=== PATIENT | male | born 1935 | race Caucasian/White ===

== ENCOUNTER 2017-05-31 10:39 | Emergency (ER) | payer MEDICARE, BC ==
--- OUTSIDE RECORDS SUMMARY | 2017-05-31 11:08 | XMS REPORT | Summary of Care ---
:1935 Author Organization [facility] Address [address] [place] [address] [address] [place] [address] Care Team Providers Name Role Phone [place] Primary Care Physician Encounter Date(s): 12/07/16 - 12/07/16 [facility] [address] [place] [address] [address] [place] [address]- Discharge Diagnosis: Upper abdominal pain Discharge Diagnosis: Bloating Discharge Disposition: Discharged to Home or Self Care Attending Physician: Grupo Knott DO Referring Physician: Grupo Knott DO Vital Signs Most recent to oldest [Reference Range]: 1 Peripheral Pulse Rate [60-100 bpm] 82 bpm (12/07/16 4:00 PM) Blood Pressure [90-130/60-90 mmHg] 132/80mmHg *HI* (12/07/16 4:00 PM) Mean Arterial Pressure, Cuff 97 mmHg (12/07/16 4:00 PM) Height/Length Measured 183 cm (12/07/16 4:00 PM) Weight Dosing 159 kg (12/07/16 4:00 PM) Weight Measured 159 kg (12/07/16 4:00 PM) BSA Measured 2.71 m2 (12/07/16 4:00 PM) Body Mass Index Measured 47.48 kg/m2 (12/07/16 4:00 PM) Problem List Condition Effective Dates Status Health Status Informant Altered mental status(Confirmed) 05/01/14 Active Arthritis(Confirmed) Active Atrial fibrillation(Confirmed) Active Balance impairment(Confirmed) Active Benign hypertension(Confirmed) Active BPH(Confirmed) 1993 Active Chronic constipation(Confirmed) Active COPD(Confirmed) Active CVA - Cerebrovascular Active accident(Confirmed) Degenerative arthritis(Confirmed) Active Long-Term Use Meds NEC(Confirmed) Active Edema(Confirmed) Active Gout(Confirmed) Active Hydrocele(Confirmed) Active Hyperlipidemia NEC/NOS(Confirmed) Active Impaired mobility(Confirmed) Active acute infections(Confirmed) Active Mixed hyperlipidemia(Confirmed) Active Diabetic neuropathy(Confirmed) Active Obesity NOS(Confirmed) Active Obstructive sleep apnea(Confirmed) Active pacemaker(Confirmed) Active Diabetes mellitus type II(Confirmed) Active Weakness - general(Confirmed) Active Allergies, Adverse Reactions, Alerts No Known Allergies Medications acetaminophen 500 mg, Oral, q6hr interval, 0 Refill(s) Start Date: 07/03/14 Status: Orderedallopurinol 300 mg oral tablet 1 tab(s), Oral, Daily, 0 Refill(s) Start Date: 07/03/14 Status: OrderedAltace 5 mg oral capsule 1 cap(s), Oral, Daily, 0 Refill(s) Start Date: 04/25/14 Stop Date: 07/03/14 Status: DiscontinuedAmitiza 24 mcg oral capsule 1 cap(s), Oral, HS, # 60 cap(s), 0 Refill(s) Start Date: 07/03/14 Status: Orderedamitriptyline 25 mg, Oral, BID, 0 Refill(s), Start Date: 09/05/14 11:10:00 CDT Start Date: 09/05/14 Status: Orderedamitriptyline 25 mg oral tablet See Instructions, take 1 - 2 Tablet (25MG) by oral route every day, 0 Refill(s) Start Date: 04/25/14 Stop Date: 07/03/14 Status: Discontinuedamitriptyline 50 mg oral tablet 1 tab(s), Oral, HS, # 30 tab(s), 0 Refill(s) Start Date: 07/03/14 Stop Date: 09/05/14 Status: DiscontinuedamLODIPine 5 mg oral tablet 1 tab(s), Oral, Daily, 0 Refill(s) Start Date: 04/25/14 Status: OrderedAugmentin 875 mg-125 mg oral tablet Oral, BID, 0 Refill(s) Start Date: 07/11/14 Stop Date: 07/23/14 Status: DiscontinuedAugmentin 875 mg-125 mg oral tablet 1 tab(s), Oral, q12hr, X 10 days, # 20 tab(s), 0 Refill(s), Start Date: 10:45:00 CDT, Pharmacy: [facility] Start Date: 08/15/14 Stop Date: 09/12/14 Status: CompletedAugmentin 875 mg-125 mg oral tablet 1 tab(s), Oral, q12hr, # 40 tab(s), 1 Refill(s), Start Date: 11/06/14 15:12:37 [employer], Pharmacy: [place] [facility] [id number] Start Date: 11/06/14 Stop Date: 12/18/14 Status: DiscontinuedAugmentin 875 mg-125 mg oral tablet 1 tab(s), Oral, BID, # 20 tab(s), 0 Refill(s), Start Date: 08/29/14 12:01:14 CDT , Pharmacy: [facility] [id number] Start Date: 08/29/14 Stop Date: 09/05/14 Status: CompletedAugmentin 875 mg-125 mg oral tablet 1 tab(s), Oral, q12hr, # 40 tab(s), 1 Refill(s), Start Date: 09/12/14 11:21:10 [employer], Pharmacy: [facility] [id number] Start Date: 09/12/14 Stop Date: 10/24/14 Status: CompletedAugmentin 875 mg-125 mg oral tablet 1 tab(s), Oral, BID, # 20 tab(s), 0 Refill(s), Start Date: 08/01/14 11:00:00 CDT , Pharmacy: [facility] [id number] Start Date: 08/01/14 Stop Date: 08/29/14 Status: CompletedAugmentin 875 mg-125 mg oral tablet 1 tab(s), Oral, q12hr, # 40 tab(s), 1 Refill(s), Start Date: 10/24/14 10:07:35 [employer], Pharmacy: [facility] [id number] Start Date: 10/24/14 Stop Date: 11/06/14 Status: CompletedAugmentin 875 mg-125 mg oral tablet 1 tab(s), Oral, BID, # 20 tab(s), 0 Refill(s), Pharmacy: [facility] Start Date: 07/23/14 Stop Date: 08/01/14 Status: CompletedBactrim 1 tab(s), Oral, BID, 0 Refill(s), Start Date: 04/16/15 7:43:00 CDT Start Date: 04/16/15 Stop Date: 05/27/15 Status: CompletedBactrim DS 800 mg-160 mg oral tablet 1 tab(s), Oral, HS, # 30 tab(s), 0 Refill(s), Start Date: 12/07/16 16:06:00 [employer] Start Date: 12/07/16 Status: OrderedBenefiber Plus Calcium oral powder for reconstitution See Instructions, Benefiber Plus Calcium 3 gram-300 mg/8.8 gram Oral Powder, 0 Refill(s) Start Date: 04/25/14 Status: OrderedBentyl 10 mg oral capsule 1 cap(s), Oral, TID, 30 to 60 minutes before meals, # 90 cap(s), 0 Refill(s), Start Date: 09/13/15 15:47:00 [employer], Pharmacy: [id number] Start Date: 09/13/15 Stop Date: 12/07/16 Status: DiscontinuedBentyl 10 mg oral capsule 1 cap(s), Oral, TID, 30 to 60 minutes before meals, # 90 cap(s), 0 Refill(s), Start Date: 09/13/15 15:41:00 [employer] Start Date: 09/13/15 Stop Date: 12/07/16 Status: DiscontinuedCentrum Silver oral tablet 1 tab(s), Oral, Daily, 0 Refill(s) Start Date: 04/25/14 Status: Orderedciprofloxacin 500 mg oral tablet 1 tab(s), Oral, q12hr, X 14 days, # 28 tab(s), 1 Refill(s), Start Date: 11:58:53 CDT, Pharmacy: [id number] Start Date: 01/14/15 Stop Date: 02/08/15 Status: Completedciprofloxacin 500 mg oral tablet 1 tab(s), Oral, q12hr, X 14 days, # 28 tab(s), 1 Refill(s), Start Date: 11:38:00 [employer], Pharmacy: [id number] Start Date: 12/18/14 Stop Date: 01/14/15 Status: Completedciprofloxacin 500 mg oral tablet 1 tab(s), Oral, q12hr, X 14 days, # 28 tab(s), 1 Refill(s), Start Date: 15:05:18 CDT, Pharmacy: [id number] Start Date: 03/06/15 Stop Date: 04/08/15 Status: Completedciprofloxacin 500 mg oral tablet 1 tab(s), Oral, q12hr, X 14 days, # 28 tab(s), 1 Refill(s), Start Date: 11:22:00 CDT, Pharmacy: [id number] Start Date: 02/08/15 Stop Date: 03/06/15 Status: Completedciprofloxacin 500 mg oral tablet 1 tab(s), Oral, q12hr, # 28 tab(s), 1 Refill(s), Start Date: 04/08/15 14:25:42 CDT, Pharmacy: [id number] Start Date: 04/08/15 Stop Date: 04/15/15 Status: CompletedCortaid See Instructions, 1% topical spray, 0 Refill(s) Start Date: 04/25/14 Status: OrderedDepakene 250 mg oral capsule 1 cap(s), Oral, HS, 0 Refill(s) Start Date: 04/25/14 Stop Date: 07/03/14 Status: DiscontinuedDME - [employer] See Instructions, Diagnosis Code: Length of Need: , # 1 EA, 0 Refill(s), 08/15/14 10:47:00 CDT, other reason (Rx), Supply Start Date: 08/15/14 Status: Ordereddoxazosin 8 mg oral tablet 1 tab(s), Oral, Daily, 0 Refill(s) Start Date: 04/25/14 Status: Ordereddoxycycline hyclate 100 mg oral capsule 1 cap(s), Oral, BID, 0 Refill(s) Start Date: 04/25/14 Stop Date: 07/03/14 Status: DiscontinuedDulcolax Laxative 10 mg rectal suppository 1 supp, [place], Daily, PRN constipation, 0 Refill(s) Start Date: 07/11/14 Stop Date: 09/05/14 Status: DiscontinuedDulcolax Laxative 5 mg oral delayed release tablet 2 tab(s), Oral, Daily, 0 Refill(s) Start Date: 07/11/14 Stop Date: 09/05/14 Status: DiscontinuedEcotrin 325 mg oral delayed release tablet 1 tab(s), Oral, Daily, 0 Refill(s) Start Date: 04/25/14 Status: Orderedergocalciferol 50,000 intl units (1.25 mg) oral capsule Oral, qWeek, 0 Refill(s) Start Date: 07/11/14 Stop Date: 09/05/14 Status: Discontinuedfinasteride 5 mg oral tablet 1 tab(s), Oral, HS, 0 Refill(s) Start Date: 04/25/14 Stop Date: 07/03/14 Status: DiscontinuedFish Oil 1000 mg oral capsule cap(s), 0 Refill(s) Start Date: 04/25/14 Stop Date: 07/03/14 Status: Discontinuedfurosemide 20 mg oral tablet 1 tab(s), Oral, Daily, 0 Refill(s) Start Date: 04/25/14 Stop Date: 07/03/14 Status: Discontinuedfurosemide 40 mg oral tablet 2 tab(s), Oral, Daily, # 30 tab(s), 0 Refill(s) Start Date: 07/03/14 Status: Orderedfurosemide 40 mg oral tablet 1 tab(s), Oral, Daily, 0 Refill(s) Start Date: 04/25/14 Stop Date: 07/03/14 Status: Discontinuedhaloperidol 2 mg oral tablet 1 tab(s), Oral, TID, PRN as needed for agitation, # 30 tab(s), 0 Refill(s), other reason (Rx) Start Date: 07/11/14 Stop Date: 09/05/14 Status: CompletedHumaLOG 100 units/mL subcutaneous solution See Instructions, 20 units in the am, 25 units lunch, 10 units evening, 0 Refill (s) Start Date: 04/25/14 Stop Date: 07/03/14 Status: DiscontinuedHumaLOG 100 units/mL subcutaneous solution See Instructions, inject 30-50 units three times daily with meals, 0 Refill(s) Start Date: 04/25/14 Stop Date: 07/03/14 Status: DiscontinuedHumaLOG Mix 50/50 KwikPen 30 units=, Subcutaneous, TIDAC, Hold for BG<140, 0 Refill(s) Start Date: 07/03/14 Status: Orderedhydrocortisone 0 Refill(s) Start Date: 04/25/14 Stop Date: 07/03/14 Status: DiscontinuedHydrocortisone-Aloe 1% topical cream 1 ad, Topical, q12hr interval, PRN rash, 0 Refill(s) Start Date: 07/03/14 Status: Orderedinsulin syringes (disposable) 1 mL insulin syringes (disposable) 1 mL, 0 Refill(s) Start Date: 04/25/14 Status: OrderedKlor-Con 20 mEq oral powder for reconstitution EA, Oral, Daily, 0 Refill(s) Start Date: 04/25/14 Stop Date: 07/03/14 Status: DiscontinuedLantus 100 units/mL subcutaneous solution See Instructions, inject 30 unit by subcutaneous route 2 x daily, 0 Refill(s) Start Date: 04/25/14 Stop Date: 07/03/14 Status: DiscontinuedLantus 100 units/mL subcutaneous solution 30 units, Subcutaneous, BID, 0 Refill(s) Start Date: 07/03/14 Status: OrderedLantus 100 units/mL subcutaneous solution 25 units, Subcutaneous, BID, # 10 mL, 0 Refill(s) Start Date: 07/03/14 Stop Date: 07/03/14 Status: DiscontinuedLipitor 40 mg oral tablet 1 tab(s), Oral, Daily, 0 Refill(s) Start Date: 04/25/14 Status: Orderedlosartan-hydrochlorothiazide 100 mg-12.5 mg oral tablet 1 tab(s), Oral, Daily, 0 Refill(s) Start Date: 04/25/14 Stop Date: 07/11/14 Status: DiscontinuedMelatonin Oral, HS, 0 Refill(s) Start Date: 07/03/14 Stop Date: 07/03/14 Status: DiscontinuedMelatonin 3 mg oral tablet 1 tab(s), Oral, HS, PRN for insomnia, # 60 tab(s), 0 Refill(s) Start Date: 07/03/14 Stop Date: 09/05/14 Status: DiscontinuedMilk of Magnesia 30 mL, Oral, Daily, PRN constipation, 0 Refill(s) Start Date: 07/11/14 Stop Date: 09/05/14 Status: DiscontinuedMiraLax 17 gm, Oral, Daily, dissolve in water or juice, 0 Refill(s) Start Date: 04/25/14 Status: Orderedmometasone 0.1% topical ointment 1 da, Topical, BID, 0 Refill(s), Start Date: 04/16/15 7:43:00 CDT Start Date: 04/16/15 Status: Orderedmupirocin 2% topical ointment 1 ad, Topical, Daily, 0 Refill(s), Start Date: 04/16/15 7:44:00 CDT Start Date: 04/16/15 Status: OrderedNexIUM 40 mg oral delayed release capsule 1 cap(s), Oral, Daily, # 30 cap(s), 6 Refill(s), Start Date: 09/21/14 13:54:00 [employer], Pharmacy: [facility] Start Date: 09/21/14 Status: OrderedNiferex 150 mg, Oral, BIDMEALS, 0 Refill(s) Start Date: 07/11/14 Stop Date: 09/05/14 Status: Discontinuedomega-3 polyunsaturated fatty acids ethyl esters 1000 mg oral capsule 1 cap(s), Oral, Daily, 0 Refill(s) Start Date: 07/03/14 Status: OrderedOne Touch Ultra Test Strips One Touch Ultra Test Strips, monitor glucose readings 4-5 times daily, 0 Refill( s) Start Date: 04/25/14 Status: OrderedPepcid 20 mg oral tablet 1 tab(s), Oral, Daily, 0 Refill(s) Start Date: 04/25/14 Stop Date: 09/05/14 Status: Discontinuedpotassium chloride 10 mEq oral tablet, extended release 2 tab(s), Oral, Daily, with food, 0 Refill(s) Start Date: 04/25/14 Stop Date: 07/03/14 Status: DiscontinuedSantyl 250 units/g topical ointment See Instructions, clean affected area before application. apply small thin layer to wound every other day starting 08/16/14, # 30 gm, 0 Refill(s), Pharmacy : [id number] Start Date: 08/15/14 Status: OrderedSenna-gen 8.6 mg oral tablet 2 tab(s), Oral, BID, PRN for constipation, 0 Refill(s) Start Date: 04/25/14 Stop Date: 07/03/14 Status: DiscontinuedSenokot S 1 tab(s), Oral, HS, every other night, 0 Refill(s), Start Date: 07/11/14 9:47: 00 CDT Start Date: 07/11/14 Status: OrderedSEROquel 25 mg oral tablet See Instructions, 25mg in the morning and 50mg at bedtime, 0 Refill(s) Start Date: 04/25/14 Stop Date: 07/03/14 Status: DiscontinuedSilvadene 1% topical cream 1 ad, Topical, Daily, # 85 gm, 0 Refill(s), Start Date: 01/14/15 12:00:00 CDT, Pharmacy: [id number] Start Date: 01/14/15 Stop Date: 02/19/15 Status: CompletedSilvadene 1% topical cream 1 ad, Topical, Daily, # 85 gm, 1 Refill(s), Start Date: 02/19/15 11:56:19 CDT, Pharmacy: [id number] Start Date: 02/19/15 Status: OrderedtraZODone 100 mg oral tablet 1 tab(s), Oral, HS, 0 Refill(s) Start Date: 04/25/14 Stop Date: 07/03/14 Status: DiscontinuedTums 500 mg oral tablet, chewable 4 tab(s), Chewed, q4hr, PRN as needed for indigestion, TAKES FOR FEELING BLOATED , 0 Refill(s) Start Date: 07/03/14 Status: OrderedTylenol 325 mg, Oral, take 1 tablet (325MG) by oral route once in am and once in pm, 0 Refill(s) Start Date: 04/25/14 Stop Date: 07/03/14 Status: DiscontinuedTylenol PM 3 tab(s), Oral, HS, 0 Refill(s), Start Date: 09/05/14 11:17:00 CDT Start Date: 09/05/14 Status: OrderedTylenol PM See Instructions, Extra Strength 25 mg-500 mg Tab Take 2 po at hs, 0 Refill(s ) Start Date: 04/25/14 Stop Date: 07/03/14 Status: Discontinuedvalproic acid 250 mg oral capsule 1 cap(s), Oral, HS, 0 Refill(s) Start Date: 04/25/14 Stop Date: 07/03/14 Status: Discontinuedwarfarin 5 mg oral tablet 1 tab(s), Oral, BID, 0 Refill(s) Start Date: 04/25/14 Stop Date: 07/03/14 Status: Discontinued Results No data available for this section Immunizations Given and Recorded Vaccine Date Status Refusal Reason tetanus/diphth/pertuss (Tdap) adult/adol 04/01/10 Recorded influenza virus vaccine, inactivated 08/06/11 Recorded pneumococcal 23-polyvalent vaccine 10/24/03 Recorded Procedures Procedure Date Related Diagnosis Body Site Breath Test Bacteria Lactulose1 09/06/15 Esophagogastroduodenoscopy2 09/10/14 Irrigation And Drainage Ankle3 07/03/14 ORIF Ankle (Right, Ankle R)4 07/03/14 Hallux rigidus, left 03/17/13 Left great toe cheilectomy 2012 Colonoscopy 2010 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
--- OUTSIDE RECORDS SUMMARY | 2017-05-31 11:08 | XMS REPORT | Summary of Care ---
:1935 Author Organization [facility] Address [address] [place] [address] [address] [place] [address] Care Team Providers Name Role Phone Rufus Lake Primary Care Physician Encounter Date(s): 01/08/17 - 01/08/17 [facility] [address] [place] [address] [address] [place] [address]- Discharge Disposition: 01 Discharged to Home or Self Care Attending Physician: Grupo Knott DO Referring Physician: Grupo Knott DO Vital Signs Most recent to oldest [Reference Range]: 1 Weight Dosing 165.7 kg (01/08/17 1:57 PM) Weight Measured 165.7 kg (01/08/17 1:57 PM) Problem List Condition Effective Dates Status [...] by oral route every day, 0 Refill(s) Special Instructions: take 1 - 2 Tablet (25MG) by oral route every day Start Date: 04/25/14 Stop Date: 07/03/14 Status: [...] 0 Refill(s), Start Date: 10:45:00 CDT, Pharmacy: [facility] Start Date: 08/15/14 Stop Date: 09/12/14 Status: CompletedAugmentin 875 mg-125 mg oral tablet 1 tab(s), Oral, q12hr, # 40 tab(s), 1 Refill(s), Start Date: 11/06/14 15:12:37 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, 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: [facility] Start Date: 11/06/14 Stop Date: 12/18/14 Status: DiscontinuedAugmentin 875 mg-125 mg oral tablet 1 tab(s), Oral, BID, # 20 tab(s), 0 Refill(s), Start Date: 08/29/14 12:01:14 CDT , Pharmacy: [facility]97 Start Date: 08/29/14 Stop Date: 09/05/14 Status: CompletedAugmentin 875 mg-125 mg oral tablet 1 tab(s), Oral, q12hr, # 40 tab(s), 1 Refill(s), Start Date: 09/12/14 11:21:10 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, 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: [place] [address] Start Date: 09/12/14 Stop Date: 10/24/14 Status: CompletedAugmentin 875 mg-125 mg oral tablet 1 tab(s), Oral, BID, # 20 tab(s), 0 Refill(s), Start Date: 08/01/14 11:00:00 CDT , Pharmacy: [place] [address] Start Date: 08/01/14 Stop Date: 08/29/14 Status: CompletedAugmentin 875 mg-125 mg oral tablet 1 tab(s), Oral, q12hr, # 40 tab(s), 1 Refill(s), Start Date: 10/24/14 10:07:35 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, 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: [place] [address] Start Date: 10/24/14 Stop Date: 11/06/14 Status: CompletedAugmentin 875 mg-125 mg oral tablet 1 tab(s), Oral, BID, # 20 tab(s), 0 Refill(s), Pharmacy: [facility] Start Date: 07/23/14 Stop Date: 08/01/14 Status: CompletedBactrim 1 tab(s), Oral, BID, 0 Refill(s), Start Date: 04/16/15 7:43:00 CDT Start Date: 04/16/15 Stop Date: 05/27/15 Status: CompletedBactrim DS 800 mg-160 mg oral tablet 1 tab(s), Oral, HS, # 30 tab(s), 0 Refill(s), Start Date: 12/07/16 16:06:00 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 Start Date: 12/07/16 Status: OrderedBenefiber Plus Calcium oral powder for reconstitution See Instructions, Benefiber Plus Calcium 3 gram-300 mg/8.8 gram Oral Powder, 0 Refill(s) Special Instructions: Benefiber Plus Calcium 3 gram-300 mg/8.8 gram Oral Powder Start Date: 04/25/14 Status: OrderedBentyl 10 mg oral capsule 1 cap(s), Oral, TID, 30 to 60 minutes before meals, # 90 cap(s), 0 Refill(s), Start Date: 09/13/15 15:47:00 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, Pharmacy: [place] [address] Special Instructions: 30 to 60 minutes before meals Start Date: 09/13/15 Stop Date: 12/07/16 Status: DiscontinuedBentyl 10 mg oral capsule 1 cap(s), Oral, TID, 30 to 60 minutes before meals, # 90 cap(s), 0 Refill(s), Start Date: 09/13/15 15:41:00 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 Special Instructions: 30 to 60 minutes before meals Start Date: 09/13/15 Stop Date: 12/07/16 Status: DiscontinuedCentrum Silver oral tablet 1 tab(s), Oral, Daily, 0 Refill(s) Start Date: 04/25/14 Status: Orderedciprofloxacin 500 mg oral tablet 1 tab(s), Oral, q12hr, X 14 days, # 28 tab(s), 1 Refill(s), Start Date: 11:58:53 CDT, Pharmacy: [facility] Start Date: 01/14/15 Stop Date: 02/08/15 Status: Completedciprofloxacin 500 mg oral tablet 1 tab(s), Oral, q12hr, X 14 days, # 28 tab(s), 1 Refill(s), Start Date: 11:38:00 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, 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: [facility] Start Date: 12/18/14 Stop Date: 01/14/15 Status: Completedciprofloxacin 500 mg oral tablet 1 tab(s), Oral, q12hr, X 14 days, # 28 tab(s), 1 Refill(s), Start Date: 15:05:18 CDT, Pharmacy: [facility] Start Date: 03/06/15 Stop Date: 04/08/15 Status: Completedciprofloxacin 500 mg oral tablet 1 tab(s), Oral, q12hr, X 14 days, # 28 tab(s), 1 Refill(s), Start Date: 11:22:00 CDT, Pharmacy: [facility] Start Date: 02/08/15 Stop Date: 03/06/15 Status: Completedciprofloxacin 500 mg oral tablet 1 tab(s), Oral, q12hr, # 28 tab(s), 1 Refill(s), Start Date: 04/08/15 14:25:42 CDT, Pharmacy: [facility] Start Date: 04/08/15 Stop Date: 04/15/15 Status: CompletedCortaid See Instructions, 1% topical spray, 0 Refill(s) Special Instructions: 1% topical spray Start Date: 04/25/14 Status: OrderedDepakene 250 mg oral capsule 1 cap(s), Oral, HS, 0 Refill(s) Start Date: 04/25/14 Stop Date: 07/03/14 Status: DiscontinuedDME - [employer] See Instructions, Diagnosis Code: Length of Need: , # 1 EA, 0 Refill(s), 08/15/14 10:47:00 CDT, other reason (Rx), Supply Special Instructions: Diagnosis Code: Length of Need: Start Date: 08/15/14 Status: Ordereddoxazosin 8 mg oral tablet 1 tab(s), Oral, Daily, 0 Refill(s) Start Date: 04/25/14 Status: Ordereddoxycycline hyclate 100 mg oral capsule 1 cap(s), Oral, BID, 0 Refill(s) Start Date: 04/25/14 Stop Date: 07/03/14 Status: DiscontinuedDulcolax Laxative 10 mg rectal suppository 1 supp, DC, Daily, PRN constipation, 0 Refill(s) Start Date: [...] lunch, 10 units evening, 0 Refill (s) Special Instructions: 20 units in the am, 25 units lunch, 10 units evening Start Date: 04/25/14 Stop Date: 07/03/14 Status: DiscontinuedHumaLOG 100 units/mL subcutaneous solution See Instructions, inject 30-50 units three times daily with meals, 0 Refill(s) Special Instructions: inject 30-50 units three times daily with meals Start Date: 04/25/14 Stop Date: 07/03/14 Status: DiscontinuedHumaLOG Mix 50/50 KwikPen 30 units=, Subcutaneous, TIDAC, Hold for BG<140, 0 Refill(s) Special Instructions: Hold for BG<140 Start Date: 07/03/14 Status: Orderedhydrocortisone 0 Refill(s) [...] subcutaneous route 2 x daily, 0 Refill(s) Special Instructions: inject 30 unit by subcutaneous route 2 x daily Start Date: 04/25/14 Stop Date: 07/03/14 Status: [...] dissolve in water or juice, 0 Refill(s) Special Instructions: dissolve in water or juice Start Date: 04/25/14 Status: Orderedmometasone 0.1% topical ointment 1 ad, Topical, BID, 0 Refill(s), Start Date: 04/16/15 7:43:00 CDT Start Date: 04/16/15 Status: Orderedmupirocin 2% topical ointment 1 ad, Topical, Daily, 0 Refill(s), Start Date: 04/16/15 7:44:00 CDT Start Date: 04/16/15 Status: OrderedNexIUM 40 mg oral delayed release capsule 1 cap(s), Oral, Daily, # 30 cap(s), 6 Refill(s), Start Date: 09/21/14 13:54:00 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, Pharmacy: [facility] Start Date: 09/21/14 Status: OrderedNiferex 150 mg, Oral, BIDMEALS, 0 Refill(s) Start Date: 07/11/14 Stop Date: 09/05/14 Status: Discontinuedomega-3 polyunsaturated fatty acids ethyl esters 1000 mg oral capsule 1 cap(s), Oral, Daily, 0 Refill(s) Start Date: 07/03/14 Status: OrderedOne Touch Ultra Test Strips One Touch Ultra Test Strips, monitor glucose readings 4-5 times daily, 0 Refill( s) Special Instructions: monitor glucose readings 4-5 times daily Start Date: 04/25/14 Status: OrderedPepcid 20 mg oral tablet 1 tab(s), Oral, Daily, 0 Refill(s) Start Date: 04/25/14 Stop Date: 09/05/14 Status: Discontinuedpotassium chloride 10 mEq oral tablet, extended release 2 tab(s), Oral, Daily, with food, 0 Refill(s) Special Instructions: with food Start Date: 04/25/14 Stop Date: 07/03/14 Status: DiscontinuedSantyl 250 units/g topical ointment See Instructions, clean affected area before application. apply small thin layer to wound every other day starting 08/16/14, # 30 gm, 0 Refill(s), Pharmacy : [facility] Special Instructions: clean affected area before application. apply small thin layer to wound every other day starting 08/16/14 Start Date: 08/15/14 Status: OrderedSenna-gen 8.6 mg oral tablet 2 tab(s), Oral, BID, PRN for constipation, 0 Refill(s) Start Date: 04/25/14 Stop Date: 07/03/14 Status: DiscontinuedSenokot S 1 tab(s), Oral, HS, every other night, 0 Refill(s), Start Date: 07/11/14 9:47: 00 CDT Special Instructions: every other night Start Date: 07/11/14 Status: OrderedSEROquel 25 mg oral tablet See Instructions, 25mg in the morning and 50mg at bedtime, 0 Refill(s) Special Instructions: 25mg in the morning and 50mg at bedtime Start Date: 04/25/14 Stop Date: 07/03/14 Status: DiscontinuedSilvadene 1% topical cream 1 ad, Topical, Daily, # 85 gm, 0 Refill(s), Start Date: 01/14/15 12:00:00 CDT, Pharmacy: [facility] Start Date: 01/14/15 Stop Date: 02/19/15 Status: CompletedSilvadene 1% topical cream 1 ad, Topical, Daily, # 85 gm, 1 Refill(s), Start Date: 02/19/15 11:56:19 CDT, Pharmacy: [facility] Start Date: 02/19/15 Status: OrderedtraZODone 100 mg oral tablet 1 tab(s), Oral, HS, 0 Refill(s) Start Date: 04/25/14 Stop Date: 07/03/14 Status: DiscontinuedTums 500 mg oral tablet, chewable 4 tab(s), Chewed, q4hr, PRN as needed for indigestion, TAKES FOR FEELING BLOATED , 0 Refill(s) Special Instructions: TAKES FOR FEELING BLOATED Start Date: 07/03/14 Status: OrderedTylenol 325 mg, Oral, take 1 tablet (325MG) by oral route once in am and once in pm, 0 Refill(s) Special Instructions: take 1 tablet (325MG) by oral route once in am and once in pm Start Date: 04/25/14 Stop Date: 07/03/14 Status: DiscontinuedTylenol PM 3 tab(s), Oral, HS, 0 Refill(s), Start Date: 09/05/14 11:17:00 CDT Start Date: 09/05/14 Status: OrderedTylenol PM See Instructions, Extra Strength 25 mg-500 mg Tab Take 2 po at hs, 0 Refill(s ) Special Instructions: Extra Strength 25 mg-500 mg Tab Take 2 po at hs Start Date: 04/25/14 Stop Date: 07/03/14 Status: Discontinuedvalproic acid 250 mg oral capsule 1 cap(s), Oral, HS, 0 Refill(s) Start Date: 04/25/14 Stop Date: 07/03/14 Status: Discontinuedwarfarin 5 mg oral tablet 1 tab(s), Oral, BID, 0 Refill(s) Start Date: 04/25/14 Stop Date: 07/03/14 Status: Discontinued Results No data available for this section Immunizations Vaccine Date Refusal Reason tetanus/diphth/pertuss (Tdap) adult/adol 04/01/10 influenza virus vaccine, inactivated 08/06/11 pneumococcal 23-polyvalent vaccine 10/24/03 Procedures Procedure Date Related Diagnosis Body Site Breath Test Bacteria Lactulose1 09/06/15 Esophagogastroduodenoscopy2 09/10/14 Irrigation And Drainage Ankle3 07/03/14 ORIF Ankle (Right, Ankle R)4 07/03/14 Hallux rigidus, left 03/17/13 Left great toe cheilectomy 2012 Colonoscopy 2011 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
--- OUTSIDE RECORDS SUMMARY | 2017-05-31 11:09 | XMS REPORT | Summary of Care ---
:1935 Author Organization [facility] Address [address] [place] [id number]- Care Team Providers Name Role Phone Rufus Lake Primary Care Physician Encounter Date(s): 12/11/16 - 12/11/[address] [address]- [facility] Discharge Disposition: 01 Discharged to Home or Self Care Attending Physician: Grupo Knott DO Admitting Physician: Grupo Knott DO Vital Signs No data available for this section Problem List Condition Effective Dates Status Health [...] 0 Refill(s), Start Date: 10:45:00 CDT, Pharmacy: [facility] Start Date: 08/15/14 Stop Date: 09/12/14 Status: CompletedAugmentin 875 mg-125 mg oral tablet 1 tab(s), Oral, q12hr, # 40 tab(s), 1 Refill(s), Start Date: 11/06/14 15:12:37 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, Pharmacy: [facility] Start Date: 11/06/14 Stop Date: 12/18/14 Status: DiscontinuedAugmentin 875 mg-125 mg oral tablet 1 tab(s), Oral, BID, # 20 tab(s), 0 Refill(s), Start Date: 08/29/14 12:01:14 CDT , Pharmacy: [facility] Start Date: 08/29/14 Stop Date: 09/05/14 Status: CompletedAugmentin 875 mg-125 mg oral tablet 1 tab(s), Oral, q12hr, # 40 tab(s), 1 Refill(s), Start Date: 09/12/14 11:21:10 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, Pharmacy: [place] [address] Start Date: 09/12/14 Stop Date: 10/24/14 Status: CompletedAugmentin 875 mg-125 mg oral tablet 1 tab(s), Oral, BID, # 20 tab(s), 0 Refill(s), Start Date: 08/01/14 11:00:00 CDT , Pharmacy: [place] [id number] Start Date: 08/01/14 Stop Date: 08/29/14 Status: CompletedAugmentin 875 mg-125 mg oral tablet 1 tab(s), Oral, q12hr, # 40 tab(s), 1 Refill(s), Start Date: 10/24/14 10:07:35 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, Pharmacy: [place] [id number] Start Date: 10/24/14 Stop Date: 11/06/14 Status: CompletedAugmentin 875 mg-125 mg oral tablet 1 tab(s), Oral, BID, # 20 tab(s), 0 Refill(s), Pharmacy: [facility] Start Date: 07/23/14 Stop Date: 08/01/14 Status: CompletedBactrim 1 tab(s), Oral, BID, 0 Refill(s), Start Date: 04/16/15 7:43:00 CDT Start Date: 04/16/15 Stop Date: 05/27/15 Status: CompletedBactrim DS 800 mg-160 mg oral tablet 1 tab(s), Oral, HS, # 30 tab(s), 0 Refill(s), Start Date: 12/07/16 16:06:00 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 Start Date: 12/07/16 Status: OrderedBenefiber Plus Calcium oral powder for reconstitution See Instructions, Benefiber Plus Calcium 3 gram-300 mg/8.8 gram Oral Powder, 0 Refill(s) Special Instructions: Benefiber Plus Calcium 3 gram-300 mg/8.8 gram Oral Powder Start Date: 04/25/14 Status: OrderedBentyl 10 mg oral capsule 1 cap(s), Oral, TID, 30 to 60 minutes before meals, # 90 cap(s), 0 Refill(s), Start Date: 09/13/15 15:47:00 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, Pharmacy: [facility] Special Instructions: 30 to 60 minutes before meals Start Date: 09/13/15 Stop Date: 12/07/16 Status: DiscontinuedBentyl 10 mg oral capsule 1 cap(s), Oral, TID, 30 to 60 minutes before meals, # 90 cap(s), 0 Refill(s), Start Date: 09/13/15 15:41:00 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 Special Instructions: 30 to 60 minutes before meals Start Date: 09/13/15 Stop Date: 12/07/16 Status: DiscontinuedCentrum Silver oral tablet 1 tab(s), Oral, Daily, 0 Refill(s) Start Date: 04/25/14 Status: Orderedciprofloxacin 500 mg oral tablet 1 tab(s), Oral, q12hr, X 14 days, # 28 tab(s), 1 Refill(s), Start Date: 11:58:53 CDT, Pharmacy: [facility] Start Date: 01/14/15 Stop Date: 02/08/15 Status: Completedciprofloxacin 500 mg oral tablet 1 tab(s), Oral, q12hr, X 14 days, # 28 tab(s), 1 Refill(s), Start Date: 11:38:00 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, Pharmacy: [facility] Start Date: 12/18/14 Stop Date: 01/14/15 Status: Completedciprofloxacin 500 mg oral tablet 1 tab(s), Oral, q12hr, X 14 days, # 28 tab(s), 1 Refill(s), Start Date: 15:05:18 CDT, Pharmacy: [facility] Start Date: 03/06/15 Stop Date: 04/08/15 Status: Completedciprofloxacin 500 mg oral tablet 1 tab(s), Oral, q12hr, X 14 days, # 28 tab(s), 1 Refill(s), Start Date: 11:22:00 CDT, Pharmacy: [facility] Start Date: 02/08/15 Stop Date: 03/06/15 Status: Completedciprofloxacin 500 mg oral tablet 1 tab(s), Oral, q12hr, # 28 tab(s), 1 Refill(s), Start Date: 04/08/15 14:25:42 CDT, Pharmacy: [facility] Start Date: 04/08/15 Stop Date: [...] Laxative 10 mg rectal suppository 1 supp, MS, Daily, PRN constipation, 0 Refill(s) Start Date: [...] cap(s), 6 Refill(s), Start Date: 09/21/14 13:54:00 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, Pharmacy: [facility] Start Date: 09/21/14 Status: OrderedNiferex 150 mg, [...] # 30 gm, 0 Refill(s), Pharmacy : [facility] Special Instructions: clean affected area [...] Refill(s), Start Date: 01/14/15 12:00:00 CDT, Pharmacy: [facility] Start Date: 01/14/15 Stop Date: 02/19/15 Status: CompletedSilvadene 1% topical cream 1 ad, Topical, Daily, # 85 gm, 1 Refill(s), Start Date: 02/19/15 11:56:19 CDT, Pharmacy: [facility] Start Date: 02/19/15 Status: OrderedtraZODone [...] 2012 Colonoscopy 2011 Accidental amputation of 3 fingers-marlyn 195 (right)5 Appendectomy Cardiac pacemaker implant Cataract extraction6 Removal of testicle 1auto-populated from documented surgical [id number] from documented surgical [id number] from documented surgical [id number] from documented surgical case53 fingers left [id number] Social History No data available for this section Assessment and Plan No data available for this section
--- OUTSIDE RECORDS SUMMARY | 2017-05-31 11:09 | XMS REPORT | Summary of Care ---
:1935 Author Organization [facility] Address [address] [place] [address] [address] [place] [address] Care Team Providers Name Role Phone Rufus Lake Primary Care Physician Encounter Date(s): 02/02/17 - 02/02/17 [facility] [address] [place] [address] [address] [place] [address]- Discharge Diagnosis: Bloating Discharge Disposition: Discharged to Home or Self Care Attending Physician: Grupo Knott DO Referring Physician: Grupo Knott DO Vital Signs Most recent to oldest [Reference Range]: 1 Peripheral Pulse Rate [60-100 bpm] 86 bpm (02/02/17 2:18 PM) Blood Pressure [90-130/60-90 mmHg] 116/64mmHg (02/02/17 2:18 PM) Mean Arterial Pressure, Cuff 81 mmHg (02/02/17 2:18 PM) Most recent to oldest [Reference Range]: 1 Height/Length Measured 183 cm (02/02/17 2:18 PM) Height/Length Estimated 183 cm (02/02/17 2:18 PM) Weight Estimated 175.0 kg (02/02/17 2:18 PM) Weight Dosing 175.0 kg (02/02/17 2:18 PM) Weight Measured 175.0 kg (02/02/17 2:18 PM) BSA Measured 2.82 m2 (02/02/17 2:18 PM) BSA Estimated 2.98 m2 (02/02/17 2:18 PM) Body Mass Index Measured 52.26 kg/m2 (02/02/17 2:18 PM) Body Mass Index Estimated 52.26 kg/m2 (02/02/17 2:18 PM) Problem List Condition Effective Dates Status [...] q6hr interval, 0 Refill(s) Start Date: 07/03/14 Stop Date: 02/02/17 Status: Completedallopurinol 300 mg oral tablet 1 tab(s), Oral, [...] Date: 09/05/14 11:10:00 CDT Start Date: 09/05/14 Stop Date: 02/02/17 Status: Completedamitriptyline 25 mg oral tablet 1 tab(s), Oral, TID, # 90 tab(s), 0 Refill(s), Start Date: 02/02/17 14:24:00 CDT Start Date: 02/02/17 Status: Orderedamitriptyline 25 mg oral tablet See [...] 0 Refill(s), Start Date: 10:45:00 CDT, Pharmacy: [facility] [id number] Start Date: 08/15/14 Stop Date: 09/12/14 Status: CompletedAugmentin 875 mg-125 mg oral tablet 1 tab(s), Oral, q12hr, # 40 tab(s), 1 Refill(s), Start Date: 11/06/14 15:12:37 MEDIA SERVICES DIRECTOR, Pharmacy: [facility] [id number] Start Date: 11/06/14 Stop Date: 12/18/14 Status: DiscontinuedAugmentin 875 mg-125 mg oral tablet 1 tab(s), Oral, BID, # 20 tab(s), 0 Refill(s), Start Date: 08/29/14 12:01:14 CDT , Pharmacy: [facility] Start Date: 08/29/14 Stop Date: 09/05/14 Status: CompletedAugmentin 875 mg-125 mg oral tablet 1 tab(s), Oral, q12hr, # 40 tab(s), 1 Refill(s), Start Date: 09/12/14 11:21:10 MEDIA SERVICES DIRECTOR, Pharmacy: [facility] Start Date: 09/12/14 Stop Date: 10/24/14 Status: CompletedAugmentin 875 mg-125 mg oral tablet 1 tab(s), Oral, BID, # 20 tab(s), 0 Refill(s), Start Date: 08/01/14 11:00:00 CDT , Pharmacy: [facility] Start Date: 08/01/14 Stop Date: 08/29/14 Status: CompletedAugmentin 875 mg-125 mg oral tablet 1 tab(s), Oral, q12hr, # 40 tab(s), 1 Refill(s), Start Date: 10/24/14 10:07:35 MEDIA SERVICES DIRECTOR, Pharmacy: [facility] 797 Start Date: 10/24/14 Stop Date: 11/06/14 Status: CompletedAugmentin 875 mg-125 mg oral tablet 1 tab(s), Oral, BID, # 20 tab(s), 0 Refill(s), Pharmacy: [facility] Start Date: 07/23/14 Stop Date: 08/01/14 Status: CompletedBactrim 1 tab(s), Oral, BID, 0 Refill(s), Start Date: 04/16/15 7:43:00 CDT Start Date: 04/16/15 Stop Date: 05/27/15 Status: CompletedBactrim DS 800 mg-160 mg oral tablet 1 tab(s), Oral, HS, # 30 tab(s), 0 Refill(s), Start Date: 12/07/16 16:06:00 MEDIA SERVICES DIRECTOR Start Date: 12/07/16 Status: OrderedBenefiber Plus Calcium oral powder for reconstitution See Instructions, Benefiber Plus Calcium 3 gram-300 mg/8.8 gram Oral Powder, 0 Refill(s) Special Instructions: Benefiber Plus Calcium 3 gram-300 mg/8.8 gram Oral Powder Start Date: 04/25/14 Status: OrderedBentyl 10 mg oral capsule 1 cap(s), Oral, TID, 30 to 60 minutes before meals, # 90 cap(s), 0 Refill(s), Start Date: 09/13/15 15:47:00 MEDIA SERVICES DIRECTOR, Pharmacy: [facility] Special Instructions: 30 to 60 minutes before meals Start Date: 09/13/15 Stop Date: 12/07/16 Status: DiscontinuedBentyl 10 mg oral capsule 1 cap(s), Oral, TID, 30 to 60 minutes before meals, # 90 cap(s), 0 Refill(s), Start Date: 09/13/15 15:41:00 MEDIA SERVICES DIRECTOR Special Instructions: 30 to 60 minutes before meals Start Date: 09/13/15 Stop Date: 12/07/16 Status: DiscontinuedCentrum Silver oral tablet 1 tab(s), Oral, Daily, 0 Refill(s) Start Date: 04/25/14 Status: Orderedciprofloxacin 500 mg oral tablet 1 tab(s), Oral, q12hr, X 14 days, # 28 tab(s), 1 Refill(s), Start Date: 11:58:53 CDT, Pharmacy: [facility] [id number] Start Date: 01/14/15 Stop Date: 02/08/15 Status: Completedciprofloxacin 500 mg oral tablet 1 tab(s), Oral, q12hr, X 14 days, # 28 tab(s), 1 Refill(s), Start Date: 11:38:00 MEDIA SERVICES DIRECTOR, Pharmacy: [facility] [id number] Start Date: 12/18/14 Stop Date: 01/14/15 Status: Completedciprofloxacin 500 mg oral tablet 1 tab(s), Oral, q12hr, X 14 days, # 28 tab(s), 1 Refill(s), Start Date: 15:05:18 CDT, Pharmacy: [facility] [id number] Start Date: 03/06/15 Stop Date: 04/08/15 Status: Completedciprofloxacin 500 mg oral tablet 1 tab(s), Oral, q12hr, X 14 days, # 28 tab(s), 1 Refill(s), Start Date: 11:22:00 CDT, Pharmacy: [facility] Start Date: 02/08/15 Stop Date: 03/06/15 Status: Completedciprofloxacin 500 mg oral tablet 1 tab(s), Oral, q12hr, # 28 tab(s), 1 Refill(s), Start Date: 04/08/15 14:25:42 CDT, Pharmacy: [facility] [id number] Start Date: 04/08/15 Stop Date: 04/15/15 Status: [...] Laxative 10 mg rectal suppository 1 supp, [place], Daily, PRN constipation, 0 Refill(s) Start Date: [...] cap(s), 6 Refill(s), Start Date: 09/21/14 13:54:00 [facility], Pharmacy: [facility] Start Date: 09/21/14 Status: OrderedNiferex [...] # 30 gm, 0 Refill(s), Pharmacy : [facility] Special Instructions: clean affected area [...] Refill(s), Start Date: 01/14/15 12:00:00 CDT, Pharmacy: [facility] Start Date: 01/14/15 Stop Date: 02/19/15 Status: CompletedSilvadene 1% topical cream 1 ad, Topical, Daily, # 85 gm, 1 Refill(s), Start Date: 02/19/15 11:56:19 CDT, Pharmacy: [facility] Start Date: 02/19/15 Status: OrderedtraZODone 100 mg oral tablet 1 tab(s), Oral, HS, 0 Refill(s) Start Date: 04/25/14 Stop Date: 07/03/14 Status: DiscontinuedTums 500 mg oral tablet, chewable 4 tab(s), Chewed, q4hr, PRN as needed for indigestion, TAKES FOR FEELING BLOATED , 0 Refill(s) Special Instructions: TAKES FOR FEELING BLOATED Start Date: 07/03/14 Status: OrderedTylenol 2 tab(s), Oral, q6hr interval, 600 mg, 0 Refill(s), Start Date: 02/02/17 14:22: 00 CDT Special Instructions: 600 mg Start Date: 02/02/17 Stop Date: 03/04/17 Status: OrderedTylenol 325 mg, Oral, take 1 [...] Colonoscopy 2010 Accidental amputation of 3 fingers-marlyn 195 (right)5 Appendectomy Cardiac pacemaker implant Cataract extraction6 Removal of testicle 1auto-populated from documented surgical [id number] from documented surgical [id number] from documented surgical [id number] from documented surgical case53 fingers left [id number] Social History No data available for this section Assessment and Plan No data available for this section
--- OUTSIDE RECORDS SUMMARY | 2017-05-31 11:09 | XMS REPORT | Summary of Care ---
:1935 Author Organization [facility] Address [address] [place] [address] [address] [place] [address] Care Team Providers Name Role Phone Rufus Lake Primary Care Physician Encounter Date(s): 12/18/16 - 12/18/16 [facility] [address] [place] [address] [address] [place] [address]- Discharge Disposition: 01 Discharged to Home or Self Care Attending Physician: PAULINA Augustine Referring Physician: Grupo Knott DO Vital Signs Most recent to oldest [Reference Range]: 1 Peripheral Pulse Rate [60-100 bpm] 91 bpm (12/18/16 11:10 AM) Blood Pressure [90-130/60-90 mmHg] 112/65mmHg (12/18/16 11:10 AM) Mean Arterial Pressure, Cuff 81 mmHg (12/18/16 11:10 AM) Most recent to oldest [Reference Range]: 1 Height/Length Measured 183 cm (12/18/16 11:10 AM) Height/Length Estimated 183 cm (12/18/16 11:10 AM) Weight Estimated 165.7 kg (12/18/16 11:10 AM) Weight Dosing 165.7 kg (12/18/16 11:10 AM) Weight Measured 165.7 kg (12/18/16 11:10 AM) BSA Measured 2.75 m2 (12/18/16 11:10 AM) BSA Estimated 2.9 m2 (12/18/16 11:10 AM) Body Mass Index Measured 49.48 kg/m2 (12/18/16 11:10 AM) Body Mass Index Estimated 49.48 kg/m2 (12/18/16 11:10 AM) Problem List Condition Effective Dates Status Health Status Informant Altered mental status(Confirmed) 05/01/14 Active Arthritis(Confirmed) Active Atrial fibrillation(Confirmed) Active Balance impairment(Confirmed) Active Benign hypertension(Confirmed) Active BPH(Confirmed) 1994 Active Chronic constipation(Confirmed) Active COPD(Confirmed) Active CVA [...] 0 Refill(s), Start Date: 10:45:00 CDT, Pharmacy: [facility] [id number] Start Date: 08/15/14 Stop Date: 09/12/14 Status: CompletedAugmentin 875 mg-125 mg oral tablet 1 tab(s), Oral, q12hr, # 40 tab(s), 1 Refill(s), Start Date: 11/06/14 15:12:37 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, Pharmacy: [facility] [id number] Start Date: 11/06/14 Stop Date: 12/18/14 Status: DiscontinuedAugmentin 875 mg-125 mg oral tablet 1 tab(s), Oral, BID, # 20 tab(s), 0 Refill(s), Start Date: 08/29/14 12:01:14 CDT , Pharmacy: [facility] [id number] Start Date: 08/29/14 Stop Date: 09/05/14 Status: CompletedAugmentin 875 mg-125 mg oral tablet 1 tab(s), Oral, q12hr, # 40 tab(s), 1 Refill(s), Start Date: 09/12/14 11:21:10 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, Pharmacy: [facility] [id number] Start Date: 09/12/14 Stop Date: 10/24/14 Status: CompletedAugmentin 875 mg-125 mg oral tablet 1 tab(s), Oral, BID, # 20 tab(s), 0 Refill(s), Start Date: 08/01/14 11:00:00 CDT , Pharmacy: [facility] [id number] Start Date: 08/01/14 Stop Date: 08/29/14 Status: CompletedAugmentin 875 mg-125 mg oral tablet 1 tab(s), Oral, q12hr, # 40 tab(s), 1 Refill(s), Start Date: 10/24/14 10:07:35 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, Pharmacy: [facility] Start Date: 10/24/14 Stop Date: 11/06/14 Status: CompletedAugmentin 875 mg-125 mg oral tablet 1 tab(s), Oral, BID, # 20 tab(s), 0 Refill(s), Pharmacy: [facility] Start Date: 07/23/14 Stop Date: 08/01/14 Status: CompletedBactrim 1 tab(s), Oral, BID, 0 Refill(s), Start Date: 04/16/15 7:43:00 CDT Start Date: 04/16/15 Stop Date: 05/27/15 Status: CompletedBactrim DS 800 mg-160 mg oral tablet 1 tab(s), Oral, HS, # 30 tab(s), 0 Refill(s), Start Date: 12/07/16 16:06:00 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 Start Date: 12/07/16 Status: OrderedBenefiber Plus Calcium oral powder for reconstitution See Instructions, Benefiber Plus Calcium 3 gram-300 mg/8.8 gram Oral Powder, 0 Refill(s) Special Instructions: Benefiber Plus Calcium 3 gram-300 mg/8.8 gram Oral Powder Start Date: 04/25/14 Status: OrderedBentyl 10 mg oral capsule 1 cap(s), Oral, TID, 30 to 60 minutes before meals, # 90 cap(s), 0 Refill(s), Start Date: 09/13/15 15:47:00 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, Pharmacy: [facility] Special Instructions: 30 to 60 minutes before meals Start Date: 09/13/15 Stop Date: 12/07/16 Status: DiscontinuedBentyl 10 mg oral capsule 1 cap(s), Oral, TID, 30 to 60 minutes before meals, # 90 cap(s), 0 Refill(s), Start Date: 09/13/15 15:41:00 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 Special Instructions: 30 to 60 minutes before meals Start Date: 09/13/15 Stop Date: 12/07/16 Status: DiscontinuedCentrum Silver oral tablet 1 tab(s), Oral, Daily, 0 Refill(s) Start Date: 04/25/14 Status: Orderedciprofloxacin 500 mg oral tablet 1 tab(s), Oral, q12hr, X 14 days, # 28 tab(s), 1 Refill(s), Start Date: 11:58:53 CDT, Pharmacy: [facility] [id number] Start Date: 01/14/15 Stop Date: 02/08/15 Status: Completedciprofloxacin 500 mg oral tablet 1 tab(s), Oral, q12hr, X 14 days, # 28 tab(s), 1 Refill(s), Start Date: 11:38:00 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, Pharmacy: [facility] [id number] Start Date: 12/18/14 Stop Date: 01/14/15 Status: Completedciprofloxacin 500 mg oral tablet 1 tab(s), Oral, q12hr, X 14 days, # 28 tab(s), 1 Refill(s), Start Date: 15:05:18 CDT, Pharmacy: [facility] [id number] Start Date: 03/06/15 Stop Date: 04/08/15 Status: Completedciprofloxacin 500 mg oral tablet 1 tab(s), Oral, q12hr, X 14 days, # 28 tab(s), 1 Refill(s), Start Date: 11:22:00 CDT, Pharmacy: [facility] [id number] Start Date: 02/08/15 Stop Date: 03/06/15 Status: Completedciprofloxacin 500 mg oral tablet 1 tab(s), Oral, q12hr, # 28 tab(s), 1 Refill(s), Start Date: 04/08/15 14:25:42 CDT, Pharmacy: [facility] [id number] Start Date: 04/08/15 Stop Date: 04/15/15 Status: [...] Laxative 10 mg rectal suppository 1 supp, [place], Daily, PRN constipation, 0 Refill(s) Start Date: [...] cap(s), 6 Refill(s), Start Date: 09/21/14 13:54:00 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, Pharmacy: [facility] Start Date: 09/21/14 Status: OrderedNiferex [...] # 30 gm, 0 Refill(s), Pharmacy : [facility] Special Instructions: clean affected area [...] Refill(s), Start Date: 01/14/15 12:00:00 CDT, Pharmacy: [facility] Start Date: 01/14/15 Stop Date: 02/19/15 Status: CompletedSilvadene 1% topical cream 1 ad, Topical, Daily, # 85 gm, 1 Refill(s), Start Date: 02/19/15 11:56:19 CDT, Pharmacy: [facility] Start Date: 02/19/15 Status: OrderedtraZODone [...] Colonoscopy 2010 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
--- OUTSIDE RECORDS SUMMARY | 2017-05-31 11:09 | XMS REPORT | Summary of Care ---
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, Pharmacy: [facility] Start Date: 11/06/14 Stop Date: 12/18/14 Status: DiscontinuedAugmentin 875 mg-125 mg oral tablet 1 tab(s), Oral, BID, # 20 tab(s), 0 Refill(s), Start Date: 08/29/14 12:01:14 CDT , Pharmacy: [facility] 79 Start Date: 08/29/14 Stop Date: 09/05/14 Status: CompletedAugmentin 875 mg-125 mg oral tablet 1 tab(s), Oral, q12hr, # 40 tab(s), 1 Refill(s), Start Date: 09/12/14 11:21:10 MARKETING WRITER, Pharmacy: [facility] [place] [id number] Start Date: 09/12/14 Stop Date: 10/24/14 Status: CompletedAugmentin 875 mg-125 mg oral tablet 1 tab(s), Oral, BID, # 20 tab(s), 0 Refill(s), Start Date: 08/01/14 11:00:00 CDT , Pharmacy: [facility] [place] [id number] Start Date: 08/01/14 Stop Date: 08/29/14 Status: CompletedAugmentin 875 mg-125 mg oral tablet 1 tab(s), Oral, q12hr, # 40 tab(s), 1 Refill(s), Start Date: 10/24/14 10:07:35 MARKETING WRITER, Pharmacy: [facility] [place] [id number] Start Date: 10/24/14 Stop Date: 11/06/14 Status: CompletedAugmentin 875 mg-125 mg oral tablet 1 tab(s), Oral, BID, # 20 tab(s), 0 Refill(s), Pharmacy: [facility] 1431 Start Date: 07/23/14 Stop Date: 08/01/14 Status: CompletedBactrim 1 tab(s), Oral, BID, 0 Refill(s), Start Date: 04/16/15 7:43:00 CDT Start Date: 04/16/15 Stop Date: 05/27/15 Status: CompletedBactrim DS 800 mg-160 mg oral tablet 1 tab(s), Oral, HS, # 30 tab(s), 0 Refill(s), Start Date: 12/07/16 16:06:00 MARKETING WRITER Start Date: 12/07/16 Status: OrderedBenefiber Plus Calcium oral powder for reconstitution See Instructions, Benefiber Plus Calcium 3 gram-300 mg/8.8 gram Oral Powder, 0 Refill(s) Special Instructions: Benefiber Plus Calcium 3 gram-300 mg/8.8 gram Oral Powder Start Date: 04/25/14 Status: OrderedBentyl 10 mg oral capsule 1 cap(s), Oral, TID, 30 to 60 minutes before meals, # 90 cap(s), 0 Refill(s), Start Date: 09/13/15 15:47:00 MARKETING WRITER, Pharmacy: [facility] [place] [address] Special Instructions: 30 to 60 minutes before meals Start Date: 09/13/15 Stop Date: 12/07/16 Status: DiscontinuedBentyl 10 mg oral capsule 1 cap(s), Oral, TID, 30 to 60 minutes before meals, # 90 cap(s), 0 Refill(s), Start Date: 09/13/15 15:41:00 MARKETING WRITER Special Instructions: 30 to 60 minutes before meals Start Date: 09/13/15 Stop Date: 12/07/16 Status: DiscontinuedCentrum Silver oral tablet 1 tab(s), Oral, Daily, 0 Refill(s) Start Date: 04/25/14 Status: Orderedciprofloxacin 500 mg oral tablet 1 tab(s), Oral, q12hr, X 14 days, # 28 tab(s), 1 Refill(s), Start Date: 11:58:53 CDT, Pharmacy: [facility] Start Date: 01/14/15 Stop Date: 02/08/15 Status: Completedciprofloxacin 500 mg oral tablet 1 tab(s), Oral, q12hr, X 14 days, # 28 tab(s), 1 Refill(s), Start Date: 11:38:00 MARKETING WRITER, Pharmacy: [facility] Start Date: 12/18/14 Stop Date: 01/14/15 Status: Completedciprofloxacin 500 mg oral tablet 1 tab(s), Oral, q12hr, X 14 days, # 28 tab(s), 1 Refill(s), Start Date: 15:05:18 CDT, Pharmacy: [facility] Start Date: 03/06/15 Stop Date: 04/08/15 Status: Completedciprofloxacin 500 mg oral tablet 1 tab(s), Oral, q12hr, X 14 days, # 28 tab(s), 1 Refill(s), Start Date: 11:22:00 CDT, Pharmacy: [facility] Start Date: 02/08/15 Stop Date: 03/06/15 Status: Completedciprofloxacin 500 mg oral tablet 1 tab(s), Oral, q12hr, # 28 tab(s), 1 Refill(s), Start Date: 04/08/15 14:25:42 CDT, Pharmacy: [facility] Start Date: 04/08/15 [...] Laxative 10 mg rectal suppository 1 supp, [place], Daily, PRN constipation, 0 Refill(s) Start Date: [...] cap(s), 6 Refill(s), Start Date: 09/21/14 13:54:00 MARKETING WRITER, Pharmacy: [facility] Start Date: 09/21/14 Status: OrderedNiferex [...] # 30 gm, 0 Refill(s), Pharmacy : [facility] Special Instructions: clean affected area [...] Refill(s), Start Date: 01/14/15 12:00:00 CDT, Pharmacy: [facility] Start Date: 01/14/15 Stop Date: 02/19/15 Status: CompletedSilvadene 1% topical cream 1 ad, Topical, Daily, # 85 gm, 1 Refill(s), Start Date: 02/19/15 11:56:19 CDT, Pharmacy: [facility] Start Date: 02/19/15 Status: [...] rigidus, left 03/17/13 Left great toe cheilectomy 2013 Colonoscopy 2011 Accidental amputation of 3 fingers-cornpicker 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
--- OUTSIDE RECORDS SUMMARY | 2017-05-31 11:09 | XMS REPORT | Summary of Care ---
:1935 Author Organization [facility] Care Team Providers Name Role Phone [place]us [place] Primary Care Physician Encounter Date(s): 02/16/17 - 02/16/17 [place] 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, Pharmacy: [facility] Start Date: 11/06/14 Stop Date: 12/18/14 Status: DiscontinuedAugmentin 875 mg-125 mg oral tablet 1 tab(s), Oral, BID, # 20 tab(s), 0 Refill(s), Start Date: 08/29/14 12:01:14 CDT , Pharmacy: [facility] 797 Start Date: 08/29/14 Stop Date: 09/05/14 Status: CompletedAugmentin 875 mg-125 mg oral tablet 1 tab(s), Oral, q12hr, # 40 tab(s), 1 Refill(s), Start Date: 09/12/14 11:21:10 GAME DEVELOPER, Pharmacy: [place] [id number] Start Date: 09/12/14 Stop Date: 10/24/14 Status: CompletedAugmentin 875 mg-125 mg oral tablet 1 tab(s), Oral, BID, # 20 tab(s), 0 Refill(s), Start Date: 08/01/14 11:00:00 CDT , Pharmacy: [place] [id number] Start Date: 08/01/14 Stop Date: 08/29/14 Status: CompletedAugmentin 875 mg-125 mg oral tablet 1 tab(s), Oral, q12hr, # 40 tab(s), 1 Refill(s), Start Date: 10/24/14 10:07:35 GAME DEVELOPER, Pharmacy: [place] [id number] Start Date: 10/24/14 Stop Date: 11/06/14 Status: CompletedAugmentin 875 mg-125 mg oral tablet 1 tab(s), Oral, BID, # 20 tab(s), 0 Refill(s), Pharmacy: [facility] 143 Start Date: 07/23/14 Stop Date: 08/01/14 Status: CompletedBactrim 1 tab(s), Oral, BID, 0 Refill(s), Start Date: 04/16/15 7:43:00 CDT Start Date: 04/16/15 Stop Date: 05/27/15 Status: CompletedBactrim DS 800 mg-160 mg oral tablet 1 tab(s), Oral, HS, # 30 tab(s), 0 Refill(s), Start Date: 12/07/16 16:06:00 GAME DEVELOPER Start Date: 12/07/16 Status: OrderedBenefiber Plus Calcium oral powder for reconstitution See Instructions, Benefiber Plus Calcium 3 gram-300 mg/8.8 gram Oral Powder, 0 Refill(s) Special Instructions: Benefiber Plus Calcium 3 gram-300 mg/8.8 gram Oral Powder Start Date: 04/25/14 Status: OrderedBentyl 10 mg oral capsule 1 cap(s), Oral, TID, 30 to 60 minutes before meals, # 90 cap(s), 0 Refill(s), Start Date: 09/13/15 15:47:00 GAME DEVELOPER, Pharmacy: [place] [id number] Special Instructions: 30 to 60 minutes before meals Start Date: 09/13/15 Stop Date: 12/07/16 Status: DiscontinuedBentyl 10 mg oral capsule 1 cap(s), Oral, TID, 30 to 60 minutes before meals, # 90 cap(s), 0 Refill(s), Start Date: 09/13/15 15:41:00 GAME DEVELOPER Special Instructions: 30 to 60 minutes before meals Start Date: 09/13/15 Stop Date: 12/07/16 Status: DiscontinuedCentrum Silver oral tablet 1 tab(s), Oral, Daily, 0 Refill(s) Start Date: 04/25/14 Status: Orderedciprofloxacin 500 mg oral tablet 1 tab(s), Oral, q12hr, X 14 days, # 28 tab(s), 1 Refill(s), Start Date: 11:58:53 CDT, Pharmacy: [facility] Start Date: 01/14/15 Stop Date: 02/08/15 Status: Completedciprofloxacin 500 mg oral tablet 1 tab(s), Oral, q12hr, X 14 days, # 28 tab(s), 1 Refill(s), Start Date: 11:38:00 GAME DEVELOPER, Pharmacy: [facility] Start Date: 12/18/14 Stop Date: 01/14/15 Status: Completedciprofloxacin 500 mg oral tablet 1 tab(s), Oral, q12hr, X 14 days, # 28 tab(s), 1 Refill(s), Start Date: 15:05:18 CDT, Pharmacy: [facility] Start Date: 03/06/15 Stop Date: 04/08/15 Status: Completedciprofloxacin 500 mg oral tablet 1 tab(s), Oral, q12hr, X 14 days, # 28 tab(s), 1 Refill(s), Start Date: 11:22:00 CDT, Pharmacy: [facility] Start Date: 02/08/15 Stop Date: 03/06/15 Status: Completedciprofloxacin 500 mg oral tablet 1 tab(s), Oral, q12hr, # 28 tab(s), 1 Refill(s), Start Date: 04/08/15 14:25:42 CDT, Pharmacy: [facility] Start Date: 04/08/15 [...] Laxative 10 mg rectal suppository 1 supp, PA, Daily, PRN constipation, 0 Refill(s) Start Date: [...] cap(s), 6 Refill(s), Start Date: 09/21/14 13:54:00 GAME DEVELOPER, Pharmacy: [email or web address] Start Date: 09/21/14 Status: OrderedNiferex [...] # 30 gm, 0 Refill(s), Pharmacy : [facility] Special Instructions: clean affected [...] Refill(s), Start Date: 01/14/15 12:00:00 CDT, Pharmacy: [facility] Start Date: 01/14/15 Stop Date: 02/19/15 Status: CompletedSilvadene 1% topical cream 1 ad, Topical, Daily, # 85 gm, 1 Refill(s), Start Date: 02/19/15 11:56:19 CDT, Pharmacy: [facility] Start Date: 02/19/15 [...] 2013 Colonoscopy 2011 Accidental amputation of 3 fingers-guanakitopicker 1959 (right)5 Appendectomy Cardiac pacemaker implant Cataract extraction6 Removal of testicle 1auto-populated from documented surgical [id number] from documented surgical [id number] from documented surgical [id number] from documented surgical case53 fingers left [id number] Social History No data available for this section Assessment and Plan No data available for this section
--- OUTSIDE RECORDS SUMMARY | 2017-05-31 11:10 | XMS REPORT | CCD ---
:1935 Author Name SUJATHA DANIEL Address [address] [facility] [place] [address] Care Team Providers Name Role Phone JIM OGDEN Attending Physician Unavailable Allergies Allergy Code Allergy Type Reaction Status No Known Allergies 0 Drug allergy Active Active Medications Medication Code Dose Units Frequency Route Modification Start Date/Time Ecotrin 325MG 031318 325 MILLIGRAMS EVERY MORNING ORAL 11/25/2013 Oral Tablet, 16:04 Enteric Coated Prescription Detail TAKE 325 MILLIGRAMS ORAL EVERY MORNING MiraLAX 17GM/Dose Oral Powder for 757206 1 EACH EVERY MORNING ORAL 16:04 Solution Prescription Detail TAKE 1 EACH ORAL EVERY MORNING Multi Vitamins Oral Tablet 351824 1 EACH EVERY MORNING ORAL 11/25/2013 16:04 Prescription Detail TAKE 1 EACH ORAL EVERY MORNING NEXIUM 0 EVERY MORNING 11/25/2013 16:04 Prescription Detail EVERY MORNING Problems Problem Code Start Date Resolved Date Status Other fluid overload 91752781 11/25/2013 Active Urinary tract infection, site not specified 77906532 11/25/2013 Active Diabetes mellitus without mention of 980638231 Active complication, type II or unspecified type, not stated as uncontrolled Procedures Unknown or Not Available. Results RENAL FUNCTION PANEL - Collect Date/Time: 05/20/2017 09:49 Test Name Code Test Result Test Units Test Ref Range GLUCOSE 37716-5 71 mg/dL L=74 H=106 SODIUM 52607-6 140 mmol/L L=136 H=145 POTASSIUM 07244-0 4.5 mmol/L L=3.5 H=5.1 CHLORIDE 04869-4 100 mmol/L L=98 H=107 CO2 44796-4 39 mmol/L L=21 H=32 BUN 78470-2 21.0 mg/dL L=7.0 H=18.0 CREATININE 67953-5 1.7 mg/dL L=0.8 H=1.3 BUN/CREAT 77858-4 12.4 L=7.6 H=21.2 CALCIUM 73457-4 9.0 mg/dL L=8.6 H=10.1 PHOSPHORUS 21046-3 4.0 mg/dL L=2.5 H=4.9 ALBUMIN 23244-6 3.5 g/dL L=3.4 H=5.0 ANION GAP 63050-0 5.2 mmol/L L=7.0 H=16.0 AGE [birth year] 82 YEARS GFR 70903-1 41.32 ml/min MICROALBUMIN RANDOM - Collect Date/Time: 05/20/2017 09:49 Test Name Code Test Result Test Units Test Ref Range UR CREATININE 47019-5 7.0 mg/dL MICROALBUMIN RANDOM 51090-9 0.4 mg/dL L=0.0 H=2.3 MALB CREAT RATIO 72435-9 57.1 mg/g L=0.0 H=29.0 pro-BRAIN NATRIURETIC PEPTIDE - Collect Date/Time: 05/20/2017 09:49 Test Name Code Test Result Test Units Test Ref Range BNP 217.0 pg/ml L=0.0 H=450 Encounters Encounter Diagnosis Diagnosis Code Start Date Other forms of dyspnea R0609 05/20/2017 Function Status Unknown or Not Available. History of Immunizations Immunization Code Date Novel [id number] 127 11/18/2009 no vaccine administered 998 1935 Plan of Treatment Unknown or Not Available. Social History Smoking Status Code Start Date End Date Never smoker [id number] Vital Signs Unknown or Not Available. Function Status Unknown or Not Available. Goals Unknown or Not Available. ASSESSMENTS Unknown or Not Available. Health Concerns Section Unknown or Not Available.
--- OUTSIDE RECORDS SUMMARY | 2017-05-31 11:10 | XMS REPORT | CCD ---
:1935 Author Name SUJATHA DANIEL Address [address] [facility] Unavailable [place], [place] [id number] Care Team Providers Name Role Phone REY CAGLE Attending Physician Unavailable Vital Signs Unknown or Not Available. Allergies Allergy Code Allergy Type Reaction Status No Known Allergies 0 No known allergies Active Procedures Procedure Code Procedure Type Date GLYCOSYLATED HGB 413526561 SNOMED CT 03/24/2016 History of Immunizations Immunization Code Date Novel [id number] 127 11/18/2009 no vaccine administered 998 1935 Problems Problem Code Start Date Resolved Date Status Other fluid overload 59368600 11/25/2013 Active Urinary tract infection, site not specified 06279449 11/25/2013 Active Diabetes mellitus without mention of 589926852 Active complication, type II or unspecified type, not stated as uncontrolled Results GLYCOSYLATED HGB - Collect Date/Time: 03/24/2016 11:39 Test Name Code Test Result Test Units Test Ref Range HA1c% 4548-4 7.0 % eAG 154 mg/dL RENAL FUNCTION PANEL - Collect Date/Time: 03/24/2016 11:39 Test Name Code Test Result Test Units Test Ref Range GLUCOSE 92 mg/dL L=74 H=106 SODIUM 143 mmol/L L=136 H=145 POTASSIUM 4.5 mmol/L L=3.5 H=5.1 CHLORIDE 103 mmol/L L=98 H=107 CO2 31 mmol/L L=21 H=32 BUN 29.0 mg/dL L=7.0 H=18.0 CREATININE 1.6 mg/dL L=0.8 H=1.3 BUN/CREAT 18.1 L=7.6 H=21.2 CALCIUM 8.7 mg/dL L=8.6 H=10.1 PHOSPHORUS 3.5 mg/dL L=2.5 H=4.9 ALBUMIN 3.7 g/dL L=3.4 H=5.0 ANION GAP 13.3 mmol/L L=7.0 H=16.0 AGE 81 YEARS GFR 44.43 ml/min Active Medications Medication Code Dose Units Frequency Route Modification Start Date/Time Ecotrin 325MG [id number] 325 MILLIGRAMS EVERY ORAL 11/25/2013 Oral Tablet, MORNING 16:04 Enteric Coated Prescription Detail TAKE 325 MILLIGRAMS ORAL EVERY MORNING MiraLAX 17GM/Dose Oral Powder for 742238 1 EACH EVERY MORNING ORAL 16:04 Solution Prescription Detail TAKE 1 EACH ORAL EVERY MORNING Multi Vitamins Oral Tablet 581143 1 EACH EVERY MORNING ORAL 11/25/2013 16:04 Prescription Detail TAKE 1 EACH ORAL EVERY MORNING NEXIUM 0 EVERY MORNING 11/25/2013 16:04 Prescription Detail EVERY MORNING Medications Administered During Visit Unknown or Not Available. Encounters Encounter Diagnosis Diagnosis Code Start Date Diabetes mellitus type 1 62316514 03/24/2016 Social History Smoking Status Code Start Date End Date Never smoker 075913570 Patient Decision Aids Unknown or Not Available. Discharge Instructions You were admitted to [facility] on 03/24/2016 11:24 with a principal diagnosis of Type 1 diabetes mellitus with hyperglycemia You had the following tests done:GLYCOSYLATED HGBRENAL FUNCTION PANEL You were discharged from [facility] on 03/24/2016 11:24 Should you have any questions prior to discharge, please contact a member of your healthcare team. If you have left the hospital and have any questions, please contact your primary care physician. Chief Complaint and Reason For Visit Unknown or Not Available. Function Status Unknown or Not Available. Plan of Care Unknown or Not Available. Referral/Transition of Care Unknown or Not Available.
--- OUTSIDE RECORDS SUMMARY | 2017-05-31 11:10 | XMS REPORT | CCD ---
:1935 Author Name SUJATHA DANIEL Address [address] [facility] Unavailable [place], [place] [phone] Care Team Providers Name Role Phone REY CAGLE Attending Physician Unavailable Vital Signs Unknown or Not Available. Allergies Allergy Code Allergy Type Reaction Status No Known Allergies 0 No known allergies Active Procedures Procedure Code Procedure Type Date LIPID PANEL 35115979 SNOMED CT 09/25/[address] 09/25/2016 GLYCOSYLATED HGB 241451606 SNOMED CT 09/25/2016 History of Immunizations Immunization Code Date Novel [id number] 127 11/18/2009 no vaccine administered 998 1935 Problems Problem Code Start Date Resolved Date Status Other fluid overload 92170308 11/25/2013 Active Urinary tract infection, site not specified 26304449 11/25/2013 Active Diabetes mellitus without mention of 105426009 Active complication, type II or unspecified type, not stated as uncontrolled Results COMPREHENSIVE METABOLIC PANEL - Collect Date/Time: 09/25/2016 12:20 Test Name Code Test Result Test Units Test Ref Range GLUCOSE 46 mg/dL L=74 H=106 SODIUM 142 mmol/L L=136 H=145 POTASSIUM 3.6 mmol/L L=3.5 H=5.1 CHLORIDE 102 mmol/L L=98 H=107 CO2 33 mmol/L L=21 H=32 BUN 31.0 mg/dL L=7.0 H=18.0 CREATININE 1.6 mg/dL L=0.8 H=1.3 BUN/CREAT 19.4 L=7.6 H=21.2 CALCIUM 9.0 mg/dL L=8.6 H=10.1 TOTAL BILI 0.5 mg/dL L=0.2 H=1.0 TOTAL PROTEIN 7.4 g/dL L=6.4 H=8.2 ALBUMIN 3.7 g/dL L=3.4 H=5.0 A/G RATIO 1.0 ALKALINE PHOS 118 IU/L L=50 H=136 AST/SGOT 25 IU/L L=15 H=37 ALT/SGPT 23 IU/L L=12 H=78 ANION GAP 10.9 mmol/L L=7.0 H=16.0 AGE 81 YEARS GFR 44.43 ml/min GLYCOSYLATED HGB - Collect Date/Time: 09/25/2016 12:20 Test Name Code Test Result Test Units Test Ref Range HA1c% 4548-4 7.1 % eAG 157 mg/dL LIPID PANEL - Collect Date/Time: 09/25/2016 12:20 Test Name Code Test Result Test Units Test Ref Range CHOLESTEROL 2093-3 161 mg/dL L=0 H=200 TRIGLYCERIDES 2571-8 180 mg/dL L=0 H=200 HDL 2085-9 38 mg/dL L=40 H=60 LDL 2089-1 87 mg/dL L=0 H=160 CHOL/HDL 9830-1 4.2 L=0.0 H=6.7 TSH - Collect Date/Time: 09/25/2016 12:20 Test Name Code Test Result Test Units Test Ref Range TSH 3016-3 2.285 uIU/ml L=0.360 H=3.740 CBC W/DIFF - Collect Date/Time: 09/25/2016 12:20 Test Name Code Test Result Test Units Test Ref Range WBC 6690-2 11.6 K/uL L=3.2 H=10.0 RBC 789-8 5.18 M/uL L=4.30 H=5.70 HEMOGLOBIN 718-7 15.0 g/dL L=13.6 H=17.1 HEMATOCRIT 45.9 % L=40.0 H=52.0 MCV 88.6 fL L=81.0 H=101 MCH 29.0 PG L=26.0 H=38.0 MCHC 32.7 G/DL L=31.0 H=37.0 RDW-SD 48.7 FL L=37.0 H=54.0 RDW-CV 15.1 % L=11.0 H=16.0 PLATELETS 777-3 192 K/UL L=140 H=380 MPV 11.0 FL L=9.0 H=13.0 %GRAN 58.4 % L=0.0 H=75.0 %LYMPH 30.1 % L=0.0 H=50.0 %MONO 7.1 % L=0.0 H=14.0 %EOS 3.4 % L=0.0 H=6.0 %BASO 0.7 % L=0.0 H=1.0 #GRAN 6.81 K/UL L=1.80 H=7.80 #LYMPH 3.50 K/UL L=0.30 H=4.00 #MONO 0.82 K/UL L=0.00 H=0.70 #EOS 0.39 K/UL L=0.00 H=0.40 #BASO 0.08 K/UL L=0.00 H=0.10 SLIDE REVIEWED? NOT INDICATED N/A MANUAL DIFF NOT INDICATED N/A Active Medications Medication Code Dose Units Frequency Route Modification Start Date/Time Ecotrin 325MG [id number] 325 MILLIGRAMS EVERY ORAL 11/25/2013 Oral Tablet, MORNING 16:04 Enteric Coated Prescription Detail TAKE 325 MILLIGRAMS ORAL EVERY MORNING MiraLAX 17GM/Dose Oral Powder for 813178 1 EACH EVERY MORNING ORAL 16:04 Solution Prescription Detail TAKE 1 EACH ORAL EVERY MORNING Multi Vitamins Oral Tablet 712856 1 EACH EVERY MORNING ORAL 11/25/2013 16:04 Prescription Detail TAKE 1 EACH ORAL EVERY MORNING NEXIUM 0 EVERY MORNING 11/25/2013 16:04 Prescription Detail EVERY MORNING Medications Administered During Visit Unknown or Not Available. Encounters Encounter Diagnosis Diagnosis Code Start Date Hypothyroidism 45461296 09/25/2016 Social History Smoking Status Code Start Date End Date Never smoker 266176038 Patient Decision Aids Unknown or Not Available. Discharge Instructions You were admitted to [facility] on 09/25/2016 11:55 with a principal diagnosis of Hypothyroidism, unspecified You had the following tests done:CBC W/DIFFCOMPREHENSIVE METABOLIC PANELGLYCOSYLATED HGBLIPID PANELTSH You were discharged from [facility] on 09/25/2016 11:55 Should you have any questions prior to [...]
--- OUTSIDE RECORDS SUMMARY | 2017-05-31 11:10 | XMS REPORT | CCD ---
:1935 Author Name SUJATHA DANIEL Address [address] [facility] Unavailable [place], [place] [id number] Care Team Providers Name Role Phone REY CAGLE Attending Physician Unavailable Vital Signs Unknown or Not Available. Allergies Allergy Code Allergy Type Reaction Status No Known Allergies 0 No known allergies Active Procedures Procedure Code Procedure Type Date TSH PLUS 49899157 SNOMED CT 11/27/2015 History of Immunizations Immunization Code Date Novel [id number] 127 11/18/2009 no vaccine administered 998 1935 Problems Problem Code Start Date Resolved Date Status Other fluid overload 26101387 11/25/2013 Active Urinary tract infection, site not specified 72681701 11/25/2013 Active Diabetes mellitus without mention of 808951982 Active complication, type II or unspecified type, not stated as uncontrolled Results TSH PLUS - Collect Date/Time: 11/27/2015 12:04 Test Name Code Test Result Test Units Test Ref Range TSH 3016-3 3.012 uIU/ml L=0.360 H=3.740 Active Medications Medication Code Dose Units Frequency Route Modification Start Date/Time Ecotrin 325MG 61041565006 325 MILLIGRAMS EVERY ORAL 11/25/2013 Oral Tablet, MORNING 16:04 Enteric Coated Prescription Detail TAKE 325 MILLIGRAMS ORAL EVERY MORNING MiraLAX 17GM/Dose Oral Powder for 836849 1 EACH EVERY MORNING ORAL 16:04 Solution Prescription Detail TAKE 1 EACH ORAL EVERY MORNING Multi Vitamins Oral Tablet 534972 1 EACH EVERY MORNING ORAL 11/25/2013 16:04 Prescription Detail TAKE 1 EACH ORAL EVERY MORNING NEXIUM 0 EVERY MORNING 11/25/2013 16:04 Prescription Detail EVERY MORNING Medications Administered During Visit Unknown or Not Available. Encounters Encounter Diagnosis Diagnosis Code Start Date Hypothyroidism 01353961 11/27/2015 Social History Smoking Status Code Start Date End Date Never smoker 603025301 Patient Decision Aids Unknown or Not Available. Discharge Instructions You were admitted to [facility] on 11/27/2015 with a principal diagnosis of Hypothyroidism . You were discharged from [facility] on 11/27/2015. Should you have any questions prior to [...]
--- OUTSIDE RECORDS SUMMARY | 2017-05-31 11:10 | XMS REPORT | CCD ---
:1935 Author Name SUJATHA DANIEL Address [address] [facility] Unavailable [place], [place] [phone] Care Team Providers Name Role Phone REY CAGLE Attending Physician Unavailable Vital Signs Unknown or Not Available. Allergies Allergy Code Allergy Type Reaction Status No Known Allergies 0 No known allergies Active Procedures Procedure Code Procedure Type Date GLYCOSYLATED HGB 535271588 SNOMED CT 03/29/2015 History of Immunizations Immunization Code Date Novel [id number] 127 11/18/2009 no vaccine administered 998 1936 Problems Problem Code Start Date Resolved Date Status Other fluid overload 04457752 11/25/2013 Active Urinary tract infection, site not specified 65061497 11/25/2013 Active Diabetes mellitus without mention of 588909804 Active complication, type II or unspecified type, not stated as uncontrolled Results GLYCOSYLATED HGB - Collect Date/Time: 03/29/2015 12:13 Test Name Code Test Result Test Units Test Ref Range HA1c% 4548-4 7.1 % eAG 157 mg/dL RENAL FUNCTION PANEL - Collect Date/Time: 03/29/2015 12:13 Test Name Code Test Result Test Units Test Ref Range GLUCOSE 89 mg/dL L=74 H=106 SODIUM 141 mmol/L L=136 H=145 POTASSIUM 4.0 mmol/L L=3.5 H=5.1 CHLORIDE 101 mmol/L L=98 H=107 CO2 35 mmol/L L=21 H=32 BUN 27.0 mg/dL L=7.0 H=18.0 CREATININE 1.4 mg/dL L=0.8 H=1.3 BUN/CREAT 19.3 L=7.6 H=21.2 CALCIUM 8.5 mg/dL L=8.6 H=10.1 PHOSPHORUS 4.0 mg/dL L=2.5 H=4.9 ALBUMIN 3.3 g/dL L=3.4 H=5.0 ANION GAP 8.8 mmol/L L=7.0 H=16.0 AGE 80 YEARS GFR 51.96 ml/min HEMOGRAM - Collect Date/Time: 03/29/2015 12:13 Test Name Code Test Result Test Units Test Ref Range WBC 6690-2 11.2 K/uL L=3.2 H=10.0 RBC 789-8 5.04 M/uL L=4.30 H=5.70 HEMOGLOBIN 718-7 13.3 g/dL L=13.6 H=17.1 HEMATOCRIT 41.5 % L=40.0 H=52.0 MCV 82.3 fL L=81.0 H=101 MCH 26.4 PG L=26.0 H=38.0 MCHC 32.0 G/DL L=31.0 H=37.0 PLATELETS 223 K/UL L=140 H=380 RDW-SD 52.3 FL L=37.0 H=54.0 RDW-CV 17.9 % L=11.0 H=16.0 MPV 10.5 FL L=9.0 H=13.0 SLIDE REVIEWED? NOT INDICATED N/A Active Medications Medication Code Dose Units Frequency Route Modification Start Date/Time Ecotrin 325MG 73334366031 325 MILLIGRAMS EVERY ORAL 11/25/2013 Oral Tablet, MORNING 16:04 Enteric Coated MiraLAX 966927 1 EACH EVERY ORAL 11/25/2013 17GM/Dose Oral MORNING 16:04 Powder for Solution Multi Vitamins 466104 1 EACH EVERY ORAL 11/25/2013 Oral Tablet MORNING 16:04 NEXIUM 0 EVERY 11/25/2013 MORNING 16:04 Medications Administered During Visit Unknown or Not Available. 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 Discharge Instructions You were admitted to [facility] on 03/29/2015 with a principal diagnosis of LEG VARICOSITY W INFLAM. You were discharged from [facility] on 03/29/2015. Should you have any questions prior to [...]
--- OUTSIDE RECORDS SUMMARY | 2017-05-31 11:10 | XMS REPORT | Summary of Care ---
:1935 Author Organization [facility] Address [address] [place] [address] Care Team Providers Name Role Phone Rufus Lake Primary Care Physician Encounter Date(s): 03/11/17 - 03/11/17 [facility], [address] [place], [place] [address] Discharge Diagnosis: Abdominal pain Discharge Disposition: Discharged to Home or Self Care Attending Physician: Issac Harrington MD Referring Physician: Grupo Knott DO Vital Signs Most recent to oldest [Reference Range]: 1 Temperature Temporal Artery [36.0-38.0 DegC] 36.5 DegC (03/11/17 3:23 PM) Peripheral Pulse Rate [60-100 bpm] 84 bpm (03/11/17 3:23 PM) Respiratory Rate [12-20 br/min] 20 br/min (03/11/17 3:23 PM) SpO2 [90-100 %] 93 % (03/11/17 3:23 PM) Blood Pressure [90-130/60-90 mmHg] 118/70mmHg (03/11/17 3:23 PM) Mean Arterial Pressure, Cuff 86 mmHg (03/11/17 3:23 PM) Most recent to oldest [Reference Range]: 1 Height/Length Measured 183 cm (03/11/17 3:23 PM) Weight Dosing 175.20 kg1 (03/11/17 3:27 PM) Weight Measured 175.2 kg (03/11/17 3:23 PM) BSA Measured 2.82 m2 (03/11/17 3:23 PM) Body Mass Index Measured 52.32 kg/m2 (03/11/17 3:23 PM) 1Result Comment: This result was because the dosing weight was either not entered or it is>30 days old. This result is based off: Weight Measured March 11, 2017 15:23:00 CDT by Jennifer Momin RN Problem List Condition Effective Dates Status Health [...] 0 Refill(s), Start Date: 10:45:00 CDT, Pharmacy: [place] [facility] [id number] Start Date: 08/15/14 Stop Date: 09/12/14 Status: CompletedAugmentin 875 mg-125 mg oral tablet 1 tab(s), Oral, q12hr, # 40 tab(s), 1 Refill(s), Start Date: 11/06/14 15:12:37 CHARTER REPRESENTATIVE, Pharmacy: [place] [facility] [id number] Start Date: 11/06/14 Stop Date: 12/18/14 Status: DiscontinuedAugmentin 875 mg-125 mg oral tablet 1 tab(s), Oral, BID, # 20 tab(s), 0 Refill(s), Start Date: 08/29/14 12:01:14 CDT , Pharmacy: [facility] Start Date: 08/29/14 Stop Date: 09/05/14 Status: CompletedAugmentin 875 mg-125 mg oral tablet 1 tab(s), Oral, q12hr, # 40 tab(s), 1 Refill(s), Start Date: 09/12/14 11:21:10 CHARTER REPRESENTATIVE, Pharmacy: [facility] Start Date: 09/12/14 Stop Date: 10/24/14 Status: CompletedAugmentin 875 mg-125 mg oral tablet 1 tab(s), Oral, BID, # 20 tab(s), 0 Refill(s), Start Date: 08/01/14 11:00:00 CDT , Pharmacy: [id number] Start Date: 08/01/14 Stop Date: 08/29/14 Status: CompletedAugmentin 875 mg-125 mg oral tablet 1 tab(s), Oral, q12hr, # 40 tab(s), 1 Refill(s), Start Date: 10/24/14 10:07:35 CHARTER REPRESENTATIVE, Pharmacy: [facility] Start Date: 10/24/14 Stop Date: 11/06/14 Status: CompletedAugmentin 875 mg-125 mg oral tablet 1 tab(s), Oral, BID, # 20 tab(s), 0 Refill(s), Pharmacy: [id number] Start Date: 07/23/14 Stop Date: 08/01/14 Status: CompletedBactrim 1 tab(s), Oral, BID, 0 Refill(s), Start Date: 04/16/15 7:43:00 CDT Start Date: 04/16/15 Stop Date: 05/27/15 Status: CompletedBactrim DS 800 mg-160 mg oral tablet 1 tab(s), Oral, HS, # 30 tab(s), 0 Refill(s), Start Date: 12/07/16 16:06:00 CHARTER REPRESENTATIVE Start Date: 12/07/16 Status: OrderedBenefiber Plus Calcium oral powder for reconstitution See Instructions, Benefiber Plus Calcium 3 gram-300 mg/8.8 gram Oral Powder, 0 Refill(s) Special Instructions: Benefiber Plus Calcium 3 gram-300 mg/8.8 gram Oral Powder Start Date: 04/25/14 Status: OrderedBentyl 10 mg oral capsule 1 cap(s), Oral, TID, 30 to 60 minutes before meals, # 90 cap(s), 0 Refill(s), Start Date: 09/13/15 15:47:00 CHARTER REPRESENTATIVE, Pharmacy: [facility] Special Instructions: 30 to 60 minutes before meals Start Date: 09/13/15 Stop Date: 12/07/16 Status: DiscontinuedBentyl 10 mg oral capsule 1 cap(s), Oral, TID, 30 to 60 minutes before meals, # 90 cap(s), 0 Refill(s), Start Date: 09/13/15 15:41:00 CHARTER REPRESENTATIVE Special Instructions: 30 to 60 minutes before meals Start Date: 09/13/15 Stop Date: 12/07/16 Status: DiscontinuedCentrum Silver oral tablet 1 tab(s), Oral, Daily, 0 Refill(s) Start Date: 04/25/14 Status: Orderedciprofloxacin 500 mg oral tablet 1 tab(s), Oral, q12hr, X 14 days, # 28 tab(s), 1 Refill(s), Start Date: 11:58:53 CDT, Pharmacy: [place] [facility] [id number] Start Date: 01/14/15 Stop Date: 02/08/15 Status: Completedciprofloxacin 500 mg oral tablet 1 tab(s), Oral, q12hr, X 14 days, # 28 tab(s), 1 Refill(s), Start Date: 11:38:00 CHARTER REPRESENTATIVE, Pharmacy: [facility] [id number] Start Date: 12/18/14 Stop Date: 01/14/15 Status: Completedciprofloxacin 500 mg oral tablet 1 tab(s), Oral, q12hr, X 14 days, # 28 tab(s), 1 Refill(s), Start Date: 15:05:18 CDT, Pharmacy: [facility] Start Date: 03/06/15 Stop Date: 04/08/15 Status: Completedciprofloxacin 500 mg oral tablet 1 tab(s), Oral, q12hr, X 14 days, # 28 tab(s), 1 Refill(s), Start Date: 11:22:00 CDT, Pharmacy: [facility] Start Date: 02/08/15 Stop Date: 03/06/15 Status: Completedciprofloxacin 500 mg oral tablet 1 tab(s), Oral, q12hr, # 28 tab(s), 1 Refill(s), Start Date: 04/08/15 14:25:42 CDT, Pharmacy: [facility] Start Date: 04/08/15 Stop Date: 04/15/15 Status: [...] Laxative 10 mg rectal suppository 1 supp, CT, Daily, PRN constipation, 0 Refill(s) Start Date: [...] Start Date: 04/16/15 7:44:00 CDT Start Date: 6/9/15 Status: OrderedNexIUM 40 mg oral delayed release capsule 1 cap(s), Oral, Daily, # 30 cap(s), 6 Refill(s), Start Date: 09/21/14 13:54:00 CHARTER REPRESENTATIVE, Pharmacy: [facility] Start Date: 09/21/14 Status: OrderedNiferex [...] # 30 gm, 0 Refill(s), Pharmacy : [facility] Special Instructions: clean affected area before application. 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
--- OUTSIDE RECORDS SUMMARY | 2017-05-31 11:10 | XMS REPORT | Summary of Care ---
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, Pharmacy: [facility] Start Date: 11/06/14 Stop Date: 12/18/14 Status: DiscontinuedAugmentin 875 mg-125 mg oral tablet 1 tab(s), Oral, BID, # 20 tab(s), 0 Refill(s), Start Date: 08/29/14 12:01:14 CDT , Pharmacy: [facility] Start Date: 08/29/14 Stop Date: 09/05/14 Status: CompletedAugmentin 875 mg-125 mg oral tablet 1 tab(s), Oral, q12hr, # 40 tab(s), 1 Refill(s), Start Date: 09/12/14 11:21:10 COMPUTER GRAPHICS ILLUSTRATOR, Pharmacy: [place] [id number] Start Date: 09/12/14 Stop Date: 10/24/14 Status: CompletedAugmentin 875 mg-125 mg oral tablet 1 tab(s), Oral, BID, # 20 tab(s), 0 Refill(s), Start Date: 08/01/14 11:00:00 CDT , Pharmacy: [place] [id number] Start Date: 08/01/14 Stop Date: 08/29/14 Status: CompletedAugmentin 875 mg-125 mg oral tablet 1 tab(s), Oral, q12hr, # 40 tab(s), 1 Refill(s), Start Date: 10/24/14 10:07:35 COMPUTER GRAPHICS ILLUSTRATOR, Pharmacy: [place] [id number] Start Date: 10/24/14 Stop Date: 11/06/14 Status: CompletedAugmentin 875 mg-125 mg oral tablet 1 tab(s), Oral, BID, # 20 tab(s), 0 Refill(s), Pharmacy: [facility]31 Start Date: 07/23/14 Stop Date: 08/01/14 Status: CompletedBactrim 1 tab(s), Oral, BID, 0 Refill(s), Start Date: 04/16/15 7:43:00 CDT Start Date: 04/16/15 Stop Date: 05/27/15 Status: CompletedBactrim DS 800 mg-160 mg oral tablet 1 tab(s), Oral, HS, # 30 tab(s), 0 Refill(s), Start Date: 12/07/16 16:06:00 COMPUTER GRAPHICS ILLUSTRATOR Start Date: 12/07/16 Status: OrderedBenefiber Plus Calcium oral powder for reconstitution See Instructions, Benefiber Plus Calcium 3 gram-300 mg/8.8 gram Oral Powder, 0 Refill(s) Special Instructions: Benefiber Plus Calcium 3 gram-300 mg/8.8 gram Oral Powder Start Date: 04/25/14 Status: OrderedBentyl 10 mg oral capsule 1 cap(s), Oral, TID, 30 to 60 minutes before meals, # 90 cap(s), 0 Refill(s), Start Date: 09/13/15 15:47:00 COMPUTER GRAPHICS ILLUSTRATOR, Pharmacy: [place] [id number] Special Instructions: 30 to 60 minutes before meals Start Date: 09/13/15 Stop Date: 12/07/16 Status: DiscontinuedBentyl 10 mg oral capsule 1 cap(s), Oral, TID, 30 to 60 minutes before meals, # 90 cap(s), 0 Refill(s), Start Date: 09/13/15 15:41:00 COMPUTER GRAPHICS ILLUSTRATOR Special Instructions: 30 to 60 minutes before meals Start Date: 09/13/15 Stop Date: 12/07/16 Status: DiscontinuedCentrum Silver oral tablet 1 tab(s), Oral, Daily, 0 Refill(s) Start Date: 04/25/14 Status: Orderedciprofloxacin 500 mg oral tablet 1 tab(s), Oral, q12hr, X 14 days, # 28 tab(s), 1 Refill(s), Start Date: 11:58:53 CDT, Pharmacy: [facility] Start Date: 01/14/15 Stop Date: 02/08/15 Status: Completedciprofloxacin 500 mg oral tablet 1 tab(s), Oral, q12hr, X 14 days, # 28 tab(s), 1 Refill(s), Start Date: 11:38:00 COMPUTER GRAPHICS ILLUSTRATOR, Pharmacy: [facility] Start Date: 12/18/14 Stop Date: 01/14/15 Status: Completedciprofloxacin 500 mg oral tablet 1 tab(s), Oral, q12hr, X 14 days, # 28 tab(s), 1 Refill(s), Start Date: 15:05:18 CDT, Pharmacy: [facility] Start Date: 03/06/15 Stop Date: 04/08/15 Status: Completedciprofloxacin 500 mg oral tablet 1 tab(s), Oral, q12hr, X 14 days, # 28 tab(s), 1 Refill(s), Start Date: 11:22:00 CDT, Pharmacy: [facility] Start Date: 02/08/15 Stop Date: 03/06/15 Status: Completedciprofloxacin 500 mg oral tablet 1 tab(s), Oral, q12hr, # 28 tab(s), 1 Refill(s), Start Date: 04/08/15 14:25:42 CDT, Pharmacy: [facility] Start Date: 04/08/15 Stop Date: [...] Laxative 10 mg rectal suppository 1 supp, AK, Daily, PRN constipation, 0 Refill(s) Start Date: [...] cap(s), 6 Refill(s), Start Date: 09/21/14 13:54:00 COMPUTER GRAPHICS ILLUSTRATOR, Pharmacy: [facility] Start Date: 09/21/14 Status: OrderedNiferex [...] # 30 gm, 0 Refill(s), Pharmacy : [facility] Special Instructions: clean affected area [...] Refill(s), Start Date: 01/14/15 12:00:00 CDT, Pharmacy: [facility] Start Date: 01/14/15 Stop Date: 02/19/15 Status: CompletedSilvadene 1% topical cream 1 ad, Topical, Daily, # 85 gm, 1 Refill(s), Start Date: 02/19/15 11:56:19 CDT, Pharmacy: [facility] Start Date: 02/19/15 Status: OrderedtraZODone [...] Removal of testicle 1auto-populated from documented surgical [id number] from documented surgical [id number] from documented surgical [id number] from documented surgical case53 fingers left [id number] Social History No data available for this section Assessment and Plan No data available for this section
--- NOTE | 2017-05-31 11:11 | ERNOTE ---
Abdominal HPI - Narrative Date of Service: 05/31/17 - General Chief Complaint: Constipation Time Seen by Provider: 05/31/17 10:58 Source: patient, RN notes reviewed Exam Limitations: no limitations - Immun/Allergies/Home Medications Immunizatons: IMMUNIZATION HX Immunizations Up to Date Yes History of Influenza Vaccine Yes Hx Pneumococcal Vaccination Yes Allergies/Adverse Reactions: Allergies No Known Allergies Allergy (Unverified 07/03/14 11:36) Home Medications: HOME MEDICATIONS Acetaminophen [Tylenol] 500 mg PO Q6H PRN 07/03/14 [Last Taken Unknown] Allopurinol [Zyloprim] 300 mg PO DAILY 07/03/14 [Last Taken Unknown] Amitriptyline HCl [Elavil] 25 mg PO HS 07/03/14 [Last Taken Unknown] Aspirin 325 mg PO DAILY 07/03/14 [Last Taken Unknown] Atorvastatin Calcium [Lipitor] 40 mg PO HS 07/03/14 [Last Taken Unknown] Doxazosin Mesylate [Cardura] 8 mg PO DAILY 07/03/14 [Last Taken Unknown] Esomeprazole Magnesium [Nexium 24Hr] 20 mg PO DAILY 07/03/14 [Last Taken Unknown ] Furosemide [Lasix] 40 mg PO DAILY 07/03/14 [Last Taken Unknown] Insulin Glargine,Hum.rec.anlog [Lantus] 25 unit SQ BID 07/03/14 [Last Taken Unknown] Insulin Lispro [Humalog] 20 unit SQ 07/03/14 [Last Taken Unknown] Losartan/Hydrochlorothiazide [Hyzaar 100-12.5 Tablet] 1 each PO DAILY 07/03/14 [ Last Taken Unknown] Lubiprostone [Amitiza] 24 mcg PO HS 07/03/14 [Last Taken Unknown] Melatonin/Pyridoxine HCl (B6) [Melatonin 1 mg Tablet] 1 each PO HS 07/03/14 [ Last Taken Unknown] Methylcellulose (with Sugar) [Fiber Therapy Powder] 454 gm PO 07/03/14 [Last Taken Unknown] Multivit-Min/FA/Lycopene/Lut [Centrum Silver Tablet] 1 each PO DAILY 07/03/14 [ Last Taken Unknown] [place]-3/Dha/Epa/Fish Oil [Fish Oil] 500 mg PO DAILY 07/03/14 [Last Taken Unknown ] Polyethylene Glycol 3350 [Miralax] 17 gm PO DAILY 07/03/14 [Last Taken Unknown] amLODIPine BESYLATE [Norvasc] 5 mg PO DAILY 07/03/14 [Last Taken Unknown] traMADol HCL 50 mg PO PRN 05/31/17 [Last Taken Unknown] - History of Present Illness Narrative: Javid is an 82-year-old male who presents to the emergency Department from home by private vehicle for constipation for approximately 5 days. He reports that he normally has a bowel movement every day, but has not had one for several days. His states that he had a suppository yesterday. The patient reports that when he tries to go, he only passes small flakes. He reports some occasional abdominal cramping, but denies any nausea or vomiting. He reports that he is also eating normally. Prior Abdominal Problems: Present: similar symptoms Prior Treatment: Absent: recently seen Review of Systems - Review of Systems Constitutional: Absent: recent illness, fever, chills EYE: Present: no symptoms reported ENT: Present: no symptoms reported Respiratory: Present: cough. Absent: shortness of breath Cardiology: Present: edema. Absent: chest pain, syncope Gastrointestinal/Abdominal: Present: constipation. Absent: nausea, vomiting, diarrhea, eating less, drinking less Genitourinary: Present: no symptoms reported Musculoskeletal: Present: no symptoms reported Neurological: Absent: headache, dizziness/light-headedness Endocrine: Present: no symptoms reported Hematologic/Lymphatic: Present: no symptoms reported Psych: Present: no symptoms reported - Patient's Past Medical History Patient History - Medical: Diabetes Type 2 Insulin Dependent, GERD, Obesity Patient History - Cardiac/Respiratory: CHF, Hypertension, Hyperlipidemia Patient History - Cancer: No Hx of Cancer Patient History - Surgical Procedures: Amputation, Appendectomy, Pacemaker Patient History - Other: None - Social History Living Situations: home Abuse History: No History of abuse Psych History: No pertinent hx Smoking Status: Never smoker Have you smoked in the past 12 months: No Do you dip or chew tobacco: No Alcohol Use: none Drug Use: none - Immunizations Immunizations Up to Date: Yes Hx Pneumococcal Vaccination: Yes History of Influenza Vaccine: Yes Physical Exam - Physical Exam General Appearance: Present: wd/wn, alert, no apparent distress, obese - Extreme , morbid Respiratory: Present: no respiratory distress, no accessory muscle use, lungs clear, decreased breath sounds - d/t large body habitus Cardiovascular/Chest: Present: regular rate, rhythm, no murmur Gastrointestinal/Abdominal: Present: normal bowel sounds, nontender, soft, distended - extremely obese. Absent: guarding, rebound, mass Extremity Exam: Present: pedal edema, extremity edema - severe in lower extremities bilaterally Neurological Exam: Present: alert, oriented, normal mood/affect, no motor/ sensory deficits Skin Exam: Present: normal color, warm/dry ED Progress - Vital Signs Patient's Vital Signs:: I have reviewed the patient's vital signs. Vital Signs: Vital Signs 05/31/17 05/31/17 10:43 11:00 Temperature 36.8 C Pulse Rate 79 84 Respiratory 22 H 14 Rate Blood Pressure 140/68 142/66 O2 Sat by Pulse 88 L 92 Oximetry - X-Ray X-Ray #1 X-Ray: abdomen Interpretation: Reviewed by me X-ray Comments: Technique: Supine and left lateral decubitus views of the abdomen obtained. A total of 8 images utilized. Comparison: None. Findings: Mild stool is within the realm of normal variability. There is no bowel obstruction or free air. There are mild degenerative changes in lumbar spine. There are vascular calcifications. IMPRESSION: NO ACUTE ABDOMINAL PATHOLOGY IDENTIFIED. NO SIGNIFICANT RETAINED STOOL. Electronically signed by Moe Chan M.D.. - Progress/Reassessment Chief Complaint: Constipation Progress:: Unchanged Plan - Plan Plan: Xray shows only mild stool retention without obstruction, discussed with patient and that this can be treated at home and does not require enemas or manual disimpaction in the ED. D/C'd home with mag citrate. Departure - Departure Clinical Impression: Constipation, acute Disposition: Home Follow Up Needed Condition: Stable Instructions: Constipation, Adult, [id number] Additional Instructions: Drink entire bottle of magnesium citrate follow by a large glass of water when you get home You can try a Fleets enema also if this does not produce good results Continue your current medications Return to ER or follow up with your doctor if symptoms continue
[2017-05-31] MEDS ORDERED: MAGNESIUM CITRATE 300 ML BTL PO ONE (12:29)
[2017-05-31] MEDS ORDERED: MAGNESIUM CITRATE 300 ML BTL ONE (12:37)
[2017-05-31 12:45] VITALS: BP 135/76
== END 2017-05-31 12:45 | disposition home or self-care (01) ==
LOC: ER 10:39
DX: K59.00 Constipation, unspecified (principal)

== ENCOUNTER 2017-07-16 23:20 | Inpatient (IN) | payer MEDICARE, BC ==
--- NOTE | 2017-07-16 23:28 | ERNOTE ---
Dyspnea - General Presenting Symptoms: shortness of breath, difficulty of breathing Time Seen by Provider: 07/16/17 23:25 Source: patient - Immun/Allergies/Home Medications Immunizations: IMMUNIZATION HX Immunizations Up to Date Yes History of Influenza Vaccine Yes Hx Pneumococcal Vaccination Yes Allergies/Adverse Reactions: Allergies No Known Allergies Allergy (Unverified 07/03/14 11:36) Home Medications: HOME MEDICATIONS Acetaminophen [Tylenol] 500 mg PO Q6H PRN 07/03/14 [Last Taken Unknown] Allopurinol [Zyloprim] 300 mg PO DAILY 07/03/14 [Last Taken Unknown] Amitriptyline HCl [Elavil] 25 mg PO HS 07/03/14 [Last Taken Unknown] Aspirin 325 mg PO DAILY 07/03/14 [Last Taken Unknown] Atorvastatin Calcium [Lipitor] 40 mg PO HS 07/03/14 [Last Taken Unknown] Doxazosin Mesylate [Cardura] 8 mg PO DAILY 07/03/14 [Last Taken Unknown] Esomeprazole Magnesium [Nexium 24Hr] 20 mg PO DAILY 07/03/14 [Last Taken Unknown ] Furosemide [Lasix] 40 mg PO DAILY 07/03/14 [Last Taken Unknown] Insulin Glargine,Hum.rec.anlog [Lantus] 25 unit SQ BID 07/03/14 [Last Taken Unknown] Insulin Lispro [Humalog] 20 unit SQ 07/03/14 [Last Taken Unknown] Losartan/Hydrochlorothiazide [Hyzaar 100-12.5 Tablet] 1 each PO DAILY 07/03/14 [ Last Taken Unknown] Lubiprostone [Amitiza] 24 mcg PO HS 07/03/14 [Last Taken Unknown] Melatonin/Pyridoxine HCl (B6) [Melatonin 1 mg Tablet] 1 each PO HS 07/03/14 [ Last Taken Unknown] Methylcellulose (with Sugar) [Fiber Therapy Powder] 454 gm PO 07/03/14 [Last Taken Unknown] Multivit-Min/FA/Lycopene/Lut [Centrum Silver Tablet] 1 each PO DAILY 07/03/14 [ Last Taken Unknown] [place]-3/Dha/Epa/Fish Oil [Fish Oil] 500 mg PO DAILY 07/03/14 [Last Taken Unknown ] Polyethylene Glycol 3350 [Miralax] 17 gm PO DAILY 07/03/14 [Last Taken Unknown] amLODIPine BESYLATE [Norvasc] 5 mg PO DAILY 07/03/14 [Last Taken Unknown] traMADol HCL 50 mg PO PRN 05/31/17 [Last Taken Unknown] Levofloxacin [Levaquin] 500 mg PO DAILY #7 tablet 07/17/17 [Last Taken Unknown] - History of Present Illness Narrative: This is an 82-year-old gentleman who comes to the emergency department via EMS. Apparently the patient has been having a fever and having shortness of breath along with generalized weakness for the last couple of days. He says he is not coughing anymore than usual. He denies having any chest pain. The patient has had a bit of diarrhea recently. He admits the last 24 hours his intake has not been good. The patient incidentally had a fall earlier this evening, but did not injure anything when he fell. He did not hit his head and did not lose consciousness. He has no pain in his extremities or anywhere else from that. The patient says that he feels like he could drink a whole bunch, that his mouth is quite dry. He denies chest pain he denies vomiting he denies nausea he denies constipation some loose stool recently no blood in his stool has been urinating but admits it is decreased. Again no coughing or pleuritic component to the chest discomfort Review of Systems - Review of Systems Constitutional: Present: weakness, fatigue, malaise EYE: Present: no symptoms reported ENT: Present: no symptoms reported Respiratory: Present: shortness of breath Cardiology: Present: no symptoms reported Gastrointestinal/Abdominal: Present: diarrhea, abdominal pain Genitourinary: Present: no symptoms reported Musculoskeletal: Present: no symptoms reported Skin: Present: no symptoms reported Neurological: Present: no symptoms reported Endocrine: Present: no symptoms reported Hematologic/Lymphatic: Present: no symptoms reported Psych: Present: no symptoms reported All Other Systems: All systems neg except as marked - Patient's Past Medical History Patient History - Medical: Diabetes Type 2 Insulin Dependent, GERD, Obesity Patient History - Cardiac/Respiratory: CHF, Hypertension, Hyperlipidemia Patient History - Cancer: No Hx of Cancer Patient History - Surgical Procedures: Amputation, Appendectomy, Pacemaker Patient History - Other: None - Social History Living Situations: home Abuse History: No History of abuse Psych History: No pertinent hx Alcohol Use: none Drug Use: none - Immunizations Immunizations Up to Date: Yes Hx Pneumococcal Vaccination: Yes History of Influenza Vaccine: Yes Physical Exam - Physical Exam General Appearance: Present: wd/wn, alert, no apparent distress, other - morbidly obese weak-appearing male with dry mucous membranes laying in bed Head Exam: Present: normal inspection, no evidence of injury Eye Exam: Normal inspection: bilateral, PERRL: bilateral, EOMI: bilateral Ears, Nose, Throat: Present: other - patient has dry mucous membranes. Tongue and lips are very dry Neck: Present: normal inspection, nontender Respiratory: Present: no respiratory distress, normal breath sounds, no accessory muscle use, chest nontender, lungs clear Cardiovascular/Chest: Present: regular rate, rhythm, no murmur, normal peripheral pulses Gastrointestinal/Abdominal: Present: normal bowel sounds, nondistended, soft, no organomegaly, other - patient complains of discomfort in both lower quadrants. No rebound no guarding no Santos's sign Back Exam: Present: normal inspection, normal range of motion, no CVA tenderness , no vertebral tenderness Extremity Exam: Present: normal inspection, non-tender, normal range of motion, other - patient with 1+ edema bilateral lower extremities. Neurological Exam: Present: alert, oriented, normal mood/affect, no motor/ sensory deficits Skin Exam: Present: normal color, warm/dry Lymphatic Exam: Present: no adenopathy ED Progress - Results and Orders Patient's Lab Results:: I have reviewed the patient's lab results. - Vital Signs Patient's Vital Signs:: I have reviewed the patient's vital signs. - EKG EKG read: Interp. 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 by me X-ray Comments: Mild vascular congestion consistent with mild CHF Plan - Plan Plan: The patient's urine shows a urinary tract infection. This is likely the cause of the patient's weakness and lack of stability. He does have some very mild congestive changes on the x-ray. I have given him Lasix to help mobilize some of this fluid. I've given him a gram of Rocephin here in the emergency department. I will send him home on a quinolone. We will use Levaquin 500 mg once a day for 7 days. The patient is instructed to follow-up with his family doctor He should return to the ER for any new concerning symptoms. Departure Clinical Impression: Urinary tract infection - Departure Disposition: Home self-care Condition: Stable Instructions: Urinary Tract Infection, Adult, [id number] Additional Instructions: As we discussed, your labs and studies done here today demonstrate that you have a bladder infection. Certainly in people who are older such as herself, even a mild bladder infection can cause significant problems. The most common symptoms or lack of appetite, decreased energy and strength, slight confusion, and instability. I've given U dose of antibiotics here in the ER which should help you get better very quickly. Nevertheless I want you to take the prescribed Levaquin. He should take this once a day for the next 7 days. He can use Tylenol or ibuprofen help with the fever. massotherapist your family doctor and set up a follow-up appointment You do have some very mild congestive heart failure. I want him to be careful with how much fluid or drinking. Return for any new or worrisome symptoms. Prescriptions: Levofloxacin [Levaquin] 500 mg PO DAILY #7 tablet
[2017-07-16] MEDS ORDERED: NORMAL SALINE 1,000 ML IV ONE (23:31)
[2017-07-16 23:56] LABS: Hematocrit 46.3 % (42.0-52.0); Hemoglobin 14.9 gm/dL (13.5-18.0); Mean Cell Volume 93.5 fl (78-100); Mean Corpuscular Hemoglobin 30.1 pg (27-31); Mean Corpuscular Hgb Conc 32.2 g/dl (32-36); Mean Platelet Volume 10.2 fl (6.0-9.5); Neutrophil # 13.1 K/mm3 (1.3-6.0); Neutrophil % 86.4 % (42-75.0); Platelet Count 150 K/mm3 (150-450); Red Blood Count 4.95 M/mm3 (4.7-6.0); Red Cell Distribution Width 15.2 % (11.5-14.0); White Blood Count 15.2 K/mm3 (4.0-10.5)
[2017-07-17 00:19] LABS: ALT 23 U/L (19-67); AST 23 U/L (0-48); Albumin * 3.3 gm/dl (3.4-5.0); Alkaline Phosphatase * 104 U/L (50-170); Anion Gap 13.6 mmol/L (6.8-13.8); BNP * 1142 pg/mL (5-650); BUN/Creatinine Ratio 11.6 (9.0-21.6); Bilirubin, Total 0.8 mg/dL (0.0-1.1); Blood Urea Nitrogen 24 mg/dL (6-23); Ca. Corrected For Albumin 9.1 mg/dL (8.4-10.2); Calcium * 8.9 mg/dL (7.9-10.9); Chloride 96 mmol/L (97-106); Glucose * 244 mg/dL (70-110); Lipase 69 U/L (73-393); Potassium 4.6 mmol/L (3.4-4.6); Sodium 135 mmol/L (132-142); Total Protein 7.3 gm/dL (6.2-8.2)
[2017-07-17 00:20] LABS: Troponin I Less than 0.017 ng/ml (0.00-0.10)
[2017-07-17] MEDS ORDERED: FUROSEMIDE 10 MG/ML VIAL ONE ×2 (00:54→04:42)
[2017-07-17] MEDS ORDERED: FUROSEMIDE 10 MG/ML VIAL IV ONE (00:55)
[2017-07-17 01:31] LABS: Urine Bilirubin Negative (NEGATIVE); Urine Blood 250 /ul (NEGATIVE); Urine Ketone Negative (NEGATIVE); Urine Protein 30 mg/dL (NEGATIVE); Urine Specific Gravity 1.015 SP.GR. (1.005-1.030); Urine Urobilinogen Normal (NORMAL)
[2017-07-17 01:58] LABS: Urine Appearance Slightly Cloudy; Urine Color Brown; Urine Nitrite Positive (NEGATIVE)
[2017-07-17 01:59] LABS: Urine Amorphous Sediment Few - 1+ (NONE-FEW); Urine Bacteria 3+; Urine WBC 25-50 /hpf (0-5)
[2017-07-17] MEDS ORDERED: POTASSIUM CHLORIDE 20 MEQ TABLET.SA PO SCH (03:45)
[2017-07-17] MEDS ORDERED: METOLAZONE 5 MG TABLET PO ONE (03:45)
[2017-07-17] MEDS ORDERED: FUROSEMIDE 10 MG/ML VIAL IV SCH (03:45)
--- NOTE | 2017-07-17 03:49 | HP ---
Chief Complaint - Chief Complaint Date of Service: 07/17/17 Time of Service: 03:31 Chief Complaint: "Weakness, unable to urinate". Source of HPI- Pt; reliable, ERP report and notes. History of Present Illness: Mr. Joiner is a 82-yr-old WM pt of Dr. Rufus Lake, a family practice physician in [place]. His PMH is significant for: Anemia, Arthritis, Chronic back pain, BPH, CVA,COPD, CAD, DM II, GERD, Gout, HTN, HLD, MECHE & Psoriasis. History was mostly provided by pt's spouse Yuliana. She states that for many yrs, pt has been Wheel chair bound but is usually able to pivot around and uses a power chair to move around. However, tonight for the first time, he was unable to stand up on his own after using the toilet. She managed to assist him , but then when he went to the living room, he could not pivot himself to the recliner. He fell and landed on his knee while trying to make attempts. Spouse then called the EMS and he was brought to the [facility] ER. reports that he has had alot of difficulty urinating lately. He will spend a long time in the toilet trying to void. She stated that even though Mr. Joiner has hx of BPH, he had not encountered urinating problems for a while until just recently. She says Lasix used to make him urinate a lot but not anymore in spite of him continuing to take the medication. She states that he can no longer tolerate lying on a flat and mostly sleeps in a propped up position. At the ED, he was found to be febrile with a temp of 38.3. He had an elevated WBC of 15,200 with a left shift, Cr of 2.02 and the UA showed UTI presence. The CXR had findings concerning for CHF and was noted to have an elevated BNP of 1142. He will require to be admitted inpatient for a minimum of 2 midnight stay due to significant fluid overload signs which was probably worsened by inability to excrete urine, poor kidney function and will require IV diuretics over several days to improve the breathlessness, congestion and the generalized edema. - Patient's Past Medical History Patient History - Medical: Diabetes Type 2 Insulin Dependent, GERD, Obesity Patient History - Cardiac/Respiratory: CHF, Hypertension, Hyperlipidemia Patient History - Cancer: No Hx of Cancer Patient History - Surgical Procedures: Amputation, Appendectomy, Pacemaker Patient History - Other: None - Social History Living Situations: home Abuse History: No History of abuse Psych History: No pertinent hx Alcohol Use: none Drug Use: none - Immunizations Immunizations Up to Date: Yes Hx Pneumococcal Vaccination: Yes History of Influenza Vaccine: Yes Review Of Systems (GEN) - Review of Systems Generalized/Overall Review: Present: Weakness, Chills, Fever, Malaise, Fatigue EENTM: Absent: Eye Pain, Blurred Vision, Double Vision, Nose Congestion Respiratory: Present: Cough, Shortness of Breath. Absent: Wheezing Cardiac: Present: Edema. Absent: Chest Pain, Palpitations, Syncope Abdominal: Present: Constipation. Absent: Nausea, Vomiting, Hematemesis, Abdominal Pain, Melena Genitourinary: Present: Urgency, Retention Musculoskeletal: Absent: Joint Pain, Back Pain, Joint Swelling Neurological: Present: Weakness. Absent: Headache, Anxiety, Depressed Skin: Present: Dryness, Bruising Endocrine: Absent: Increased Hunger, Flushing, Increased Thirst Misc: All systems neg except as marked Allergies/Adverse Reactions: Allergies Allergy/AdvReac Type Severity Reaction Status Date / Time No Known Allergies Allergy Unverified 07/03/14 11:36 Home Medications: HOME MEDICATIONS Acetaminophen [Tylenol] 500 mg PO Q6H PRN 07/03/14 [Last Taken Unknown] Allopurinol [Zyloprim] 300 mg PO DAILY 07/03/14 [Last Taken Unknown] Amitriptyline HCl [Elavil] 25 mg PO HS 07/03/14 [Last Taken Unknown] Aspirin 325 mg PO DAILY 07/03/14 [Last Taken Unknown] Atorvastatin Calcium [Lipitor] 40 mg PO HS 07/03/14 [Last Taken Unknown] Doxazosin Mesylate [Cardura] 8 mg PO DAILY 07/03/14 [Last Taken Unknown] Esomeprazole Magnesium [Nexium 24Hr] 20 mg PO DAILY 07/03/14 [Last Taken Unknown ] Furosemide [Lasix] 40 mg PO DAILY 07/03/14 [Last Taken Unknown] Insulin Glargine,Hum.rec.anlog [Lantus] 25 unit SQ BID 07/03/14 [Last Taken Unknown] Insulin Lispro [Humalog] 20 unit SQ 07/03/14 [Last Taken Unknown] Losartan/Hydrochlorothiazide [Hyzaar 100-12.5 Tablet] 1 each PO DAILY 07/03/14 [ Last Taken Unknown] Lubiprostone [Amitiza] 24 mcg PO HS 07/03/14 [Last Taken Unknown] Melatonin/Pyridoxine HCl (B6) [Melatonin 1 mg Tablet] 1 each PO HS 07/03/14 [ Last Taken Unknown] Methylcellulose (with Sugar) [Fiber Therapy Powder] 454 gm PO 07/03/14 [Last Taken Unknown] Multivit-Min/FA/Lycopene/Lut [Centrum Silver Tablet] 1 each PO DAILY 07/03/14 [ Last Taken Unknown] [place]-3/Dha/Epa/Fish Oil [Fish Oil] 500 mg PO DAILY 07/03/14 [Last Taken Unknown ] Polyethylene Glycol 3350 [Miralax] 17 gm PO DAILY 07/03/14 [Last Taken Unknown] amLODIPine BESYLATE [Norvasc] 5 mg PO DAILY 07/03/14 [Last Taken Unknown] traMADol HCL 50 mg PO PRN 05/31/17 [Last Taken Unknown] Levofloxacin [Levaquin] 500 mg PO DAILY #7 tablet 07/17/17 [Last Taken Unknown] Exam - Exam Vital Signs: Vital Signs - Last Taken Temp 38.3 C H 07/17/17 01:39 Pulse 87 07/17/17 03:05 Resp 17 07/17/17 03:05 BP 125/58 07/17/17 03:05 Pulse Ox 97 07/17/17 03:05 Constitutional: Present: Alert, Oriented x3, Mild distress, Elderly, Morbidly obese ENT Exam: Present: normal ENT inspection, hearing grossly normal Eye Exam: bilateral eye: normal inspection, PERRL Neck: Present: non-tender, full range of motion, supple Back Exam: Present: normal inspection Breasts: Present: Exam deferred Respiratory: Present: decreased breath sounds, accessory muscle use, No wheezing Cardiovascular/Chest: Present: regular rate, rhythm, no chest tenderness, systolic murmur Abdomen: Present: Normal bowel sounds, nontender, obese, distended /Rectal: Present: Exam deferred Extremity: Present: lower extremity edema - +2 BLE Pitting Edema, other - Anasarca Skin Exam: Present: warm/dry, no cyanosis, other - skin tags Lymphatic: Present: no adenopathy Neurologic: Present: alert, abnormal gait, depressed affect. Absent: dizzy/ light-headedness Appearance: Present: appropriate insight Eye contact: Present: cooperative, good eye contact Thoughts: Present: normal thought pattern, no apparent hallucination Diagnostic Studies: Abnormal Lab Results 07/17/17 Range/Units 02:34 Lactic Acid, Venous 2.3 H* (0.4-1.9) mmol/L Laboratory Results WBC 15.2 K/mm3 (4.0-10.5) H 07/16/17 23:54 RBC 4.95 M/mm3 (4.7-6.0) 07/16/17 23:54 Hgb 14.9 gm/dL (13.5-18.0) 07/16/17 23:54 Hct 46.3 % (42.0-52.0) 07/16/17 23:54 MCV 93.5 fl (78-100) 07/16/17 23:54 MCH 30.1 pg (27-31) 07/16/17 23:54 MCHC 32.2 g/dl (32-36) 07/16/17 23:54 RDW 15.2 % (11.5-14.0) H 07/16/17 23:54 Plt Count 150 K/mm3 (150-450) 07/16/17 23:54 MPV 10.2 fl (6.0-9.5) H 07/16/17 23:54 Immature Gran % (Auto) 0.50 % (0.001-0.429) H 07/16/17 23:54 Immature Gran # (Auto) 0.08 K/mm3 (0.000-0.0310) H 07/16/17 23:54 Neutrophils % 86.4 % (42-75.0) H 07/16/17 23:54 Lymphocytes % 8.0 % (20-51) L 07/16/17 23:54 Monocytes % 4.4 % (0.0-9) 07/16/17 23:54 Eosinophils % 0.2 % (0.0-3.0) 07/16/17 23:54 Basophils % 0.5 % (0.0-1.0) 07/16/17 23:54 Nucleated RBC % 0.0 k/mm3 (0-1) 07/16/17 23:54 Neutrophils # 13.1 K/mm3 (1.3-6.0) H 07/16/17 23:54 Lymphocytes # 1.2 k/mm3 (1.5-3.5) L 07/16/17 23:54 Monocytes # 0.7 k/mm3 (0.0-1.0) 07/16/17 23:54 Eosinophils # 0.0 k/mm3 (0.0-0.7) 07/16/17 23:54 Absolute Basophils 0.1 k/mm3 (0.0-0.1) 07/16/17 23:54 Sodium 135 mmol/L (132-142) 07/16/17 23:54 Plasma Sodium 137 mmol/L (130-142) 07/16/17 23:54 Potassium 4.6 mmol/L (3.4-4.6) 07/16/17 23:54 Chloride 96 mmol/L (97-106) L 07/16/17 23:54 Carbon Dioxide 30.0 mmol/L (24-32.6) 07/16/17 23:54 Anion Gap 13.6 mmol/L (6.8-13.8) 07/16/17 23:54 BUN 24 mg/dL (6-23) H 07/16/17 23:54 Creatinine 2.07 mg/dL (0.4-1.4) H 07/16/17 23:54 Est GFR (Non-Af Amer) 33 mL/min (60-130) L D 07/16/17 23:54 BUN/Creatinine Ratio 11.6 (9.0-21.6) 07/16/17 23:54 Random Glucose 244 mg/dL (70-110) H 07/16/17 23:54 Lactic Acid, Venous 2.3 mmol/L (0.4-1.9) H* 07/17/17 02:34 Calcium 8.9 mg/dL (7.9-10.9) 07/16/17 23:54 Calcium Adj for Albumin 9.1 mg/dL (8.4-10.2) 07/16/17 23:54 Total Bilirubin 0.8 mg/dL (0.0-1.1) 07/16/17 23:54 AST 23 U/L (0-48) 07/16/17 23:54 ALT 23 U/L (19-67) 07/16/17 23:54 Alkaline Phosphatase 104 U/L (50-170) 07/16/17 23:54 Troponin I Less than 0.017 ng/ml (0.00-0.10) 07/16/17 23:54 B-Natriuretic Peptide 1142 pg/mL (5-650) H 07/16/17 23:54 Total Protein 7.3 gm/dL (6.2-8.2) 07/16/17 23:54 Albumin 3.3 gm/dl (3.4-5.0) L 07/16/17 23:54 Lipase 69 U/L (73-393) L 07/16/17 23:54 Urine Color Brown 07/17/17 01:24 Urine Appearance Slightly cloudy 07/17/17 01:24 Urine pH 6.0 pH (5.0-7.0) 07/17/17 01:24 Ur Specific [place] 1.015 SP.GR. (1.005-1.030) 07/17/17 01:24 Urine Protein 30 mg/dL (NEGATIVE) H 07/17/17 01:24 Urine Glucose (UA) Negative mg/dL (NEGATIVE) 07/17/17 01:24 Urine Ketones Negative mg/dL (NEGATIVE) 07/17/17 01:24 Urine Blood 250 /ul (NEGATIVE) H 07/17/17 01:24 Urine Nitrate Positive (NEGATIVE) H 07/17/17 01:24 Urine Bilirubin Negative mg/dl (NEGATIVE) 07/17/17 01:24 Prot Sulfosalicylic Acd 1+ mg/dL (0) 07/17/17 01:24 Urine Urobilinogen Normal EU/dl (NORMAL) 07/17/17 01:24 Ur Leukocyte Esterase 75 /ul (NEGATIVE) H 07/17/17 01:24 Urine RBC 5-10 /hpf (0-5) H 07/17/17 01:24 Urine WBC 25-50 /hpf (0-5) H 07/17/17 01:24 Ur Epithelial Cells 0-5 /hpf (0-5) 07/17/17 01:24 Amorphous Sediment Few - 1+ (NONE-FEW) 07/17/17 01:24 Urine Bacteria 3+ (NONE) H 07/17/17 01:24 Urine Culture Comments Culture to follow 07/17/17 01:24 Assessment/Plan - Assessment/Plan (1) Sepsis Assessment: Noted to have fever of 38.3, WBC of 15,200, lactic acid of 2.3 + Suspected source of infection being UTI. Will cover with Rocephin. Received bolus at the ED, but will hold off any additional IVF due to CHF and to avoid inflicting respiratory distress. Problem: Acute (2) UTI (urinary tract infection) Assessment: UA showed presence of UTI. Spouse reported increasing difficulty with urination. He had to be straight cath in the ER for 300ml of urine. UTI was likely brought forth by retention problems from BPH. Will place a Cormier catheter and live in in place and consult Urology. Will be covered with Rocephin for know until urine culture results. CBC in am. Problem: Acute (3) CHF (congestive heart failure) Assessment: The CXR had findings concerning for CHF, BNP was elevated at 1142 and he is noted to have significant fluid overload signs: Anasarca, SOB, and Orthopnea. Was given 40 of IV lasix at the ED. Will give additional 120mg & metolazone. Monitor fluid intake and output, Wt, serum electrolytes & BUN/CR daily. . Problem: Acute (4) BPH (benign prostatic hyperplasia) Assessment: Consider starting him on Proscar & Flomax and consulting Urology. Problem: Chronic (5) Diabetes Assessment: Stable- ACHS accucheck and carb consistent diet, He is on Lantus 40 daily, will add low dose SSI. Problem: Chronic (6) Discharge planning issues Assessment: Depending on how much mobility he regains back following this hospitalization, he will likely need placed. He is already wheelchair bound and functional ability/mobility will likely worsen with hospitalization. I spoke with pt about the need for skilled placement at discharge and he was quite defiant. is agreeable that he ultimately needs placement, especially if he cannot stand and pivot on his own. Will have case mgt assist. Problem: Acute (7) HTN (hypertension) Assessment: await home medication list from pt's pharmacy. Problem: Chronic (8) Poor kidney function Assessment: BUN/CR 01/01.02. No recent baseline labs to see if this is CKI or BRIGID. Monitor BMP. Problem: Acute
[2017-07-17] MEDS: INSULIN LISPRO 100 UNITS/ML VIAL SC SCH ×2 (04:34→07:45)
[2017-07-17 05:28] LABS: Hemoglobin 13.6 gm/dL (13.5-18.0); Mean Corpuscular Hemoglobin 30.4 pg (27-31); Mean Corpuscular Hgb Conc 32.4 g/dl (32-36); Mean Platelet Volume 10.6 fl (6.0-9.5); Platelet Count 140 K/mm3 (150-450); Red Blood Count 4.47 M/mm3 (4.7-6.0); Red Cell Distribution Width 15.3 % (11.5-14.0); White Blood Count 18.2 K/mm3 (4.0-10.5)
[2017-07-17 05:37] LABS: Total Cells Counted 100
[2017-07-17 05:51] LABS: Albumin * 2.9 gm/dl (3.4-5.0); Anion Gap 13.5 mmol/L (6.8-13.8); BUN/Creatinine Ratio 13.1 (9.0-21.6); Bilirubin, Total 0.5 mg/dL (0.0-1.1); Calcium * 8.4 mg/dL (7.9-10.9); Carbon Dioxide 26.8 mmol/L (24-32.6); Potassium 4.3 mmol/L (3.4-4.6); Total Protein 6.4 gm/dL (6.2-8.2)
[2017-07-17 06:11] LABS: Band 7 % (0-2.0); Dohle Bodies 1+; Lymphocyte 10 % (20-51); Monocyte 8 % (0-9); Neutrophil 75 % (42-75); Neutrophil # 13.7 K/mm3 (1.3-6.0); Platelet Estimate Decreased (NORMAL); Toxic Granulation 2+
[2017-07-17] MEDS: INSULIN GLARGINE,HUM.REC.ANLOG 100 UNITS/ML VIAL SC SCH ×2 (07:45→08:54)
[2017-07-17] MEDS: NYSTATIN 15 APPL TUBE TP SCH ×4 (08:54→20:34)
[2017-07-17] MEDS: FUROSEMIDE 80 MG TABLET PO SCH (11:26)
[2017-07-17] MEDS: INSULIN ASPART PROT/INSULN ASP 100 UNITS/ML VIAL SC SCH ×2 (11:45→17:02)
[2017-07-17] MEDS ORDERED: ACETAMINOPHEN 325 MG TABLET PO SCH (15:55)
[2017-07-17] MEDS: GABAPENTIN 300 MG CAPSULE PO SCH (20:32)
[2017-07-17] MEDS: SIMVASTATIN 20 MG TABLET PO SCH (20:32)
[2017-07-17] MEDS: LORATADINE 10 MG TABLET PO SCH (20:32)
[2017-07-17] MEDS: ACETAMINOPHEN 325 MG TABLET PO SCH (20:33)
[2017-07-17] MEDS ORDERED: NON-FORMULARY 1 DOSE DOSE (Acetaminophen 650 MG) PO SCH (21:00)
--- NOTE | 2017-07-18 06:30 | PN ---
Subjective - Date and Time Seen Date: 07/18/17 Time: 06:24 Subjective Narrative: Mr. Joiner seen this am. Has no complaints. Nursing reports desaturations to 86% ra during sleep. Pt says he has MECHE and has a CPAP machine but he rarely uses it because it bothers him. No other acute events overnight. Objective - Vitals Vitals: Last Vital Signs Temp 36.6 C 07/18/17 03:20 Pulse 70 07/18/17 03:20 Resp 18 07/18/17 03:20 BP 126/64 07/18/17 03:20 Pulse Ox 93 07/18/17 03:20 - Exam Constitutional: Present: Alert, Oriented x3, Cooperative, No distress, Elderly, Morbidly obese ENT Exam: Present: normal ENT inspection, hearing grossly normal, muffled/ hoarse voice. Absent: nasal congestion, nasal drainage Neck: Present: non-tender, full range of motion, supple Breasts: Present: Exam deferred Respiratory: Present: decreased breath sounds, No wheezing Cardiovascular/Chest: Present: regular rate, rhythm, no chest tenderness, no murmur Abdomen: Present: Normal bowel sounds, soft, nontender, obese /Rectal: Present: Other - Cormier Catheter Extremity: Present: lower extremity edema - + 2 tibial/pedal edema Skin Exam: Present: warm/dry, no cyanosis Lymphatic: Present: no adenopathy Neurologic: Present: no motor/sensory deficits, alert, oriented x 3, abnormal gait Appearance: Present: appropriate insight Eye contact: Present: cooperative, good eye contact Thoughts: Present: no apparent hallucination Cauti Physician Documentation - Urinary Catheter Management Urethral (Cormier) Date of Insertion: 07/17/17 Time of Insertion: 03:15 Assessment/Plan - Problems/Diagnosis (1) Sepsis Problem: Acute Narrative: Noted to have fever of 38.3, WBC of 15,200, lactic acid of 2.3 + Suspected source of infection being UTI. Will cover with Rocephin. Received bolus at the ED, but will hold off any additional IVF due to CHF and to avoid inflicting respiratory distress. (2) UTI (urinary tract infection) Problem: Acute Narrative: UA showed presence of UTI. Spouse reported increasing difficulty with urination. He had to be straight cath in the ER for 300ml of urine. UTI was likely brought forth by retention problems from BPH. Will place a Cormier catheter and live in in place and consult Urology. Will be covered with Rocephin for know until urine culture results. CBC in am. (3) CHF (congestive heart failure) Problem: Acute Narrative: The CXR had findings concerning for CHF, BNP was elevated at 1142 and he is noted to have significant fluid overload signs: Anasarca, SOB, and Orthopnea. Was given 40 of IV lasix at the ED. Will give additional 120mg & metolazone. Monitor fluid intake and output, Wt, serum electrolytes & BUN/CR daily. 07/18- Inconsistency in daily wts, however, he is responding to diuretics well. 1300ml in the night. Continue Lasix 160mg IV Daily. Will add k replacement. (4) BPH (benign prostatic hyperplasia) Problem: Chronic Narrative: Consider starting him on Proscar & Flomax and consulting Urology. (5) Diabetes Problem: Chronic Narrative: Stable- ACHS accucheck and carb consistent diet, He is on Lantus 40 daily, will add low dose SSI. (6) Discharge planning issues Problem: Acute Narrative: Depending on how much mobility he regains back following this hospitalization, he will likely need placed. He is already wheelchair bound and functional ability/mobility will likely worsen with hospitalization. I spoke with pt about the need for skilled placement at discharge and he was quite defiant. is agreeable that he ultimately needs placement, especially if he cannot stand and pivot on his own. Will have case mgt assist. 07/18- Fell at home, Has had 2 assisted fall since being admitted. Inability to ambulate will be a barrier to being discharged home, hence placement is necessary. (7) HTN (hypertension) Problem: Chronic Qualifiers: Hypertension type: essential hypertension Qualified Code(s): I10 - Essential (primary) hypertension Narrative: Stable- On Losartan and Cardura (8) Poor kidney function Problem: Acute Narrative: 07/17- BUN/CR 24/2.02. No recent baseline labs to see if this is CKI or BRIGID. Monitor BMP. Laboratory Tests 07/16/17 07/17/17 23:54 05:15 BUN 24 H 25 H Creatinine 2.07 H 1.91 H (9) MECHE (obstructive sleep apnea) Problem: Chronic Narrative: Will start him on CPAP at night
[2017-07-18] MEDS: LEVOTHYROXINE SODIUM 50 MCG TABLET PO SCH (07:15)
[2017-07-18 07:16] LABS: Hematocrit 43.4 % (42.0-52.0); Hemoglobin 14.1 gm/dL (13.5-18.0); Mean Cell Volume 93.5 fl (78-100); Mean Corpuscular Hemoglobin 30.4 pg (27-31); Mean Corpuscular Hgb Conc 32.5 g/dl (32-36); Mean Platelet Volume 10.6 fl (6.0-9.5); Neutrophil # 9.9 K/mm3 (1.3-6.0); Neutrophil % 71.3 % (42-75.0); Platelet Count 146 K/mm3 (150-450); Red Blood Count 4.64 M/mm3 (4.7-6.0); Red Cell Distribution Width 15.3 % (11.5-14.0); White Blood Count 13.9 K/mm3 (4.0-10.5)
[2017-07-18] MEDS: INSULIN ASPART PROT/INSULN ASP 100 UNITS/ML VIAL SC SCH ×3 (07:17→17:06)
[2017-07-18 07:34] LABS: BUN/Creatinine Ratio 16.8 (9.0-21.6); Calcium * 8.2 mg/dL (7.9-10.9); Estimated Creat Clear 34.6; Potassium 3.6 mmol/L (3.4-4.6)
[2017-07-18 07:45] LABS: Anion Gap 11.6 mmol/L (6.8-13.8)
[2017-07-18] MEDS ORDERED: HYDROCHLOROTHIAZIDE PO SCH (09:00)
[2017-07-18] MEDS ORDERED: LOSARTAN PO SCH (09:00)
[2017-07-18] MEDS ORDERED: [UNRECOGNIZED DRUG - OTHER] PO SCH (09:00)
[2017-07-18] MEDS ORDERED: INSULIN GLARGINE,HUM.REC.ANLOG 100 UNITS/ML VIAL SC SCH (09:00)
[2017-07-18] MEDS: FUROSEMIDE 80 MG TABLET PO SCH (09:04)
[2017-07-18] MEDS: LOSARTAN POTASSIUM 50 MG TABLET PO SCH (09:04)
[2017-07-18] MEDS: ASPIRIN 81 MG TABLET.DR PO SCH (09:04)
[2017-07-18] MEDS: ALLOPURINOL 300 MG TABLET PO SCH (09:04)
[2017-07-18] MEDS: HYDROCHLOROTHIAZIDE 12.5 MG CAPSULE PO SCH (09:04)
[2017-07-18] MEDS: GABAPENTIN 300 MG CAPSULE PO SCH ×2 (09:05→20:46)
[2017-07-18] MEDS: DOXAZOSIN MESYLATE 2 MG TABLET PO SCH (09:05)
[2017-07-18] MEDS: NYSTATIN 15 APPL TUBE TP SCH ×4 (09:05→20:47)
[2017-07-18] MEDS: ACETAMINOPHEN 325 MG TABLET PO SCH ×2 (09:05→20:46)
[2017-07-18] MEDS: POLYETHYLENE GLYCOL 3350 119 GM BTL PO SCH (09:06)
[2017-07-18] MEDS: INSULIN GLARGINE,HUM.REC.ANLOG 100 UNITS/ML VIAL SC SCH (09:08)
[2017-07-18] MEDS: ENOXAPARIN SODIUM 40 MG/0.4 ML SYRG SC SCH (11:45)
[2017-07-18] MEDS: LORATADINE 10 MG TABLET PO SCH (20:45)
[2017-07-18] MEDS: SIMVASTATIN 20 MG TABLET PO SCH (20:46)
[2017-07-19 05:16] LABS: Hematocrit 42.4 % (42.0-52.0); Mean Corpuscular Hemoglobin 30.7 pg (27-31); Mean Platelet Volume 10.6 fl (6.0-9.5); Neutrophil # 5.9 K/mm3 (1.3-6.0); Neutrophil % 62.9 % (42-75.0); Platelet Count 165 K/mm3 (150-450); Red Blood Count 4.56 M/mm3 (4.7-6.0); White Blood Count 9.3 K/mm3 (4.0-10.5)
[2017-07-19 05:26] LABS: Anion Gap 9.9 mmol/L (6.8-13.8); BUN/Creatinine Ratio 21.4 (9.0-21.6); Calcium * 8.3 mg/dL (7.9-10.9); Carbon Dioxide 31.2 mmol/L (24-32.6); Estimated Creat Clear 36.8; Potassium 3.1 mmol/L (3.4-4.6)
[2017-07-19] MEDS ORDERED: POTASSIUM CHLORIDE 20 MEQ TABLET.SA PO ONE ×2 (07:00→12:00)
[2017-07-19] MEDS: LEVOTHYROXINE SODIUM 50 MCG TABLET PO SCH (07:19)
[2017-07-19] MEDS: INSULIN ASPART PROT/INSULN ASP 100 UNITS/ML VIAL SC SCH ×2 (07:54→12:03)
--- NOTE | 2017-07-19 08:20 | DS ---
(1) CHF (congestive heart failure) Problem: Acute (2) Discharge planning issues Problem: Acute (3) Poor kidney function Problem: Acute (4) Sepsis Problem: Acute (5) UTI (urinary tract infection) Problem: Acute (6) BPH (benign prostatic hyperplasia) Problem: Chronic (7) Diabetes Problem: Chronic (8) HTN (hypertension) Problem: Chronic Qualifiers: Hypertension type: essential hypertension Qualified Code(s): I10 - Essential (primary) hypertension (9) MECHE (obstructive sleep apnea) Problem: Chronic Description of Stay: Javid is an 82 year old male admitted with weakness, UTI, CHF and sepsis. Infection source was the UTI. Organ dysfuction was documented by elevated creatinine on admission of 2.07 and decreased platelets of 140, meeting criteria for sepsis. Patient was started on IV rocephin and received a saline bolus in the ER. patient was not a candidate for aggressive IVF hydration due to CHF exacerbation. Patient was diuresed with IV lasix and zaroxyln. He continued to diurese over the course of his admission. His mentation improved and he regained his strength. WBC normalized prior to discharge. urine culture grew kleb pneumoniae sensitive to rocephin, thus patient was sent home with a script for cefdinir. Since patient's mobility was back to baseline, he was discharged in stable condition. Procedures Performed: none Discharge Disposition: Home self care Disposition: Home self-care Condition: Undetermined Discharge Activity: Activity as tolerated Discharge Diet: Consistent carbs Problem Oriented Discharge Instructions to Patient/Family: Urinary Tract Infection, Adult, [id number], Urine Culture and Sensitivity Testing Additional Patient Instructions (free text): Follow up with your Dr. Lake 08/03 at 10:40 in [facility] Watch weight closely. Call primary doctor if weight increases by 5 lbs in 1 week. Avoid foods high in salt. New Medications: 1. Nystatin Powder: apply to folds of skin that are reddened 4 times a day until healed. 2. Cefdinir 300 mg capsules, 1 cap by mouth 2 times a day for 5 days. Your blood pressure has been a little low in the afternoon. Therefore, take your Cardura (doxazosin) at bedtime. Follow up with your pcp in 3 weeks. Please make patient TCM at discharge. Call Chrissie at [phone]. Thank you. Prescriptions (Any new or edited meds): Cefdinir 300 mg PO BID #10 capsule Nystatin [Mycostatin Powder] 1 appl TP QID #1 btl Complete Home Medications List: Complete Home Medication List: Acetaminophen [Tylenol] 650 mg PO DAILY 07/03/14 Allopurinol [Zyloprim] 300 mg PO DAILY 07/03/14 Aspirin 81 mg PO DAILY 07/03/14 Atorvastatin Calcium [Lipitor] 40 mg PO HS 07/03/14 Doxazosin Mesylate [Cardura] 8 mg PO DAILY 07/03/14 Furosemide [Lasix] 160 mg PO DAILY 07/03/14 Losartan/Hydrochlorothiazide [Hyzaar 100-12.5 Tablet] 100 mg PO DAILY 07/03/14 Melatonin/Pyridoxine HCl (B6) [Melatonin 1 mg Tablet] 10 mg PO HS 07/03/14 Multivit-Min/FA/Lycopene/Lut [Centrum Silver Tablet] 1 each PO DAILY 07/03/14 [place]-3/Dha/Epa/Fish Oil [Fish Oil Dr 500 mg Softgel] 1,000 mg PO DAILY Polyethylene Glycol 3350 [Miralax] 17 gm PO DAILY 07/03/14 Fexofenadine HCl [Linda Allergy] 180 mg PO HS 07/17/17 Gabapentin 300 mg PO HS 07/17/17 Gabapentin [Neurontin] 300 mg PO DAILY 07/17/17 Insulin Aspart Prot/Insuln Asp [Novolog Mix 70/30] 25 units SC TID 07/17/17 Levothyroxine Sodium [Synthroid] 50 mcg PO DAILY 07/17/17 Cefdinir 300 mg PO BID #10 capsule 07/19/17 Insulin Glargine,Hum.rec.anlog [Lantus] 40 units SC DAILY vial 07/19/17 Nystatin [Mycostatin Powder] 1 appl TP QID #1 btl 07/19/17 Potassium Chloride [K-Dur] 40 meq PO DAILY tablet.sa 07/19/17
[2017-07-19] MEDS: ALLOPURINOL 300 MG TABLET PO SCH (08:43)
[2017-07-19] MEDS: FUROSEMIDE 80 MG TABLET PO SCH (08:43)
[2017-07-19] MEDS: POLYETHYLENE GLYCOL 3350 119 GM BTL PO SCH (08:44)
[2017-07-19] MEDS: LOSARTAN POTASSIUM 50 MG TABLET PO SCH (08:44)
[2017-07-19] MEDS: GABAPENTIN 300 MG CAPSULE PO SCH (08:44)
[2017-07-19] MEDS: ACETAMINOPHEN 325 MG TABLET PO SCH (08:44)
[2017-07-19] MEDS: HYDROCHLOROTHIAZIDE 12.5 MG CAPSULE PO SCH (08:44)
[2017-07-19] MEDS: ASPIRIN 81 MG TABLET.DR PO SCH (08:44)
[2017-07-19] MEDS: DOXAZOSIN MESYLATE 2 MG TABLET PO SCH (08:44)
[2017-07-19] MEDS: INSULIN GLARGINE,HUM.REC.ANLOG 100 UNITS/ML VIAL SC SCH (08:45)
[2017-07-19] MEDS ORDERED: NYSTATIN 15 APPL BTL TP SCH (09:00)
[2017-07-19 10:40] VITALS: BP 144/84
[2017-07-19] MEDS: ENOXAPARIN SODIUM 40 MG/0.4 ML SYRG SC SCH (12:04)
[2017-07-20] MEDS ORDERED: POTASSIUM CHLORIDE 20 MEQ TABLET.SA PO SCH (07:00)
== END 2017-07-19 12:30 | disposition home or self-care (01) | DRG 871 ==
LOC: ER 23:20 → MS 07-17 02:23 → OBSVTOIN 07-17 11:07
PROVIDERS: ADMIT Nurse Practitioner; ATTEND Family Medicine
PROC: 0T9B70Z Drainage of Bladder with Drainage Device, Via Natural or Artificial Opening (ICD-10-PCS; principal; 2017-07-16)
DX: A41.9 Sepsis, unspecified organism (principal); I50.33 Acute on chronic diastolic (congestive) heart failure; N39.0 Urinary tract infection, site not specified; Z68.43 Body mass index [BMI] 50.0-59.9, adult; B96.1 Klebsiella pneumoniae [K. pneumoniae] as the cause of diseases classified elsewhere; E11.9 Type 2 diabetes mellitus without complications; I10 Essential (primary) hypertension; Z71.3 Dietary counseling and surveillance; E66.01 Morbid (severe) obesity due to excess calories; E78.5 Hyperlipidemia, unspecified; R35.1 Nocturia; G47.34 Idiopathic sleep related nonobstructive alveolar hypoventilation; Z95.0 Presence of cardiac pacemaker; Z79.4 Long term (current) use of insulin

== ENCOUNTER 2017-08-14 08:11 | Emergency (ER) | payer MEDICARE, BC ==
[2017-08-14 08:50] LABS: Hematocrit 47.2 % (42.0-52.0); Hemoglobin 15.1 gm/dL (13.5-18.0); Mean Cell Volume 94.6 fl (78-100); Mean Corpuscular Hemoglobin 30.3 pg (27-31); Mean Platelet Volume 10.3 fl (6.0-9.5); Neutrophil # 4.5 K/mm3 (1.3-6.0); Platelet Count 159 K/mm3 (150-450); Red Blood Count 4.99 M/mm3 (4.7-6.0); Red Cell Distribution Width 14.6 % (11.5-14.0); White Blood Count 8.3 K/mm3 (4.0-10.5)
[2017-08-14 08:57] LABS: Prothrombin Time (Patient) 10.9 Seconds (9.4-11.4)
--- NOTE | 2017-08-14 08:57 | ERNOTE ---
Upper Extremity HPI - Narrative Date of Service: 08/14/17 - General Extremities Pain Location: shoulder: left Time Seen by Provider: 08/14/17 08:43 Source: patient Exam Limitations: other - not a very detailed or exact historian - Immun/Allergies/Home Medications Immunizations: IMMUNIZATION HX Immunizations Up to Date Yes History of Influenza Vaccine Yes Hx Pneumococcal Vaccination Yes Allergies/Adverse Reactions: Allergies Allergy/AdvReac Type Severity Reaction Status Date / Time No Known Allergies Allergy Verified 08/14/17 08:22 Home Medications: HOME MEDICATIONS Acetaminophen [Tylenol] 650 mg PO DAILY 07/03/14 [Last Taken Unknown] Allopurinol [Zyloprim] 300 mg PO DAILY 07/03/14 [Last Taken Unknown] Aspirin 81 mg PO DAILY 07/03/14 [Last Taken Unknown] Atorvastatin Calcium [Lipitor] 40 mg PO HS 07/03/14 [Last Taken Unknown] Doxazosin Mesylate [Cardura] 8 mg PO DAILY 07/03/14 [Last Taken Unknown] Furosemide [Lasix] 160 mg PO DAILY 07/03/14 [Last Taken Unknown] Losartan/Hydrochlorothiazide [Hyzaar 100-12.5 Tablet] 100 mg PO DAILY 07/03/14 [ Last Taken Unknown] Melatonin/Pyridoxine HCl (B6) [Melatonin 1 mg Tablet] 10 mg PO HS 07/03/14 [ Last Taken Unknown] Multivit-Min/FA/Lycopene/Lut [Centrum Silver Tablet] 1 each PO DAILY 07/03/14 [ Last Taken Unknown] [place]-3/Dha/Epa/Fish Oil [Fish Oil Dr 500 mg Softgel] 1,000 mg PO DAILY [Last Taken Unknown] Polyethylene Glycol 3350 [Miralax] 17 gm PO DAILY 07/03/14 [Last Taken Unknown] Fexofenadine HCl [Linda Allergy] 180 mg PO HS 07/17/17 [Last Taken Unknown] Gabapentin 300 mg PO HS 07/17/17 [Last Taken Unknown] Gabapentin [Neurontin] 300 mg PO DAILY 07/17/17 [Last Taken Unknown] Insulin Aspart Prot/Insuln Asp [Novolog Mix 70/30] 25 units SC TID 07/17/17 [ Last Taken Unknown] Levothyroxine Sodium [Synthroid] 50 mcg PO DAILY 07/17/17 [Last Taken Unknown] Cefdinir 300 mg PO BID #10 capsule 07/19/17 [Last Taken Unknown] Insulin Glargine,Hum.rec.anlog [Lantus] 40 units SC DAILY vial 07/19/17 [Last Taken Unknown] Nystatin [Mycostatin Powder] 1 appl TP QID #1 btl 07/19/17 [Last Taken Unknown] Potassium Chloride [K-Dur] 40 meq PO DAILY tablet.sa 07/19/17 [Last Taken Unknown] Nitrofurantoin/Nitrofuran Mac [Macrobid] 100 mg PO Q12H #20 cap 08/14/17 [Last Taken Unknown] - History of Present Illness Narrative: 82 yo WM with long history who states he had several days of left shoulder pain but awoke this AM with marked increased intensity. Says it extends down his arm but not consistently. Increased pain with movement and cannot abduct. Denies any trauma or injury. Occurred: this morning Review of Systems - Review of Systems Constitutional: Present: no symptoms reported ENT: Present: no symptoms reported Respiratory: Present: other - orthopnea Cardiology: Present: no symptoms reported Gastrointestinal/Abdominal: Present: constipation Musculoskeletal: Present: other - fx left leg with swelling. New increased swelling of right leg for past month Neurological: Present: no symptoms reported - Patient's Past Medical History Patient History - Medical: Diabetes Type 2 Insulin Dependent, GERD, Obesity Patient History - Cardiac/Respiratory: CHF, Hypertension, Hyperlipidemia Patient History - Cancer: No Hx of Cancer Patient History - Surgical Procedures: Amputation, Appendectomy, Pacemaker Patient History - Other: None - Family History Mother Family History - Cardiac/Respiratory: Coronary Heart Disease Father Family History - Cardiac/Respiratory: Coronary Heart Disease - Social History Living Situations: home Abuse History: No History of abuse Psych History: No pertinent hx Smoking Status: Never smoker - Immunizations Immunizations Up to Date: Yes Hx Pneumococcal Vaccination: Yes History of Influenza Vaccine: Yes Physical Exam - Physical Exam General Appearance: Present: wd/wn, alert Head Exam: Present: normal inspection Eye Exam: PERRL: bilateral, EOMI: bilateral Ears, Nose, Throat: Present: normal ENT inspection Neck: Present: normal inspection Respiratory: Present: no respiratory distress, normal breath sounds Cardiovascular/Chest: Present: regular rate, rhythm Peripheral Pulses: N=norm/S=strong/W=weak/B=bound/A=absent: Radial (R): Normal, Radial (L): Normal Gastrointestinal/Abdominal: Present: abnormal bowel sounds - decreased diffusely , distended, other - obese Extremity Exam: Present: decreased range of motion, joint swelling - left shoulder with minimal deformity. Tender anterior capsule. Cannot abduct Skin Exam: Present: normal color, warm/dry ED Progress - Results and Orders Patient's Lab Results:: I have reviewed the patient's lab results. - Vital Signs Patient's Vital Signs:: I have reviewed the patient's vital signs. Vital Signs: Vital Signs 08/14/17 08:18 Temperature 36.4 C L Pulse Rate 84 Respiratory 16 Rate Blood Pressure 170/89 O2 Sat by Pulse 92 Oximetry - X-Ray X-Ray #1 X-Ray: chest Interpretation: Reviewed by me X-Ray #2 X-Ray: shoulder - left Interpretation: Reviewed by me - Progress/Reassessment Chief Complaint: Upper Extremity Injury/Problem Plan - Plan Plan: sling, tylenol, follow up with ortho Macrobid 100 mg bid x 10 days Follow up with PCP Departure Clinical Impression: Acute arthritis, UTI (urinary tract infection) - Departure Disposition: Home self-care Condition: Fair Instructions: Joint Pain, [id number]-Lobd, Urinary Tract Infection, Adult, Easy-to -Read Additional Instructions: Wear arm sling except when in bed Use tylenol 975 mg every 6 hours Take macrobid as directed Follow up with PCP Prescriptions: Nitrofurantoin/Nitrofuran Mac [Macrobid] 100 mg PO Q12H #20 cap
[2017-08-14 08:58] LABS: INR 1.05 INR (0.90-1.10); Partial Thrombolplastin Time 28.3 Seconds (24-32)
[2017-08-14 09:10] LABS: ALT 21 U/L (19-67); AST 21 U/L (0-48); Albumin * 3.5 gm/dl (3.4-5.0); Alkaline Phosphatase * 101 U/L (50-170); Anion Gap 9.6 mmol/L (6.8-13.8); BUN/Creatinine Ratio 14.1 (9.0-21.6); Bilirubin, Total 0.5 mg/dL (0.0-1.1); Blood Urea Nitrogen 20 mg/dL (6-23); Ca. Corrected For Albumin 9.8 mg/dL (8.4-10.2); Calcium * 9.7 mg/dL (7.9-10.9); Carbon Dioxide 35.6 mmol/L (24-32.6); Chloride 100 mmol/L (97-106); Glucose * 105 mg/dL (70-110); Potassium 4.2 mmol/L (3.4-4.6); Sodium 141 mmol/L (132-142); Total Protein 7.7 gm/dL (6.2-8.2)
[2017-08-14 09:25] LABS: Urine Bilirubin Negative (NEGATIVE); Urine Blood 50 /ul (NEGATIVE); Urine Ketone Negative (NEGATIVE); Urine Protein 15 mg/dL (NEGATIVE); Urine Urobilinogen Normal (NORMAL); Urine pH 7.5 pH (5.0-7.0)
[2017-08-14 09:26] LABS: Urine Appearance Cloudy; Urine Bacteria 3+; Urine Color Yellow; Urine Nitrite Positive (NEGATIVE); Urine RBC >50 /hpf (0-5); Urine WBC >50 /hpf (0-5)
[2017-08-14 09:29] LABS: Troponin I Less than 0.017 ng/ml (0.00-0.10)
[2017-08-14 10:55] VITALS: BP 141/89
== END 2017-08-14 11:13 | disposition home or self-care (01) ==
LOC: ER 08:11
DX: M19.90 Unspecified osteoarthritis, unspecified site (principal); N39.0 Urinary tract infection, site not specified

== ENCOUNTER 2018-05-18 07:06 | Observation (INO) | payer BC, MEDICARE ==
--- NOTE | 2018-05-18 07:21 | ERNOTE ---
<Lonny Tijerina - Last Filed: 05/18/18 08:01> Medical Problem HPI - General Time Seen by Provider: 05/18/18 07:10 Source: patient, EMS Exam Limitations: no limitations - Immun/Allergies/Home Medications Immunizations: IMMUNIZATION HX Immunizations Up to Date Yes History of Influenza Vaccine Yes Hx Pneumococcal Vaccination Yes Allergies/Adverse Reactions: Allergies No Known Allergies Allergy (Verified 05/18/18 07:23) Home Medications: HOME MEDICATIONS Allopurinol [Zyloprim] 300 mg PO DAILY 07/03/14 [Last Taken Unknown] Aspirin 81 mg PO DAILY 07/03/14 [Last Taken Unknown] Atorvastatin Calcium [Lipitor] 40 mg PO HS 07/03/14 [Last Taken Unknown] Doxazosin Mesylate [Cardura] 8 mg PO DAILY 07/03/14 [Last Taken Unknown] Furosemide [Lasix] 160 mg PO DAILY 07/03/14 [Last Taken Unknown] Losartan/Hydrochlorothiazide [Hyzaar 100-12.5 Tablet] 100 mg PO DAILY 07/03/14 [ Last Taken Unknown] Polyethylene Glycol 3350 [Miralax] 17 gm PO BID 07/03/14 [Last Taken Unknown] Gabapentin 600 mg PO HS 07/17/17 [Last Taken Unknown] Gabapentin [Neurontin] 300 mg PO DAILY 07/17/17 [Last Taken Unknown] Levothyroxine Sodium [Synthroid] 50 mcg PO DAILY 07/17/17 [Last Taken Unknown] Insulin Aspart [Novolog] 30 units SC TID 03/18/18 [Last Taken Unknown] Insulin Detemir [Levemir] 50 unit SQ DAILY 03/18/18 [Last Taken Unknown] Multivit-Min/FA/Lycopen/Lutein [Centrum Silver Men Tablet] 1 tab PO DAILY [Last Taken Unknown] [place] Oil/[place]-3 Fatty Acids [Fish Oil] 1,200 mg PO DAILY 03/18/18 [Last Taken Unknown] Sennosides/Docusate Sodium [Senna-S Tablet] 2 tab PO BID 03/18/18 [Last Taken Unknown] Sertraline HCl [Zoloft] 50 mg PO DAILY 03/18/18 [Last Taken Unknown] Wheat Dextrin/L.acid/Aspartame [Fiber with Probiotic Powder] 360 gm PO DAILY 09/25 [Last Taken Unknown] traMADol HCL [Ultram] 50 mg PO Q4H PRN 03/18/18 [Last Taken Unknown] Naproxen Sodium [Aleve] 220 mg PO QID 05/18/18 [Last Taken Unknown] - History of Present History Narrative: Pt brought by EMS with c/o generalized weakness. states his left arm is having some tremor which is new. Pt alert and oriented upon arrival. EMS report no localizing signs. Timing: constant Severity: mild Review of Systems - Review of Systems Constitutional: Absent: recent illness, fever Respiratory: Present: shortness of breath - no different than usual. Absent: wheezing Cardiology: Present: edema - "no more than usual". Absent: chest pain Gastrointestinal/Abdominal: Absent: nausea, vomiting Genitourinary: Present: frequency Skin: Present: rash Endocrine: Present: intolerance to heat Medical History (Last Updated 05/18/18 @ 07:23 by Gricelda Knott) BPH (benign prostatic hyperplasia) CHF (congestive heart failure) Diabetic acidosis, type II Hand amputation status History of appendectomy Stroke Surgical History: Surgical History (Last Updated 05/18/18 @ 07:23 by Gricelda Knott) H/O removal of testicle Social History: Preferred Language Romanian Abuse History No History of abuse Psych History No pertinent hx Physical Exam - Physical Exam General Appearance: Present: wd/wn, alert, no apparent distress Head Exam: Present: normal inspection, no evidence of injury Eye Exam: Normal inspection: bilateral, PERRL: bilateral, EOMI: bilateral Ears, Nose, Throat: Present: normal except - - patchy erythema around mouth and chin Neck: Present: normal inspection, nontender Respiratory: Present: no respiratory distress, no accessory muscle use, decreased breath sounds Cardiovascular/Chest: Present: regular rate, rhythm, no murmur Gastrointestinal/Abdominal: Present: normal bowel sounds, nontender, other - morbidly obese. Scar to the right of the umbilicus from prev. surgery Extremity Exam: Present: decreased range of motion - left shoulder/ elbow due to chronic arthrosis. , extremity edema - 3+ bilateral LE. , other - 2nd,3rd and 5th fingers amputated left hand. Neurological Exam: Present: alert, oriented, normal mood/affect, no motor/ sensory deficits - Stroke scale 0, fitness center attendant II-XII nml as tested, normal cerebellar test Skin Exam: Present: other - toes have small abrasions/ pressure wounds nearly every dorsal DIP joint. Toenails thickened and discolored. skin of b/l legs taught and hairless with mild darkening of diabetic dermatitis. ED Progress - EKG EKG: RBBB, no ST T wave changes, other - left ant facicular block, SR with 1st deg block. EKG read: Interp. by me - Transfer of Care Physician Sign Out: Lonny Tijerina Receiving Physician: Moe Appiah Pending Results: Labs, X-ray results Expected Disposition: Admit Departure Clinical Impression: CHF (congestive heart failure), Generalized weakness, Elevated troponin - Departure Disposition: Still a patient Condition: Fair Referrals: Joceline Tolbert DO [Primary Care Provider] - <Moe Appiah - Last Filed: 05/18/18 09:12> Medical Problem HPI - Immun/Allergies/Home Medications Immunizations: IMMUNIZATION HX Immunizations Up to Date Yes History of Influenza Vaccine Yes Hx Pneumococcal Vaccination Yes Medical History (Last Updated 05/18/18 @ 07:23 by Gricelda Knott) BPH (benign prostatic hyperplasia) CHF (congestive heart failure) Diabetic acidosis, type II Hand amputation status History of appendectomy Stroke Surgical History: Surgical History (Last Updated 05/18/18 @ 07:23 by Gricelda Knott) H/O removal of testicle Social History: Preferred Language Romanian Abuse History No History of abuse Psych History No pertinent hx Alcohol Use none Drug Use none ED Progress - Results and Orders Patient's Lab Results:: I have reviewed the patient's lab results. - Vital Signs Patient's Vital Signs:: I have reviewed the patient's vital signs. Vital Signs: Vital Signs 05/18/18 07:11 05/18/18 07:18 05/18/18 07:28 Temperature 36.9 C Pulse Rate 79 76 79 Respiratory Rate 14 14 14 Blood Pressure 140/62 157/52 H O2 Sat by Pulse Oximetry 90 L 94 94 05/18/18 07:55 05/18/18 08:18 05/18/18 08:45 Temperature Pulse Rate 78 77 76 Respiratory Rate 12 13 14 Blood Pressure 96/44 94/46 99/46 O2 Sat by Pulse Oximetry 95 96 95 05/18/18 09:03 Temperature Pulse Rate 76 Respiratory Rate 13 Blood Pressure 98/53 O2 Sat by Pulse Oximetry 94 - X-Ray X-Ray #1 X-Ray: chest Interpretation: Interp. by me X-ray Comments: I reviewed official radiology report - Progress/Reassessment Progress Note-Subjective: 05/18/18 09:08 Patient checked out ot me by Dr Tijerina at shift change pending work up. Labs reviewed, CXR report reviewed. EKG had been done and I also reviwed this, no clear STEMI. Patient resting, arouses, denies any CP or SOB. Complait was more of a generalized weakness and some mildly increased SOB. Patient Sx free at this time. I discussed the case with Dr Tolbert, patient will be admitted here for now pending second troponin. patient and family agreeable. Please see Dr Tijerina's note for full H&P.
[2018-05-18 07:59] LABS: Hematocrit 38.7 % (42.0-52.0); Hemoglobin 12.6 gm/dL (13.5-18.0); Mean Cell Volume 94.2 fl (78-100); Mean Corpuscular Hemoglobin 30.7 pg (27-31); Mean Corpuscular Hgb Conc 32.6 g/dl (32-36); Mean Platelet Volume 10.9 fl (8-11.3); Neutrophil # 16.6 K/mm3 (1.3-6.0); Neutrophil % 88.5 % (42-75.0); Platelet Count 169 K/mm3 (150-450); Red Blood Count 4.11 M/mm3 (4.7-6.0); White Blood Count 18.8 K/mm3 (4.0-10.5)
[2018-05-18 08:18] LABS: Troponin I 0.121 ng/ml (0.00-0.10)
[2018-05-18 08:22] LABS: Albumin * 3.2 gm/dl (3.4-5.0); Anion Gap 9.6 mmol/L (6.8-13.8); BUN/Creatinine Ratio 14.9 (9.0-21.6); Bilirubin, Total 0.7 mg/dL (0.0-1.1); Calcium * 8.7 mg/dL (7.9-10.9); Potassium 3.6 mmol/L (3.4-4.6); Total Protein 6.8 gm/dL (6.2-8.2)
[2018-05-18] MEDS ORDERED: ASPIRIN 81 MG TAB.CHEW PO ONE (08:56)
[2018-05-18] MEDS ORDERED: ASPIRIN 81 MG TAB.CHEW ONE (09:00)
[2018-05-18] MEDS ORDERED: FUROSEMIDE 10 MG/ML VIAL IV ONE (09:11)
[2018-05-18] MEDS ORDERED: FUROSEMIDE 10 MG/ML VIAL ONE (09:39)
[2018-05-18 10:43] LABS: Urine Bilirubin Negative (NEGATIVE); Urine Ketone Negative (NEGATIVE); Urine Nitrite Negative (NEGATIVE); Urine Protein Negative (NEGATIVE); Urine Specific Gravity 1.015 SP.GR. (1.005-1.030); Urine Urobilinogen Normal (NORMAL)
[2018-05-18 10:51] LABS: Urine Appearance Clear (CLEAR); Urine Bacteria None Seen; Urine Blood 5 /ul (NEGATIVE); Urine Color Yellow; Urine RBC 0-5 /hpf (0-5); Urine WBC None Seen /hpf (0-5)
[2018-05-18] MEDS ORDERED: traMADol HCL 50 MG TABLET PO PRN (12:10)
[2018-05-18] MEDS: BUMETANIDE 1 MG TABLET PO SCH ×2 (14:18→22:01)
[2018-05-18] MEDS: INSULIN LISPRO 100 UNITS/ML VIAL SC SCH (17:31)
[2018-05-18] MEDS: POLYETHYLENE GLYCOL 3350 119 GM BTL PO SCH (22:00)
[2018-05-18] MEDS: NYSTATIN 15 APPL BTL TP SCH (22:03)
[2018-05-18] MEDS: ROSUVASTATIN CALCIUM 20 MG TABLET PO SCH (22:03)
[2018-05-18] MEDS: GABAPENTIN 600 MG TABLET PO SCH (22:04)
[2018-05-18] MEDS: SENNOSIDES/DOCUSATE SODIUM 1 TAB TABLET PO SCH (22:05)
[2018-05-18] MEDS: FAMOTIDINE 20 MG TABLET PO SCH (22:05)
[2018-05-19] MEDS: LEVOTHYROXINE SODIUM 50 MCG TABLET PO SCH (07:42)
[2018-05-19] MEDS: INSULIN LISPRO 100 UNITS/ML VIAL SC SCH ×3 (07:43→17:32)
[2018-05-19 08:59] LABS: Hematocrit 37.9 % (42.0-52.0); Hemoglobin 12.2 gm/dL (13.5-18.0); Mean Cell Volume 93.8 fl (78-100); Mean Corpuscular Hemoglobin 30.2 pg (27-31); Mean Corpuscular Hgb Conc 32.2 g/dl (32-36); Mean Platelet Volume 10.8 fl (8-11.3); Neutrophil # 10.5 K/mm3 (1.3-6.0); Neutrophil % 81.1 % (42-75.0); Platelet Count 153 K/mm3 (150-450); Red Blood Count 4.04 M/mm3 (4.7-6.0); Red Cell Distribution Width 15.3 % (11.5-14.0); White Blood Count 12.9 K/mm3 (4.0-10.5)
[2018-05-19] MEDS ORDERED: FUROSEMIDE 80 MG TABLET PO SCH (09:00)
[2018-05-19 09:13] LABS: Anion Gap 5.5 mmol/L (6.8-13.8); BUN/Creatinine Ratio 15.4 (9.0-21.6); Calcium * 8.4 mg/dL (7.9-10.9); Estimated Creat Clear 30.1; Potassium 3.5 mmol/L (3.4-4.6)
[2018-05-19] MEDS: LOSARTAN POTASSIUM 50 MG TABLET PO SCH (09:14)
[2018-05-19] MEDS: BUMETANIDE 1 MG TABLET PO SCH ×2 (09:15→21:58)
[2018-05-19] MEDS: POLYETHYLENE GLYCOL 3350 119 GM BTL PO SCH ×2 (09:15→21:59)
[2018-05-19] MEDS: FAMOTIDINE 20 MG TABLET PO SCH ×2 (09:16→22:00)
[2018-05-19] MEDS: NYSTATIN 15 APPL BTL TP SCH ×2 (09:16→22:00)
[2018-05-19] MEDS: GABAPENTIN 300 MG CAPSULE PO SCH (09:16)
[2018-05-19] MEDS: DOXAZOSIN MESYLATE 2 MG TABLET PO SCH (09:16)
[2018-05-19] MEDS: HYDROCHLOROTHIAZIDE 12.5 MG CAPSULE PO SCH (09:17)
[2018-05-19] MEDS: OMEGA-3 FATTY ACIDS 1 CAP CAPSULE PO SCH (09:17)
[2018-05-19] MEDS: ALLOPURINOL 300 MG TABLET PO SCH (09:17)
[2018-05-19] MEDS: ASPIRIN 81 MG TABLET.DR PO SCH (09:17)
[2018-05-19] MEDS: SERTRALINE HCL 50 MG TABLET PO SCH (09:17)
[2018-05-19] MEDS: MULTIVIT-MIN/FA/LYCOPEN/LUTEIN 1 TAB TABLET PO SCH (09:17)
[2018-05-19] MEDS: PSYLLIUM SEED 1 PACKET PACKET PO SCH (09:18)
[2018-05-19] MEDS: INSULIN DETEMIR 100 UNITS/ML VIAL SC SCH (09:29)
[2018-05-19] MEDS: SENNOSIDES/DOCUSATE SODIUM 1 TAB TABLET PO SCH ×2 (09:33→22:00)
--- NOTE | 2018-05-19 14:10 | HP ---
Chief Complaint - Chief Complaint Date of Service: 05/18/18 Time of Service: 11:30 History of Present Illness: The patient presented to the emergency department with complaints of generalized weakness. The patient is very sedentary at baseline and uses a power wheel chair and only stands to pivot and transfer. However, the patient was unable to pivot and transfer on his own anymore starting yesterday and was still unable to this AM so he was brought to the ED. The patient has also noticed a significant increase in the swelling in his lower extremities. He now has blisters forming with weeping wounds. The patient has chronic SOB, especially with minimal activity, but he feels that he may be a bit more SOB that his baseline. The patient also states he has been having lots of chills with shaking over the past day or so. Medical History (Last Updated 05/18/18 @ 10:36 by Thea Harding RN) BPH (benign prostatic hyperplasia) CHF (congestive heart failure) Cataract Cataract, bilateral Diabetic acidosis, type II Hand amputation status History of appendectomy Stroke Surgical History: Surgical History (Last Reviewed 05/18/18 @ 10:36 by Thea Harding RN) H/O removal of testicle Family History: Family History (Last Updated 05/18/18 @ 10:37 by Thea Harding RN) Father Diabetes Mother Diabetes Heart disease Social History: Patient Lives/Resources With Spouse Utilized Occupation [employer] Preferred Language Macedonian Do you have any taoist or Yes: Amish cultural preference? Smoking Status Never smoker Have you smoked in the past 12 No months Abuse History No History of abuse Psych History No pertinent hx Alcohol Use none Drug Use none Review Of Systems (GEN) - Review of Systems Generalized/Overall Review: Present: Weakness, Chills, Fatigue Respiratory: Present: Shortness of Breath, Orthopnea Cardiac: Present: Edema. Absent: Chest Pain Musculoskeletal: Present: Joint Pain, Back Pain Neurological: Present: Numbness, Tingling Skin: Present: Other Misc: All systems neg except as marked Immunizations: IMMUNIZATION HX Immunizations Up to Date Yes History of Influenza Vaccine Yes Hx Pneumococcal Vaccination Yes Allergies/Adverse Reactions: Allergies Allergy/AdvReac Type Severity Reaction Status Date / Time No Known Allergies Allergy Verified 05/18/18 10:36 Home Medications: HOME MEDICATIONS Allopurinol [Zyloprim] 300 mg PO DAILY 07/03/14 [Last Taken Unknown] Aspirin 81 mg PO DAILY 07/03/14 [Last Taken Unknown] Atorvastatin Calcium [Lipitor] 40 mg PO HS 07/03/14 [Last Taken Unknown] Doxazosin Mesylate [Cardura] 8 mg PO DAILY 07/03/14 [Last Taken Unknown] Furosemide [Lasix] 160 mg PO DAILY 07/03/14 [Last Taken Unknown] Losartan/Hydrochlorothiazide [Hyzaar 100-12.5 Tablet] 100 mg PO DAILY 07/03/14 [ Last Taken Unknown] Polyethylene Glycol 3350 [Miralax] 17 gm PO BID 07/03/14 [Last Taken Unknown] Gabapentin 600 mg PO HS 07/17/17 [Last Taken Unknown] Gabapentin [Neurontin] 300 mg PO DAILY 07/17/17 [Last Taken Unknown] Levothyroxine Sodium [Synthroid] 50 mcg PO DAILY 07/17/17 [Last Taken Unknown] Insulin Aspart [Novolog] 30 units SC TID 03/18/18 [Last Taken Unknown] Insulin Detemir [Levemir] 50 unit SQ DAILY 03/18/18 [Last Taken Unknown] Multivit-Min/FA/Lycopen/Lutein [Centrum Silver Men Tablet] 1 tab PO DAILY [Last Taken Unknown] [place] Oil/[place]-3 Fatty Acids [Fish Oil] 1,200 mg PO DAILY 03/18/18 [Last Taken Unknown] Sennosides/Docusate Sodium [Senna-S Tablet] 2 tab PO BID 03/18/18 [Last Taken Unknown] Sertraline HCl [Zoloft] 50 mg PO DAILY 03/18/18 [Last Taken 05/17/18 20:00] Wheat Dextrin/L.acid/Aspartame [Fiber with Probiotic Powder] 360 gm PO DAILY 09/25 [Last Taken Unknown] traMADol HCL [Ultram] 50 mg PO Q4H PRN 03/18/18 [Last Taken Unknown] Naproxen Sodium [Aleve] 220 mg PO QID 05/18/18 [Last Taken Unknown] Ranitidine HCl [Zantac] 150 mg PO BID 05/18/18 [Last Taken Unknown] Exam - Exam Vital Signs: Vital Signs - Last Taken Temp 36.9 C 05/19/18 12:50 Pulse 73 05/19/18 12:50 Resp 16 05/19/18 12:50 BP 138/57 05/19/18 12:50 Pulse Ox 92 L 05/19/18 12:50 Constitutional: Present: Alert, Oriented x3, Cooperative, No distress, Elderly, Morbidly obese ENT Exam: Present: moist mucous membranes Back Exam: Present: no CVA tenderness Respiratory: Present: no respiratory distress, no accessory muscle use, decreased breath sounds Cardiovascular/Chest: Present: other - Diminished heart sounds secondary to body habitus so difficult to thoroughly assess; however, RRR and no murmurs noted, edema - Marked bilateral lower extremity edema 3-4+ pitting Abdomen: Present: soft, obese, hypoactive Extremity: Present: lower extremity edema - Marked pitting edema in bilateral lower extremities Skin Exam: Present: other - Marked pitting edema in bilateral lower extremities with multiple weeping areas as well as vesicles present, skin is quite tight, mild erythema Neurologic: Present: alert, oriented x 3, other - Generalized weakness, patient uses a power wheelchair for ambulation and only stands for transfers Eye contact: Present: cooperative Thoughts: Present: normal thought pattern, no apparent hallucination Diagnostic Studies: Abnormal Lab Results 05/19/18 05/19/18 Range/Units 08:50 08:50 WBC 12.9 H D (4.0-10.5) K/mm3 RBC 4.04 L (4.7-6.0) M/mm3 Hgb 12.2 L (13.5-18.0) gm/dL Hct 37.9 L (42.0-52.0) % RDW 15.3 H (11.5-14.0) % Immature Gran % (Auto) 0.60 H (0.001-0.429) % Immature Gran # (Auto) 0.08 H (0.000-0.0310) K/mm3 Neutrophils % 81.1 H (42-75.0) % Lymphocytes % 10.2 L (20-51) % Neutrophils # 10.5 H (1.3-6.0) K/mm3 Lymphocytes # 1.32 L (1.5-3.5) k/mm3 Chloride 96 L (97-106) mmol/L Carbon Dioxide 37.0 H (24-32.6) mmol/L Anion Gap 5.5 L (6.8-13.8) mmol/L BUN 32 H (6-23) mg/dL Creatinine 2.08 H (0.4-1.4) mg/dL Est GFR (Non-Af Amer) 33 L (60-130) mL/min Random Glucose 271 H D (70-110) mg/dL B-Natriuretic Peptide 3781 H (5-650) pg/mL Microbiology 05/18/18 Unknown - Final Nares MRSA Positive Laboratory Results WBC 12.9 K/mm3 (4.0-10.5) H D 05/19/18 08:50 RBC 4.04 M/mm3 (4.7-6.0) L 05/19/18 08:50 Hgb 12.2 gm/dL (13.5-18.0) L 05/19/18 08:50 Hct 37.9 % (42.0-52.0) L 05/19/18 08:50 MCV 93.8 fl (78-100) 05/19/18 08:50 MCH 30.2 pg (27-31) 05/19/18 08:50 MCHC 32.2 g/dl (32-36) 05/19/18 08:50 RDW 15.3 % (11.5-14.0) H 05/19/18 08:50 Plt Count 153 K/mm3 (150-450) 05/19/18 08:50 MPV 10.8 fl (8-11.3) 05/19/18 08:50 Immature Gran % (Auto) 0.60 % (0.001-0.429) H 05/19/18 08:50 Immature Gran # (Auto) 0.08 K/mm3 (0.000-0.0310) H 05/19/18 08:50 Neutrophils % 81.1 % (42-75.0) H 05/19/18 08:50 Lymphocytes % 10.2 % (20-51) L 05/19/18 08:50 Monocytes % 7.2 % (0.0-9) 05/19/18 08:50 Eosinophils % 0.3 % (0.0-3.0) 05/19/18 08:50 Basophils % 0.6 % (0.0-1.0) 05/19/18 08:50 Nucleated RBC % 0.0 k/mm3 (0-1) 05/19/18 08:50 Neutrophils # 10.5 K/mm3 (1.3-6.0) H 05/19/18 08:50 Lymphocytes # 1.32 k/mm3 (1.5-3.5) L 05/19/18 08:50 Monocytes # 0.9 k/mm3 (0.0-1.0) 05/19/18 08:50 Eosinophils # 0.0 k/mm3 (0.0-0.7) 05/19/18 08:50 Absolute Basophils 0.1 k/mm3 (0.0-0.1) 05/19/18 08:50 pCO2 48.7 mmHg (35.0-48.0) H 05/18/18 07:27 pO2 70.9 mmHg (83.0-108.0) L 05/18/18 07:27 HCO3 31.0 mmol/L (21.0-28.0) H 05/18/18 07:27 Total CO2 32.4 mmol/L (19.0-24.0) H 05/18/18 07:27 Base Excess 5.5 mmol/L (-2.0-3.0) H 05/18/18 07:27 ABG pH 7.42 (7.35-7.45) 05/18/18 07:27 ABG O2 Sat (Measured) 94.4 % (94.0-98.0) 05/18/18 07:27 Sodium 135 mmol/L (132-142) 05/19/18 08:50 Plasma Sodium 138 mmol/L (130-142) 05/19/18 08:50 Potassium 3.5 mmol/L (3.4-4.6) 05/19/18 08:50 Chloride 96 mmol/L (97-106) L 05/19/18 08:50 Carbon Dioxide 37.0 mmol/L (24-32.6) H 05/19/18 08:50 Anion Gap 5.5 mmol/L (6.8-13.8) L 05/19/18 08:50 BUN 32 mg/dL (6-23) H 05/19/18 08:50 Creatinine 2.08 mg/dL (0.4-1.4) H 05/19/18 08:50 Est GFR (Non-Af Amer) 33 mL/min (60-130) L 05/19/18 08:50 BUN/Creatinine Ratio 15.4 (9.0-21.6) 05/19/18 08:50 Random Glucose 271 mg/dL (70-110) H D 05/19/18 08:50 Calcium 8.4 mg/dL (7.9-10.9) 05/19/18 08:50 Calcium Adj for Albumin 9.0 mg/dL (8.4-10.2) 05/18/18 07:53 Total Bilirubin 0.7 mg/dL (0.0-1.1) 05/18/18 07:53 AST 36 U/L (0-48) 05/18/18 07:53 ALT 19 U/L (19-67) 05/18/18 07:53 Alkaline Phosphatase 112 U/L (50-170) 05/18/18 07:53 Troponin I 0.100 ng/ml (0.00-0.10) 05/18/18 12:20 B-Natriuretic Peptide 3781 pg/mL (5-650) H 05/19/18 08:50 Total Protein 6.8 gm/dL (6.2-8.2) 05/18/18 07:53 Albumin 3.2 gm/dl (3.4-5.0) L 05/18/18 07:53 Procalcitonin 0.15 ng/mL (0.05-0.50) 05/19/18 08:50 Urine Color Yellow 05/18/18 10:23 Urine Appearance Clear (CLEAR) 05/18/18 10:23 Urine pH 6.0 pH (5.0-7.0) 05/18/18 10:23 Ur Specific [place] 1.015 SP.GR. (1.005-1.030) 05/18/18 10:23 Urine Protein Negative mg/dL (NEGATIVE) 05/18/18 10:23 Urine Glucose (UA) 500 mg/dL (NEGATIVE) H 05/18/18 10:23 Urine Ketones Negative mg/dL (NEGATIVE) 05/18/18 10:23 Urine Blood 5 /ul (NEGATIVE) H 05/18/18 10:23 Urine Nitrate Negative (NEGATIVE) 05/18/18 10:23 Urine Bilirubin Negative mg/dl (NEGATIVE) 05/18/18 10:23 Urine Urobilinogen Normal EU/dl (NORMAL) 05/18/18 10:23 Ur Leukocyte Esterase Negative /ul (NEGATIVE) 05/18/18 10:23 Urine RBC 0-5 /hpf (0-5) 05/18/18 10:23 Urine WBC None seen /hpf (0-5) 05/18/18 10:23 Ur Epithelial Cells 0-5 /hpf (0-5) 05/18/18 10:23 Urine Bacteria None seen (NONE) 05/18/18 10:23 Urine Culture Comments No culture indicated 05/18/18 10:23 Assessment/Plan - Narrative Narrative: Patient admitted under observation status. Patient appears quite volume overloading on exam and despite having an already elevated creatinine, I suspect the patient's creatinine level will improve with diuresis. Patient is already on 160mg per day of lasix at home with minimal response and ongoing, worsening LE edema. Discontinue lasix. Start Bumex 2mg PO BID (at 0700 and 1400) . Check daily weights. Troponin minimally elevated on admission and likely impacted by the patient's diminished kidney function. Repeat troponin 4 hours after first troponin was drawn. Unclear etiology of the patient's elevated WBC on admission. Possible reactive as patient has been afebrile without definite source of infection. Wound care consult for evaluation and treatment of the patient's lower extremity wounds. PT evaluation ordered. - Assessment/Plan (1) Acute on chronic diastolic CHF (congestive heart failure) Problem: Acute (2) Leukocytosis Problem: Acute (3) Generalized weakness Assessment: Acute worsening of Chronic Generalized Weakness Problem: Acute (4) Bilateral lower extremity edema Assessment: Acute worsening of Chronic Bilateral Lower Extremity Edema Problem: Acute (5) Elevated troponin Problem: Acute (6) Open wound of toe(s), without mention of complication Assessment: Acute on Chronic with multiple wounds in differing stages of healing Problem: Acute Qualifiers: Encounter type: initial encounter Qualified Code(s): S91.109A - Unspecified open wound of unspecified toe(s) without damage to nail, initial encounter (7) CKD (chronic kidney disease) stage 3, GFR 30-59 ml/min Problem: Chronic
[2018-05-19] MEDS: ROSUVASTATIN CALCIUM 20 MG TABLET PO SCH (21:59)
[2018-05-19] MEDS: GABAPENTIN 600 MG TABLET PO SCH (22:00)
[2018-05-20] MEDS: LEVOTHYROXINE SODIUM 50 MCG TABLET PO SCH (07:14)
[2018-05-20] MEDS: INSULIN LISPRO 100 UNITS/ML VIAL SC SCH ×2 (07:14→11:49)
[2018-05-20] MEDS: MULTIVIT-MIN/FA/LYCOPEN/LUTEIN 1 TAB TABLET PO SCH (08:59)
[2018-05-20] MEDS: HYDROCHLOROTHIAZIDE 12.5 MG CAPSULE PO SCH (08:59)
[2018-05-20] MEDS: OMEGA-3 FATTY ACIDS 1 CAP CAPSULE PO SCH (08:59)
[2018-05-20] MEDS: SENNOSIDES/DOCUSATE SODIUM 1 TAB TABLET PO SCH (08:59)
[2018-05-20] MEDS: INSULIN DETEMIR 100 UNITS/ML VIAL SC SCH (08:59)
[2018-05-20] MEDS: BUMETANIDE 1 MG TABLET PO SCH (08:59)
[2018-05-20] MEDS: DOXAZOSIN MESYLATE 2 MG TABLET PO SCH (08:59)
[2018-05-20] MEDS: SERTRALINE HCL 50 MG TABLET PO SCH (09:00)
[2018-05-20] MEDS: GABAPENTIN 300 MG CAPSULE PO SCH (09:00)
[2018-05-20] MEDS: ALLOPURINOL 300 MG TABLET PO SCH (09:00)
[2018-05-20] MEDS: FAMOTIDINE 20 MG TABLET PO SCH (09:00)
[2018-05-20] MEDS: LOSARTAN POTASSIUM 50 MG TABLET PO SCH (09:00)
[2018-05-20] MEDS: ASPIRIN 81 MG TABLET.DR PO SCH (09:00)
[2018-05-20] MEDS: NYSTATIN 15 APPL BTL TP SCH (09:01)
[2018-05-20] MEDS: PSYLLIUM SEED 1 PACKET PACKET PO SCH (09:01)
[2018-05-20] MEDS: POLYETHYLENE GLYCOL 3350 119 GM BTL PO SCH (09:01)
[2018-05-20 09:49] LABS: Hematocrit 37.6 % (42.0-52.0); Hemoglobin 12.2 gm/dL (13.5-18.0); Mean Cell Volume 93.5 fl (78-100); Mean Corpuscular Hemoglobin 30.3 pg (27-31); Mean Corpuscular Hgb Conc 32.4 g/dl (32-36); Mean Platelet Volume 10.8 fl (8-11.3); Neutrophil # 7.1 K/mm3 (1.3-6.0); Platelet Count 172 K/mm3 (150-450); Red Blood Count 4.02 M/mm3 (4.7-6.0); Red Cell Distribution Width 15.1 % (11.5-14.0); White Blood Count 10.3 K/mm3 (4.0-10.5)
[2018-05-20 09:56] LABS: Anion Gap 8.3 mmol/L (6.8-13.8); BUN/Creatinine Ratio 17.8 (9.0-21.6); Calcium * 8.5 mg/dL (7.9-10.9); Carbon Dioxide 35.9 mmol/L (24-32.6); Estimated Creat Clear 35.9; Potassium 3.2 mmol/L (3.4-4.6)
[2018-05-20 12:55] VITALS: BP 118/76
--- NOTE | 2018-05-20 13:44 | DS ---
Description of Stay: Mr. Joiner is an 83 yr old morbidly obese white male who presents with generalized weakness. He presented to the emergency room and during his evaluation was found to have an elevated troponin that was just barely elevated. He also has a leukocytosis, bilateral lower edema, and open toe wounds with redness of the right foot, and chronic kidney disease stage III. He has had serial troponins and EKGs which have all normalized and there is no evidence of myocardial injury. He was up this morning and transferred to the chair using a walker. He states he feels quite a bit stronger than he did yesterday and thinks that he can manage at home now. He was diuresed with loop diuretics. The recorded weights show a 7 kg drop in weight but that is almost certainly not correct. At any rate, acute myocardial injury has been ruled out. He is feeling stronger and would like to go home and therefore will be discharged back to home. Procedures Performed: none Results and Findings: Lab Pending Results 05/18/18 05/18/18 05/18/18 07:27 07:53 07:53 WBC 18.8 H RBC 4.11 L Hgb 12.6 L Hct 38.7 L MCV 94.2 MCH 30.7 MCHC 32.6 RDW 15.0 H Plt Count 169 MPV 10.9 Immature Gran % (Auto) 0.90 H Immature Gran # (Auto) 0.17 H Neutrophils % 88.5 H Lymphocytes % 4.2 L Monocytes % 5.8 Eosinophils % 0.1 Basophils % 0.5 Nucleated RBC % 0.0 Neutrophils # 16.6 H Lymphocytes # 0.79 L Monocytes # 1.1 H Eosinophils # 0.0 Absolute Basophils 0.1 pCO2 48.7 H pO2 70.9 L HCO3 31.0 H Total CO2 32.4 H Base Excess 5.5 H ABG pH 7.42 ABG O2 Sat (Measured) 94.4 Sodium 138 Plasma Sodium 140 Potassium 3.6 Chloride 98 Carbon Dioxide 34.0 H Anion Gap 9.6 BUN 36 H Creatinine 2.41 H D Est GFR (Non-Af Amer) 28 L BUN/Creatinine Ratio 14.9 Random Glucose 201 H Calcium 8.7 Calcium Adj for Albumin 9.0 Magnesium Total Bilirubin 0.7 AST 36 ALT 19 Alkaline Phosphatase 112 Troponin I 0.121 H* B-Natriuretic Peptide 2251 H Total Protein 6.8 Albumin 3.2 L Procalcitonin Urine Color Urine Appearance Urine pH Ur Specific [place] Urine Protein Urine Glucose (UA) Urine Ketones Urine Blood Urine Nitrate Urine Bilirubin Urine Urobilinogen Ur Leukocyte Esterase Urine RBC Urine WBC Ur Epithelial Cells Urine Bacteria Urine Culture Comments 05/18/18 05/18/18 05/19/18 10:23 12:20 08:50 WBC 12.9 H D RBC 4.04 L Hgb 12.2 L Hct 37.9 L MCV 93.8 MCH 30.2 MCHC 32.2 RDW 15.3 H Plt Count 153 MPV 10.8 Immature Gran % (Auto) 0.60 H Immature Gran # (Auto) 0.08 H Neutrophils % 81.1 H Lymphocytes % 10.2 L Monocytes % 7.2 Eosinophils % 0.3 Basophils % 0.6 Nucleated RBC % 0.0 Neutrophils # 10.5 H Lymphocytes # 1.32 L Monocytes # 0.9 Eosinophils # 0.0 Absolute Basophils 0.1 pCO2 pO2 HCO3 Total CO2 Base Excess ABG pH ABG O2 Sat (Measured) Sodium Plasma Sodium Potassium Chloride Carbon Dioxide Anion Gap BUN Creatinine Est GFR (Non-Af Amer) BUN/Creatinine Ratio Random Glucose Calcium Calcium Adj for Albumin Magnesium Total Bilirubin AST ALT Alkaline Phosphatase Troponin I 0.100 B-Natriuretic Peptide Total Protein Albumin Procalcitonin Urine Color Yellow Urine Appearance Clear Urine pH 6.0 Ur Specific [place] 1.015 Urine Protein Negative Urine Glucose (UA) 500 H Urine Ketones Negative Urine Blood 5 H Urine Nitrate Negative Urine Bilirubin Negative Urine Urobilinogen Normal Ur Leukocyte Esterase Negative Urine RBC 0-5 Urine WBC None seen Ur Epithelial Cells 0-5 Urine Bacteria None seen Urine Culture Comments No culture indicated 05/19/18 05/19/18 05/20/18 08:50 08:50 09:41 WBC 10.3 D RBC 4.02 L Hgb 12.2 L Hct 37.6 L MCV 93.5 MCH 30.3 MCHC 32.4 RDW 15.1 H Plt Count 172 MPV 10.8 Immature Gran % (Auto) 0.30 Immature Gran # (Auto) 0.03 Neutrophils % 69.0 Lymphocytes % 17.1 L Monocytes % 9.8 H Eosinophils % 3.4 H Basophils % 0.4 Nucleated RBC % 0.0 Neutrophils # 7.1 H Lymphocytes # 1.75 Monocytes # 1.0 Eosinophils # 0.4 Absolute Basophils 0.0 pCO2 pO2 HCO3 Total CO2 Base Excess ABG pH ABG O2 Sat (Measured) Sodium 135 Plasma Sodium 138 Potassium 3.5 Chloride 96 L Carbon Dioxide 37.0 H Anion Gap 5.5 L BUN 32 H Creatinine 2.08 H Est GFR (Non-Af Amer) 33 L BUN/Creatinine Ratio 15.4 Random Glucose 271 H D Calcium 8.4 Calcium Adj for Albumin Magnesium Total Bilirubin AST ALT Alkaline Phosphatase Troponin I B-Natriuretic Peptide 3781 H Total Protein Albumin Procalcitonin 0.15 Urine Color Urine Appearance Urine pH Ur Specific [place] Urine Protein Urine Glucose (UA) Urine Ketones Urine Blood Urine Nitrate Urine Bilirubin Urine Urobilinogen Ur Leukocyte Esterase Urine RBC Urine WBC Ur Epithelial Cells Urine Bacteria Urine Culture Comments 05/20/18 09:41 WBC RBC Hgb Hct MCV MCH MCHC RDW Plt Count MPV Immature Gran % (Auto) Immature Gran # (Auto) Neutrophils % Lymphocytes % Monocytes % Eosinophils % Basophils % Nucleated RBC % Neutrophils # Lymphocytes # Monocytes # Eosinophils # Absolute Basophils pCO2 pO2 HCO3 Total CO2 Base Excess ABG pH ABG O2 Sat (Measured) Sodium 137 Plasma Sodium 139 Potassium 3.2 L Chloride 96 L Carbon Dioxide 35.9 H Anion Gap 8.3 BUN 31 H Creatinine 1.74 H Est GFR (Non-Af Amer) 40 L D BUN/Creatinine Ratio 17.8 Random Glucose 236 H Calcium 8.5 Calcium Adj for Albumin Magnesium 2.0 Total Bilirubin AST ALT Alkaline Phosphatase Troponin I B-Natriuretic Peptide Total Protein Albumin Procalcitonin Urine Color Urine Appearance Urine pH Ur Specific [place] Urine Protein Urine Glucose (UA) Urine Ketones Urine Blood Urine Nitrate Urine Bilirubin Urine Urobilinogen Ur Leukocyte Esterase Urine RBC Urine WBC Ur Epithelial Cells Urine Bacteria Urine Culture Comments Discharge Location: Home Disposition: [facility] Health Condition: Fair Face to Face Encounter completed per CMS Guidelines: Yes Discharge Activity: Activity as tolerated Discharge Diet: Consistent carbs Problem Oriented Discharge Instructions to Patient/Family: Heart Failure, Easy- to-Read, Weakness Additional Patient Instructions (free text): Follow up appointment with Dr. Tolbert on 05/23/18 at 1:30pm [facility]. PLEASE CALL REPORT AND FAX ORDERS UPON DISCHARGE. NURSING AND PT. Complete Home Medications List: Complete Home Medication List: Aspirin 81 mg PO DAILY 07/03/14 Atorvastatin Calcium [Lipitor] 40 mg PO HS 07/03/14 Doxazosin Mesylate [Cardura] 8 mg PO DAILY 07/03/14 Furosemide [Lasix] 160 mg PO DAILY 07/03/14 Losartan/Hydrochlorothiazide [Hyzaar 100-12.5 Tablet] 100 mg PO DAILY 07/03/14 Polyethylene Glycol 3350 [Miralax] 17 gm PO BID 07/03/14 Gabapentin 600 mg PO HS 07/17/17 Gabapentin [Neurontin] 300 mg PO DAILY 07/17/17 Levothyroxine Sodium [Synthroid] 50 mcg PO DAILY 07/17/17 Insulin Aspart [Novolog] 30 units SC TID 03/18/18 Insulin Detemir [Levemir] 50 unit SQ DAILY 03/18/18 Multivit-Min/FA/Lycopen/Lutein [Centrum Silver Men Tablet] 1 tab PO DAILY [place] Oil/[place]-3 Fatty Acids [Fish Oil] 1,200 mg PO DAILY 03/18/18 Sennosides/Docusate Sodium [Senna-S Tablet] 2 tab PO BID 03/18/18 Sertraline HCl [Zoloft] 50 mg PO DAILY 03/18/18 Wheat Dextrin/L.acid/Aspartame [Fiber with Probiotic Powder] 360 gm PO DAILY 09/25 traMADol HCL [Ultram] 50 mg PO Q4H PRN 03/18/18 Naproxen Sodium [Aleve] 220 mg PO QID 05/18/18 Ranitidine HCl [Zantac] 150 mg PO BID 05/18/18 Allopurinol [Zyloprim] 100 mg PO DAILY #30 tab 05/20/18 Insulin Detemir [Levemir] 50 units SC DAILY vial 05/20/18 Insulin Lispro [Humalog] 0 units SC ACINS vial 05/20/18 Nystatin [Mycostatin Powder] 1 appl TP BID 14 Days #1 btl 05/20/18
--- NOTE | 2018-05-24 12:08 | PN ---
Subjective - Date and Time Seen Date: 05/19/18 Time: 09:50 Subjective Narrative: Patient seen and examined at bedside. No acute issues overnight. Patient states his lower extremity edema has improved since yesterday however he still has significant edema. Objective - Review of Systems Generalized/Overall Review: Reports: Weakness, Fatigue Respiratory: Reports: Shortness of Breath Cardiac: Reports: Edema Skin: Reports: Other Misc: All systems neg except as marked - Vitals Vitals: Last Vital Signs Temp 36.7 C 05/20/18 13:25 Pulse 84 05/20/18 13:25 Resp 20 05/20/18 13:25 BP 118/76 05/20/18 13:25 Pulse Ox 96 05/20/18 13:25 - Exam Constitutional: Present: Alert, Oriented x3, Cooperative, No distress, Elderly, Morbidly obese ENT Exam: Present: moist mucous membranes Respiratory: Present: lungs clear, no respiratory distress, no accessory muscle use, decreased breath sounds Cardiovascular/Chest: Present: other, edema Abdomen: Present: soft, nontender, obese, hypoactive Extremity: Present: lower extremity edema Skin Exam: Present: other Neurologic: Present: other Eye contact: Present: cooperative Thoughts: Present: normal thought pattern, no apparent hallucination Assessment/Plan Plan Narrative: Patient diuresing well with Bumex. Continue Bumex with plans to discharge home tomorrow on Bumex. Monitor volume status closely. Continue PT evaluation and treatment. Patient will benefit from [facility] services at discharge. - Problems/Diagnosis (1) Acute on chronic diastolic CHF (congestive heart failure) Problem: Acute (2) Leukocytosis Problem: Acute (3) Generalized weakness Problem: Acute (4) Bilateral lower extremity edema Problem: Acute (5) Elevated troponin Problem: Acute (6) Open wound of toe(s), without mention of complication Problem: Acute Qualifiers: Encounter type: initial encounter Qualified Code(s): S91.109A - Unspecified open wound of unspecified toe(s) without damage to nail, initial encounter (7) CKD (chronic kidney disease) stage 3, GFR 30-59 ml/min Problem: Chronic
== END 2018-05-20 14:00 | disposition home health service (06) ==
LOC: ER 07:06 → MS 07:06
PROVIDERS: ADMIT Internal Medicine; ATTEND Internal Medicine
DX: D72.829 Elevated white blood cell count, unspecified
CPT/HCPCS: 36415; 36600; 71010; 71045; 80048; 80053; 81001; 82803; 83519; 83735; 83880; 84145; 84484; 85025; 87081; 93005; 94760; 96372; 96374; 97110; 97161; 97530; 99283; G0378; G8978; G8979; G8980

== ENCOUNTER 2018-05-30 10:04 | Inpatient (IN) | payer BC, MEDICARE ==
[2018-05-30] MEDS ORDERED: NORMAL SALINE 500 ML IV ONE (10:16)
[2018-05-30 10:42] LABS: Hematocrit 31.2 % (42.0-52.0); Mean Cell Volume 93.1 fl (78-100); Mean Corpuscular Hemoglobin 29.9 pg (27-31); Mean Corpuscular Hgb Conc 32.1 g/dl (32-36); Mean Platelet Volume 10.1 fl (8-11.3); Neutrophil # 18.9 K/mm3 (1.3-6.0); Neutrophil % 79.1 % (42-75.0); Platelet Count 245 K/mm3 (150-450); Red Blood Count 3.35 M/mm3 (4.7-6.0); Red Cell Distribution Width 15.4 % (11.5-14.0); White Blood Count 23.9 K/mm3 (4.0-10.5)
[2018-05-30 10:45] LABS: Total Cells Counted 100
[2018-05-30 10:53] LABS: ALT 47 U/L (19-67); AST 44 U/L (0-48); Albumin * 2.2 gm/dl (3.4-5.0); Alkaline Phosphatase * 165 U/L (50-170); Anion Gap 8.9 mmol/L (6.8-13.8); BNP * 3026 pg/mL (5-650); BUN/Creatinine Ratio 15.2 (9.0-21.6); Bilirubin, Total 0.7 mg/dL (0.0-1.1); Blood Urea Nitrogen 40 mg/dL (6-23); Ca. Corrected For Albumin 9.7 mg/dL (8.4-10.2); Calcium * 8.6 mg/dL (7.9-10.9); Carbon Dioxide 33.9 mmol/L (24-32.6); Chloride 94 mmol/L (97-106); Glucose * 163 mg/dL (70-110); Magnesium 2.2 mg/dL (1.2-2.8); Potassium 3.8 mmol/L (3.4-4.6); Sodium 133 mmol/L (132-142); Total Protein 6.6 gm/dL (6.2-8.2)
[2018-05-30 10:54] LABS: Troponin I Less than 0.017 ng/ml (0.00-0.10)
[2018-05-30 11:09] LABS: Band 7 % (0-2.0); Lymphocyte 1 % (20-51); Monocyte 3 % (0-9); Neutrophil 89 % (42-75); Neutrophil # 21.3 K/mm3 (1.3-6.0)
[2018-05-30 11:11] LABS: Hypochromia 1+; Platelet Estimate Normal (NORMAL)
[2018-05-30] MEDS ORDERED: NORMAL SALINE 1,000 ML IV ONE (11:12)
[2018-05-30] MEDS ORDERED: SODIUM CHLORIDE IV ONE (11:15)
--- NOTE | 2018-05-30 11:23 | ERNOTE ---
Back Pain ER HPI Presenting Symptoms: injury/pain to back Time Seen by Provider: 05/30/18 10:07 Exam Limitations: no limitations Immunizations: IMMUNIZATION HX Immunizations Up to Date Yes History of Influenza Vaccine Yes Hx Pneumococcal Vaccination Yes Allergies/Adverse Reactions: Allergies No Known Allergies Allergy (Verified 05/30/18 10:22) Home Medications: HOME MEDICATIONS Atorvastatin Calcium [Lipitor] 40 mg PO HS 07/03/14 [Last Taken Unknown] Doxazosin Mesylate [Cardura] 8 mg PO DAILY 07/03/14 [Last Taken Unknown] Furosemide [Lasix] 160 mg PO DAILY 07/03/14 [Last Taken Unknown] Losartan/Hydrochlorothiazide [Hyzaar 100-12.5 Tablet] 100 mg PO DAILY 07/03/14 [ Last Taken Unknown] Gabapentin 600 mg PO HS 07/17/17 [Last Taken Unknown] Gabapentin [Neurontin] 300 mg PO DAILY 07/17/17 [Last Taken Unknown] Levothyroxine Sodium [Synthroid] 50 mcg PO DAILY 07/17/17 [Last Taken Unknown] Insulin Aspart [Novolog] 30 units SC TID 03/18/18 [Last Taken Unknown] Insulin Detemir [Levemir] 50 unit SQ DAILY 03/18/18 [Last Taken Unknown] Multivit-Min/FA/Lycopen/Lutein [Centrum Silver Men Tablet] 1 tab PO DAILY [Last Taken Unknown] [place] Oil/[place]-3 Fatty Acids [Fish Oil] 1,200 mg PO DAILY 03/18/18 [Last Taken Unknown] Sennosides/Docusate Sodium [Senna-S Tablet] 2 tab PO BID 03/18/18 [Last Taken Unknown] Sertraline HCl [Zoloft] 50 mg PO DAILY 03/18/18 [Last Taken 05/17/18 20:00] Wheat Dextrin/L.acid/Aspartame [Fiber with Probiotic Powder] 360 gm PO DAILY 09/25 [Last Taken Unknown] Naproxen Sodium [Aleve] 220 mg PO QID 05/18/18 [Last Taken Unknown] Ranitidine HCl [Zantac] 150 mg PO BID 05/18/18 [Last Taken Unknown] Allopurinol [Zyloprim] 100 mg PO DAILY #30 tab 05/20/18 [Last Taken Unknown] Nystatin [Mycostatin Powder] 1 appl TP BID 14 Days #1 btl 05/20/18 [Last Taken Unknown] aspirin 81 mg tablet,delayed release 81 mg PO DAILY 05/21/18 [Last Taken Unknown ] polyethylene glycol 3350 17 gram/dose oral powder 17 g PO BID g 05/21/18 [Last Taken Unknown] HYDROcodone/ACETAMINOPHEN [[place] 5-325] 1 tab PO Q6H PRN #16 tab 05/28/18 [Last Taken Unknown] Narrative: Patient is here for progressive weakness and frequent falls. He was in the hospital several weeks ago and stated that he was still pretty weak when they discharged him and he is continued to become progressively weaker. Patient complains of low back pain from his recent fall, which happened this morning, and he landed on his buttocks and now is pain in the low back and pelvis. Timing: Reports: constant Quality/Severity: Reports: moderate Location of pain: Reports: lower back Activities at Onset: Reports: other - patient was transferring from his cart to his chair at home and was too weak to make the transfer Recent Injury?: Reports: yes, possibly Possible Precipitating Factor: Reports: none - advancing weakness Modifying Factors - (Improves): Reports: nothing Modifying Factors - (Worsens): Reports: other - any form of physical activity Associated Symptoms: Reports: difficulty walking Prior Treament: Reports: recently seen, treated by physician, recently hospitalized, similar symptoms before Review of Systems - Review of Systems Constitutional: Present: See HPI EYE: Present: no symptoms reported ENT: Present: no symptoms reported Respiratory: Present: no symptoms reported Cardiology: Present: edema - chronic Gastrointestinal/Abdominal: Present: no symptoms reported Genitourinary: Present: no symptoms reported Musculoskeletal: Present: no symptoms reported Skin: Present: no symptoms reported Neurological: Present: no symptoms reported Endocrine: Present: no symptoms reported Hematologic/Lymphatic: Present: no symptoms reported Psych: Present: no symptoms reported Medical History (Last Reviewed 05/30/18 @ 10:22 by Jennifer Perez RN) Recurrent UTI (Chronic) Onset Date: 2017 Urinary retention (Chronic) Onset Date: Unknown Psoriasis (Chronic) Onset Date: Unknown Peripheral neuropathy (Chronic) Onset Date: 2016 MECHE treated with BiPAP (Chronic) Onset Date: Unknown MRSA (methicillin resistant Staphylococcus aureus) (Chronic) Onset Date: Unknown Morbid obesity (Chronic) Onset Date: Unknown Hypothyroidism (Chronic) Onset Date: 2017 Hyperlipidemia (Chronic) Onset Date: 2017 Gout (Chronic) Onset Date: 2017 GERD (gastroesophageal reflux disease) (Chronic) Onset Date: 2017 Essential hypertension (Chronic) Onset Date: 2017 Enchondroma (Chronic) Onset Date: Unknown diabetes mellitus kenney 2 (Chronic) Onset Date: Unknown COPD (chronic obstructive pulmonary disease) (Chronic) Onset Date: 2017 Chronic kidney disease (Chronic) Onset Date: 2017 Chronic back pain (Chronic) Onset Date: 2017 CAD (coronary artery disease) (Chronic) Onset Date: 2017 Arthritis (Chronic) Onset Date: Unknown Anemia (Chronic) Onset Date: Unknown Cataract (Acute) Onset Date: Unknown Hand amputation status (Acute) Onset Date: Unknown Stroke (Resolved) Onset Date: Unknown BPH (benign prostatic hyperplasia) (Chronic) Onset Date: Unknown CHF (congestive heart failure) (Chronic) Onset Date: Unknown Diabetic acidosis, type II (Acute) Onset Date: Unknown Surgical History: Surgical History (Last Reviewed 05/30/18 @ 10:22 by Jennifer Perez RN) Cataract, bilateral Onset Date: Unknown H/O cystoscopy Onset Date: 2016 H/O removal of testicle Onset Date: Unknown History of appendectomy Onset Date: Unknown History of appendectomy Onset Date: Unknown Pacemaker Onset Date: 05/2014 Status post ORIF of fracture of ankle Onset Date: 2013 finger surgery Onset Date: Unknown Family History: Family History (Last Reviewed 05/30/18 @ 10:22 by Jennifer Perez RN) Father Diabetes Hypertension Mother Diabetes Hypertension Social History: Preferred Language Pakistani Do you have any jain or No cultural preference? Smoking Status Never smoker Have you smoked in the past 12 No months Do you dip or chew tobacco No Abuse History No History of abuse Psych History No pertinent hx Alcohol Use none Drug Use none Physical Exam - Physical Exam General Appearance: Present: wd/wn, alert, moderate distress Head Exam: Present: normal inspection, no evidence of injury Eye Exam: Normal inspection: bilateral, PERRL: bilateral Ears, Nose, Throat: Present: normal ENT inspection, H, normal pharynx Neck: Present: normal inspection, nontender Respiratory: Present: no respiratory distress, normal breath sounds, no accessory muscle use, chest nontender, lungs clear Cardiovascular/Chest: Present: regular rate, rhythm, no murmur, normal peripheral pulses Gastrointestinal/Abdominal: Present: normal bowel sounds, nontender, nondistended, soft, no organomegaly, other - morbid obesity Rectal Exam: Present: deferred Male Genitals Exam: Present: deferred Back Exam: Present: normal inspection, normal range of motion Extremity Exam: Present: non-tender, normal range of motion, pedal edema, other - patient has profound chronic bilateral lower extremity edema that extends up into the thighs, with open sores on both feet that appear to be in a diminished healing capacity Neurological Exam: Present: alert, oriented, normal mood/affect Skin Exam: Present: normal color, warm/dry Lymphatic Exam: Present: no adenopathy ED Progress - Results and Orders Patient's Lab Results:: I have reviewed the patient's lab results. - Vital Signs Patient's Vital Signs:: I have reviewed the patient's vital signs. Vital Signs: Vital Signs 05/30/18 10:14 05/30/18 10:19 05/30/18 10:49 Temperature 36.7 C Pulse Rate 76 76 78 Respiratory Rate 12 12 20 Blood Pressure 83/41 L 86/47 L 97/48 O2 Sat by Pulse Oximetry 94 94 94 - EKG EKG: RBBB, other - first degree AV block - X-Ray X-Ray #1 X-Ray: chest Interpretation: Reviewed by me X-Ray #2 X-Ray: hip Interpretation: Reviewed by me X-Ray #3 X-Ray: lumbosacral Interpretation: Reviewed by me X-Ray #4 X-Ray: forearm Interpretation: Reviewed by me - Progress/Reassessment Chief Complaint: Back Pain Plan - Plan Plan: Patient be admitted to monitored bed, patient has left lower lobe pneumonia, sepsis and near-syncope. Given his underlying low albumin we are giving his fluid bolus over 12-24 hours. 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 Departure Clinical Impression: Near syncope Sepsis Qualifiers: Sepsis type: methicillin resistant Staphylococcus aureus Qualified Code(s): A41.02 - Sepsis due to Methicillin resistant Staphylococcus aureus Pneumonia Qualifiers: Pneumonia type: due to unspecified organism Laterality: left Lung location: lower lobe of lung Qualified Code(s): J18.1 - Lobar pneumonia, unspecified organism - Departure Disposition: Still a patient Condition: Fair Referrals: Joceline Tolbert DO [Primary Care Provider] - Critical Care Note - Critical Care Note Total Time (mins): 45 Comments: Patient required IV fluids to normalize his blood pressure and IV antibiotics to help with both a pneumonia, cellulitis and possible evolving UTI.
[2018-05-30 11:41] LABS: Urine Bilirubin Negative (NEGATIVE); Urine Blood Negative /ul (NEGATIVE); Urine Ketone Negative (NEGATIVE); Urine Nitrite Negative (NEGATIVE); Urine Protein Negative (NEGATIVE); Urine Specific Gravity 1.025 SP.GR. (1.005-1.030); Urine Urobilinogen Normal (NORMAL); Urine pH 5.5 pH (5.0-7.0)
[2018-05-30 11:49] LABS: Urine Appearance Clear (CLEAR); Urine Color Yellow
[2018-05-30 11:51] LABS: Urine Amorphous Sediment TRACE (NONE-FEW); Urine Bacteria 2+; Urine RBC None Seen /hpf (0-5); Urine WBC 0-5 /hpf (0-5)
[2018-05-30] MEDS ORDERED: CLINDAMYCIN PHOSPHATE 600 MG in DEXTROSE 5 % IN WATER 100 ML IV ONE ×2 (12:34)
[2018-05-30] MEDS ORDERED: HYDROcodone/ACETAMINOPHEN 1 EACH TABLET PO PRN (13:51)
[2018-05-30] MEDS ORDERED: ACETAMINOPHEN 325 MG TABLET PO PRN (14:12)
[2018-05-30] MEDS ORDERED: BISACODYL 10 MG SUPP.RECT RC PRN (14:12)
--- NOTE | 2018-05-30 14:12 | HP ---
Chief Complaint - Chief Complaint Date of Service: 05/30/18 Time of Service: 11:30 Chief Complaint: Weakness, falls, generalized feeling of being unwell History of Present Illness: The patient presents to the ED after having multiple falls at home over the weekend. He states that he feels terrible but is unable to give me specifics other than feeling weak, tired and having multiple falls. He states he has been a bit more short of breath than usual as well and he continues to have significant lower extremity edema. Medical History (Last Reviewed 05/30/18 @ 10:22 by Jennifer Perez RN) Recurrent UTI (Chronic) Onset Date: 2017 Urinary retention (Chronic) Onset Date: Unknown Psoriasis (Chronic) Onset Date: Unknown Peripheral neuropathy (Chronic) Onset Date: 2017 MECHE treated with BiPAP (Chronic) Onset Date: Unknown MRSA (methicillin resistant Staphylococcus aureus) (Chronic) Onset Date: Unknown Morbid obesity (Chronic) Onset Date: Unknown Hypothyroidism (Chronic) Onset Date: 2017 Hyperlipidemia (Chronic) Onset Date: 2017 Gout (Chronic) Onset Date: 2017 GERD (gastroesophageal reflux disease) (Chronic) Onset Date: 2017 Essential hypertension (Chronic) Onset Date: 2017 Enchondroma (Chronic) Onset Date: Unknown diabetes mellitus kenney 2 (Chronic) Onset Date: Unknown COPD (chronic obstructive pulmonary disease) (Chronic) Onset Date: 2017 Chronic kidney disease (Chronic) Onset Date: 2017 Chronic back pain (Chronic) Onset Date: 2017 CAD (coronary artery disease) (Chronic) Onset Date: 2017 Arthritis (Chronic) Onset Date: Unknown Anemia (Chronic) Onset Date: Unknown Cataract (Acute) Onset Date: Unknown Hand amputation status (Acute) Onset Date: Unknown Stroke (Resolved) Onset Date: Unknown BPH (benign prostatic hyperplasia) (Chronic) Onset Date: Unknown CHF (congestive heart failure) (Chronic) Onset Date: Unknown Diabetic acidosis, type II (Acute) Onset Date: Unknown Surgical History: Surgical History (Last Reviewed 05/30/18 @ 10:22 by Jennifer Perez RN) Cataract, bilateral Onset Date: Unknown H/O cystoscopy Onset Date: 2016 H/O removal of testicle Onset Date: Unknown History of appendectomy Onset Date: Unknown History of appendectomy Onset Date: Unknown Pacemaker Onset Date: 05/2014 Status post ORIF of fracture of ankle Onset Date: 2013 finger surgery Onset Date: Unknown Family History: Family History (Last Reviewed 05/30/18 @ 10:22 by Jennifer Perez RN) Father Diabetes Hypertension Mother Diabetes Hypertension Social History: Preferred Language Occitan Do you have any judaism or No cultural preference? Smoking Status Never smoker Have you smoked in the past 12 No months Do you dip or chew tobacco No Abuse History No History of abuse Psych History No pertinent hx Alcohol Use none Drug Use none Review Of Systems (GEN) - Review of Systems Generalized/Overall Review: Present: Weakness, Chills, Fatigue EENTM: Present: No Symptoms Reported, Other Respiratory: Present: Shortness of Breath Cardiac: Present: Edema Abdominal: Present: Constipation Genitourinary: Present: Other - Decreased urination Musculoskeletal: Present: Joint Pain, Back Pain, Muscle Pain Skin: Present: Change in Color, Other - wounds to lower extremities Misc: All systems neg except as marked Immunizations: IMMUNIZATION HX Immunizations Up to Date Yes History of Influenza Vaccine Yes Hx Pneumococcal Vaccination Yes Allergies/Adverse Reactions: Allergies Allergy/AdvReac Type Severity Reaction Status Date / Time No Known Allergies Allergy Verified 05/30/18 10:22 Home Medications: HOME MEDICATIONS Atorvastatin Calcium [Lipitor] 40 mg PO HS 07/03/14 [Last Taken Unknown] Doxazosin Mesylate [Cardura] 8 mg PO DAILY 07/03/14 [Last Taken Unknown] Furosemide [Lasix] 160 mg PO DAILY 07/03/14 [Last Taken Unknown] Losartan/Hydrochlorothiazide [Hyzaar 100-12.5 Tablet] 100 mg PO DAILY 07/03/14 [ Last Taken Unknown] Gabapentin 600 mg PO HS 07/17/17 [Last Taken Unknown] Gabapentin [Neurontin] 300 mg PO DAILY 07/17/17 [Last Taken Unknown] Levothyroxine Sodium [Synthroid] 50 mcg PO DAILY 07/17/17 [Last Taken Unknown] Insulin Aspart [Novolog] 30 units SC TID 03/18/18 [Last Taken Unknown] Insulin Detemir [Levemir] 50 unit SQ DAILY 03/18/18 [Last Taken Unknown] Multivit-Min/FA/Lycopen/Lutein [Centrum Silver Men Tablet] 1 tab PO DAILY [Last Taken Unknown] [place] Oil/[place]-3 Fatty Acids [Fish Oil] 1,200 mg PO DAILY 03/18/18 [Last Taken Unknown] Sennosides/Docusate Sodium [Senna-S Tablet] 2 tab PO BID 03/18/18 [Last Taken Unknown] Sertraline HCl [Zoloft] 50 mg PO DAILY 03/18/18 [Last Taken 05/17/18 20:00] Wheat Dextrin/L.acid/Aspartame [Fiber with Probiotic Powder] 360 gm PO DAILY 09/25 [Last Taken Unknown] Naproxen Sodium [Aleve] 220 mg PO QID 05/18/18 [Last Taken Unknown] Ranitidine HCl [Zantac] 150 mg PO BID 05/18/18 [Last Taken Unknown] Allopurinol [Zyloprim] 100 mg PO DAILY #30 tab 05/20/18 [Last Taken Unknown] Nystatin [Mycostatin Powder] 1 appl TP BID 14 Days #1 btl 05/20/18 [Last Taken Unknown] aspirin 81 mg tablet,delayed release 81 mg PO DAILY 05/21/18 [Last Taken Unknown ] polyethylene glycol 3350 17 gram/dose oral powder 17 g PO BID g 05/21/18 [Last Taken Unknown] HYDROcodone/ACETAMINOPHEN [[place] 5-325] 1 tab PO Q6H PRN #16 tab 05/28/18 [Last Taken Unknown] Exam - Exam Vital Signs: Vital Signs - Last Taken Temp 36.7 C 05/30/18 10:14 Pulse 77 05/30/18 13:40 Resp 14 05/30/18 13:40 BP 113/55 05/30/18 13:40 Pulse Ox 94 05/30/18 13:40 Constitutional: Present: Alert, Oriented x3, Elderly, Morbidly obese ENT Exam: Present: hard of hearing, dry mucous membranes Back Exam: Present: no CVA tenderness Respiratory: Present: no respiratory distress, no accessory muscle use, other - Difficult to thoroughly assess secondary to body habitus but no crackles, rhonchi or wheezes appreciated Cardiovascular/Chest: Present: other - Diminished heart sounds secondary to body habitus so difficult to thoroughly assess; however, RRR and no murmurs noted, edema - Marked 3+ edema in bilateral LEs Abdomen: Present: soft, nontender, obese. Absent: guarding, rigidity, rebound tenderness Extremity: Present: lower extremity edema Skin Exam: Present: other - Multiple open wounds and abrasions to LEs, especially toes/feet. Blisters and weeping to lower extremities secondary to marked edema Neurologic: Present: alert, normal mood/affect Eye contact: Present: cooperative Thoughts: Present: normal thought pattern, no apparent hallucination Diagnostic Studies: Abnormal Lab Results 05/30/18 05/30/18 05/30/18 Range/Units 10:25 10:25 10:25 WBC 23.9 H (4.0-10.5) K/mm3 RBC 3.35 L (4.7-6.0) M/mm3 Hgb 10.0 L (13.5-18.0) gm/dL Hct 31.2 L (42.0-52.0) % RDW 15.4 H (11.5-14.0) % Immature Gran % (Auto) 7.80 H (0.001-0.429) % Immature Gran # (Auto) 1.87 H (0.000-0.0310) K/mm3 Neutrophils % 79.1 H (42-75.0) % Neutrophils % (Manual) 89 H (42-75) % Band Neuts % (Manual) 7 H (0-2.0) % Lymphocytes % 4.5 L (20-51) % Lymphocytes % (Manual) 1 L (20-51) % Neutrophils # 18.9 H (1.3-6.0) K/mm3 Neutrophils # (Manual) 21.3 H (1.3-6.0) K/mm3 Lymphocytes # 1.07 L (1.5-3.5) k/mm3 Lymphocytes # (Manual) 0.2 L (1.5-3.5) k/mm3 Monocytes # 1.8 H (0.0-1.0) k/mm3 Chloride 94 L (97-106) mmol/L Carbon Dioxide 33.9 H (24-32.6) mmol/L BUN 40 H (6-23) mg/dL Creatinine 2.64 H D (0.4-1.4) mg/dL Est GFR (Non-Af Amer) 25 L D (60-130) mL/min Random Glucose 163 H (70-110) mg/dL Lactic Acid, Venous 2.1 H (0.4-2.0) mmol/L B-Natriuretic Peptide 3026 H (5-650) pg/mL Albumin 2.2 L (3.4-5.0) gm/dl Urine Bacteria (NONE) 05/30/18 Range/Units 11:11 WBC (4.0-10.5) K/mm3 RBC (4.7-6.0) M/mm3 Hgb (13.5-18.0) gm/dL Hct (42.0-52.0) % RDW (11.5-14.0) % Immature Gran % (Auto) (0.001-0.429) % Immature Gran # (Auto) (0.000-0.0310) K/mm3 Neutrophils % (42-75.0) % Neutrophils % (Manual) (42-75) % Band Neuts % (Manual) (0-2.0) % Lymphocytes % (20-51) % Lymphocytes % (Manual) (20-51) % Neutrophils # (1.3-6.0) K/mm3 Neutrophils # (Manual) (1.3-6.0) K/mm3 Lymphocytes # (1.5-3.5) k/mm3 Lymphocytes # (Manual) (1.5-3.5) k/mm3 Monocytes # (0.0-1.0) k/mm3 Chloride (97-106) mmol/L Carbon Dioxide (24-32.6) mmol/L BUN (6-23) mg/dL Creatinine (0.4-1.4) mg/dL Est GFR (Non-Af Amer) (60-130) mL/min Random Glucose (70-110) mg/dL Lactic Acid, Venous (0.4-2.0) mmol/L B-Natriuretic Peptide (5-650) pg/mL Albumin (3.4-5.0) gm/dl Urine Bacteria 2+ H (NONE) Laboratory Results WBC 23.9 K/mm3 (4.0-10.5) H 05/30/18 10:25 RBC 3.35 M/mm3 (4.7-6.0) L 05/30/18 10:25 Hgb 10.0 gm/dL (13.5-18.0) L 05/30/18 10:25 Hct 31.2 % (42.0-52.0) L 05/30/18 10:25 MCV 93.1 fl (78-100) 05/30/18 10:25 MCH 29.9 pg (27-31) 05/30/18 10:25 MCHC 32.1 g/dl (32-36) 05/30/18 10:25 RDW 15.4 % (11.5-14.0) H 05/30/18 10:25 Plt Count 245 K/mm3 (150-450) 05/30/18 10:25 MPV 10.1 fl (8-11.3) 05/30/18 10:25 Immature Gran % (Auto) 7.80 % (0.001-0.429) H 05/30/18 10:25 Immature Gran # (Auto) 1.87 K/mm3 (0.000-0.0310) H 05/30/18 10:25 Neutrophils % 79.1 % (42-75.0) H 05/30/18 10:25 Neutrophils % (Manual) 89 % (42-75) H 05/30/18 10:25 Band Neuts % (Manual) 7 % (0-2.0) H 05/30/18 10:25 Lymphocytes % 4.5 % (20-51) L 05/30/18 10:25 Lymphocytes % (Manual) 1 % (20-51) L 05/30/18 10:25 Monocytes % 7.7 % (0.0-9) 05/30/18 10:25 Monocytes % (Manual) 3 % (0-9) 05/30/18 10:25 Eosinophils % 0.6 % (0.0-3.0) 05/30/18 10:25 Basophils % 0.3 % (0.0-1.0) 05/30/18 10:25 Nucleated RBC % 0.0 k/mm3 (0-1) 05/30/18 10:25 Neutrophils # 18.9 K/mm3 (1.3-6.0) H 05/30/18 10:25 Neutrophils # (Manual) 21.3 K/mm3 (1.3-6.0) H 05/30/18 10:25 Lymphocytes # 1.07 k/mm3 (1.5-3.5) L 05/30/18 10:25 Lymphocytes # (Manual) 0.2 k/mm3 (1.5-3.5) L 05/30/18 10:25 Monocytes # 1.8 k/mm3 (0.0-1.0) H 05/30/18 10:25 Monocytes # (Manual) 0.7 k/mm3 (0.0-1.0) 05/30/18 10:25 Eosinophils # 0.2 k/mm3 (0.0-0.7) 05/30/18 10:25 Absolute Basophils 0.1 k/mm3 (0.0-0.1) 05/30/18 10:25 Platelet Estimate Normal (NORMAL) 05/30/18 10:25 Hypochromasia 1+ 05/30/18 10:25 Sodium 133 mmol/L (132-142) 05/30/18 10:25 Plasma Sodium 134 mmol/L (130-142) 05/30/18 10:25 Potassium 3.8 mmol/L (3.4-4.6) 05/30/18 10:25 Chloride 94 mmol/L (97-106) L 05/30/18 10:25 Carbon Dioxide 33.9 mmol/L (24-32.6) H 05/30/18 10:25 Anion Gap 8.9 mmol/L (6.8-13.8) 05/30/18 10:25 BUN 40 mg/dL (6-23) H 05/30/18 10:25 Creatinine 2.64 mg/dL (0.4-1.4) H D 05/30/18 10:25 Est GFR (Non-Af Amer) 25 mL/min (60-130) L D 05/30/18 10:25 BUN/Creatinine Ratio 15.2 (9.0-21.6) 05/30/18 10:25 Random Glucose 163 mg/dL (70-110) H 05/30/18 10:25 Lactic Acid, Venous 2.1 mmol/L (0.4-2.0) H 05/30/18 10:25 Calcium 8.6 mg/dL (7.9-10.9) 05/30/18 10:25 Calcium Adj for Albumin 9.7 mg/dL (8.4-10.2) 05/30/18 10:25 Magnesium 2.2 mg/dL (1.2-2.8) 05/30/18 10:25 Total Bilirubin 0.7 mg/dL (0.0-1.1) 05/30/18 10:25 AST 44 U/L (0-48) 05/30/18 10:25 ALT 47 U/L (19-67) 05/30/18 10:25 Alkaline Phosphatase 165 U/L (50-170) 05/30/18 10:25 Troponin I Less than 0.017 ng/ml (0.00-0.10) 05/30/18 10:25 B-Natriuretic Peptide 3026 pg/mL (5-650) H 05/30/18 10:25 Total Protein 6.6 gm/dL (6.2-8.2) 05/30/18 10:25 Albumin 2.2 gm/dl (3.4-5.0) L 05/30/18 10:25 Urine Color Yellow 05/30/18 11:11 Urine Appearance Clear (CLEAR) 05/30/18 11:11 Urine pH 5.5 pH (5.0-7.0) 05/30/18 11:11 Ur Specific [place] 1.025 SP.GR. (1.005-1.030) 05/30/18 11:11 Urine Protein Negative mg/dL (NEGATIVE) 05/30/18 11:11 Urine Glucose (UA) Negative mg/dL (NEGATIVE) 05/30/18 11:11 Urine Ketones Negative mg/dL (NEGATIVE) 05/30/18 11:11 Urine Blood Negative /ul (NEGATIVE) 05/30/18 11:11 Urine Nitrate Negative (NEGATIVE) 05/30/18 11:11 Urine Bilirubin Negative mg/dl (NEGATIVE) 05/30/18 11:11 Urine Urobilinogen Normal EU/dl (NORMAL) 05/30/18 11:11 Ur Leukocyte Esterase Negative /ul (NEGATIVE) 05/30/18 11:11 Urine RBC None seen /hpf (0-5) 05/30/18 11:11 Urine WBC 0-5 /hpf (0-5) 05/30/18 11:11 Ur Epithelial Cells 0-5 /hpf (0-5) 05/30/18 11:11 Amorphous Sediment Trace (NONE-FEW) 05/30/18 11:11 Urine Bacteria 2+ (NONE) H 05/30/18 11:11 Urine Culture Comments Culture to follow 05/30/18 11:11 Assessment/Plan - Narrative Narrative: -Patient admitted for sepsis secondary to pneumonia. Complete sepsis bolus as ordered. Monitor fluid status closely. Daily weight. Strict I&Os. Antibiotic treatment with Ceftriaxone and azithromycin. Sputum culture and blood cultures X 2 pending. Await C&S results and adjust antibiotics as necessary. -Wound care consulted for evaluation and treatment of lower extremity wounds and skin fold breakdown -PT, OT evaluation and treatment -Patient will need to remain in the hospital for at least 3 days and once he is clinically stable for discharge, he will need to go to a SNF for ongoing medical care and therapies prior to returning home. Upon returning home, the patient will benefit from [facility]. 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
[2018-05-30] MEDS ORDERED: AZITHROMYCIN 500 MG in DEXTROSE 5 % IN WATER 250 ML IV SCH ×2 (14:15)
--- NOTE | 2018-05-30 16:23 | CONS ---
[facility] - General Date of Service: 05/30/18 Source: patient, family Exam Limitations: no limitations - History of Present Illness Initial Comments: Patient is an 83 year old male, recently admitted to the hospital regarding multiple falls at home. The [facility] was consulted for evaluation of wounds. He presented to the Emergency Department, and was diagnosed with pneumonia. The patient was admitted for care of pneumonia, sepsis, morbid obesity, weakness, edema, chronic kidney disease stage III and leukocytosis. He has been a patient in the Wound Center in the past, regarding non-healing ulcers and edema to the lower extremities. He has been advised to wear compression stockings, and his states that he does wear them occasionally. The patient admits to generalized pain, not specific to the wounds. Current treatment is unclear. Timing/Duration: getting worse Allergies/Adverse Reactions: Allergies No Known Allergies Allergy (Verified 05/30/18 10:22) Home Medications: Home Medications Medication Instructions Recorded Last Taken Atorvastatin Calcium [Lipitor] 40 mg PO HS 07/03/14 Unknown Doxazosin Mesylate [Cardura] 8 mg PO DAILY 07/03/14 Unknown Furosemide [Lasix] 160 mg PO DAILY 07/03/14 Unknown Losartan/Hydrochlorothiazide 100 mg PO DAILY 07/03/14 Unknown [Hyzaar 100-12.5 Tablet] Gabapentin [Neurontin] 300 mg PO QAM 07/17/17 Unknown Levothyroxine Sodium [Synthroid] 50 mcg PO DAILY 07/17/17 Unknown Insulin Aspart [Novolog] 30 units SC TID 03/18/18 Unknown Insulin Detemir [Levemir] 50 unit SQ DAILY 03/18/18 Unknown Multivit-Min/FA/Lycopen/Lutein 1 tab PO DAILY 03/18/18 Unknown [Centrum Silver Men Tablet] Sennosides/Docusate Sodium 2 tab PO BID 03/18/18 Unknown [Senna-S Tablet] Sertraline HCl [Zoloft] 50 mg PO DAILY 03/18/18 05/17/18 20:00 Wheat Dextrin/L.acid/Aspartame 360 gm PO DAILY 03/18/18 Unknown [Fiber with Probiotic Powder] Naproxen Sodium [Aleve] 220 mg PO QID PRN 05/18/18 Unknown Ranitidine HCl [Zantac] 150 mg PO BID 05/18/18 Unknown Allopurinol [Zyloprim] 100 mg PO DAILY #30 tab 05/20/18 Unknown Nystatin [Mycostatin Powder] 1 appl TP BID 14 Days #1 btl 05/20/18 Unknown aspirin 81 mg tablet,delayed 81 mg PO DAILY 05/21/18 Unknown release polyethylene glycol 3350 17 17 g PO BID g 05/21/18 Unknown gram/dose oral powder HYDROcodone/ACETAMINOPHEN [[place] 1 tab PO Q6H PRN #16 tab 05/28/18 Unknown 5-325] Gabapentin [Neurontin] 600 mg PO HS 05/30/18 Unknown Melatonin 5 mg PO HS 05/30/18 Unknown [place]-3 Fatty Acids/Fish Oil [Fish 1 each PO DAILY 05/30/18 Unknown Oil 1,000 mg Capsule] Procedures Application of splint (07/03/14) Drainage of Bladder with Drainage Device, Via Natural or Artificial Opening (07/25) Introduction of Anesthetic Agent into Joints, Percutaneous Approach (08/30/17) Introduction of Anti-inflammatory into Joints, Percutaneous Approach (08/30/17) Medications - Medications Current Medications: Current Medications Sodium Chloride (Sodium Chloride 0.9%) 1,792 mls @ 150 mls/hr IV .[id number] ONE Stop: 05/30/18 23:08 Last Admin: 05/30/18 15:59 Dose: 150 mls/hr Azithromycin 500 mg/ Dextrose/ (Water) 250 mls @ 250 mls/hr IV Q24H LUMA; Protocol Stop: 06/29/18 14:16 Last Admin: 05/30/18 15:59 Dose: 250 mls/hr Review of Systems - Review of Systems Generalized/Overall Review: Present: Weakness EENTM: Absent: Nose Congestion Respiratory: Present: Shortness of Breath Cardiac: Present: Edema. Absent: Chest Pain Abdominal: Absent: Nausea, Vomiting Musculoskeletal: Present: Joint Pain Skin: Present: Lesions Physical Examination - Exam Vital Signs: Vital Signs - Last Taken Temp 36.2 C 05/30/18 14:54 Pulse 74 05/30/18 15:13 Resp 18 05/30/18 14:54 BP 98/53 05/30/18 14:54 Pulse Ox 95 05/30/18 14:54 O2 Oxygen Delivery Method Nasal Cannula Constitutional: Present: Cooperative, Morbidly obese ENT Exam: Present: hearing grossly normal Abdomen: Present: tender Skin Exam: Present: warm/dry, other - the skin in the lower abdomen/groin folds on the left is reddened, with an odor. there is a small superficial ulcer ~1 x 1.5cm with minimal drainage present. there are multiple healing ulcers on the feet. the right first toe has a blood blister at the distal end measuring 0.5cm in circumference. there is 2+ edema in bilateral lower legs. the left lower leg is red and warm to touch. no drainage. there are abrasions present to bilateral knees. no erythema or drainage associated with these. Eye contact: Present: cooperative - Results and Findings: Narrative: Use nystatin powder to the abdominal/groin skin folds. This can be applied 2-3 times daily and as needed. Use interdry to protect the skin folds. Wash the area with soap and water daily. The lower extremities would benefit from compression. Recommend starting with two layers of tubigrip. The patient may require Coban II wrap for better control of edema. There are no open or draining areas on the lower extremity at this time. Will continue to monitor the scabbed areas. Lab/Microbiology results last 24 hrs: Abnormal/Pending Laboratory Last 24 HRS 05/30/18 05/30/18 05/30/18 11:11 10:25 10:25 WBC RBC Hgb Hct RDW Immature Gran % (Auto) Immature Gran # (Auto) Neutrophils % Neutrophils % (Manual) Band Neuts % (Manual) Lymphocytes % Lymphocytes % (Manual) Neutrophils # Neutrophils # (Manual) Lymphocytes # Lymphocytes # (Manual) Monocytes # Chloride 94 L Carbon Dioxide 33.9 H BUN 40 H Creatinine 2.64 H D Est GFR (Non-Af Amer) 25 L D Random Glucose 163 H Lactic Acid, Venous 2.1 H B-Natriuretic Peptide 3026 H Albumin 2.2 L Urine Bacteria 2+ H 05/30/18 10:25 WBC 23.9 H RBC 3.35 L Hgb 10.0 L Hct 31.2 L RDW 15.4 H Immature Gran % (Auto) 7.80 H Immature Gran # (Auto) 1.87 H Neutrophils % 79.1 H Neutrophils % (Manual) 89 H Band Neuts % (Manual) 7 H Lymphocytes % 4.5 L Lymphocytes % (Manual) 1 L Neutrophils # 18.9 H Neutrophils # (Manual) 21.3 H Lymphocytes # 1.07 L Lymphocytes # (Manual) 0.2 L Monocytes # 1.8 H Chloride Carbon Dioxide BUN Creatinine Est GFR (Non-Af Amer) Random Glucose Lactic Acid, Venous B-Natriuretic Peptide Albumin Urine Bacteria - Assessments/Findings (1) Intertriginous skin ulcer, 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
[2018-05-30] MEDS: INSULIN ASPART 100 UNITS/ML VIAL SC SCH (17:55)
[2018-05-30] MEDS: SENNOSIDES/DOCUSATE SODIUM 1 TAB TABLET PO SCH ×2 (17:55→21:56)
[2018-05-30] MEDS: INSULIN LISPRO 100 UNITS/ML VIAL SC SCH (18:00)
[2018-05-30] MEDS: GABAPENTIN 300 MG CAPSULE PO SCH (21:55)
[2018-05-30] MEDS: ROSUVASTATIN CALCIUM 20 MG TABLET PO SCH (21:55)
[2018-05-30] MEDS: FAMOTIDINE 20 MG TABLET PO SCH (21:56)
[2018-05-30] MEDS: POLYETHYLENE GLYCOL 3350 119 GM BTL PO SCH (21:56)
[2018-05-30] MEDS: NYSTATIN 15 APPL BTL TP SCH (21:56)
[2018-05-30] MEDS: NORMAL SALINE 1,000 ML IV PRN (23:37)
[2018-05-31] MEDS: NORMAL SALINE 1,000 ML IV PRN ×2 (05:17→21:25)
[2018-05-31 05:55] LABS: Hematocrit 30.3 % (42.0-52.0); Hemoglobin 9.6 gm/dL (13.5-18.0); Mean Cell Volume 92.4 fl (78-100); Mean Corpuscular Hemoglobin 29.3 pg (27-31); Mean Corpuscular Hgb Conc 31.7 g/dl (32-36); Mean Platelet Volume 10.2 fl (8-11.3); Platelet Count 258 K/mm3 (150-450); Red Blood Count 3.28 M/mm3 (4.7-6.0); Red Cell Distribution Width 15.4 % (11.5-14.0); White Blood Count 21.1 K/mm3 (4.0-10.5)
[2018-05-31 06:04] LABS: Total Cells Counted 100
[2018-05-31 06:12] LABS: Anion Gap 8.7 mmol/L (6.8-13.8); BUN/Creatinine Ratio 17.2 (9.0-21.6); Calcium * 8.3 mg/dL (7.9-10.9); Carbon Dioxide 31.4 mmol/L (24-32.6); Estimated Creat Clear 25.6; Potassium 4.1 mmol/L (3.4-4.6)
[2018-05-31 06:17] LABS: Band 7 % (0-2.0); Eosinophil 2 % (0-3); Lymphocyte 5 % (20-51); Monocyte 4 % (0-9); Neutrophil 82 % (42-75); Neutrophil # 17.3 K/mm3 (1.3-6.0)
[2018-05-31 06:18] LABS: Platelet Estimate Normal (NORMAL); RBC Morphology Normal (NORMAL)
[2018-05-31] MEDS: LEVOTHYROXINE SODIUM 50 MCG TABLET PO SCH (06:59)
[2018-05-31] MEDS: SENNOSIDES/DOCUSATE SODIUM 1 TAB TABLET PO SCH ×4 (07:00→21:13)
[2018-05-31] MEDS: INSULIN ASPART 100 UNITS/ML VIAL SC SCH ×3 (07:19→17:11)
[2018-05-31] MEDS: INSULIN LISPRO 100 UNITS/ML VIAL SC SCH ×3 (07:19→17:10)
[2018-05-31] MEDS: DOXAZOSIN MESYLATE 2 MG TABLET PO SCH (09:46)
[2018-05-31] MEDS: ASPIRIN 81 MG TABLET.DR PO SCH (09:46)
[2018-05-31] MEDS: POLYETHYLENE GLYCOL 3350 119 GM BTL PO SCH ×2 (09:47→21:14)
[2018-05-31] MEDS: FAMOTIDINE 20 MG TABLET PO SCH ×2 (09:48→21:13)
[2018-05-31] MEDS: ALLOPURINOL 100 MG TABLET PO SCH (09:48)
[2018-05-31] MEDS: SERTRALINE HCL 50 MG TABLET PO SCH (09:48)
[2018-05-31] MEDS: GABAPENTIN 300 MG CAPSULE PO SCH ×2 (09:48→21:13)
[2018-05-31] MEDS: NYSTATIN 15 APPL BTL TP SCH ×2 (09:48→21:13)
[2018-05-31] MEDS: ACID PO SCH (09:51)
[2018-05-31] MEDS: ASPARTAME PO SCH (09:51)
[2018-05-31] MEDS: INSULIN DETEMIR 100 UNITS/ML VIAL SC SCH ×2 (09:51→21:10)
[2018-05-31] MEDS: WHEAT DEXTRIN PO SCH (09:51)
[2018-05-31] MEDS ORDERED: MORPHINE SULFATE 4 MG/ML SYRG IV PRN (10:02)
[2018-05-31] MEDS: HYDROcodone/ACETAMINOPHEN 1 EACH TABLET PO PRN (12:02)
[2018-05-31] MEDS ORDERED: CALCIUM CARBONATE 500 MG TAB.CHEW PO PRN (14:36)
[2018-05-31] MEDS: HEPARIN SODIUM,PORCINE 5,000 UNITS/ML VIAL SC SCH (15:22)
[2018-05-31] MEDS: AZITHROMYCIN 250 MG TABLET PO SCH (17:08)
[2018-05-31] MEDS: ROSUVASTATIN CALCIUM 20 MG TABLET PO SCH (21:12)
[2018-06-01] MEDS: HEPARIN SODIUM,PORCINE 5,000 UNITS/ML VIAL SC SCH ×2 (01:33→13:48)
[2018-06-01] MEDS: HYDROcodone/ACETAMINOPHEN 1 EACH TABLET PO PRN ×4 (01:39→17:31)
[2018-06-01 05:33] LABS: Hematocrit 30.3 % (42.0-52.0); Hemoglobin 9.5 gm/dL (13.5-18.0); Mean Cell Volume 93.5 fl (78-100); Mean Corpuscular Hemoglobin 29.3 pg (27-31); Mean Corpuscular Hgb Conc 31.4 g/dl (32-36); Mean Platelet Volume 10.3 fl (8-11.3); Platelet Count 293 K/mm3 (150-450); Red Blood Count 3.24 M/mm3 (4.7-6.0); Red Cell Distribution Width 15.6 % (11.5-14.0); White Blood Count 15.6 K/mm3 (4.0-10.5)
[2018-06-01 05:37] LABS: Total Cells Counted 100
[2018-06-01 05:40] LABS: Anion Gap 8.2 mmol/L (6.8-13.8); BUN/Creatinine Ratio 20.2 (9.0-21.6); Calcium * 8.2 mg/dL (7.9-10.9); Carbon Dioxide 32.2 mmol/L (24-32.6); Estimated Creat Clear 29.3; Potassium 4.4 mmol/L (3.4-4.6)
[2018-06-01 05:55] LABS: Band 8 % (0-2.0); Eosinophil 1 % (0-3); Lymphocyte 17 % (20-51); Monocyte 6 % (0-9); Neutrophil 68 % (42-75); Neutrophil # 10.6 K/mm3 (1.3-6.0)
[2018-06-01 05:57] LABS: Platelet Estimate Normal (NORMAL)
[2018-06-01 05:58] LABS: Basophilic Stippling Trace; Hypochromia Trace
[2018-06-01] MEDS: INSULIN ASPART 100 UNITS/ML VIAL SC SCH ×3 (07:46→17:41)
[2018-06-01] MEDS: INSULIN LISPRO 100 UNITS/ML VIAL SC SCH ×3 (07:46→17:32)
[2018-06-01] MEDS: SENNOSIDES/DOCUSATE SODIUM 1 TAB TABLET PO SCH ×5 (07:53→21:39)
[2018-06-01] MEDS: LEVOTHYROXINE SODIUM 50 MCG TABLET PO SCH (07:53)
[2018-06-01] MEDS: ASPIRIN 81 MG TABLET.DR PO SCH (08:43)
[2018-06-01] MEDS: NYSTATIN 15 APPL BTL TP SCH ×2 (08:43→21:38)
[2018-06-01] MEDS: DOXAZOSIN MESYLATE 2 MG TABLET PO SCH (08:44)
[2018-06-01] MEDS: GABAPENTIN 300 MG CAPSULE PO SCH ×3 (08:44→21:39)
[2018-06-01] MEDS: SERTRALINE HCL 50 MG TABLET PO SCH (08:45)
[2018-06-01] MEDS: FAMOTIDINE 20 MG TABLET PO SCH ×3 (08:45→21:39)
[2018-06-01] MEDS: POLYETHYLENE GLYCOL 3350 119 GM BTL PO SCH ×3 (08:45→21:38)
[2018-06-01] MEDS: ALLOPURINOL 100 MG TABLET PO SCH (08:45)
[2018-06-01] MEDS: ACID PO SCH (08:46)
[2018-06-01] MEDS: ASPARTAME PO SCH (08:46)
[2018-06-01] MEDS: WHEAT DEXTRIN PO SCH (08:46)
[2018-06-01] MEDS: INSULIN DETEMIR 100 UNITS/ML VIAL SC SCH ×2 (08:47→21:39)
--- NOTE | 2018-06-01 12:45 | PN ---
Subjective - Date and Time Seen Date: 06/01/18 Time: 10:00 Subjective Narrative: Patient seen and examined at bedside. No acute issues overnight. Patient states he feels like the swelling in his left wrist and thumb area has improved slightly since yesterday but he states there is still severe pain, especially with any movement or anything touching it. Patient states he has not had a BM since admission. Objective - Review of Systems Generalized/Overall Review: Reports: Weakness, Fatigue Respiratory: Reports: Cough, Shortness of Breath Cardiac: Reports: Edema Abdominal: Reports: Constipation Musculoskeletal Complaints: Reports: Joint Pain, Back Pain Skin: Reports: Lesions - wounds to lower extremities Misc: All systems neg except as marked - Vitals Vitals: Last Vital Signs Temp 36.8 C 06/01/18 11:42 Pulse 86 06/01/18 11:42 Resp 20 06/01/18 11:42 BP 152/84 H 06/01/18 11:42 Pulse Ox 94 06/01/18 11:42 - Abnormal Lab Findings Abnormal Lab Findings: Abnormal Lab Results 06/01/18 06/01/18 06/01/18 Range/Units 05:25 05:25 05:25 WBC 15.6 H D (4.0-10.5) K/mm3 RBC 3.24 L (4.7-6.0) M/mm3 Hgb 9.5 L (13.5-18.0) gm/dL Hct 30.3 L (42.0-52.0) % MCHC 31.4 L (32-36) g/dl RDW 15.6 H (11.5-14.0) % Band Neuts % (Manual) 8 H (0-2.0) % Lymphocytes % (Manual) 17 L (20-51) % Neutrophils # (Manual) 10.6 H (1.3-6.0) K/mm3 BUN 43 H (6-23) mg/dL Creatinine 2.13 H (0.4-1.4) mg/dL Est GFR (Non-Af Amer) 32 L (60-130) mL/min Random Glucose 125 H D (70-110) mg/dL Procalcitonin 1.62 H (0.05-0.50) ng/mL - Exam Constitutional: Present: Alert, Oriented x3, Cooperative, No distress, Elderly, Morbidly obese ENT Exam: Present: dry mucous membranes Respiratory: Present: no respiratory distress, no accessory muscle use, other - Difficult to thoroughly assess secondary to body habitus but no crackles, rhonchi or wheezes appreciated Cardiovascular/Chest: Present: other - Diminished heart sounds secondary to body habitus so difficult to thoroughly assess; however, RRR and no murmurs noted, edema - 2+ pitting edema in bilaterally lower extremities, overall improved since admission Abdomen: Present: soft, nontender, obese, hypoactive Extremity: Present: lower extremity edema - 2+ pitting edema in bilaterally lower extremities, overall improved since admission, other - TTP on the left upper extremity starting at the mid lateral forearm continuing distally through the thumb, multiple upper extremity digit amputations Skin Exam: Present: other - Multiple open wounds and abrasions to LEs, especially toes/feet. Blisters and weeping to lower extremities secondary to edema. Overall improved since admission. Neurologic: Present: alert, oriented x 3, other - Patient with chronic generalized weakness and debility secondary to morbid obesity and chronic pain, patient only able to stand for short times and make transfers and uses a motorized wheelchair otherwise for ambulation Appearance: Present: appropriate insight, no memory impairment Eye contact: Present: cooperative Thoughts: Present: normal thought pattern, no apparent hallucination Assessment/Plan Plan Narrative: -Patient admitted for severe sepsis secondary to pneumonia. Patient hypotensive on admission due to severe sepsis which resulted in decreased renal perfusion and subsequent BRIGID. Patient completed sepsis bolus of IVFs on admission. Kidney function continues to improve and is returning closer to his baseline creatinine which is around 2.0. Patient still appears intravascularly depleted so we will continue cautious IVF hydration but decrease the rate down to 60cc/ hr. Given the patient's history of CHF and his already edematous lower extremities and low albumin levels, we will need to continue to monitor fluid status very closely. Daily weight. Strict I&Os. Continue to hold home lasix for at least another day as patient's edema actually is slightly improved since admission and his kidney function is continuing to improve. Continue to hold other nephrotoxic medications as able. Continue antibiotic treatment with Ceftriaxone and azithromycin. Sputum culture pending. Leukocytosis improving. Blood cultures from admission NGTD X 2. -Wound care consulted for evaluation and treatment of lower extremity wounds and skin fold breakdown. I appreciate their assistance in the care of this complicated patient and continue cares per wound care team's recommendations. -Continue ongoing PT, OT evaluation and treatment -Patient is not medically stable for discharge at this time and I would expect he will likely need to remain in the hospital for at least another 2-3 days with most likely discharge on Wednesday (06/03/2018). Once he is clinically stable for discharge, he will need to go to a SNF for ongoing medical care and therapies prior to returning home. Upon returning home, the patient will benefit from [facility] services. 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
--- NOTE | 2018-06-01 12:46 | PN ---
Subjective - Date and Time Seen Date: 05/31/18 Time: 09:45 Subjective Narrative: Patient seen and examined at bedside. No acute issues overnight. Patient complains of severe pain in his left hand/wrist area which has been present since a fall last week prior to admission. Objective - Review of Systems Generalized/Overall Review: Reports: Weakness, Chills, Fatigue EENTM: Reports: No Symptoms Reported Respiratory: Reports: Cough Cardiac: Reports: Edema Musculoskeletal Complaints: Reports: Joint Pain, Back Pain Skin: Reports: Lesions - wounds to lower extremities Misc: All systems neg except as marked - Vitals Vitals: Last Vital Signs Temp 36.8 C 06/01/18 11:42 Pulse 86 06/01/18 11:42 Resp 20 06/01/18 11:42 BP 152/84 H 06/01/18 11:42 Pulse Ox 94 06/01/18 11:42 - Abnormal Lab Findings Abnormal Lab Findings: Abnormal Lab Results 06/01/18 06/01/18 06/01/18 Range/Units 05:25 05:25 05:25 WBC 15.6 H D (4.0-10.5) K/mm3 RBC 3.24 L (4.7-6.0) M/mm3 Hgb 9.5 L (13.5-18.0) gm/dL Hct 30.3 L (42.0-52.0) % MCHC 31.4 L (32-36) g/dl RDW 15.6 H (11.5-14.0) % Band Neuts % (Manual) 8 H (0-2.0) % Lymphocytes % (Manual) 17 L (20-51) % Neutrophils # (Manual) 10.6 H (1.3-6.0) K/mm3 BUN 43 H (6-23) mg/dL Creatinine 2.13 H (0.4-1.4) mg/dL Est GFR (Non-Af Amer) 32 L (60-130) mL/min Random Glucose 125 H D (70-110) mg/dL Procalcitonin 1.62 H (0.05-0.50) ng/mL - Exam Constitutional: Present: Alert, Oriented x3, Cooperative, Elderly, Morbidly obese ENT Exam: Present: dry mucous membranes Respiratory: Present: no respiratory distress, no accessory muscle use, other - Difficult to thoroughly assess secondary to body habitus but no crackles, rhonchi or wheezes appreciated Cardiovascular/Chest: Present: other - Diminished heart sounds secondary to body habitus so difficult to thoroughly assess; however, RRR and no murmurs noted, edema - 2+ edema in bilateral LEs Abdomen: Present: soft, nontender, obese, hypoactive Extremity: Present: lower extremity edema - 2+ edema in bilateral LEs, other - TTP on the left upper extremity starting at the mid lateral forearm continuing distally through the thumb, multiple upper extremity digit amputations Skin Exam: Present: other - Multiple open wounds and abrasions to LEs, especially toes/feet. Blisters and weeping to lower extremities secondary to edema. Overall improving since admission. Neurologic: Present: alert, normal mood/affect, oriented x 3, other - Patient with chronic generalized weakness and debility secondary to morbid obesity and chronic pain, patient only able to stand for short times and make transfers and uses a motorized wheelchair otherwise for ambulation Appearance: Present: appropriate appearance, appropriate insight, no memory impairment Eye contact: Present: cooperative Thoughts: Present: normal thought pattern, no apparent hallucination Assessment/Plan Plan Narrative: -Patient admitted for severe sepsis secondary to pneumonia. Patient hypotension on admission due to severe sepsis which resulted in decreased renal perfusion and subsequent BRIGID. Patient completed sepsis bolus of IVFs. Kidney function slightly improved. Patient appears intravascularly depleted so we will continue cautious IVF hydration with NS @ 75cc/hr. Given the patient's history of CHF and his already edematous lower extremities and low albumin levels, we will need to monitor fluid status very closely. Daily weight. Strict I&Os. Continue to hold home lasix for now and other nephrotoxic medications as able. Antibiotic treatment with Ceftriaxone and azithromycin. Sputum culture and blood cultures X 2 pending. Await C&S results and adjust antibiotics as necessary. -Wound care consulted for evaluation and treatment of lower extremity wounds and skin fold breakdown. I appreciate their assistance in the care of this complicated patient and continue cares per wound care team's recommendations. -Continue ongoing PT, OT evaluation and treatment -Patient will need to remain in the hospital for at least 3 days and once he is clinically stable for discharge, he will need to go to a SNF for ongoing medical care and therapies prior to returning home. Upon returning home, the patient will benefit from [facility] services. 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
[2018-06-01] MEDS: MINERAL OIL 1 ENEMA BTL RC SCH ×2 (14:37→18:21)
[2018-06-01] MEDS: NORMAL SALINE 1,000 ML IV PRN (15:00)
[2018-06-01] MEDS: AZITHROMYCIN 250 MG TABLET PO SCH (17:32)
[2018-06-01] MEDS: ROSUVASTATIN CALCIUM 20 MG TABLET PO SCH ×2 (21:38)
[2018-06-01] MEDS ORDERED: LORazepam 2 MG/ML DISP.SYRIN IM ONE (23:16)
[2018-06-02] MEDS: HEPARIN SODIUM,PORCINE 5,000 UNITS/ML VIAL SC SCH ×2 (01:46→14:08)
[2018-06-02 05:35] LABS: Hematocrit 32.4 % (42.0-52.0); Hemoglobin 10.4 gm/dL (13.5-18.0); Mean Cell Volume 92.8 fl (78-100); Mean Corpuscular Hemoglobin 29.8 pg (27-31); Mean Corpuscular Hgb Conc 32.1 g/dl (32-36); Mean Platelet Volume 9.9 fl (8-11.3); Neutrophil # 13.8 K/mm3 (1.3-6.0); Neutrophil % 81.5 % (42-75.0); Platelet Count 339 K/mm3 (150-450); Red Blood Count 3.49 M/mm3 (4.7-6.0); Red Cell Distribution Width 15.7 % (11.5-14.0); White Blood Count 16.9 K/mm3 (4.0-10.5)
[2018-06-02 05:41] LABS: Anion Gap 9.1 mmol/L (6.8-13.8); BUN/Creatinine Ratio 20.4 (9.0-21.6); Calcium * 8.7 mg/dL (7.9-10.9); Carbon Dioxide 32.4 mmol/L (24-32.6); Estimated Creat Clear 31.9; Potassium 4.5 mmol/L (3.4-4.6)
[2018-06-02] MEDS: INSULIN LISPRO 100 UNITS/ML VIAL SC SCH ×3 (07:52→17:31)
[2018-06-02] MEDS: INSULIN ASPART 100 UNITS/ML VIAL SC SCH ×3 (07:55→19:47)
[2018-06-02] MEDS: LEVOTHYROXINE SODIUM 50 MCG TABLET PO SCH (07:57)
[2018-06-02] MEDS: SENNOSIDES/DOCUSATE SODIUM 1 TAB TABLET PO SCH ×4 (07:57→20:25)
[2018-06-02] MEDS: ASPIRIN 81 MG TABLET.DR PO SCH (10:13)
[2018-06-02] MEDS: DOXAZOSIN MESYLATE 2 MG TABLET PO SCH (10:14)
[2018-06-02] MEDS: ALLOPURINOL 100 MG TABLET PO SCH (10:15)
[2018-06-02] MEDS: SERTRALINE HCL 50 MG TABLET PO SCH (10:21)
[2018-06-02] MEDS: INSULIN DETEMIR 100 UNITS/ML VIAL SC SCH ×2 (10:22→20:22)
[2018-06-02] MEDS: NYSTATIN 15 APPL BTL TP SCH ×2 (10:22→20:23)
[2018-06-02] MEDS: POLYETHYLENE GLYCOL 3350 119 GM BTL PO SCH ×2 (10:22→20:22)
[2018-06-02] MEDS: GABAPENTIN 300 MG CAPSULE PO SCH ×2 (10:22→20:23)
[2018-06-02] MEDS: MINERAL OIL 1 ENEMA BTL RC SCH ×3 (10:27→19:47)
[2018-06-02] MEDS: ASPARTAME PO SCH (10:27)
[2018-06-02] MEDS: ACID PO SCH (10:27)
[2018-06-02] MEDS: WHEAT DEXTRIN PO SCH (10:27)
[2018-06-02] MEDS: FAMOTIDINE 20 MG TABLET PO SCH ×2 (10:27→20:24)
[2018-06-02] MEDS ORDERED: COLCHICINE 0.6 MG TABLET PO STA (13:39)
[2018-06-02] MEDS ORDERED: COLCHICINE 0.6 MG TABLET PO SCH (13:45)
[2018-06-02] MEDS: BUMETANIDE 1 MG TABLET PO SCH (14:09)
[2018-06-02] MEDS: HYDROcodone/ACETAMINOPHEN 1 EACH TABLET PO PRN (17:28)
[2018-06-02] MEDS: ROSUVASTATIN CALCIUM 20 MG TABLET PO SCH (20:21)
[2018-06-03] MEDS: HEPARIN SODIUM,PORCINE 5,000 UNITS/ML VIAL SC SCH ×2 (01:07→13:09)
[2018-06-03] MEDS: INSULIN LISPRO 100 UNITS/ML VIAL SC SCH ×2 (07:17→11:17)
[2018-06-03] MEDS: LEVOTHYROXINE SODIUM 50 MCG TABLET PO SCH (07:18)
[2018-06-03] MEDS: SENNOSIDES/DOCUSATE SODIUM 1 TAB TABLET PO SCH ×2 (07:18→11:15)
[2018-06-03] MEDS ORDERED: LEVOFLOXACIN 750 MG TABLET PO SCH (09:00)
[2018-06-03] MEDS ORDERED: COLCHICINE 0.6 MG TABLET PO SCH (09:00)
[2018-06-03] MEDS ORDERED: ALLOPURINOL 300 MG TABLET PO SCH (09:00)
[2018-06-03] MEDS: HYDROcodone/ACETAMINOPHEN 1 EACH TABLET PO PRN ×2 (09:23→13:28)
[2018-06-03] MEDS: POLYETHYLENE GLYCOL 3350 119 GM BTL PO SCH (09:24)
[2018-06-03] MEDS: DOXAZOSIN MESYLATE 2 MG TABLET PO SCH (09:26)
[2018-06-03] MEDS: SERTRALINE HCL 50 MG TABLET PO SCH (09:27)
[2018-06-03] MEDS: GABAPENTIN 300 MG CAPSULE PO SCH (09:27)
[2018-06-03] MEDS: FAMOTIDINE 20 MG TABLET PO SCH (09:27)
[2018-06-03] MEDS: BUMETANIDE 1 MG TABLET PO SCH (09:28)
[2018-06-03] MEDS: ASPIRIN 81 MG TABLET.DR PO SCH (09:28)
[2018-06-03] MEDS: MINERAL OIL 1 ENEMA BTL RC SCH ×2 (09:29→13:08)
[2018-06-03] MEDS: INSULIN DETEMIR 100 UNITS/ML VIAL SC SCH (09:29)
[2018-06-03] MEDS: NYSTATIN 15 APPL BTL TP SCH (09:30)
[2018-06-03] MEDS: INSULIN ASPART 100 UNITS/ML VIAL SC SCH ×2 (09:30→11:18)
[2018-06-03 09:33] LABS: Hematocrit 33.4 % (42.0-52.0); Hemoglobin 10.8 gm/dL (13.5-18.0); Mean Corpuscular Hemoglobin 30.1 pg (27-31); Mean Corpuscular Hgb Conc 32.3 g/dl (32-36); Mean Platelet Volume 9.2 fl (8-11.3); Neutrophil # 10.8 K/mm3 (1.3-6.0); Neutrophil % 75.6 % (42-75.0); Platelet Count 335 K/mm3 (150-450); Red Blood Count 3.59 M/mm3 (4.7-6.0); Red Cell Distribution Width 15.7 % (11.5-14.0); White Blood Count 14.2 K/mm3 (4.0-10.5)
[2018-06-03] MEDS: ACID PO SCH (09:37)
[2018-06-03] MEDS: WHEAT DEXTRIN PO SCH (09:37)
[2018-06-03] MEDS: ASPARTAME PO SCH (09:37)
[2018-06-03 09:38] LABS: Calcium * 8.8 mg/dL (7.9-10.9); Carbon Dioxide 33.7 mmol/L (24-32.6); Estimated Creat Clear 43.7; Potassium 4.7 mmol/L (3.4-4.6)
--- NOTE | 2018-06-03 14:03 | CONS ---
- Reason for consultation (1) Left wrist pain Date of Service: 06/03/18 HPI - General Date of Service: 06/03/18 Narrative: Mr. Joiner is an 83-year-old gentleman who is resting in bed in no gross distress. He is admitted for possible sepsis and lower extremity complaints as well as weakness. Over the last 48 hours she had increasing pain and swelling over his left wrist with increased erythema. 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 He states that his pain is not in the palm or dorsal aspect of his hand but at the level of the wrist and distal forearm and is more significantly tender to touch than painful to move. He is a history of gout in his Medications were increased recently. He denies any prior problems with the wrist. He denies pain in the basilar thumb or palm. He has been on antibiotics since the time of admission. Source: patient, RN/MD Exam Limitations: no limitations - History of Present Illness Timing/Duration: 24 hours Severity: moderate Modifying Factors - (Worsens): Reports: movement Modifying Factors - (Improves): Reports: immobilization Associated Symptoms: denies symptoms Allergies/Adverse Reactions: Allergies No Known Allergies Allergy (Verified 05/30/18 10:22) Home Medications: Home Medications Medication Instructions Recorded Last Taken Atorvastatin Calcium [Lipitor] 40 mg PO HS 07/03/14 Unknown Doxazosin Mesylate [Cardura] 8 mg PO DAILY 07/03/14 Unknown Furosemide [Lasix] 160 mg PO DAILY 07/03/14 Unknown Losartan/Hydrochlorothiazide 100 mg PO DAILY 07/03/14 Unknown [Hyzaar 100-12.5 Tablet] Gabapentin [Neurontin] 300 mg PO QAM 07/17/17 Unknown Levothyroxine Sodium [Synthroid] 50 mcg PO DAILY 07/17/17 Unknown Insulin Aspart [Novolog] 30 units SC TID 03/18/18 Unknown Insulin Detemir [Levemir] 50 unit SQ DAILY 03/18/18 Unknown Multivit-Min/FA/Lycopen/Lutein 1 tab PO DAILY 03/18/18 Unknown [Centrum Silver Men Tablet] Sennosides/Docusate Sodium 2 tab PO BID 03/18/18 Unknown [Senna-S Tablet] Sertraline HCl [Zoloft] 50 mg PO DAILY 03/18/18 05/17/18 20:00 Wheat Dextrin/L.acid/Aspartame 360 gm PO DAILY 03/18/18 Unknown [Fiber with Probiotic Powder] Naproxen Sodium [Aleve] 220 mg PO QID PRN 05/18/18 Unknown Ranitidine HCl [Zantac] 150 mg PO BID 05/18/18 Unknown Allopurinol [Zyloprim] 100 mg PO DAILY #30 tab 05/20/18 Unknown Nystatin [Mycostatin Powder] 1 appl TP BID 14 Days #1 btl 05/20/18 Unknown aspirin 81 mg tablet,delayed 81 mg PO DAILY 05/21/18 Unknown release polyethylene glycol 3350 17 17 g PO BID g 05/21/18 Unknown gram/dose oral powder HYDROcodone/ACETAMINOPHEN [[place] 1 tab PO Q6H PRN #16 tab 05/28/18 Unknown 5-325] Gabapentin [Neurontin] 600 mg PO HS 05/30/18 Unknown Melatonin 5 mg PO HS 05/30/18 Unknown [place]-3 Fatty Acids/Fish Oil [Fish 1 each PO DAILY 05/30/18 Unknown Oil 1,000 mg Capsule] Procedures Application of splint (07/03/14) Drainage of Bladder with Drainage Device, Via Natural or Artificial Opening (07/25) Introduction of Anesthetic Agent into Joints, Percutaneous Approach (08/30/17) Introduction of Anti-inflammatory into Joints, Percutaneous Approach (08/30/17) Medications - Medications Current Medications: Current Medications Acetaminophen (Tylenol) 650 mg PO QID PRN PRN Reason: Mild Pain or Fever > 100.4F Stop: 06/29/18 14:13 Last Admin: 05/30/18 21:58 Dose: 650 mg Hydrocodone Bitart/Acetaminophen ([place] 5-325) 2 each PO Q4H PRN PRN Reason: Severe Pain (pain scale 7-10) Stop: 06/29/18 13:52 Last Admin: 06/03/18 13:28 Dose: 2 each Hydrocodone Bitart/Acetaminophen ([place] 5-325) 1 each PO Q4H PRN PRN Reason: Moderate Pain (pain scale 4-6) Stop: 06/30/18 10:02 Last Admin: 06/01/18 17:31 Dose: 1 each Allopurinol (Zyloprim) 300 mg PO DAILY [facility]MA Stop: 07/03/18 09:01 Last Admin: 06/03/18 09:28 Dose: 300 mg Aspirin (Aspirin Enteric Coated) 81 mg PO DAILY LUMA Stop: 06/30/18 09:01 Last Admin: 06/03/18 09:28 Dose: 81 mg Bisacodyl (Dulcolax Suppository) 10 mg RC DAILY PRN PRN Reason: Constipation Stop: 06/29/18 14:13 Last Admin: 06/01/18 10:47 Dose: 10 mg Bumetanide (Bumex) 1 mg PO DAILY LUMA Stop: 07/02/18 13:01 Last Admin: 06/03/18 09:28 Dose: 1 mg Calcium Carbonate/Glycine (Tums) 500 mg PO QID PRN PRN Reason: Dyspepsia Stop: 06/30/18 14:37 Last Admin: 05/31/18 15:21 Dose: 500 mg Colchicine (Colchicine) 0.6 mg PO ONCE LUMA Stop: 07/02/18 13:46 Last Admin: 06/03/18 09:27 Dose: 0.6 mg Colchicine (Colchicine) 0.6 mg PO BID LUMA Stop: 07/03/18 09:01 Last Admin: 06/03/18 09:28 Dose: 0.6 mg Doxazosin Mesylate (Cardura) 8 mg PO DAILY [facility]MA Stop: 06/30/18 09:01 Last Admin: 06/03/18 09:26 Dose: 8 mg Famotidine (Pepcid) 20 mg PO BID [facility]MA Stop: 06/29/18 21:01 Last Admin: 06/03/18 09:27 Dose: 20 mg Gabapentin (Neurontin) 600 mg PO HS LUMA Stop: 06/29/18 21:01 Last Admin: 06/02/18 20:23 Dose: 600 mg Gabapentin (Neurontin) 300 mg PO DAILY [facility] Stop: 06/30/18 09:01 Last Admin: 06/03/18 09:27 Dose: 300 mg Heparin Sodium (Porcine) (Heparin Sodium) 5,000 units SC Q12H [facility] Stop: 06/30/18 13:01 Last Admin: 06/03/18 13:09 Dose: 5,000 units Insulin Aspart (Novolog) 30 units SC ACINS [facility] Stop: 06/29/18 17:01 Last Admin: 06/03/18 11:18 Dose: 30 units Insulin Detemir (Levemir) 25 units SC Q12H [facility] Stop: 06/30/18 09:01 Last Admin: 06/03/18 09:29 Dose: Not Given Insulin Human Lispro (Humalog) 0 units SC ACINS [facility]; Protocol Stop: 06/29/18 17:01 Last Admin: 06/03/18 11:17 Dose: 2 units Levofloxacin (Levaquin) 750 mg PO Q48H [facility]; Protocol Stop: 07/03/18 09:01 Last Admin: 06/03/18 09:26 Dose: 750 mg Levothyroxine Sodium (Synthroid) 50 mcg PO 0700 [facility] Stop: 06/30/18 07:01 Last Admin: 06/03/18 07:18 Dose: 50 mcg Mineral Oil (Fleet Mineral Oil Enema) 1 enema RC TID [facility] Stop: 07/01/18 13:01 Last Admin: 06/03/18 13:08 Dose: Not Given Wheat Dextrin/L.Acid /Aspartame [Fiber With Probiotic Powder] 36 0 gm PO DAILY [facility]MA Stop: 06/30/18 09:01 Last Admin: 06/03/18 09:37 Dose: Not Given Nystatin (Mycostatin Powder) 1 appl TP BID [facility] Stop: 06/29/18 21:01 Last Admin: 06/03/18 09:30 Dose: 1 appl Polyethylene Glycol (Miralax) 17 gm PO BID [facility] Stop: 06/29/18 21:01 Last Admin: 06/03/18 09:24 Dose: 17 gm Rosuvastatin Calcium (Crestor) 20 mg PO HS [facility] Stop: 06/29/18 21:01 Last Admin: 06/02/18 20:21 Dose: 20 mg Senna/Docusate Sodium (Senokot-S) 2 tab PO ACHS [facility] Stop: 06/29/18 17:01 Last Admin: 06/03/18 11:15 Dose: Not Given Sertraline HCl (Zoloft) 50 mg PO DAILY [facility] Stop: 06/30/18 09:01 Last Admin: 06/03/18 09:27 Dose: 50 mg Review of Systems - Review of Systems Narrative: negative except above Physical Examination - Exam Narrative: Left upper extremity: Well-healed amputations at the carpal metacarpal joint of the index long and ring fingers. He has a remaining thumb and small fingers. He has notable pitting edema about his hand. He has no significant tenderness with palpation or pressure along the palmar dorsal aspect of the hand. He has no pain with range of motion of his thumb and small fingers. He has no basilar joint pain. Sensation is intact light touch. He has significant tenderness to to light palpation along the dorsal aspect of the distal forearm and wrist. Proximal and distal to this pressure and palpation do not result in significant pain. He has some mild discomfort with active wrist range of motion but minimal pain with passive range of motion. He reports some pain travels lengthwise into the area of what would be his long finger. He is more comfortable in a sling. He has brisk cap refill. There is erythema with mild calor from the dorsal mid palm to the junction of the middle and distal thirds of the forearm. He has noted edema throughout his lower extremities as well as upper extremities. Vital Signs: Vital Signs - Last Taken Temp 36.7 C 06/03/18 11:50 Pulse 70 06/03/18 11:50 Resp 20 06/03/18 11:50 BP 173/74 H 06/03/18 11:50 Pulse Ox 92 L 06/03/18 11:50 O2 Oxygen Delivery Method Room Air Constitutional: Present: Alert, Oriented x3 - Results and Findings: Narrative: X-rays of the left hand/wrist reviewed: Advanced basilar thumb arthrosis, status post irritation of the index long and ring fingers, notable soft tissue swelling throughout the hand and wrist. No gross signs of bony erosion. No subcutaneous gas. Lab/Microbiology results last 24 hrs: Abnormal/Pending Laboratory Last 24 HRS 06/03/18 06/03/18 09:24 09:24 WBC 14.2 H RBC 3.59 L Hgb 10.8 L Hct 33.4 L RDW 15.7 H Immature Gran % (Auto) 1.10 H Immature Gran # (Auto) 0.15 H Neutrophils % 75.6 H Lymphocytes % 12.3 L Neutrophils # 10.8 H Monocytes # 1.1 H Potassium 4.7 H Carbon Dioxide 33.7 H BUN 30 H Creatinine 1.43 H D Est GFR (Non-Af Amer) 50 L D Random Glucose 129 H - Assessments/Findings (1) Left wrist pain Diagnosis(s): Based on his current symptoms and significant tenderness to light touch over pain with passive range of motion or deep palpation my suspicion is that this is cellulitis more than an abscess. He cannot have an MRI secondary to his pacemaker. We placed compression stocking over his arm and would recommend continued antibiotics as well as close observation. If he were to develop more localized symptoms a CT versus ultrasound would be beneficial to rule out abscess but at this point there is no surgical indication. Problem: Acute
--- NOTE | 2018-06-03 14:07 | DS ---
(1) Pneumonia Problem: Acute Qualifiers: Pneumonia type: due to unspecified organism Laterality: left Lung location: lower lobe of lung Qualified Code(s): J18.1 - Lobar pneumonia, unspecified organism (2) Sepsis Problem: Acute Qualifiers: Sepsis type: sepsis due to unspecified organism Qualified Code(s): A41.9 - Sepsis, unspecified organism (3) Recurrent falls Problem: Acute (4) Morbid obesity Problem: Chronic (5) Open wound of toe(s), without mention of complication Problem: Acute (6) Intertriginous skin ulcer, limited to breakdown of skin Problem: Chronic (7) Generalized weakness Problem: Acute (8) Bilateral lower extremity edema Problem: Chronic (9) CKD (chronic kidney disease) stage 3, GFR 30-59 ml/min Problem: Chronic (10) Leukocytosis Problem: Acute (11) Chronic diastolic heart failure Problem: Chronic (12) Type 2 diabetes mellitus Problem: Chronic (13) BRIGID (acute kidney injury) Problem: Acute (14) Left wrist pain Problem: Acute (15) Pain of left thumb Problem: Acute (16) Severe sepsis with acute organ dysfunction Problem: Acute (17) Stasis dermatitis of both legs Problem: Chronic Description of Stay: ADMISSION DATE: 05/30/2018 DISCHARGE DATE: 06/03/2018 ADMISSION HPI: The patient presents to the ED after having multiple falls at home over the weekend. He states that he feels terrible but is unable to give me specifics other than feeling weak, tired and having multiple falls. He states he has been a bit more short of breath than usual as well and he continues to have significant lower extremity edema. HOSPITAL COURSE: -Patient admitted for severe sepsis secondary to pneumonia. Patient hypotensive on admission due to severe sepsis which resulted in decreased renal perfusion and subsequent BRIGID. Patient completed sepsis bolus of IVFs on admission. Kidney function continued to improve throughout his admission and was below his baseline creatinine which is around 2.0 at the time of discharge. Given the patient's history of CHF and his already edematous lower extremities and low albumin levels, we monitored the patients fluid status very closely. Patient treated with IV Ceftriaxone and azithromycin during his hospital stay and then was transitioned to renally dosed oral Levaquin on discharge. Sputum culture unobtained secondary to the patients inability to produce a sputum sample. Blood cultures from admission NGTD X 2. -Wound care consulted for evaluation and treatment of lower extremity wounds and skin fold breakdown. I appreciate their assistance in the care of this complicated patient and continue cares per wound care team's recommendations. -Continue ongoing PT, OT evaluation and treatment. Continue therapies upon discharge to [facility]. -Patient with ongoing significant left thumb and wrist pain after his fall at home. Multiple x-rays show no acute fracture although he does have significant OA. Unlikely gout. Gout treatment initiated in the hospital but discontinued prior to discharge. Continue home allopurinol but increase dose to 300mg daily with a goal uric acid of less than 6.0. Dr. Chapa consulted during the patients hospital stay and he feels that his left upper extremity findings are most consistent with a cellulitis which we will cover with Levaquin after discharge. -Patient discharged to SNF at [facility] for ongoing medical care and therapies prior to returning home. Upon returning home, the patient will benefit from [facility] services. FOLLOW-UP APPOINTMENTS: -Dr. Tolbert will see the patient at [facility] within 1-2 weeks -Check BMP and CBC on 06/06/2018 -Follow-up CXR in 4 weeks to monitor for resolution of pneumonia Procedures Performed: none Results and Findings: Pending Mircobiology Results 05/30/18 11:19 Blood Blood Culture - Preliminary NO GROWTH AFTER 48 HOURS 05/30/18 11:29 Blood Blood Culture - Preliminary NO GROWTH AFTER 48 HOURS Lab Pending Results 05/30/18 10:25: WBC 23.9 H, RBC 3.35 L, Hgb 10.0 L, Hct 31.2 L, MCV 93.1, MCH 29.9, MCHC 32.1, RDW 15.4 H, Plt Count 245, MPV 10.1, Immature Gran % (Auto) 7.80 H, Immature Gran # (Auto) 1.87 H, Neutrophils % 79.1 H, Neutrophils % ( Manual) 89 H, Band Neuts % (Manual) 7 H, Lymphocytes % 4.5 L, Lymphocytes % ( Manual) 1 L, Monocytes % 7.7, Monocytes % (Manual) 3, Eosinophils % 0.6, Basophils % 0.3, Nucleated RBC % 0.0, Neutrophils # 18.9 H, Neutrophils # ( Manual) 21.3 H, Lymphocytes # 1.07 L, Lymphocytes # (Manual) 0.2 L, Monocytes # 1.8 H, Monocytes # (Manual) 0.7, Eosinophils # 0.2, Absolute Basophils 0.1, Platelet Estimate Normal, Hypochromasia 1+ 05/30/18 10:25: Sodium 133, Plasma Sodium 134, Potassium 3.8, Chloride 94 L, Carbon Dioxide 33.9 H, Anion Gap 8.9, BUN 40 H, Creatinine 2.64 H D, Est GFR ( Non-Af Amer) 25 L D, BUN/Creatinine Ratio 15.2, Random Glucose 163 H, Calcium 8.6, Calcium Adj for Albumin 9.7, Magnesium 2.2, Total Bilirubin 0.7, AST 44, ALT 47, Alkaline Phosphatase 165, Troponin I Less than 0.017, B-Natriuretic Peptide 3026 H, Total Protein 6.6, Albumin 2.2 L 05/30/18 10:25: Lactic Acid, Venous 2.1 H 05/30/18 11:11: Urine Color Yellow, Urine Appearance Clear, Urine pH 5.5, Ur Specific [place] 1.025, Urine Protein Negative, Urine Glucose (UA) Negative, Urine Ketones Negative, Urine Blood Negative, Urine Nitrate Negative, Urine Bilirubin Negative, Urine Urobilinogen Normal, Ur Leukocyte Esterase Negative, Urine RBC None seen, Urine WBC 0-5, Ur Epithelial Cells 0-5, Amorphous Sediment Trace, Urine Bacteria 2+ H, Urine Culture Comments Culture to follow 05/30/18 14:17: Lactic Acid, Venous 1.4 05/31/18 05:47: WBC 21.1 H, RBC 3.28 L, Hgb 9.6 L, Hct 30.3 L, MCV 92.4, MCH 29.3, MCHC 31.7 L, RDW 15.4 H, Plt Count 258, MPV 10.2, Neutrophils % (Manual) 82 H, Band Neuts % (Manual) 7 H, Lymphocytes % (Manual) 5 L, Monocytes % (Manual ) 4, Eosinophils % (Manual) 2, Neutrophils # (Manual) 17.3 H, Lymphocytes # ( Manual) 1.1 L, Monocytes # (Manual) 0.8, Eosinophils # (Manual) 0.4, Platelet Estimate Normal, RBC Morphology Normal 05/31/18 05:47: Sodium 132, Plasma Sodium 133, Potassium 4.1, Chloride 96 L, Carbon Dioxide 31.4, Anion Gap 8.7, BUN 42 H, Creatinine 2.44 H, Est GFR (Non- Af Amer) 27 L, BUN/Creatinine Ratio 17.2, Random Glucose 184 H, Calcium 8.3 05/31/18 05:47: Procalcitonin 1.44 H 06/01/18 05:25: WBC 15.6 H D, RBC 3.24 L, Hgb 9.5 L, Hct 30.3 L, MCV 93.5, MCH 29.3, MCHC 31.4 L, RDW 15.6 H, Plt Count 293, MPV 10.3, Neutrophils % (Manual) 68, Band Neuts % (Manual) 8 H, Lymphocytes % (Manual) 17 L, Monocytes % (Manual ) 6, Eosinophils % (Manual) 1, Neutrophils # (Manual) 10.6 H, Lymphocytes # ( Manual) 2.7, Monocytes # (Manual) 0.9, Eosinophils # (Manual) 0.2, Platelet Estimate Normal, Hypochromasia Trace, Basophilic Stippling Trace 06/01/18 05:25: Sodium 134, Plasma Sodium 134, Potassium 4.4, Chloride 98, Carbon Dioxide 32.2, Anion Gap 8.2, BUN 43 H, Creatinine 2.13 H, Est GFR (Non- Af Amer) 32 L, BUN/Creatinine Ratio 20.2, Random Glucose 125 H D, Calcium 8.2 06/01/18 05:25: Procalcitonin 1.62 H 06/02/18 05:00: WBC 16.9 H, RBC 3.49 L, Hgb 10.4 L, Hct 32.4 L, MCV 92.8, MCH 29.8, MCHC 32.1, RDW 15.7 H, Plt Count 339, MPV 9.9, Immature Gran % (Auto) 0.50 H, Immature Gran # (Auto) 0.09 H, Neutrophils % 81.5 H, Lymphocytes % 9.5 L , Monocytes % 6.3, Eosinophils % 1.8, Basophils % 0.4, Nucleated RBC % 0.0, Neutrophils # 13.8 H, Lymphocytes # 1.60, Monocytes # 1.1 H, Eosinophils # 0.3, Absolute Basophils 0.1 06/02/18 05:00: Sodium 134, Plasma Sodium 135, Potassium 4.5, Chloride 97, Carbon Dioxide 32.4, Anion Gap 9.1, BUN 40 H, Creatinine 1.96 H, Est GFR (Non- Af Amer) 35 L, BUN/Creatinine Ratio 20.4, Random Glucose 157 H, Calcium 8.7 06/02/18 05:00: Procalcitonin 1.32 H 06/02/18 05:00: Uric Acid 7.3 H 06/03/18 09:24: WBC 14.2 H, RBC 3.59 L, Hgb 10.8 L, Hct 33.4 L, MCV 93.0, MCH 30.1, MCHC 32.3, RDW 15.7 H, Plt Count 335, MPV 9.2, Immature Gran % (Auto) 1.10 H, Immature Gran # (Auto) 0.15 H, Neutrophils % 75.6 H, Lymphocytes % 12.3 L, Monocytes % 7.9, Eosinophils % 2.5, Basophils % 0.6, Nucleated RBC % 0.0, Neutrophils # 10.8 H, Lymphocytes # 1.75, Monocytes # 1.1 H, Eosinophils # 0.4, Absolute Basophils 0.1 06/03/18 09:24: Sodium 137, Plasma Sodium 137, Potassium 4.7 H, Chloride 100, Carbon Dioxide 33.7 H, Anion Gap 8.0, BUN 30 H, Creatinine 1.43 H D, Est GFR ( Non-Af Amer) 50 L D, BUN/Creatinine Ratio 21.0, Random Glucose 129 H, Calcium 8.8 Discharge Location: [facility] Disposition: [facility] Condition: Stable Level of Care: SNF Discharge Activity: Activity as tolerated Discharge Diet: Consistent carbs, Low salt, Low fat/chol Mcc Therapy: Physicial Therapy, Occupation Therapy Referrals: Joceline Tolbert DO [Primary Care Provider] - Problem Oriented Discharge Instructions to Patient/Family: Cellulitis, Adult, [id number], Community-Acquired Pneumonia, Adult, [id number] Additional Patient Instructions (free text): -Follow up with Dr. Tolbert on 06/13/18 at 9:45am. -Check BMP and CBC on 06/06/2018 -Follow-up CXR in 4 weeks to monitor for resolution of pneumonia Prescriptions (Any new or edited meds): Allopurinol [Zyloprim] 300 mg PO DAILY #90 tablet HYDROcodone/ACETAMINOPHEN [[place] 5-325] 1 - 2 tab PO Q4H PRN #60 tab PRN Reason: Severe Pain (Pain Scale 7-10) Insulin Aspart [Novolog] 15 units SC AC #1 vial Complete Home Medications List: Complete Home Medication List: Atorvastatin Calcium [Lipitor] 40 mg PO HS 07/03/14 Doxazosin Mesylate [Cardura] 8 mg PO DAILY 07/03/14 Losartan/Hydrochlorothiazide [Hyzaar 100-12.5 Tablet] 100 mg PO DAILY 07/03/14 Gabapentin [Neurontin] 300 mg PO QAM 07/17/17 Levothyroxine Sodium [Synthroid] 50 mcg PO DAILY 07/17/17 Multivit-Min/FA/Lycopen/Lutein [Centrum Silver Men Tablet] 1 tab PO DAILY Sertraline HCl [Zoloft] 50 mg PO DAILY 03/18/18 Wheat Dextrin/L.acid/Aspartame [Fiber with Probiotic Powder] 360 gm PO DAILY 09/25 Ranitidine HCl [Zantac] 150 mg PO BID 05/18/18 aspirin 81 mg tablet,delayed release 81 mg PO DAILY 05/21/18 polyethylene glycol 3350 17 gram/dose oral powder 17 g PO BID g 05/21/18 Gabapentin [Neurontin] 600 mg PO HS 05/30/18 Melatonin 5 mg PO HS 05/30/18 [place]-3 Fatty Acids/Fish Oil [Fish Oil 1,000 mg Capsule] 1 each PO DAILY Acetaminophen [Tylenol] 650 mg PO QID PRN tablet 06/03/18 Allopurinol [Zyloprim] 300 mg PO DAILY #90 tablet 06/03/18 Bisacodyl [Dulcolax Suppository] 10 mg RC DAILY PRN supp.rect 06/03/18 Bumetanide [Bumex] 1 mg PO DAILY tablet 06/03/18 Calcium Carbonate [Tums] 500 mg PO QID PRN tab.chew 06/03/18 HYDROcodone/ACETAMINOPHEN [[place] 5-325] 1 - 2 tab PO Q4H PRN #60 tab 06/03/18 Insulin Aspart [Novolog] 15 units SC AC #1 vial 06/03/18 Insulin Detemir [Levemir] 25 units SC Q12H vial 06/03/18 Insulin Lispro [Humalog] 0 units SC ACINS vial 06/03/18 Levofloxacin [Levaquin] 750 mg PO Q48H #5 tablet 06/03/18 Nystatin [Mycostatin Powder] 1 appl TP BID btl 06/03/18 Sennosides/Docusate Sodium [Senokot-S] 2 tab PO ACHS #0 tablet 06/03/18 Amb Orders for Discharge: Basic Metabolic Panel Time Frame: 06/06/18, Location: None Selected CBC Time Frame: 06/06/18, Location: None Selected Chest PA & Lateral * Time Frame: 4 Weeks, Location: None Selected
[2018-06-03 14:10] VITALS: BP 148/70
--- NOTE | 2018-06-19 14:46 | PN ---
Subjective - Date and Time Seen Date: 06/02/18 Time: 11:30 Subjective Narrative: Patient seen and examined at bedside. No acute issues overnight. Patient states he feels like the swelling in his left wrist and thumb area has improved slightly since yesterday but he states there is still severe pain, especially with any movement or anything touching it. Patient has had a least 2 good sized BMs since yesterday according to nursing. Objective - Review of Systems Generalized/Overall Review: Reports: Weakness, Fatigue Respiratory: Reports: Cough, Shortness of Breath Cardiac: Reports: Edema Musculoskeletal Complaints: Reports: Joint Pain, Back Pain, Joint Swelling, Other - left thumb/wrist pain Skin: Reports: Other - Lesions/wounds to lower extremities Misc: All systems neg except as marked - Vitals Vitals: Last Vital Signs Temp 37.0 C 06/03/18 13:56 Pulse 92 06/03/18 13:56 Resp 20 06/03/18 13:56 BP 148/70 06/03/18 13:56 Pulse Ox 92 L 06/03/18 11:50 - Exam Constitutional: Present: Alert, Oriented x3, Cooperative, Moderate distress - with any movement or palpation of his left hand/wrist, Elderly, Morbidly obese Respiratory: Present: no respiratory distress, no accessory muscle use, other - Difficult to thoroughly assess secondary to body habitus but no crackles, rhonchi or wheezes appreciated Cardiovascular/Chest: Present: other - Diminished heart sounds secondary to body habitus so difficult to thoroughly assess; however, RRR and no murmurs noted, edema - 1 to 2+ edema in bilateral lower extremities, significantly improved since admission to the point the patient actually has some wrinkles noticable Abdomen: Present: soft, nontender, obese, hypoactive Extremity: Present: other - TTP on the left upper extremity starting at the mid lateral forearm continuing distally through the thumb, multiple upper extremity digit amputations Skin Exam: Present: other - Multiple open wounds and abrasions to LEs, especially toes/feet. Blisters and weeping to lower extremities secondary to edema. Overall improved since admission. Left thumb and wrist erythema with increased warmth. Neurologic: Present: alert, oriented x 3, other - Patient with chronic generalized weakness and debility secondary to morbid obesity and chronic pain, patient only able to stand for short times and make transfers and uses a motorized wheelchair otherwise for ambulation Appearance: Present: appropriate appearance, appropriate insight Eye contact: Present: cooperative Thoughts: Present: normal thought pattern, no apparent hallucination Assessment/Plan Plan Narrative: -Patient admitted for severe sepsis secondary to pneumonia. Patient hypotensive on admission due to severe sepsis which resulted in decreased renal perfusion and subsequent BRIGID. Patient completed sepsis bolus of IVFs on admission. Kidney function continues to improve and is returning closer to his baseline creatinine which is around 2.0. Daily weight. Strict I&Os. Continue to hold nephrotoxic medications as able. Continue antibiotic treatment with Ceftriaxone and azithromycin. Sputum culture pending. Leukocytosis improving. Blood cultures from admission NGTD X 2. -Wound care consulted for evaluation and treatment of lower extremity wounds and skin fold breakdown. I appreciate their assistance in the care of this complicated patient and continue cares per wound care team's recommendations. -Continue ongoing PT, OT evaluation and treatment -Patient with ongoing significant left thumb and wrist pain after his fall at home. Multiple x-rays show no acute fracture although he does have significant OA. Possible gout. Start treatment for gout for now. Consult placed to Dr. Chapa with Ortho for further recommendations. Await input. -Possible discharge in the next 1-2 days. He will need to go to a SNF for ongoing medical care and therapies prior to returning home. Upon returning home , the patient will benefit from [facility] services. 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
== END 2018-06-03 15:00 | DRG 871 ==
LOC: ER 10:04 → MS 13:00
PROVIDERS: ADMIT Internal Medicine; ATTEND Internal Medicine
CPT/HCPCS: 36415; 71020; 71046; 72100; 73090; 73110; 73502; 80048; 80053; 81001; 83519; 83605; 83735; 83880; 84145; 84484; 84550; 85007; 85025; 87040; 87081; 87086; 93005; 96361; 96365; 97110; 97163; 97166; 97530; 97535; 99291

== ENCOUNTER 2018-08-27 01:31 | Observation (INO) | payer BC, MEDICARE ==
[2018-08-27] MEDS ORDERED: NORMAL SALINE 1,000 ML IV PRN (01:42)
[2018-08-27 02:04] LABS: Hematocrit 39.7 % (42.0-52.0); Hemoglobin 12.5 gm/dL (13.5-18.0); Mean Cell Volume 91.5 fl (78-100); Mean Corpuscular Hemoglobin 28.8 pg (27-31); Mean Corpuscular Hgb Conc 31.5 g/dl (32-36); Neutrophil % 70.8 % (42-75.0); Platelet Count 197 K/mm3 (150-450); Red Blood Count 4.34 M/mm3 (4.7-6.0); Red Cell Distribution Width 14.9 % (11.5-14.0); White Blood Count 9.9 K/mm3 (4.0-10.5)
[2018-08-27 02:08] LABS: Urine Bilirubin Negative (NEGATIVE); Urine Blood 50 /ul (NEGATIVE); Urine Ketone Negative (NEGATIVE); Urine Nitrite Negative (NEGATIVE); Urine Protein 15 mg/dL (NEGATIVE); Urine Specific Gravity 1.025 SP.GR. (1.005-1.030); Urine Urobilinogen Normal (NORMAL)
--- NOTE | 2018-08-27 02:08 | ERNOTE ---
Medical Problem HPI - Narrative Date of Service: 08/27/18 - General Time Seen by Provider: 08/27/18 01:31 Source: EMS Exam Limitations: clinical condition - Immun/Allergies/Home Medications Immunizations: IMMUNIZATION HX Immunizations Up to Date Yes History of Influenza Vaccine Yes Hx Pneumococcal Vaccination Yes Allergies/Adverse Reactions: Allergies No Known Allergies Allergy (Verified 08/27/18 05:29) Home Medications: HOME MEDICATIONS RX: Atorvastatin Calcium [Lipitor] 40 mg PO HS 07/03/14 [Last Taken 08/26/18] RX: Doxazosin Mesylate [Cardura] 8 mg PO DAILY 07/03/14 [Last Taken 08/26/18] RX: Losartan/Hydrochlorothiazide [Hyzaar 100-12.5 Tablet] 100 mg PO DAILY 07/03/14 [Last Taken 08/26/18] RX: Levothyroxine Sodium [Synthroid] 50 mcg PO DAILY 07/17/17 [Last Taken 08/26/18] RX: Multivit-Min/FA/Lycopen/Lutein [Centrum Silver Men Tablet] 1 tab PO DAILY 03/18/18 [Last Taken Unknown] RX: Sertraline HCl [Zoloft] 50 mg PO DAILY 03/18/18 [Last Taken 08/26/18] RX: Wheat Dextrin/L.acid/Aspartame [Fiber with Probiotic Powder] 360 gm PO DAILY 03/18/18 [Last Taken 08/26/18] aspirin 81 mg tablet,delayed release 81 mg PO DAILY 05/21/18 [Last Taken 08/26/18] polyethylene glycol 3350 17 gram/dose oral powder 17 g PO BID g 05/21/18 [Last Taken 08/26/18] RX: Melatonin 5 mg PO HS 05/30/18 [Last Taken Unknown] RX: Pavilion-3 Fatty Acids/Fish Oil [Fish Oil 1,000 mg Capsule] 1 ea PO DAILY 05/30/18 [Last Taken Unknown] RX: Acetaminophen [Tylenol] 650 mg PO QID PRN tab 06/03/18 [Last Taken Unknown] RX: Bisacodyl [Dulcolax Suppository] 10 mg RC DAILY PRN supp.rect 06/03/18 [Last Taken Unknown] RX: Calcium Carbonate [Tums] 500 mg PO QID PRN tab.chew 06/03/18 [Last Taken Unknown] RX: Nystatin [Mycostatin Powder] 1 appl TP BID btl 06/03/18 [Last Taken 08/26/18] RX: Sennosides/Docusate Sodium [Senokot-S] 2 tab PO ACHS #0 tab 06/03/18 [Last Taken Unknown] bumetanide 1 mg tablet 1 mg PO DAILY #30 tab 07/14/18 [Last Taken 08/26/18] insulin aspart U- 100 100 unit/mL subcutaneous solution 30 unit SUB-Q AC vial 07/15/18 [Last Taken 08/26/18] ranitidine 150 mg tablet 150 mg PO BID #60 tab 07/26/18 [Last Taken 08/26/18] Furosemide [Lasix] 160 mg PO DAILY 08/27/18 [Last Taken 08/26/18] RX: Allopurinol [Zyloprim] 300 mg PO DAILY 08/27/18 [Last Taken 08/26/18] RX: Gabapentin [Neurontin] 300 mg PO TID 08/27/18 [Last Taken 08/26/18] RX: Insulin Detemir [Levemir] 50 unit SUB-Q DAILY 08/27/18 [Last Taken 08/26/18] RX: Triamcinolone Acetonide 15 gm TP BID 08/27/18 [Last Taken 08/26/18] RX: traMADol HCL [Tramadol HCl] 1 tab PO Q4H PRN 08/27/18 [Last Taken 08/26/18] - History of Present History Narrative: This patient is an 83-year-old gentleman who arrived by ambulance. The patient is nonverbal and not able to give any useful history. He was originally contacted by [place] [facility]. His blood sugar was 42. He had decreased level of responsiveness and diaphoresis. [facility] paramedics were contacted. An IV was started and he was given 25 g of dextrose. His blood sugar went into the 100. He became less diaphoretic. He did not seem to wake up so it was checked again and his blood sugar was 71. He was given another 12.5 g. His blood sugar was in the 100s just before arrival. There is not a good history of what might have happened. His said that he had poor intake today. He was not feeling good. He has a history of diabetes. He was last seen normal at bedtime. 02:50 His is here. He has been having nausea for the past few days. His blood sugar was high earlier. It sounds like he might have taken an unknown amount of insulin around midnight. She said that he had confusion earlier in the evening. Review of Systems - Narrative Narrative: Unable due to his decreased level of responsiveness. Medical History (Last Reviewed 08/27/18 @ 01:58 by Sergio Caro MD) Recurrent UTI (Chronic) Onset Date: 2017 Urinary retention (Chronic) Onset Date: Unknown Psoriasis (Chronic) Onset Date: Unknown Peripheral neuropathy (Chronic) Onset Date: 2017 MECHE treated with BiPAP (Chronic) Onset Date: Unknown MRSA (methicillin resistant Staphylococcus aureus) (Chronic) Onset Date: Unknown Morbid obesity (Chronic) Onset Date: Unknown Hypothyroidism (Chronic) Onset Date: 2017 Hyperlipidemia (Chronic) Onset Date: 2017 Gout (Chronic) Onset Date: 2017 GERD (gastroesophageal reflux disease) (Chronic) Onset Date: 2017 Essential hypertension (Chronic) Onset Date: 2017 Enchondroma (Chronic) Onset Date: Unknown diabetes mellitus kenney 2 (Chronic) Onset Date: Unknown COPD (chronic obstructive pulmonary disease) (Chronic) Onset Date: 2017 Chronic kidney disease (Chronic) Onset Date: 2017 Chronic back pain (Chronic) Onset Date: 2017 CAD (coronary artery disease) (Chronic) Onset Date: 2017 Arthritis (Chronic) Onset Date: Unknown Anemia (Chronic) Onset Date: Unknown Cataract (Acute) Onset Date: Unknown Hand amputation status (Acute) Onset Date: Unknown Stroke (Resolved) Onset Date: Unknown BPH (benign prostatic hyperplasia) (Chronic) Onset Date: Unknown CHF (congestive heart failure) (Chronic) Onset Date: Unknown Diabetic acidosis, type II (Acute) Onset Date: Unknown Surgical History: Surgical History (Last Reviewed 08/27/18 @ 01:58 by Sergio Caro MD) Cataract, bilateral Onset Date: Unknown H/O cystoscopy Onset Date: 2017 H/O removal of testicle Onset Date: Unknown History of appendectomy Onset Date: Unknown History of appendectomy Onset Date: Unknown Pacemaker Onset Date: 05/2014 dual chamber placement type device is [employer] [facility]-model K173, SN [id number] Status post ORIF of fracture of ankle Onset Date: 2013 ORIF right ankle for bimalleolar equivalent ankle fracture finger surgery Onset Date: Unknown Family History: Family History (Last Reviewed 08/27/18 @ 01:58 by Sergio Caro MD) Father Hypertension Diabetes Mother Hypertension Diabetes Social History: Preferred Language Icelandic Abuse History No History of abuse Psych History No pertinent hx (Last Updated 07/15/18 @ 13:57 by MERON Boyd) No Social History Section defined Physical Exam - Physical Exam General Appearance: Present: other - He is obese. He is snoring. He has spontaneous movement he was able to tell the nurse that he is in [place] but could not really say more. Head Exam: Present: normal inspection, no evidence of injury Ears, Nose, Throat: Present: normal ENT inspection Neck: Present: other - Obese. Respiratory: Present: no respiratory distress - He is snoring. No gross abnormalities anteriorly. Cardiovascular/Chest: Present: regular rate, rhythm, no murmur, other - distant Gastrointestinal/Abdominal: Present: normal bowel sounds, soft, other - Obese. No pain response with palpation Extremity Exam: Present: extremity edema, other Neurological Exam: Present: other - He is sleeping with snoring respirations. He has spontaneous movement and localized pain. He responds to verbal stimuli. Skin Exam: Present: pallor, other - He has sores on his toes. ED Progress - Results and Orders Patient's Lab Results:: I have reviewed the patient's lab results. - Vital Signs Patient's Vital Signs:: I have reviewed the patient's vital signs. - EKG EKG read: Interp. by me EKG Comments: Paced rhythm. Rate 69 Wide QRS complexes The prior EKG dated 05/30/18 showed him to be in sinus rhythm with first-degree AV block but otherwise similar. - X-Ray X-Ray #1 X-Ray: chest Interpretation: Interp. by me - poor inspiratory effort. A lot of soft tissue overlying the lungs. No acute process noted. Departure Clinical Impression: Hypoglycemia, decreased LOC, Respiratory failure - Departure Disposition: Still a patient Condition: Fair
[2018-08-27 02:15] LABS: Prothrombin Time (Patient) 10.7 Seconds (9.0-11.0)
[2018-08-27 02:18] LABS: INR 1.07 INR (0.90-1.10)
[2018-08-27 02:24] LABS: Urine Appearance Cloudy (CLEAR); Urine Color Yellow
[2018-08-27 02:25] LABS: Urine Bacteria 2+; Urine RBC 0-5 /hpf (0-5); Urine WBC 25-50 /hpf (0-5)
[2018-08-27 02:27] LABS: ALT 20 U/L (19-67); AST 23 U/L (0-48); Albumin * 3.3 gm/dl (3.4-5.0); Alkaline Phosphatase * 88 U/L (50-170); BUN/Creatinine Ratio 12.9 (9.0-21.6); Bilirubin, Total 0.3 mg/dL (0.0-1.1); Blood Urea Nitrogen 21 mg/dL (6-23); Ca. Corrected For Albumin 9.8 mg/dL (8.4-10.2); Calcium * 9.6 mg/dL (7.9-10.9); Carbon Dioxide 32.1 mmol/L (24-32.6); Chloride 102 mmol/L (97-106); Glucose * 77 mg/dL (70-110); Potassium 3.1 mmol/L (3.4-4.6); Sodium 136 mmol/L (132-142); Total Protein 6.8 gm/dL (6.2-8.2)
[2018-08-27 02:29] LABS: Troponin I Less than 0.017 ng/mL (0.00-0.10)
[2018-08-27] MEDS ORDERED: DEXTROSE 50%-WATER 50 ML SYRG ONE (02:30)
[2018-08-27] MEDS ORDERED: DEXTROSE 50%-WATER 50 ML SYRG IV ONE (02:31)
[2018-08-27] MEDS ORDERED: DEXTROSE 5 % IN WATER 1,000 ML IV PRN (02:48)
[2018-08-27] MEDS ORDERED: METOPROLOL TARTRATE 1 MG/ML AMPUL IV ONE (07:45)
[2018-08-27] MEDS ORDERED: traMADol HCL 50 MG TABLET PO PRN ×2 (15:11→15:20)
[2018-08-27] MEDS ORDERED: TRIAMCINOLONE ACETONIDE 15 APPL TUBE TP PRN (15:11)
[2018-08-27] MEDS ORDERED: ACETAMINOPHEN 325 MG TABLET PO PRN (15:11)
[2018-08-27] MEDS ORDERED: BISACODYL 10 MG SUPP.RECT RC PRN (15:11)
[2018-08-27] MEDS ORDERED: CALCIUM CARBONATE 500 MG TAB.CHEW PO PRN (15:11)
[2018-08-27] MEDS ORDERED: ALLOPURINOL 100 MG TABLET PO SCH (15:15)
--- NOTE | 2018-08-27 15:27 | HP ---
Chief Complaint - Chief Complaint Date of Service: 08/27/18 Time of Service: 09:30 Chief Complaint: low blood sugar History of Present Illness: The patient presented to the ED via ambulance secondary to an unresponsive episode due to hypoglycemia. The patient's hypoglycemia was treated while in the ED and at the time of my exam this AM, the patient is back to baseline. The patient states he has been taking all medications as prescribed. No further events of severe hypoglycemia since admission. Medical History (Last Reviewed 09/05/18 @ 11:05 by Saurabh Galaviz RN) (Chronic) Recurrent UTI (Chronic) Onset Date: 2017 Urinary retention (Chronic) Onset Date: Unknown Psoriasis (Chronic) Onset Date: Unknown Peripheral neuropathy (Chronic) Onset Date: 2017 MECHE treated with BiPAP (Chronic) Onset Date: Unknown MRSA (methicillin resistant Staphylococcus aureus) (Chronic) Onset Date: Unknown Morbid obesity (Chronic) Onset Date: Unknown Hypothyroidism (Chronic) Onset Date: 2017 Hyperlipidemia (Chronic) Onset Date: 2017 Gout (Chronic) Onset Date: 2017 GERD (gastroesophageal reflux disease) (Chronic) Onset Date: 2017 Essential hypertension (Chronic) Onset Date: 2017 Enchondroma (Chronic) Onset Date: Unknown diabetes mellitus [place] 2 (Chronic) Onset Date: Unknown COPD (chronic obstructive pulmonary disease) (Chronic) Onset Date: 2017 Chronic kidney disease (Chronic) Onset Date: 2017 Chronic back pain (Chronic) Onset Date: 2017 CAD (coronary artery disease) (Chronic) Onset Date: 2017 Arthritis (Chronic) Onset Date: Unknown Anemia (Chronic) Onset Date: Unknown HTN (hypertension) (Chronic) Cataract (Acute) Onset Date: Unknown Hand amputation status (Acute) Onset Date: Unknown Stroke (Resolved) Onset Date: Unknown BPH (benign prostatic hyperplasia) (Chronic) Onset Date: Unknown CHF (congestive heart failure) (Chronic) Onset Date: Unknown Diabetic acidosis, type II (Acute) Onset Date: Unknown Surgical History: Surgical History (Last Reviewed 09/05/18 @ 11:05 by Saurabh Galaviz RN) Cataract, bilateral Onset Date: Unknown H/O cystoscopy Onset Date: 2016 H/O removal of testicle Onset Date: Unknown History of appendectomy Onset Date: Unknown History of appendectomy Onset Date: Unknown Pacemaker Onset Date: 05/2014 dual chamber placement type device is [employer]-model K173, SN [id number] Status post ORIF of fracture of ankle Onset Date: 2013 ORIF right ankle for bimalleolar equivalent ankle fracture finger surgery Onset Date: Unknown Family History: Family History (Last Reviewed 09/05/18 @ 11:05 by Saurabh Galaviz RN) Father Diabetes Hypertension Mother Diabetes Hypertension Social History: Patient Lives/Resources Home Utilized Occupation retired Preferred Language Lithuanian Do you have any taoist or Yes: Adventist cultural preference? Smoking Status Never smoker Have you smoked in the past 12 No months Abuse History No History of abuse Psych History No pertinent hx (Last Updated 07/15/18 @ 13:57 by MERON Boyd) No Social History Section defined Review Of Systems (GEN) - Review of Systems Generalized/Overall Review: Present: Weakness, Fatigue Musculoskeletal: Present: Joint Pain, Back Pain Misc: All systems neg except as marked Immunizations: IMMUNIZATION HX Immunizations Up to Date Yes History of Influenza Vaccine Yes Hx Pneumococcal Vaccination Yes Allergies/Adverse Reactions: Allergies Allergy/AdvReac Type Severity Reaction Status Date / Time No Known Allergies Allergy Verified 09/05/18 11:04 Home Medications: HOME MEDICATIONS Atorvastatin Calcium [Lipitor] 40 mg PO HS 07/03/14 [Last Taken 08/26/18] Doxazosin Mesylate [Cardura] 8 mg PO DAILY 07/03/14 [Last Taken 08/26/18] Losartan/Hydrochlorothiazide [Hyzaar 100-12.5 Tablet] 100 mg PO DAILY 07/03/14 [Last Taken 08/26/18] Levothyroxine Sodium [Synthroid] 50 mcg PO DAILY 07/17/17 [Last Taken 08/26/18] Multivit-Min/FA/Lycopen/Lutein [Centrum Silver Men Tablet] 1 tab PO DAILY 03/18/18 [Last Taken Unknown] Sertraline HCl [Zoloft] 50 mg PO DAILY 03/18/18 [Last Taken 08/26/18] Wheat Dextrin/L.acid/Aspartame [Fiber with Probiotic Powder] 360 gm PO DAILY 03/18/18 [Last Taken 08/26/18] aspirin 81 mg tablet,delayed release 81 mg PO DAILY 05/21/18 [Last Taken 08/26/18] polyethylene glycol 3350 17 gram/dose oral powder 17 g PO BID g 05/21/18 [Last Taken 08/26/18] Melatonin 5 mg PO HS 05/30/18 [Last Taken Unknown] [place]-3 Fatty Acids/Fish Oil [Fish Oil 1,000 mg Capsule] 1 ea PO DAILY 05/30/18 [Last Taken Unknown] Acetaminophen [Tylenol] 650 mg PO QID PRN tab 06/03/18 [Last Taken Unknown] Bisacodyl [Dulcolax Suppository] 10 mg RC DAILY PRN supp.rect 06/03/18 [Last Taken Unknown] Calcium Carbonate [Tums] 500 mg PO QID PRN tab.chew 06/03/18 [Last Taken Unknown] Nystatin [Mycostatin Powder] 1 appl TP BID btl 06/03/18 [Last Taken 08/26/18] bumetanide 1 mg tablet 1 mg PO DAILY #30 tab 07/14/18 [Last Taken 08/26/18] ranitidine 150 mg tablet 150 mg PO BID #60 tab 07/26/18 [Last Taken 08/26/18] Allopurinol [Zyloprim] 300 mg PO DAILY 08/27/18 [Last Taken 08/26/18] Gabapentin [Neurontin] 300 mg PO TID 08/27/18 [Last Taken 08/26/18] Triamcinolone Acetonide 15 gm TOPICAL BID 08/27/18 [Last Taken 08/26/18] traMADol HCL [Tramadol HCl] 1 tab PO Q4H PRN 08/27/18 [Last Taken 08/26/18] Insulin Aspart [Novolog] 15 unit SUB-Q AC #0.1 vial 08/28/18 [Last Taken Unknown] insulin detemir (U- 100) 100 unit/mL subcutaneous solution 25 unit SUBCUT Q12H #0.1 vial 08/30/18 [Last Taken Unknown] sennosides 8.6 mg-docusate sodium 50 mg tablet 2 tab PO TID #0 tab 08/30/18 [Last Taken Unknown] insulin syringe-needle U-100 1 mL 31 gauge x 03/23" See Dose Instructions .ROUTE .MEDSUPPLY #100 ea 09/08/18 [Last Taken Unknown] linaclotide 72 mcg capsule 72 mcg PO DAILY #30 cap 09/08/18 [Last Taken Unknown] Exam - Exam Vital Signs: Vital Signs - Last Taken Temp 36.6 C 08/27/18 08:45 Pulse 69 08/27/18 10:25 Resp 23 H 08/27/18 08:45 BP 176/84 H 08/27/18 08:45 Pulse Ox 95 08/27/18 08:45 Constitutional: Present: Alert, Oriented x3, Cooperative, No distress, Elderly, Morbidly obese ENT Exam: Present: moist mucous membranes Respiratory: Present: decreased breath sounds Cardiovascular/Chest: Present: regular rate, rhythm Abdomen: Present: soft, nontender, obese, hypoactive Extremity: Present: lower extremity edema Neurologic: Present: no motor/sensory deficits, alert, normal mood/affect, oriented x 3 Appearance: Present: appropriate insight Eye contact: Present: cooperative Thoughts: Present: normal thought pattern, no apparent hallucination Diagnostic Studies: Abnormal Lab Results 08/27/18 08/27/18 08/27/18 Range/Units 02:00 02:00 02:00 RBC 4.34 L (4.7-6.0) M/mm3 Hgb 12.5 L (13.5-18.0) gm/dL Hct 39.7 L (42.0-52.0) % MCHC 31.5 L (32-36) g/dl RDW 14.9 H (11.5-14.0) % Lymphocytes % 16.9 L (20-51) % Neutrophils # 7.0 H (1.3-6.0) K/mm3 pCO2 60.7 H (35.0-48.0) mmHg pO2 58.8 L (83.0-108.0) mmHg HCO3 32.3 H (21.0-28.0) mmol/L Total CO2 34.2 H (19.0-24.0) mmol/L Base Excess 5.0 H (-2.0-3.0) mmol/L ABG pH 7.34 L (7.35-7.45) ABG O2 Sat (Measured) 88.4 L (94.0-98.0) % Potassium 3.1 L D (3.4-4.6) mmol/L Anion Gap 5.0 L (6.8-13.8) mmol/L Creatinine 1.63 H (0.4-1.4) mg/dL Est GFR (Non-Af Amer) 43 L D (60-130) mL/min Albumin 3.3 L (3.4-5.0) gm/dl Urine Protein (NEGATIVE) mg/dL Urine Blood (NEGATIVE) /ul Ur Leukocyte Esterase (NEGATIVE) /ul Urine WBC (0-5) /hpf Urine Bacteria (NONE) 08/27/18 08/27/18 Range/Units 02:00 03:10 RBC (4.7-6.0) M/mm3 Hgb (13.5-18.0) gm/dL Hct (42.0-52.0) % MCHC (32-36) g/dl RDW (11.5-14.0) % Lymphocytes % (20-51) % Neutrophils # (1.3-6.0) K/mm3 pCO2 53.3 H (35.0-48.0) mmHg pO2 (83.0-108.0) mmHg HCO3 (21.0-28.0) mmol/L Total CO2 29.6 H (19.0-24.0) mmol/L Base Excess (-2.0-3.0) mmol/L ABG pH 7.34 L (7.35-7.45) ABG O2 Sat (Measured) (94.0-98.0) % Potassium (3.4-4.6) mmol/L Anion Gap (6.8-13.8) mmol/L Creatinine (0.4-1.4) mg/dL Est GFR (Non-Af Amer) (60-130) mL/min Albumin (3.4-5.0) gm/dl Urine Protein 15 H (NEGATIVE) mg/dL Urine Blood 50 H (NEGATIVE) /ul Ur Leukocyte Esterase 100 H (NEGATIVE) /ul Urine WBC 25-50 H (0-5) /hpf Urine Bacteria 2+ H (NONE) Laboratory Results WBC 9.9 K/mm3 (4.0-10.5) 08/27/18 02:00 RBC 4.34 M/mm3 (4.7-6.0) L 08/27/18 02:00 Hgb 12.5 gm/dL (13.5-18.0) L 08/27/18 02:00 Hct 39.7 % (42.0-52.0) L 08/27/18 02:00 MCV 91.5 fl (78-100) 08/27/18 02:00 MCH 28.8 pg (27-31) 08/27/18 02:00 MCHC 31.5 g/dl (32-36) L 08/27/18 02:00 RDW 14.9 % (11.5-14.0) H 08/27/18 02:00 Plt Count 197 K/mm3 (150-450) 08/27/18 02:00 MPV 10.0 fl (8-11.3) 08/27/18 02:00 Immature Gran % (Auto) 0.20 % (0.001-0.429) 08/27/18 02:00 Immature Gran # (Auto) 0.02 K/mm3 (0.000-0.0310) 08/27/18 02:00 Neutrophils % 70.8 % (42-75.0) 08/27/18 02:00 Lymphocytes % 16.9 % (20-51) L 08/27/18 02:00 Monocytes % 8.6 % (0.0-9) 08/27/18 02:00 Eosinophils % 2.9 % (0.0-3.0) 08/27/18 02:00 Basophils % 0.6 % (0.0-1.0) 08/27/18 02:00 Nucleated RBC % 0.0 k/mm3 (0-1) 08/27/18 02:00 Neutrophils # 7.0 K/mm3 (1.3-6.0) H 08/27/18 02:00 Lymphocytes # 1.67 k/mm3 (1.5-3.5) 08/27/18 02:00 Monocytes # 0.9 k/mm3 (0.0-1.0) 08/27/18 02:00 Eosinophils # 0.3 k/mm3 (0.0-0.7) 08/27/18 02:00 Absolute Basophils 0.1 k/mm3 (0.0-0.1) 08/27/18 02:00 PT 10.7 Seconds (9.0-11.0) 08/27/18 02:00 INR (Anticoag Therapy) 1.07 INR (0.90-1.10) 08/27/18 02:00 pCO2 53.3 mmHg (35.0-48.0) H 08/27/18 03:10 pO2 99.3 mmHg (83.0-108.0) 08/27/18 03:10 HCO3 27.9 mmol/L (21.0-28.0) 08/27/18 03:10 Total CO2 29.6 mmol/L (19.0-24.0) H 08/27/18 03:10 Base Excess 1.2 mmol/L (-2.0-3.0) 08/27/18 03:10 ABG pH 7.34 (7.35-7.45) L 08/27/18 03:10 ABG O2 Sat (Measured) 97.1 % (94.0-98.0) 08/27/18 03:10 Sodium 136 mmol/L (132-142) 08/27/18 02:00 Plasma Sodium 136 mmol/L (130-142) 08/27/18 02:00 Potassium 3.1 mmol/L (3.4-4.6) L D 08/27/18 02:00 Chloride 102 mmol/L (97-106) 08/27/18 02:00 Carbon Dioxide 32.1 mmol/L (24-32.6) 08/27/18 02:00 Anion Gap 5.0 mmol/L (6.8-13.8) L 08/27/18 02:00 BUN 21 mg/dL (6-23) 08/27/18 02:00 Creatinine 1.63 mg/dL (0.4-1.4) H 08/27/18 02:00 Est GFR (Non-Af Amer) 43 mL/min (60-130) L D 08/27/18 02:00 BUN/Creatinine Ratio 12.9 (9.0-21.6) 08/27/18 02:00 Random Glucose 77 mg/dL (70-110) 08/27/18 02:00 Calcium 9.6 mg/dL (7.9-10.9) 08/27/18 02:00 Calcium Adj for Albumin 9.8 mg/dL (8.4-10.2) 08/27/18 02:00 Total Bilirubin 0.3 mg/dL (0.0-1.1) 08/27/18 02:00 AST 23 U/L (0-48) 08/27/18 02:00 ALT 20 U/L (19-67) 08/27/18 02:00 Alkaline Phosphatase 88 U/L (50-170) 08/27/18 02:00 Troponin I Less than 0.017 ng/mL (0.00-0.10) 08/27/18 02:00 Total Protein 6.8 gm/dL (6.2-8.2) 08/27/18 02:00 Albumin 3.3 gm/dl (3.4-5.0) L 08/27/18 02:00 Urine Color Yellow 08/27/18 02:00 Urine Appearance Cloudy (CLEAR) 08/27/18 02:00 Urine pH 6.0 pH (5.0-7.0) 08/27/18 02:00 Ur Specific [place] 1.025 SP.GR. (1.005-1.030) 08/27/18 02:00 Urine Protein 15 mg/dL (NEGATIVE) H 08/27/18 02:00 Urine Glucose (UA) Negative mg/dL (NEGATIVE) 08/27/18 02:00 Urine Ketones Negative mg/dL (NEGATIVE) 08/27/18 02:00 Urine Blood 50 /ul (NEGATIVE) H 08/27/18 02:00 Urine Nitrate Negative (NEGATIVE) 08/27/18 02:00 Urine Bilirubin Negative mg/dl (NEGATIVE) 08/27/18 02:00 Prot Sulfosalicylic Acd 1+ mg/dL (0) 08/27/18 02:00 Urine Urobilinogen Normal EU/dl (NORMAL) 08/27/18 02:00 Ur Leukocyte Esterase 100 /ul (NEGATIVE) H 08/27/18 02:00 Urine RBC 0-5 /hpf (0-5) 08/27/18 02:00 Urine WBC 25-50 /hpf (0-5) H 08/27/18 02:00 Ur Epithelial Cells None seen /hpf (0-5) 08/27/18 02:00 Urine Bacteria 2+ (NONE) H 08/27/18 02:00 Urine Culture Comments Culture to follow 08/27/18 02:00 Assessment/Plan - Narrative Narrative: Patient will be admitted to outpatient observation to monitor for any further episodes of hypoglycemia. Monitor BG closely Q4H and PRN. We will plan to keep the patient for at least the next 24 hours while we adjust his diabetic medications and monitor for hypoglycemia. Due to his CKD, it will take longer than usual for medications to clear. If he remains stable without further episodes of hypoglycemia, we will plan to discharge him home in AM. - Assessment/Plan (1) Hypoglycemia Problem: Acute (2) Hypoglycemia associated with type 2 diabetes mellitus Problem: Acute
[2018-08-27] MEDS: ASPIRIN 81 MG TABLET.DR PO SCH (15:50)
[2018-08-27] MEDS: LOSARTAN POTASSIUM 50 MG TABLET PO SCH (15:51)
[2018-08-27] MEDS: LEVOTHYROXINE SODIUM 50 MCG TABLET PO SCH (15:52)
[2018-08-27] MEDS: BUMETANIDE 1 MG TABLET PO SCH (15:52)
[2018-08-27] MEDS: SERTRALINE HCL 50 MG TABLET PO SCH (15:53)
[2018-08-27] MEDS: DOXAZOSIN MESYLATE 2 MG TABLET PO SCH (15:54)
[2018-08-27] MEDS: GABAPENTIN 300 MG CAPSULE PO SCH (16:05)
[2018-08-27] MEDS: SENNOSIDES/DOCUSATE SODIUM 1 TAB TABLET PO SCH ×2 (16:05→20:27)
[2018-08-27] MEDS ORDERED: INSULIN ASPART 100 UNITS/ML VIAL SC SCH (17:00)
[2018-08-27] MEDS: INSULIN ASPART 100 UNITS/ML VIAL SC SCH ×2 (17:04→17:05)
[2018-08-27] MEDS ORDERED: LIDOCAINE HCL 10 ML VIAL IM ONE (17:38)
[2018-08-27] MEDS: INSULIN DETEMIR 100 UNITS/ML VIAL SC SCH (20:20)
[2018-08-27] MEDS: NYSTATIN 15 APPL BTL TP SCH (20:23)
[2018-08-27] MEDS: POLYETHYLENE GLYCOL 3350 119 GM BTL PO SCH (20:26)
[2018-08-27] MEDS: FAMOTIDINE 20 MG TABLET PO SCH (20:27)
[2018-08-27] MEDS ORDERED: ROSUVASTATIN CALCIUM 20 MG TABLET PO SCH (21:00)
[2018-08-27] MEDS ORDERED: MELATONIN 3,000 MCG TABLET PO SCH (21:00)
[2018-08-28] MEDS: SENNOSIDES/DOCUSATE SODIUM 1 TAB TABLET PO SCH (06:54)
[2018-08-28] MEDS: INSULIN ASPART 100 UNITS/ML VIAL SC SCH ×2 (06:54→06:55)
[2018-08-28] MEDS: BUMETANIDE 1 MG TABLET PO SCH (08:05)
[2018-08-28] MEDS: LOSARTAN POTASSIUM 50 MG TABLET PO SCH (08:05)
[2018-08-28] MEDS: SERTRALINE HCL 50 MG TABLET PO SCH (08:06)
[2018-08-28] MEDS: LEVOTHYROXINE SODIUM 50 MCG TABLET PO SCH (08:06)
[2018-08-28] MEDS: GABAPENTIN 300 MG CAPSULE PO SCH (08:06)
[2018-08-28] MEDS: ASPIRIN 81 MG TABLET.DR PO SCH (08:06)
[2018-08-28] MEDS: POLYETHYLENE GLYCOL 3350 119 GM BTL PO SCH (08:07)
[2018-08-28] MEDS: NYSTATIN 15 APPL BTL TP SCH (08:07)
[2018-08-28] MEDS: INSULIN DETEMIR 100 UNITS/ML VIAL SC SCH (08:14)
[2018-08-28] MEDS: DOXAZOSIN MESYLATE 2 MG TABLET PO SCH (08:18)
[2018-08-28] MEDS: FAMOTIDINE 20 MG TABLET PO SCH (08:18)
[2018-08-28] MEDS ORDERED: ALLOPURINOL 300 MG TABLET PO SCH (09:00)
[2018-08-28] MEDS ORDERED: LACTOBACILLUS ACIDOPHILUS 100 CAP BTL PO SCH (09:00)
[2018-08-28] MEDS ORDERED: HYDROCHLOROTHIAZIDE 12.5 MG CAPSULE PO SCH (09:00)
--- NOTE | 2018-08-28 09:48 | DS ---
(1) Hypoglycemia Problem: Acute (2) Type 2 diabetes mellitus Problem: Chronic Qualifiers: Diabetes mellitus route sales associate insulin use: with long-term use Diabetes mellitus complication status: with unspecified complications Qualified Cod e(s): E11.8 - Type 2 diabetes mellitus with unspecified complications; Z79.4 - care home (current) use of insulin (3) Hypoglycemia associated with type 2 diabetes mellitus Problem: Acute Description of Stay: ADMISSION DATE: 08/27/2018 DISCHARGE DATE: 08/28/2018 ADMISSION HPI: The patient presented to the ED via ambulance secondary to an unresponsive episode due to hypoglycemia. The patient's hypoglycemia was treated while in the ED and at the time of my exam this AM, the patient is back to baseline. The patient states he has been taking all medications as prescribed. No further events of severe hypoglycemia since admission. HOSPITAL COURSE: The patient was admitted to the hospital for severe symptomatic hypoglycemia. His diabetic medications were adjusted and we monitored his BG closely and he did not have any further hypoglycemic episodes during his admission. He was discharged back home in stable condition. FOLLOW-UP APPOINTMENTS: -Follow-up with PCP within 1-2 weeks Procedures Performed: none Results and Findings: Pending Mircobiology Results 08/27/18 02:36 Urine,Catheterized Urine Culture - Preliminary Streptococcus Species Lab Pending Results 08/27/18 02:00: WBC 9.9, RBC 4.34 L, Hgb 12.5 L, Hct 39.7 L, MCV 91.5, MCH 28.8, MCHC 31.5 L, RDW 14.9 H, Plt Count 197, MPV 10.0, Immature Gran % (Auto) 0.20, Immature Gran # (Auto) 0.02, Neutrophils % 70.8, Lymphocytes % 16.9 L, Monocytes % 8.6, Eosinophils % 2.9, Basophils % 0.6, Nucleated RBC % 0.0, Neutrophils # 7.0 H, Lymphocytes # 1.67, Monocytes # 0.9, Eosinophils # 0.3, Absolute Basophils 0.1 08/27/18 02:00: PT 10.7, INR (Anticoag Therapy) 1.07 08/27/18 02:00: Sodium 136, Plasma Sodium 136, Potassium 3.1 L D, Chloride 102, Carbon Dioxide 32.1, Anion Gap 5.0 L, BUN 21, Creatinine 1.63 H, Est GFR (Non-Af Amer) 43 L D, BUN/Creatinine Ratio 12.9, Random Glucose 77, Calcium 9.6, Calcium Adj for Albumin 9.8, Total Bilirubin 0.3, AST 23, ALT 20, Alkaline Phosphatase 88, Troponin I Less than 0.017, Total Protein 6.8, Albumin 3.3 L 08/27/18 02:00: pCO2 60.7 H, pO2 58.8 L, HCO3 32.3 H, Total CO2 34.2 H, Base Excess 5.0 H, ABG pH 7.34 L, ABG O2 Sat (Measured) 88.4 L 08/27/18 02:00: Urine Color Yellow, Urine Appearance Cloudy, Urine pH 6.0, Ur Specific [place] 1.025, Urine Protein 15 H, Urine Glucose (UA) Negative, Urine Ketones Negative, Urine Blood 50 H, Urine Nitrate Negative, Urine Bilirubin Negative, Prot Sulfosalicylic Acd 1+, Urine Urobilinogen Normal, Ur Leukocyte Esterase 100 H, Urine RBC 0-5, Urine WBC 25-50 H, Ur Epithelial Cells None seen, Urine Bacteria 2+ H, Urine Culture Comments Culture to follow 08/27/18 03:10: pCO2 53.3 H, pO2 99.3, HCO3 27.9, Total CO2 29.6 H, Base Excess 1.2, ABG pH 7.34 L, ABG O2 Sat (Measured) 97.1 Discharge Location: Home Disposition: Home self-care Condition: Stable Discharge Activity: Activity as tolerated Discharge Diet: Consistent carbs, Low salt, Low fat/chol Referrals: Joceline Tolbert DO [Primary Care Provider] - Problem Oriented Discharge Instructions to Patient/Family: Hypoglycemia, [id number] Additional Patient Instructions (free text): -Appt scheduled for 08/30/18 at 11:[address] Tolbert, Pt will keep this appt Prescriptions (Any new or edited meds): Insulin Aspart [Novolog] 15 unit SUB-Q AC #0.1 vial Complete Home Medications List: Complete Home Medication List: Atorvastatin Calcium [Lipitor] 40 mg PO HS 07/03/14 Doxazosin Mesylate [Cardura] 8 mg PO DAILY 07/03/14 Losartan/Hydrochlorothiazide [Hyzaar 100-12.5 Tablet] 100 mg PO DAILY 07/03/14 Levothyroxine Sodium [Synthroid] 50 mcg PO DAILY 07/17/17 Multivit-Min/FA/Lycopen/Lutein [Centrum Silver Men Tablet] 1 tab PO DAILY 03/18/18 Sertraline HCl [Zoloft] 50 mg PO DAILY 03/18/18 Wheat Dextrin/L.acid/Aspartame [Fiber with Probiotic Powder] 360 gm PO DAILY 03/18/18 aspirin 81 mg tablet,delayed release 81 mg PO DAILY 05/21/18 polyethylene glycol 3350 17 gram/dose oral powder 17 g PO BID g 05/21/18 Melatonin 5 mg PO HS 05/30/18 [place]-3 Fatty Acids/Fish Oil [Fish Oil 1,000 mg Capsule] 1 ea PO DAILY 05/30/18 Acetaminophen [Tylenol] 650 mg PO QID PRN tab 06/03/18 Bisacodyl [Dulcolax Suppository] 10 mg RC DAILY PRN supp.rect 06/03/18 Calcium Carbonate [Tums] 500 mg PO QID PRN tab.chew 06/03/18 Nystatin [Mycostatin Powder] 1 appl TP BID btl 06/03/18 bumetanide 1 mg tablet 1 mg PO DAILY #30 tab 07/14/18 ranitidine 150 mg tablet 150 mg PO BID #60 tab 07/26/18 Allopurinol [Zyloprim] 300 mg PO DAILY 08/27/18 Gabapentin [Neurontin] 300 mg PO TID 08/27/18 Triamcinolone Acetonide 15 gm TOPICAL BID 08/27/18 traMADol HCL [Tramadol HCl] 1 tab PO Q4H PRN 08/27/18 Insulin Aspart [Novolog] 15 unit SUB-Q AC #0.1 vial 08/28/18 insulin detemir (U- 100) 100 unit/mL subcutaneous solution 25 unit SUBCUT Q12H #0.1 vial 08/30/18 sennosides 8.6 mg-docusate sodium 50 mg tablet 2 tab PO TID #0 tab 08/30/18 insulin syringe-needle U-100 1 mL 31 gauge x 03/23" See Dose Instructions .ROUTE .MEDSUPPLY #100 ea 09/08/18 linaclotide 72 mcg capsule 72 mcg PO DAILY #30 cap 09/08/18
[2018-08-28 10:40] VITALS: BP 157/91
== END 2018-08-28 10:30 | disposition home or self-care (01) ==
LOC: ER 01:31 → MS 03:37 → INTOOBSV 03:37 → MS 03:45
PROVIDERS: ADMIT Internal Medicine; ATTEND Internal Medicine
CPT/HCPCS: 36415; 36600; 70450; 71010; 71045; 80053; 81001; 82803; 84484; 85025; 85610; 87077; 87081; 87086; 87186; 90686; 93005; 94660; 96372; 96374; 99285; G0008; G0378

== ENCOUNTER 2019-01-07 11:41 | Inpatient (IN) ==
[2019-01-07] MEDS ORDERED: NORMAL SALINE 1,000 ML IV PRN (12:08)
[2019-01-07 12:37] LABS: Hematocrit 44.5 % (42.0-52.0); Hemoglobin 14.4 gm/dL (13.5-18.0); Mean Cell Volume 92.7 fl (78-100); Mean Corpuscular Hgb Conc 32.4 g/dl (32-36); Mean Platelet Volume 9.8 fl (8-11.3); Neutrophil # 15.2 K/mm3 (1.3-6.0); Neutrophil % 88.6 % (42-75.0); Platelet Count 225 K/mm3 (150-450); Red Cell Distribution Width 14.2 % (11.5-14.0); White Blood Count 17.2 K/mm3 (4.0-10.5)
[2019-01-07 12:42] LABS: Urine Appearance Slightly Cloudy (CLEAR); Urine Color Yellow
[2019-01-07 12:43] LABS: Urine Bilirubin Negative (NEGATIVE); Urine Blood 250 /ul (NEGATIVE); Urine Ketone 15 mg/dL (NEGATIVE); Urine Nitrite Negative (NEGATIVE); Urine Protein 15 mg/dL (NEGATIVE); Urine Specific Gravity 1.025 SP.GR. (1.005-1.030); Urine Urobilinogen Normal (NORMAL); Urine pH 5.5 pH (5.0-7.0)
[2019-01-07 12:45] LABS: Urine Bacteria 1+; Urine RBC 0-5 /hpf (0-5)
[2019-01-07 12:47] LABS: Urine Amorphous Sediment Few - 1+ (NONE-FEW)
[2019-01-07 12:56] LABS: ALT 31 U/L (19-67); AST 67 U/L (0-48); Albumin * 3.3 gm/dl (3.4-5.0); Alkaline Phosphatase * 99 U/L (50-170); Anion Gap 15.4 mmol/L (6.8-13.8); BNP * 2551 pg/mL (5-650); BUN/Creatinine Ratio 16.4 (9.0-21.6); Bilirubin, Total 0.8 mg/dL (0.0-1.1); Blood Urea Nitrogen 23 mg/dL (6-23); Ca. Corrected For Albumin 9.4 mg/dL (8.4-10.2); Calcium * 9.2 mg/dL (7.9-10.9); Chloride 101 mmol/L (97-106); Glucose * 392 mg/dL (70-110); Potassium 4.4 mmol/L (3.4-4.6); Sodium 139 mmol/L (132-142)
[2019-01-07 13:17] LABS: CK Total * 1593 U/L (0-259)
[2019-01-07] MEDS ORDERED: INSULIN REGULAR, HUMAN 100 UNITS/ML VIAL IV ONE (13:48)
[2019-01-07] MEDS ORDERED: cefTRIAXone SODIUM 1,000 MG/100 ML BAG IV ONE (13:49)
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
[2019-01-07] MEDS ORDERED: BISACODYL 10 MG SUPP.RECT RC PRN (16:25)
[2019-01-07] MEDS ORDERED: CALCIUM CARBONATE 500 MG TAB.CHEW PO PRN (16:25)
[2019-01-07] MEDS ORDERED: ACETAMINOPHEN 325 MG TABLET PO PRN (16:25)
[2019-01-07] MEDS: INSULIN LISPRO 100 UNITS/ML VIAL SC SCH ×2 (18:17→20:11)
[2019-01-07] MEDS: ENOXAPARIN SODIUM 40 MG/0.4 ML SYRG SC SCH (18:18)
[2019-01-07] MEDS: INSULIN DETEMIR 100 UNITS/ML VIAL SC SCH (18:18)
[2019-01-07] MEDS: GABAPENTIN 300 MG CAPSULE PO SCH ×2 (18:18→18:30)
[2019-01-07] MEDS ORDERED: NYSTATIN 15 APPL BTL TP ONE (19:24)
[2019-01-07] MEDS ORDERED: ROSUVASTATIN CALCIUM 10 MG TABLET ONE (19:54)
[2019-01-07] MEDS ORDERED: SENNOSIDES 8.6 MG TABLET ONE (19:55)
[2019-01-07] MEDS ORDERED: POLYETHYLENE GLYCOL 3350 119 GM BTL ONE (19:56)
[2019-01-07] MEDS ORDERED: FAMOTIDINE 20 MG TABLET ONE (19:57)
[2019-01-07] MEDS: FAMOTIDINE 20 MG TABLET PO SCH (20:14)
[2019-01-07] MEDS: SENNOSIDES/DOCUSATE SODIUM 1 TAB TABLET PO SCH (20:16)
[2019-01-07] MEDS: NYSTATIN 15 APPL BTL TP SCH (20:19)
[2019-01-07] MEDS: POLYETHYLENE GLYCOL 3350 119 GM BTL PO SCH (20:19)
[2019-01-07] MEDS: NORMAL SALINE 1,000 ML IV PRN (20:52)
[2019-01-07] MEDS ORDERED: ROSUVASTATIN CALCIUM 20 MG TABLET PO SCH (21:00)
[2019-01-07] MEDS: HYDROcodone/ACETAMINOPHEN 1 EACH TABLET PO PRN (22:43)
[2019-01-08] MEDS: HYDROcodone/ACETAMINOPHEN 1 EACH TABLET PO PRN ×3 (03:08→19:07)
[2019-01-08] MEDS: NORMAL SALINE 1,000 ML IV PRN ×3 (04:50→23:08)
[2019-01-08 06:17] LABS: Hematocrit 38.7 % (42.0-52.0); Hemoglobin 12.8 gm/dL (13.5-18.0); Mean Cell Volume 91.9 fl (78-100); Mean Corpuscular Hemoglobin 30.4 pg (27-31); Mean Corpuscular Hgb Conc 33.1 g/dl (32-36); Mean Platelet Volume 9.6 fl (8-11.3); Neutrophil # 11.6 K/mm3 (1.3-6.0); Neutrophil % 74.4 % (42-75.0); Platelet Count 207 K/mm3 (150-450); Red Blood Count 4.21 M/mm3 (4.7-6.0); Red Cell Distribution Width 14.5 % (11.5-14.0); White Blood Count 15.6 K/mm3 (4.0-10.5)
[2019-01-08 06:30] LABS: Anion Gap 10.1 mmol/L (6.8-13.8); BUN/Creatinine Ratio 18.6 (9.0-21.6); Carbon Dioxide 30.5 mmol/L (24-32.6); Potassium 3.6 mmol/L (3.4-4.6)
[2019-01-08] MEDS: LEVOTHYROXINE SODIUM 50 MCG TABLET PO SCH (07:25)
[2019-01-08] MEDS: INSULIN LISPRO 100 UNITS/ML VIAL SC SCH ×4 (07:25→20:07)
[2019-01-08] MEDS: INSULIN DETEMIR 100 UNITS/ML VIAL SC SCH ×2 (08:21→20:41)
[2019-01-08] MEDS: SERTRALINE HCL 50 MG TABLET PO SCH (08:21)
[2019-01-08] MEDS: POLYETHYLENE GLYCOL 3350 119 GM BTL PO SCH ×2 (08:22→20:40)
[2019-01-08] MEDS: SENNOSIDES/DOCUSATE SODIUM 1 TAB TABLET PO SCH ×2 (08:22→20:41)
[2019-01-08] MEDS: GABAPENTIN 300 MG CAPSULE PO SCH ×3 (08:22→16:53)
[2019-01-08] MEDS: ASPIRIN 81 MG TABLET.DR PO SCH (08:22)
[2019-01-08] MEDS: FAMOTIDINE 20 MG TABLET PO SCH ×2 (08:22→20:41)
[2019-01-08] MEDS: LOSARTAN POTASSIUM 50 MG TABLET PO SCH (08:22)
[2019-01-08] MEDS: BETA-CAROTENE(A) W-C , E/MIN 1 TAB TABLET PO SCH (08:22)
[2019-01-08] MEDS: LINACLOTIDE 72 MCG PO SCH (08:23)
[2019-01-08] MEDS: DOXAZOSIN MESYLATE 2 MG TABLET PO SCH (08:39)
[2019-01-08] MEDS: NYSTATIN 15 APPL BTL TP SCH ×2 (08:41→20:39)
[2019-01-08] MEDS ORDERED: ALLOPURINOL 100 MG TABLET PO SCH (09:00)
[2019-01-08] MEDS ORDERED: HYDROCHLOROTHIAZIDE 12.5 MG CAPSULE PO SCH (09:00)
--- NOTE | 2019-01-08 09:47 | PN ---
Subjective - Date and Time Seen Date: 01/08/19 Time: 09:30 Subjective Narrative: Still confused - on and off. Ck slightly lower. lactic acid back to normal. positive discolored toes- great toe, 2nd, 3rd toes , right foot- not sure if chronic or acute. Positive faint pulses on Doppler compared to Left foot. Objective - Review of Systems Misc: All systems neg except as marked - Unreliable due to mentation - Vitals Vitals: Last Vital Signs Temp 37.2 C 01/08/19 07:29 Pulse 95 01/08/19 08:22 Resp 20 01/08/19 07:29 BP 174/70 H 01/08/19 08:22 Pulse Ox 95 01/08/19 07:29 - Abnormal Lab Findings Abnormal Lab Findings: Abnormal Lab Results 01/07/19 01/07/19 01/07/19 Range/Units 12:29 12:29 12:29 WBC 17.2 H (4.0-10.5) K/mm3 RBC (4.7-6.0) M/mm3 Hgb (13.5-18.0) gm/dL Hct (42.0-52.0) % RDW 14.2 H (11.5-14.0) % Immature Gran % (Auto) 0.70 H (0.001-0.429) % Immature Gran # (Auto) 0.12 H (0.000-0.0310) K/mm3 Neutrophils % 88.6 H (42-75.0) % Lymphocytes % 5.2 L (20-51) % Neutrophils # 15.2 H (1.3-6.0) K/mm3 Lymphocytes # 0.90 L (1.5-3.5) k/mm3 Monocytes # (0.0-1.0) k/mm3 pO2 (83.0-108.0) mmHg Total CO2 (19.0-24.0) mmol/L ABG O2 Sat (Measured) (94.0-98.0) % Plasma Sodium 144 H (130-142) mmol/L Anion Gap 15.4 H (6.8-13.8) mmol/L Est GFR (Non-Af Amer) 52 L (60-130) mL/min Random Glucose 392 H (70-110) mg/dL Lactic Acid, Venous 2.5 H* (0.4-2.0) mmol/L AST 67 H (0-48) U/L Creatine Kinase 1593 H (0-259) U/L C-Reactive Prot, Quant 17.0 H (0.0-0.9) mg/dL B-Natriuretic Peptide 2551 H (5-650) pg/mL Albumin 3.3 L (3.4-5.0) gm/dl Urine Protein (NEGATIVE) mg/dL Urine Glucose (UA) (NEGATIVE) mg/dL Urine Blood (NEGATIVE) /ul Ur Leukocyte Esterase (NEGATIVE) /ul Urine WBC (0-5) /hpf Urine Bacteria (NONE) Serum Ketones Positive - 20mg/dl H (NEGATIVE) 01/07/19 01/07/19 01/07/19 Range/Units 12:39 14:00 17:43 WBC (4.0-10.5) K/mm3 RBC (4.7-6.0) M/mm3 Hgb (13.5-18.0) gm/dL Hct (42.0-52.0) % RDW (11.5-14.0) % Immature Gran % (Auto) (0.001-0.429) % Immature Gran # (Auto) (0.000-0.0310) K/mm3 Neutrophils % (42-75.0) % Lymphocytes % (20-51) % Neutrophils # (1.3-6.0) K/mm3 Lymphocytes # (1.5-3.5) k/mm3 Monocytes # (0.0-1.0) k/mm3 pO2 60.0 L (83.0-108.0) mmHg Total CO2 24.3 H (19.0-24.0) mmol/L ABG O2 Sat (Measured) 90.9 L (94.0-98.0) % Plasma Sodium (130-142) mmol/L Anion Gap (6.8-13.8) mmol/L Est GFR (Non-Af Amer) (60-130) mL/min Random Glucose (70-110) mg/dL Lactic Acid, Venous 2.2 H* (0.4-2.0) mmol/L AST (0-48) U/L Creatine Kinase (0-259) U/L C-Reactive Prot, Quant (0.0-0.9) mg/dL B-Natriuretic Peptide (5-650) pg/mL Albumin (3.4-5.0) gm/dl Urine Protein 15 H (NEGATIVE) mg/dL Urine Glucose (UA) >=1000 H (NEGATIVE) mg/dL Urine Blood 250 H (NEGATIVE) /ul Ur Leukocyte Esterase 100 H (NEGATIVE) /ul Urine WBC 10-25 H (0-5) /hpf Urine Bacteria 1+ H (NONE) Serum Ketones (NEGATIVE) 01/08/19 01/08/19 01/08/19 Range/Units 06:15 06:15 07:52 WBC 15.6 H (4.0-10.5) K/mm3 RBC 4.21 L (4.7-6.0) M/mm3 Hgb 12.8 L (13.5-18.0) gm/dL Hct 38.7 L (42.0-52.0) % RDW 14.5 H (11.5-14.0) % Immature Gran % (Auto) (0.001-0.429) % Immature Gran # (Auto) 0.07 H (0.000-0.0310) K/mm3 Neutrophils % (42-75.0) % Lymphocytes % 14.8 L (20-51) % Neutrophils # 11.6 H (1.3-6.0) K/mm3 Lymphocytes # (1.5-3.5) k/mm3 Monocytes # 1.4 H (0.0-1.0) k/mm3 pO2 (83.0-108.0) mmHg Total CO2 (19.0-24.0) mmol/L ABG O2 Sat (Measured) (94.0-98.0) % Plasma Sodium (130-142) mmol/L Anion Gap (6.8-13.8) mmol/L Est GFR (Non-Af Amer) (60-130) mL/min Random Glucose 116 H D (70-110) mg/dL Lactic Acid, Venous (0.4-2.0) mmol/L AST (0-48) U/L Creatine Kinase 1312 H (0-259) U/L C-Reactive Prot, Quant (0.0-0.9) mg/dL B-Natriuretic Peptide (5-650) pg/mL Albumin (3.4-5.0) gm/dl Urine Protein (NEGATIVE) mg/dL Urine Glucose (UA) (NEGATIVE) mg/dL Urine Blood (NEGATIVE) /ul Ur Leukocyte Esterase (NEGATIVE) /ul Urine WBC (0-5) /hpf Urine Bacteria (NONE) Serum Ketones (NEGATIVE) - Exam Constitutional: Present: Alert - AAo x 2, Elderly, Obese ENT Exam: Present: hearing grossly normal Neck: Present: supple Respiratory: Present: decreased breath sounds, No rales, No wheezing Cardiovascular/Chest: Present: regular rate, rhythm, no JVD, no murmur Abdomen: Present: Normal bowel sounds, soft, nontender, nondistended Extremity: Present: lower extremity edema, other - dusky toes , right foot; positive doppler sound fainter than left foot Skin Exam: Present: other - bruises and abrasions Assessment/Plan - Problems/Diagnosis (1) Lactic acidosis Problem: Resolved (2) Ketosis Problem: Resolved (3) Recurrent falls Problem: Chronic Narrative: will get PT (4) Hypothermia Problem: Resolved Qualifiers: Encounter type: initial encounter Qualified Code(s): T68.XXXA - Hypothermia, initial encounter (5) Rhabdomyolysis Problem: Acute Qualifiers: Rhabdomyolysis type: traumatic Encounter type: initial encounter Qualified Code(s): T79.6XXA - Traumatic ischemia of muscle, initial encounter Narrative: due to fall - unsure he has been on the floor. CK lower than yesterday. IVF run eric at 126/ml hour. Crestor d/c. (6) Hyperglycemia due to type 2 diabetes mellitus Problem: Acute Narrative: BS now controlled (7) Chronic diastolic heart failure Problem: Chronic Narrative: will monitor for congestion. will give IV lasix if with s/sx. (8) GERD (gastroesophageal reflux disease) Problem: Chronic Qualifiers: Esophagitis presence: esophagitis presence not specified Qualified Code(s): K21.9 - Gastro-esophageal reflux disease without esophagitis (9) Avulsion of skin of foot Problem: Acute (10) Urinary tract infection Problem: Acute Qualifiers: Hematuria presence: without hematuria Narrative: await with C & S. continue with IV rocephin. (11) Ischemic ulcer of toe of right foot Problem: Suspected Narrative: r/o frostbite ? will get Podiatry consult. rahul Doppler Arterial US of RLE. on ASA. continue with IV Rocephin.
[2019-01-08] MEDS: METOPROLOL SUCCINATE 25 MG TABLET.SA PO SCH (10:07)
[2019-01-08] MEDS: ENOXAPARIN SODIUM 40 MG/0.4 ML SYRG SC SCH (16:54)
[2019-01-09] MEDS: HYDROcodone/ACETAMINOPHEN 1 EACH TABLET PO PRN ×2 (00:02→06:28)
[2019-01-09] MEDS ORDERED: ZIPRASIDONE MESYLATE 20 MG VIAL IM ONE (02:03)
[2019-01-09 06:20] LABS: Hematocrit 38.2 % (42.0-52.0); Hemoglobin 12.4 gm/dL (13.5-18.0); Mean Cell Volume 93.4 fl (78-100); Mean Corpuscular Hemoglobin 30.3 pg (27-31); Mean Corpuscular Hgb Conc 32.5 g/dl (32-36); Mean Platelet Volume 10.4 fl (8-11.3); Neutrophil % 65.9 % (42-75.0); Platelet Count 191 K/mm3 (150-450); Red Blood Count 4.09 M/mm3 (4.7-6.0); Red Cell Distribution Width 14.5 % (11.5-14.0); White Blood Count 10.5 K/mm3 (4.0-10.5)
[2019-01-09] MEDS: LEVOTHYROXINE SODIUM 50 MCG TABLET PO SCH (06:24)
[2019-01-09 06:27] LABS: Anion Gap 12.9 mmol/L (6.8-13.8); BUN/Creatinine Ratio 18.4 (9.0-21.6); Calcium * 8.7 mg/dL (7.9-10.9); Carbon Dioxide 28.7 mmol/L (24-32.6); Estimated Creat Clear 60.7; Potassium 3.6 mmol/L (3.4-4.6)
[2019-01-09] MEDS: INSULIN LISPRO 100 UNITS/ML VIAL SC SCH ×4 (07:13→21:34)
[2019-01-09] MEDS: SERTRALINE HCL 50 MG TABLET PO SCH (08:00)
[2019-01-09] MEDS: ASPIRIN 81 MG TABLET.DR PO SCH (08:00)
[2019-01-09] MEDS: DOXAZOSIN MESYLATE 2 MG TABLET PO SCH (08:00)
[2019-01-09] MEDS: LOSARTAN POTASSIUM 50 MG TABLET PO SCH (08:00)
[2019-01-09] MEDS: SENNOSIDES/DOCUSATE SODIUM 1 TAB TABLET PO SCH ×2 (08:00→22:28)
[2019-01-09] MEDS: FAMOTIDINE 20 MG TABLET PO SCH ×2 (08:00→22:28)
[2019-01-09] MEDS: GABAPENTIN 300 MG CAPSULE PO SCH ×3 (08:00→17:25)
[2019-01-09] MEDS: METOPROLOL SUCCINATE 25 MG TABLET.SA PO SCH (08:00)
[2019-01-09] MEDS: BETA-CAROTENE(A) W-C , E/MIN 1 TAB TABLET PO SCH (08:01)
[2019-01-09] MEDS: POLYETHYLENE GLYCOL 3350 119 GM BTL PO SCH ×2 (08:01→22:27)
[2019-01-09] MEDS: LINACLOTIDE 72 MCG PO SCH (08:02)
[2019-01-09] MEDS: INSULIN DETEMIR 100 UNITS/ML VIAL SC SCH ×2 (08:07→22:27)
[2019-01-09] MEDS: NYSTATIN 15 APPL BTL TP SCH ×2 (08:09→22:28)
[2019-01-09] MEDS ORDERED: FUROSEMIDE 10 MG/ML VIAL IV ONE (08:17)
[2019-01-09] MEDS ORDERED: POTASSIUM CHLORIDE 20 MEQ TABLET.SA PO ONE (08:17)
--- NOTE | 2019-01-09 08:56 | PN ---
Subjective - Date and Time Seen Date: 01/09/19 Time: 08:32 Subjective Narrative: Patient was agitated/ combative/ and yelling at staff and pulled his IV lines last night. tamica little. Objective - Review of Systems Generalized/Overall Review: Denies: Chills, Fever EENTM: Denies: Blurred Vision Respiratory: Reports: Cough. Denies: Shortness of Breath, Orthopnea Cardiac: Reports: Edema. Denies: Chest Pain, Palpitations Abdominal: Denies: Nausea, Vomiting Genitourinary Symptoms: Denies: Urgency, Frequency Musculoskeletal Complaints: Reports: Joint Pain Neurological: Denies: Headache Skin: Reports: Lesions, Bruising Endocrine: Reports: No Symptoms Reported - Vitals Vitals: Last Vital Signs Temp 36.2 C 01/09/19 07:07 Pulse 68 01/09/19 08:00 Resp 17 01/09/19 07:07 BP 169/69 H 01/09/19 08:00 Pulse Ox 92 L 01/09/19 07:07 - Abnormal Lab Findings Abnormal Lab Findings: Abnormal Lab Results 01/09/19 01/09/19 01/09/19 Range/Units 06:00 06:00 06:00 RBC 4.09 L (4.7-6.0) M/mm3 Hgb 12.4 L (13.5-18.0) gm/dL Hct 38.2 L (42.0-52.0) % RDW 14.5 H (11.5-14.0) % Eosinophils % 3.6 H (0.0-3.0) % Neutrophils # 7.0 H (1.3-6.0) K/mm3 Sodium 144 H (132-142) mmol/L Plasma Sodium 144 H (130-142) mmol/L Hemoglobin A1c 7.0 H (4.00-6.0) % Creatine Kinase 625 H (0-259) U/L B-Natriuretic Peptide 908 H (5-650) pg/mL - Exam Constitutional: Present: Alert - AAO x 2, Cooperative, Obese ENT Exam: Present: hearing grossly normal Neck: Present: supple Respiratory: Present: decreased breath sounds, No rales, No wheezing Cardiovascular/Chest: Present: regular rate, rhythm, no JVD, no murmur Abdomen: Present: Normal bowel sounds, soft, nontender, obese Extremity: Present: no calf tenderness, lower extremity edema Skin Exam: Present: skin rash, other - feet-positive ulcers, right toes are more pink this morning, positive brusies abdomen/tigh Assessment/Plan - Problems/Diagnosis (1) Lactic acidosis Problem: Resolved (2) Ketosis Problem: Resolved (3) Recurrent falls Problem: Chronic (4) Hypothermia Problem: Resolved Qualifiers: Encounter type: initial encounter Qualified Code(s): T68.XXXA - Hypothermia, initial encounter (5) Rhabdomyolysis Problem: Acute Qualifiers: Rhabdomyolysis type: traumatic Encounter type: initial encounter Qualified Code(s): T79.6XXA - Traumatic ischemia of muscle, initial encounter Narrative: Ck down to 625. 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 BNP down to 908 from 2551. on Losartan/metorpolol Xl. will give lasix IV today and restart his Bumentamide in the morning. (8) GERD (gastroesophageal reflux disease) Problem: Chronic Qualifiers: Esophagitis presence: esophagitis presence not specified Qualified Code(s): K21.9 - Gastro-esophageal reflux disease without esophagitis (9) Avulsion of skin of foot Problem: Acute (10) Urinary tract infection Problem: Acute Qualifiers: Hematuria presence: without hematuria Narrative: alpha hemolytic species on preliminary report- WBC down to normal today. Continu with IV rocephin. (11) Ischemic ulcer of toe of right foot Problem: Suspected Narrative: Arterial Doppler US of RLE - likely PAD. pinkier than on admission. will get Podiatry consult. Crestor put on hold due to increased CK. will restart when CK is back to normal baseline. (12) Behavioral disorder Problem: Acute Narrative: r/o Delirium vs baseline behavioral changes due to beginning dementia- will refer to Psych for evaluation and treatment. anger management ? will do MMSE to rule out Dementia as he had been having these before like when he visited his in the NH.
[2019-01-09] MEDS: NORMAL SALINE 1,000 ML IV PRN (09:32)
--- NOTE | 2019-01-09 13:13 | CONS ---
[facility] - General Date of Service: 01/09/19 Narrative: Patient seen resting in bedside chair. He was admitted over the weekend after suffering a fall at home. On presentation to the ED, he was found to have some open sores to his feet. He cannot recall if they were from his recent fall or if they had been there for a while. He denies any pain in his feet secondary to neuropathy. He is a poor historian and most of his history is obtained via prior documentation from other providers. Asks if we have spoken with his and if that is why we are there. Discussed with him that he has some foot wounds and I was asked to evaluate and treat. Source: patient - minimal history obtained from pt., RN/MD - History of Present Illness Timing/Duration: unsure Allergies/Adverse Reactions: Allergies No Known Allergies Allergy (Verified 01/07/19 15:51) Home Medications: Home Medications Medication Instructions Recorded Last Taken Levothyroxine Sodium [Synthroid] 50 mcg PO DAILY 07/17/17 08/26/18 Multivit-Min/FA/Lycopen/Lutein 1 tab PO DAILY 03/18/18 Unknown [Centrum Silver Men Tablet] Wheat Dextrin/L.acid/Aspartame 360 gm PO DAILY 03/18/18 08/26/18 [Fiber with Probiotic Powder] aspirin 81 mg tablet,delayed 81 mg PO DAILY 05/21/18 08/26/18 release polyethylene glycol 3350 17 17 g PO BID g 05/21/18 08/26/18 gram/dose oral powder Melatonin 5 mg PO HS 05/30/18 Unknown [place]-3 Fatty Acids/Fish Oil [Fish 1 ea PO DAILY 05/30/18 Unknown Oil 1,000 mg Capsule] Acetaminophen [Tylenol] 650 mg PO QID PRN tab 06/03/18 Unknown Bisacodyl [Dulcolax Suppository] 10 mg RC DAILY PRN supp.rect 06/03/18 Unknown Calcium Carbonate [Tums] 500 mg PO QID PRN tab.chew 06/03/18 Unknown bumetanide 1 mg tablet 1 mg PO DAILY #30 tab 07/14/18 08/26/18 Gabapentin [Neurontin] 600 mg PO DAILY 08/27/18 08/26/18 insulin detemir (U- 100) 100 25 unit SUBCUT Q12H #0.1 vial 10/23/18 Unknown unit/mL subcutaneous solution insulin syringe U-100 with needle See Dose Instructions .ROUTE 09/08/18 Unknown 1 mL 31 gauge x /16" .MEDSUPPLY #100 ea linaclotide 72 mcg capsule 72 mcg PO DAILY #30 cap 09/08/18 Unknown sertraline 50 mg tablet 50 mg PO DAILY #30 tab 09/20/18 Unknown sennosides 8.6 mg-docusate sodium 2 tab PO BID #0 tab 09/26/18 Unknown 50 mg tablet blood sugar diagnostic strips See Dose Instructions .ROUTE 10/28/18 Unknown .MEDSUPPLY #360 ea hydrocodone 5 mg-acetaminophen 325 1 tab PO Q4H PRN #75 tab 10/28/18 Unknown mg tablet Ranitidine HCl [Zantac] 1 tab PO BID 12/21/18 Unknown Atorvastatin Calcium 40 mg PO HS 01/07/19 Unknown Insulin Aspart [Novolog] 30 unit SQ TID 01/07/19 Unknown Procedures Application of splint (07/03/14) Drainage of Bladder with Drainage Device, Via Natural or Artificial Opening (07/17/17) Introduction of Anesthetic Agent into Joints, Percutaneous Approach (08/30/17) Introduction of Anti-inflammatory into Joints, Percutaneous Approach (08/30/17) Measurement of Arterial Saturation, Peripheral, Percutaneous Approach (08/27/18) Medications - Medications Current Medications: Current Medications Hydrocodone Bitart/Acetaminophen ([place] 5-325) 1 each PO Q4H PRN PRN Reason: pain Stop: 02/06/19 16:26 Last Admin: 01/09/19 06:28 Dose: 1 each Documented by: Aspirin (Aspirin Enteric Coated) 81 mg PO DAILY [facility] Stop: 02/07/19 09:01 Last Admin: 01/09/19 08:00 Dose: 81 mg Documented by: Doxazosin Mesylate (Cardura) 8 mg PO DAILY [facility] Stop: 02/07/19 09:01 Last Admin: 01/09/19 08:00 Dose: 8 mg Documented by: Enoxaparin Sodium (Lovenox) 40 mg SC Q24H [facility] Stop: 02/06/19 16:46 Last Admin: 01/08/19 16:54 Dose: 40 mg Documented by: Famotidine (Pepcid) 20 mg PO BID [facility] Stop: 02/06/19 21:01 Last Admin: 01/09/19 08:00 Dose: 20 mg Documented by: Gabapentin (Neurontin) 300 mg PO TID [facility] Stop: 02/06/19 17:01 Last Admin: 01/09/19 12:09 Dose: 300 mg Documented by: Sodium Chloride (Sodium Chloride 0.9%) 1,000 mls @ 75 mls/hr IV .[id number] PRN PRN Reason: HYDRATION Stop: 02/06/19 13:53 Last Admin: 01/09/19 09:32 Dose: 75 mls/hr Documented by: Ceftriaxone Sodium 2,000 mg/ (Dextrose/Water) 100 mls @ 200 mls/hr IV Q24H [facility]; Protocol Stop: 02/07/19 14:01 Last Infusion: 01/08/19 14:57 Dose: Infused Documented by: Insulin Detemir (Levemir) 25 units SC Q12H [facility] Stop: 02/06/19 16:31 Last Admin: 01/09/19 08:07 Dose: 25 units Documented by: Insulin Human Lispro (Humalog) 0 - 21 units SC ACHSINS [facility]; Protocol Stop: 02/06/19 17:01 Last Admin: 01/09/19 12:05 Dose: 4 units Documented by: Levothyroxine Sodium (Synthroid) 50 mcg PO 0630 [facility] Stop: 02/07/19 06:31 Last Admin: 01/09/19 06:24 Dose: 50 mcg Documented by: Losartan Potassium (Cozaar) 100 mg PO DAILY [facility] Stop: 02/07/19 09:01 Last Admin: 01/09/19 08:00 Dose: 100 mg Documented by: Metoprolol Succinate (Toprol Xl) 25 mg PO DAILY [facility] Stop: 02/07/19 09:46 Last Admin: 01/09/19 08:00 Dose: 25 mg Documented by: Non-Formulary Medication (Linaclotide [Linzess]) 72 mcg PO DAILY [facility] Stop: 02/07/19 09:01 Last Admin: 01/09/19 08:02 Dose: Not Given Documented by: Nystatin (Mycostatin Powder) 1 appl TP BID [facility] Stop: 02/06/19 21:01 Last Admin: 01/09/19 08:09 Dose: 1 appl Documented by: Polyethylene Glycol (Miralax) 34 gm PO BID [facility] Stop: 02/07/19 21:01 Last Admin: 01/09/19 08:01 Dose: 34 gm Documented by: Senna/Docusate Sodium (Senokot-S) 2 tab PO BID [facility] Stop: 02/06/19 21:01 Last Admin: 01/09/19 08:00 Dose: 2 tab Documented by: Sertraline HCl (Zoloft) 50 mg PO DAILY [facility] Stop: 02/07/19 09:01 Last Admin: 01/09/19 08:00 Dose: 50 mg Documented by: Vit A/Vit C/Vit E/Selen/Cu/Zn/Lutei (Ocuvite) 1 tab PO DAILY [facility] Stop: 02/07/19 09:01 Last Admin: 01/09/19 08:01 Dose: 1 tab Documented by: Review of Systems - Review of Systems Generalized/Overall Review: Absent: Chills, Fever Respiratory: Absent: Shortness of Breath Cardiac: Present: Edema Abdominal: Absent: Nausea, Vomiting Neurological: Present: Numbness Skin: Present: Other - ulcerations to feet Physical Examination - Exam Vital Signs: Vital Signs - Last Taken Temp 36.4 C 01/09/19 09:57 Pulse 78 01/09/19 09:57 Resp 17 01/09/19 09:57 BP 136/64 01/09/19 09:57 Pulse Ox 92 L 01/09/19 09:57 O2 Oxygen Delivery Method Room Air Constitutional: Present: Alert, Cooperative, No distress, Obese Peripheral Pulses: dorsalis-pedis (R): 0 - unable to palpate PT pulse, dorsalis- pedis (L): 0 - unable to palpate PT pulse Extremity: Present: lower extremity edema, pedal edema. Absent: normal capillary refill Skin Exam: Present: other - Left foot with several hematogenous blisters that remain intact or have dried leaving a scab over the skin. There are no current breaks in the skin of this foot, no drainage, no SOI. Right great and 2nd toes with some denuding of the dorsal skin, difficult to obtain accurate measurements of the areas due to localized maceration from drainage. Do not appear to expose any subcutaneous fat at this time. Drainage is moderate and is serosanguinous, no malodor present. There is a significant amount of maceration to the 1st and 2nd webspaces, upon cleaning reveals intact skin. Great and 2nd toenails are missing, and 3rd toenail is easily avulsed while cleansing foot. There is a superficial abrasion to the dorsum of the 3rd toe that is exposed following cleaning. Toes 4 and 5 with stable scabs present, no drainage. Skin surrounding these areas is pink. Neurologic: Present: sensory deficit Eye contact: Present: cooperative - Results and Findings: Lab/Microbiology results last 24 hrs: Abnormal/Pending Laboratory Last 24 HRS 01/09/19 01/09/19 01/09/19 06:00 06:00 06:00 RBC 4.09 L Hgb 12.4 L Hct 38.2 L RDW 14.5 H Eosinophils % 3.6 H Neutrophils # 7.0 H Sodium 144 H Plasma Sodium 144 H Hemoglobin A1c 7.0 H Creatine Kinase 625 H B-Natriuretic Peptide 908 H Culture 01/07/19 12:28 Urine Culture - Preliminary Urine,Catheterized Alpha Hemolytic Strep 01/07/19 14:00 Blood Culture - Preliminary Blood NO GROWTH 24 HOURS 01/07/19 12:29 Blood Culture - Preliminary Blood NO GROWTH 24 HOURS 01/07/19 16:49 - Final Nares MRSA Negative - Assessments/Findings (1) Avulsion of skin of foot Diagnosis(s): Discussed with patient current condition and treatment options. Right foot cleansed with sterile saline and gauze. Wounds appear much less extensive following removal of old dried drainage and macerated tissue. Xrays reviewed, no current concerns for deep infection, which is good as he is not a great surgical candidate so will treat locally. Will begin daily dressing changes with silvadene cream, dry gauze, and tape. Left foot appears stable. There are 2 blisters to the medial foot that we will protect with dry gauze and tape dressing, changed daily. Will allow these areas to dry and scab as other blisters have already done. Problem: Acute Qualifiers: Encounter type: initial encounter Laterality: right Qualified Code(s): S91.301A - Unspecified open wound, right foot, initial encounter (2) Open wound of toe(s), without mention of complication Diagnosis(s): Dressings as above. Will continue to follow in his care. Problem: Acute Qualifiers: Encounter type: initial encounter Qualified Code(s): S91.109A - Unspecified open wound of unspecified toe(s) without damage to nail, initial encounter
--- NOTE | 2019-01-09 15:54 | CONS ---
[facility] - General Date of Service: 01/09/19 Source: patient, family, RN/MD, RN notes reviewed Exam Limitations: clinical condition - History of Present Illness Initial Comments: Patient is a 83 year old male with no reported past psychiatric history being evaluated for agitation, confusion,verbal aggression, and combative behaviors. Psychiatry consult was requested by patient's primary care provider, Dr. Tavera. Patient has past medical history of hypertension, diabetes mellitus type 2, diabetes neuropathy, and hypothyroidism. Patient was brought to the emergency department and subsequently admitted for inpatient care on 01/07/19 after being found on the floor with the outside door ajar. Upon arrival to ED, patient was hypothermic and was found to have developed ketosis, rhabdoymyolysis, and a UTI. Per past notes, patient was living at home with his and his patient's was his primary system analyst. Patient has been living alone for the past few weeks because patient's is currently in the [facility] after suffering a fall and injury. Patient was to be admitted to the same [facility] but that [facility] declined to admit patient because he became verbally aggressive with staff while he was visiting his . Patient has reportedly been staying at home by himself with his daughters coming throughout the day to help with care. Per nursing staff, patient is confused, requires frequent reorientation, is frequently agitated, and does become physically aggressive toward staff. Per staff, patient's agitation and aggression are worse in the evenings and throughout the night. Staff reports that last night patient became acutely agitated, was hitting staff, and was refusing care. Per staff, patient was unable to be redirected at that time so 10mg IM Geodon was ordered by Dr. Tavera and administered. Staff reports IM Geodon was effective in reducing patient's agitation and aggression and patient became compliant with care. Staff reports patient has been compliant with taking medications but often refuses care, including incontinence care. Staff reports patient frequently pulls out IVs and removes telemetry stickers. Upon initial meeting, patient told this provider to, "go to hell." He reports he told Dr. Tavera the same thing earlier this morning. Patient then does agree to answer questions. He denies a history of anxiety, depression, or other psychiatric illness. Patient denies history of symptoms consistent with socrates/hypomania (sustained grandiosity, impulsivity, excessive energy, flights of ideas, rapid speech, and/or hypersexual behavior). He denies a past history of dementia and denies history of memory problems or confusion. Patient reports he gets angry approximately one time per week but denies having difficulty controlling his anger. He reports he does yell at people when he gets angry but denies a history of physical aggression. Patient states he does not recall becoming agitated or physically aggressive with nursing staff. He states, "they are lying." Patient reports that he is at home. Patient reports he is not in the hospital and doesn't know why he was hospitalized; he does not recall falling at home. Patient denies experiencing hallucinations. Patient reports he is sleeping well at night. He reports his appetite is good. He denies alcohol use or illicit drug use. He denies a history of alcohol abuse or illicit drug use. Patient denies suicidal ideation or homicidal ideation. Patient is not currently acutely homicidal or suicidal. While attempting to complete SLUMS exam, patient states, "I'm done answering questions" and refuses to answer any other questions. He states, "I hope you can find your way out." Spoke with patient's daughter, Regine, who is also his medical power of slack cooper. Per Regine, patient first appeared confused on January 06. She reports he has not appeared to be confused prior to January 06. She reports he has never been diagnosed with dementia and has never displayed signs of memory problems. She states patient does not have a history of mental illness and has never been hospitalized for psychiatric instability in the past. Regine reports her mother was admitted to a [facility] approximately 3 weeks ago. Per Regine, prior to patient's 's fall, patient's was the primary system analyst of the patient. Regine reports that patient insisted on staying at home alone after his was taken to the [facility]. Regine reports that she and her sisters have been coming to his house daily to help care for him but he does not let anybody stay with him. She states he tells them to go home after helping him with daily a ctivities. Regine reports patient does not want to go to a [facility] and has expressed that multiple times in the past. She reports she does not understand why he feels that way and does not think nursing homes are a bad thing. Regine states that patient is the type of person that refuses to ask for help. Regine confirms that [facility] refused to accept patient as a resident there because he became verbally aggressive with staff when he was visiting his . Regine reports patient has never been physically aggressive in the past and the combative behaviors patient is exhibiting in the hospital are out of character for him. She states patient has always become easily upset and yells easily when things do not go his way. Social History: Patient reports he has been for 58 years. He reports he has been only one time. He reports he has three daughters. He states he was raised by his mother and father and has "lots of siblings." He states he "thinks there were 7 of us." Patient is unable to recall additional details. Timing/Duration: other - 01/07/19 Allergies/Adverse Reactions: Allergies No Known Allergies Allergy (Verified 01/07/19 15:51) Home Medications: Home Medications Medication Instructions Recorded Last Taken Levothyroxine Sodium [Synthroid] 50 mcg PO DAILY 07/17/17 08/26/18 Multivit-Min/FA/Lycopen/Lutein 1 tab PO DAILY 03/18/18 Unknown [Centrum Silver Men Tablet] Wheat Dextrin/L.acid/Aspartame 360 gm PO DAILY 03/18/18 08/26/18 [Fiber with Probiotic Powder] aspirin 81 mg tablet,delayed 81 mg PO DAILY 05/21/18 08/26/18 release polyethylene glycol 3350 17 17 g PO BID g 05/21/18 08/26/18 gram/dose oral powder Melatonin 5 mg PO HS 05/30/18 Unknown [place]-3 Fatty Acids/Fish Oil [Fish 1 ea PO DAILY 05/30/18 Unknown Oil 1,000 mg Capsule] Acetaminophen [Tylenol] 650 mg PO QID PRN tab 06/03/18 Unknown Bisacodyl [Dulcolax Suppository] 10 mg RC DAILY PRN supp.rect 06/03/18 Unknown Calcium Carbonate [Tums] 500 mg PO QID PRN tab.chew 06/03/18 Unknown bumetanide 1 mg tablet 1 mg PO DAILY #30 tab 07/14/18 08/26/18 Gabapentin [Neurontin] 600 mg PO DAILY 08/27/18 08/26/18 insulin detemir (U- 100) 100 25 unit SUBCUT Q12H #0.1 vial 08/30/18 Unknown unit/mL subcutaneous solution insulin syringe U-100 with needle See Dose Instructions .ROUTE 09/08/18 Unknown 1 mL 31 gauge x 03/23" .MEDSUPPLY #100 ea linaclotide 72 mcg capsule 72 mcg PO DAILY #30 cap 09/08/18 Unknown sertraline 50 mg tablet 50 mg PO DAILY #30 tab 09/20/18 Unknown sennosides 8.6 mg-docusate sodium 2 tab PO BID #0 tab 09/26/18 Unknown 50 mg tablet blood sugar diagnostic strips See Dose Instructions .ROUTE 10/28/18 Unknown .MEDSUPPLY #360 ea hydrocodone 5 mg-acetaminophen 325 1 tab PO Q4H PRN #75 tab 10/28/18 Unknown mg tablet Ranitidine HCl [Zantac] 1 tab PO BID 12/21/18 Unknown Atorvastatin Calcium 40 mg PO HS 01/07/19 Unknown Insulin Aspart [Novolog] 30 unit SQ TID 01/07/19 Unknown Procedures Application of splint (07/03/14) Drainage of Bladder with Drainage Device, Via Natural or Artificial Opening (07/17/17) Introduction of Anesthetic Agent into Joints, Percutaneous Approach (08/30/17) Introduction of Anti-inflammatory into Joints, Percutaneous Approach (08/30/17) Measurement of Arterial Saturation, Peripheral, Percutaneous Approach (08/27/18) Medications - Medications Current Medications: Current Medications Hydrocodone Bitart/Acetaminophen (Girard 5-325) 1 each PO Q4H PRN PRN Reason: pain Stop: 02/06/19 16:26 Last Admin: 01/09/19 06:28 Dose: 1 each Documented by: Aspirin (Aspirin Enteric Coated) 81 mg PO DAILY [facility] Stop: 02/07/19 09:01 Last Admin: 01/09/19 08:00 Dose: 81 mg Documented by: Doxazosin Mesylate (Cardura) 8 mg PO DAILY [facility] Stop: 02/07/19 09:01 Last Admin: 01/09/19 08:00 Dose: 8 mg Documented by: Enoxaparin Sodium (Lovenox) 40 mg SC Q24H [facility] Stop: 02/06/19 16:46 Last Admin: 01/08/19 16:54 Dose: 40 mg Documented by: Famotidine (Pepcid) 20 mg PO BID [facility] Stop: 02/06/19 21:01 Last Admin: 01/09/19 08:00 Dose: 20 mg Documented by: Gabapentin (Neurontin) 300 mg PO TID [facility] Stop: 02/06/19 17:01 Last Admin: 01/09/19 12:09 Dose: 300 mg Documented by: Sodium Chloride (Sodium Chloride 0.9%) 1,000 mls @ 50 mls/hr IV .Q20H PRN PRN Reason: HYDRATION Stop: 02/06/19 13:53 Last Infusion: 01/09/19 15:14 Dose: 50 mls/hr Documented by: Ceftriaxone Sodium 2,000 mg/ (Dextrose/Water) 100 mls @ 200 mls/hr IV Q24H [facility]; Protocol Stop: 02/07/19 14:01 Last Infusion: 01/09/19 15:08 Dose: Infused Documented by: Insulin Detemir (Levemir) 25 units SC Q12H [facility] Stop: 02/06/19 16:31 Last Admin: 01/09/19 08:07 Dose: 25 units Documented by: Insulin Human Lispro (Humalog) 0 - 21 units SC ACHSINS [facility]; Protocol Stop: 02/06/19 17:01 Last Admin: 01/09/19 12:05 Dose: 4 units Documented by: Levothyroxine Sodium (Synthroid) 50 mcg PO 0630 [facility] Stop: 02/07/19 06:31 Last Admin: 01/09/19 06:24 Dose: 50 mcg Documented by: Losartan Potassium (Cozaar) 100 mg PO DAILY [facility] Stop: 02/07/19 09:01 Last Admin: 01/09/19 08:00 Dose: 100 mg Documented by: Metoprolol Succinate (Toprol Xl) 25 mg PO DAILY [facility] Stop: 02/07/19 09:46 Last Admin: 01/09/19 08:00 Dose: 25 mg Documented by: Non-Formulary Medication (Linaclotide [Linzess]) 72 mcg PO DAILY [facility] Stop: 02/07/19 09:01 Last Admin: 01/09/19 08:02 Dose: Not Given Documented by: Nystatin (Mycostatin Powder) 1 appl TP BID [facility] Stop: 02/06/19 21:01 Last Admin: 01/09/19 08:09 Dose: 1 appl Documented by: Polyethylene Glycol (Miralax) 34 gm PO BID [facility] Stop: 02/07/19 21:01 Last Admin: 01/09/19 08:01 Dose: 34 gm Documented by: Senna/Docusate Sodium (Senokot-S) 2 tab PO BID [facility] Stop: 02/06/19 21:01 Last Admin: 01/09/19 08:00 Dose: 2 tab Documented by: Sertraline HCl (Zoloft) 50 mg PO DAILY [facility] Stop: 02/07/19 09:01 Last Admin: 01/09/19 08:00 Dose: 50 mg Documented by: Vit A/Vit C/Vit E/Selen/Cu/Zn/Lutei (Ocuvite) 1 tab PO DAILY [facility] Stop: 02/07/19 09:01 Last Admin: 01/09/19 08:01 Dose: 1 tab Documented by: Review of Systems - Review of Systems Generalized/Overall Review: Absent: Chills, Fever Neurological: Present: Other - Agitation, combative behaviors per staff Physical Examination - Exam Narrative: Time spent with patient and talking with patient's daughter=approximately 15 minutes. Vital Signs: Vital Signs - Last Taken Temp 36.4 C 01/09/19 09:57 Pulse 75 01/09/19 14:00 Resp 17 01/09/19 09:57 BP 136/64 01/09/19 09:57 Pulse Ox 92 L 01/09/19 09:57 O2 Oxygen Delivery Method Room Air Constitutional: Present: Alert, Other - A&O x2, to person and year. Patient reports location as "my home." Patient believes today is Wednesday and becomes argumentative when reoriented to today's date., Elderly. Absent: Oriented x3, Cooperative Neurologic: Present: alert, other - Resting comfortably in chair. Absent: oriented x 3 Appearance: Present: impaired insight, impaired recent memory, other - Sitting in chair with hospital gown on. Absent: appropriate insight Eye contact: Present: avoids eye contact, refused to answer - Refused to answer questions at times.. Absent: cooperative Thoughts: Present: no apparent hallucination - Results and Findings: Narrative: Risks, benefits, and side effects of medications, as well as options for no treatments and other therapies, were discussed with patient's medical power of slack cooper, and patient's medical power of slack cooper indicates understanding and agreement. Patient also acknowledges other sources of information available. Discussed diagnosis and medications with patient's medical power of slack cooper, Regine. Regine agrees to starting short course of Seroquel 12.5mg PO QHS due to patient's agitation and physical aggression. Discussed black box warning associated with the use of Seroquel in the elderly; Regine verbalizes understanding and agreement to starting Seroquel 12.5mg PO QHS. Thank you for this consult. Please feel free to re-consult in the future if indicated. Start Seroquel 12.5mg PO QHS for short-term treatment of delirium. Encourage reorientation, having blinds on window open/room lights on during the day and lights off at nighttime. Lab/Microbiology results last 24 hrs: Abnormal/Pending Laboratory Last 24 HRS 01/09/19 01/09/19 01/09/19 06:00 06:00 06:00 RBC 4.09 L Hgb 12.4 L Hct 38.2 L RDW 14.5 H Eosinophils % 3.6 H Neutrophils # 7.0 H Sodium 144 H Plasma Sodium 144 H Hemoglobin A1c 7.0 H Creatine Kinase 625 H B-Natriuretic Peptide 908 H Culture 01/07/19 14:00 Blood Culture - Preliminary Blood NO GROWTH AFTER 48 HOURS 01/07/19 12:29 Blood Culture - Preliminary Blood NO GROWTH AFTER 48 HOURS 01/07/19 12:28 Urine Culture - Preliminary Urine,Catheterized Alpha Hemolytic Strep 01/07/19 16:49 - Final Nares MRSA Negative - Assessments/Findings (1) Delirium Problem: Acute
[2019-01-09] MEDS: ENOXAPARIN SODIUM 40 MG/0.4 ML SYRG SC SCH (17:24)
[2019-01-09] MEDS ORDERED: QUEtiapine FUMARATE 25 MG TABLET PO SCH (21:00)
[2019-01-09] MEDS: QUEtiapine FUMARATE 25 MG TABLET PO SCH (22:28)
[2019-01-10] MEDS: NORMAL SALINE 1,000 ML IV PRN (06:29)
[2019-01-10] MEDS: LEVOTHYROXINE SODIUM 50 MCG TABLET PO SCH (06:30)
[2019-01-10] MEDS: INSULIN LISPRO 100 UNITS/ML VIAL SC SCH ×4 (06:50→20:12)
[2019-01-10] MEDS: DOXAZOSIN MESYLATE 2 MG TABLET PO SCH (08:07)
[2019-01-10] MEDS: ASPIRIN 81 MG TABLET.DR PO SCH (08:07)
[2019-01-10] MEDS: POLYETHYLENE GLYCOL 3350 119 GM BTL PO SCH ×2 (08:08→20:13)
[2019-01-10] MEDS: BETA-CAROTENE(A) W-C , E/MIN 1 TAB TABLET PO SCH (08:08)
[2019-01-10] MEDS: LINACLOTIDE 72 MCG PO SCH (08:08)
[2019-01-10] MEDS: LOSARTAN POTASSIUM 50 MG TABLET PO SCH (08:08)
[2019-01-10] MEDS: GABAPENTIN 300 MG CAPSULE PO SCH ×3 (08:08→16:58)
[2019-01-10] MEDS: SENNOSIDES/DOCUSATE SODIUM 1 TAB TABLET PO SCH ×2 (08:09→20:14)
[2019-01-10] MEDS: SILVER SULFADIAZINE 25 APPL JAR TP SCH (08:09)
[2019-01-10] MEDS: METOPROLOL SUCCINATE 25 MG TABLET.SA PO SCH (08:09)
[2019-01-10] MEDS: FAMOTIDINE 20 MG TABLET PO SCH ×2 (08:09→20:15)
[2019-01-10] MEDS: SERTRALINE HCL 50 MG TABLET PO SCH (08:10)
[2019-01-10] MEDS: NYSTATIN 15 APPL BTL TP SCH ×2 (08:10→20:14)
[2019-01-10] MEDS: INSULIN DETEMIR 100 UNITS/ML VIAL SC SCH ×2 (08:17→20:13)
--- NOTE | 2019-01-10 08:18 | PN ---
Subjective - Date and Time Seen Date: 01/10/19 Time: 08:09 Subjective Narrative: Patient seen by PT/Podiatry/Psych. Needing 2 people assist to ambulate. Will need NH. still confused. Psych started him on Seroquel. Podiatry saw him and started silvadene with daily wound care. Discharge planning. Objective - Review of Systems Misc: All systems neg except as marked - unobtainable due to mental status- c onfused - Vitals Vitals: Last Vital Signs Temp 36.3 C 01/10/19 02:15 Pulse 72 01/10/19 08:00 Resp 16 01/10/19 06:38 BP 159/76 H 01/10/19 06:38 Pulse Ox 95 01/10/19 06:38 - Exam Constitutional: Present: Alert - AAo x 1., Cooperative, Morbidly obese ENT Exam: Present: hearing grossly normal Neck: Present: supple Respiratory: Present: decreased breath sounds, No rales, No wheezing Cardiovascular/Chest: Present: regular rate, rhythm, no JVD, no murmur Abdomen: Present: Normal bowel sounds, soft, nontender, obese Extremity: Present: no calf tenderness, lower extremity edema - improved Skin Exam: Present: other - multiple skin ulcers/blisters, bruise -abdomen , thigh, skin ulcers/bood blisters toes and eett Assessment/Plan - Problems/Diagnosis (1) Recurrent falls Problem: Chronic Narrative: PT consulted (2) Rhabdomyolysis Problem: Acute Qualifiers: Rhabdomyolysis type: traumatic Encounter type: initial encounter Qualified Code(s): T79.6XXA - Traumatic ischemia of muscle, initial encounter Narrative: last level significantly improved. will recheck CK in the morning. (3) Chronic diastolic heart failure Problem: Chronic Narrative: Bumetemide restarted. Klor con started. (4) GERD (gastroesophageal reflux disease) Problem: Chronic Qualifiers: Esophagitis presence: esophagitis presence not specified Qualified Code(s): K21.9 - Gastro-esophageal reflux disease without esophagitis (5) Avulsion of skin of foot Problem: Acute Qualifiers: Encounter type: initial encounter Laterality: right Qualified Code(s): S91.301A - Unspecified open wound, right foot, initial encounter Narrative: with blood blisters- Podiatry started him on Silvadene cream and daily wound care (6) Urinary tract infection Problem: Acute Qualifiers: Hematuria presence: without hematuria Narrative: alpha hemolytic strep on C & S. continue IV rocephin. (7) Ischemic ulcer of toe of right foot Problem: Suspected Qualifiers: Non-pressure ulcer stage: limited to breakdown of skin Qualified Code(s): L97.511 - Non-pressure chronic ulcer of other part of right foot limited to breakdown of skin Narrative: Podiatyr started him on Silvasene and daily wound care.. serosanginous discharge. continue with IV rocephin. (8) Behavioral disorder Problem: Acute Narrative: Psych - started him on Serolquel HS- impression was delirium,
[2019-01-10] MEDS: POTASSIUM CHLORIDE 10 MEQ TABLET.SA PO SCH (08:59)
[2019-01-10] MEDS ORDERED: BUMETANIDE 1 MG TABLET PO SCH (09:00)
[2019-01-10] MEDS: ENOXAPARIN SODIUM 40 MG/0.4 ML SYRG SC SCH (16:58)
[2019-01-10] MEDS ORDERED: FUROSEMIDE 10 MG/ML VIAL IV ONE (19:26)
[2019-01-10] MEDS: QUEtiapine FUMARATE 25 MG TABLET PO SCH (20:15)
[2019-01-11 05:25] LABS: Anion Gap 9.9 mmol/L (6.8-13.8); BUN/Creatinine Ratio 17.3 (9.0-21.6); CRP 9.7 mg/dL (0.0-0.9); Calcium * 8.7 mg/dL (7.9-10.9); Estimated Creat Clear 49.2; Potassium 3.9 mmol/L (3.4-4.6)
[2019-01-11] MEDS: LEVOTHYROXINE SODIUM 50 MCG TABLET PO SCH (06:53)
[2019-01-11] MEDS: INSULIN LISPRO 100 UNITS/ML VIAL SC SCH ×4 (07:11→20:38)
--- NOTE | 2019-01-11 08:15 | PN ---
Subjective - Date and Time Seen Date: 01/11/19 Time: 08:11 Subjective Narrative: Patient still confused on and off. Labs have improved except GFR 58. awaiting NH placement. Objective - Review of Systems Misc: All systems neg except as marked - ubreliable due to mental status - Vitals Vitals: Last Vital Signs Temp 37.2 C 01/11/19 07:10 Pulse 98 01/11/19 07:10 Resp 18 01/11/19 07:10 BP 137/65 01/11/19 07:10 Pulse Ox 98 01/11/19 07:10 - Abnormal Lab Findings Abnormal Lab Findings: Abnormal Lab Results 01/11/19 01/11/19 Range/Units 05:14 05:14 ESR 53 H (0-10) mm/hr Plasma Sodium 143 H (130-142) mmol/L Est GFR (Non-Af Amer) 58 L D (60-130) mL/min Random Glucose 144 H D (70-110) mg/dL C-Reactive Prot, Quant 9.7 H (0.0-0.9) mg/dL - Exam Constitutional: Present: Alert - AAO x 1, Morbidly obese ENT Exam: Present: hearing grossly normal Neck: Present: supple Respiratory: Present: decreased breath sounds, No rales, No wheezing Cardiovascular/Chest: Present: regular rate, rhythm, no JVD, no murmur Abdomen: Present: Normal bowel sounds, soft, nontender, obese Extremity: Present: no calf tenderness, lower extremity edema Assessment/Plan - Problems/Diagnosis (1) Recurrent falls Problem: Chronic (2) Rhabdomyolysis Problem: Resolved Qualifiers: Rhabdomyolysis type: traumatic Encounter type: initial encounter Qualified Code(s): T79.6XXA - Traumatic ischemia of muscle, initial encounter (3) Chronic diastolic heart failure Problem: Chronic Narrative: on ARB, BBlocker and diuretic (4) GERD (gastroesophageal reflux disease) Problem: Chronic Qualifiers: Esophagitis presence: esophagitis presence not specified Qualified Code(s): K21.9 - Gastro-esophageal reflux disease without esophagitis Narrative: on famotidine. (5) Avulsion of skin of foot Problem: Acute Qualifiers: Encounter type: initial encounter Laterality: right Qualified Code(s): S91.301A - Unspecified open wound, right foot, initial encounter Narrative: healing (6) Urinary tract infection Problem: Acute Qualifiers: Hematuria presence: without hematuria Narrative: Enterococcus cloacae- will change to PO Levaquin. (7) Ischemic ulcer of toe of right foot Problem: Suspected Qualifiers: Non-pressure ulcer stage: limited to breakdown of skin Qualified Code(s): L97.511 - Non-pressure chronic ulcer of other part of right foot limited to breakdown of skin Narrative: continue with daily wound care (8) Behavioral disorder Problem: Acute Narrative: Delirium . still with on and off confusion but could this be his baseline. patient unrealistic with his medical decisions. refuses to go to NH. will do MMSE. (9) CRF (chronic renal failure) Problem: Chronic Qualifiers: Chronic kidney disease stage: stage 3 (moderate) Qualified Code(s): N18.3 - Chronic kidney disease, stage 3 (moderate)
[2019-01-11] MEDS: ASPIRIN 81 MG TABLET.DR PO SCH (09:08)
[2019-01-11] MEDS: BUMETANIDE 1 MG TABLET PO SCH (09:10)
[2019-01-11] MEDS: DOXAZOSIN MESYLATE 2 MG TABLET PO SCH (09:13)
[2019-01-11] MEDS: LOSARTAN POTASSIUM 50 MG TABLET PO SCH (09:15)
[2019-01-11] MEDS: POTASSIUM CHLORIDE 10 MEQ TABLET.SA PO SCH (09:15)
[2019-01-11] MEDS: LINACLOTIDE 72 MCG PO SCH (09:17)
[2019-01-11] MEDS: GABAPENTIN 300 MG CAPSULE PO SCH ×3 (09:18→17:14)
[2019-01-11] MEDS: NYSTATIN 15 APPL BTL TP SCH ×2 (09:18→20:55)
[2019-01-11] MEDS: BETA-CAROTENE(A) W-C , E/MIN 1 TAB TABLET PO SCH (09:19)
[2019-01-11] MEDS: FAMOTIDINE 20 MG TABLET PO SCH ×2 (09:20→20:56)
[2019-01-11] MEDS: SENNOSIDES/DOCUSATE SODIUM 1 TAB TABLET PO SCH ×2 (09:21→20:55)
[2019-01-11] MEDS: METOPROLOL SUCCINATE 25 MG TABLET.SA PO SCH (09:23)
[2019-01-11] MEDS: SILVER SULFADIAZINE 25 APPL JAR TP SCH (09:23)
[2019-01-11] MEDS: SERTRALINE HCL 50 MG TABLET PO SCH (09:24)
[2019-01-11] MEDS: INSULIN DETEMIR 100 UNITS/ML VIAL SC SCH ×2 (09:37→20:40)
[2019-01-11] MEDS: POLYETHYLENE GLYCOL 3350 119 GM BTL PO SCH ×2 (09:38→20:54)
[2019-01-11] MEDS: LEVOFLOXACIN 500 MG TABLET PO SCH (10:41)
[2019-01-11] MEDS: ENOXAPARIN SODIUM 40 MG/0.4 ML SYRG SC SCH (17:12)
[2019-01-11] MEDS: QUEtiapine FUMARATE 25 MG TABLET PO SCH (20:56)
[2019-01-12] MEDS: LEVOTHYROXINE SODIUM 50 MCG TABLET PO SCH (06:34)
[2019-01-12] MEDS: INSULIN LISPRO 100 UNITS/ML VIAL SC SCH ×2 (07:04→12:02)
--- NOTE | 2019-01-12 07:53 | DS ---
(1) Recurrent falls Problem: Chronic (2) Rhabdomyolysis Problem: Resolved Qualifiers: Rhabdomyolysis type: traumatic Encounter type: initial encounter Qualified Code(s): T79.6XXA - Traumatic ischemia of muscle, initial encounter (3) Chronic diastolic heart failure Problem: Chronic (4) GERD (gastroesophageal reflux disease) Problem: Chronic Qualifiers: Esophagitis presence: esophagitis presence not specified Qualified Code(s): K21.9 - Gastro-esophageal reflux disease without esophagitis (5) Avulsion of skin of foot Problem: Acute Qualifiers: Encounter type: initial encounter Laterality: right Qualified Code(s): S91.301A - Unspecified open wound, right foot, initial encounter (6) Urinary tract infection Problem: Acute Qualifiers: Hematuria presence: without hematuria (7) Ischemic ulcer of toe of right foot Problem: Suspected Qualifiers: Non-pressure ulcer stage: limited to breakdown of skin Qualified Code(s): L97.511 - Non-pressure chronic ulcer of other part of right foot limited to breakdown of skin (8) Behavioral disorder Problem: Acute (9) CRF (chronic renal failure) Problem: Chronic Qualifiers: Chronic kidney disease stage: stage 3 (moderate) Qualified Code(s): N18.3 - Chronic kidney disease, stage 3 (moderate) (10) Hypothyroidism Problem: Chronic (11) PAD (peripheral artery disease) Diagnosis(s): RLE Problem: Chronic Description of Stay: Javid Joiner, is an 83-year-old white male, with past medical history of hypertension, diabetes mellitus type 2, diabetes neuropathy, hypothyroidism, CHF , chronic diastolic, patient of Dr. Fiordaliza Miranda, who was admitted on 01/07/2019 for multiple falls. The patient is confused and is a poor historian. My history of present illness was based on my conversation with the ED physician and the nurses in the floor. As per ED physician the patient had been having frequent falls at home. He lives at home with his and was dependent on her for help with his activities of daily living. He has frequently been falling because of weakness in his knees with severe arthritis and is mostly wheelchair bound. The recently had a fall and had a hip fracture. Postoperatively, after CRIF, she had to be transferred to the prison to get stronger. This patient was supposed to also join her in the NH there but he became verbally abusive to the staff while visiting her.The prison did not want to admit him. On the morning of admission, the tried to call the patient at home but no one was answering the phone. She called the EMS and the patient was found on the floor with the backdoor open. He was hypothermic. He was brought to our ED. His lactic acid, Ck and BNP were elevated. His blood sugar was 393 with positive ketones. White blood cell count was 17 and his urinalysis showed urinary tract infection. His head CT scan showed no acute intracranial findings except for atrophy. He had bruises and scratches on his chest,elbows and feet. The patient was given 10 units of regular insulin and was started on IV fluids, IV rocephin and admitted for further evaluation and treatment. His WBC count normalized with IV rocephin and changed to Levaquin as UCS grew Entrococcus fecalis. His CK resolved with IVF and holding his statin. His bumetemide was restarted. His kidney function improved with IVF from Stage III to II but is back again to III with restart of his diuretic. He was having more confusion and had combative behavior and Psych consult was done. Impression was delirium and they started him on seroquel. He has been more cooperative since then. His MMSE was 14 . Podiatry was consulted as his toes were dusky but later pinked up . Arterial doppler showed some plaques and possible stenosis. His lactic acid and serum ketones normalized. He is stable to be discharged today to the [facility]. Procedures Performed: none Results and Findings: Pending Mircobiology Results 01/07/19 14:00 Blood Blood Culture - Preliminary NO GROWTH AFTER 48 HOURS 01/07/19 12:29 Blood Blood Culture - Preliminary NO GROWTH AFTER 48 HOURS Lab Pending Results 01/07/19 12:29: WBC 17.2 H, RBC 4.80, Hgb 14.4, Hct 44.5, MCV 92.7, MCH 30.0, MCHC 32.4, RDW 14.2 H, Plt Count 225, MPV 9.8, Immature Gran % (Auto) 0.70 H, Immature Gran # (Auto) 0.12 H, Neutrophils % 88.6 H, Lymphocytes % 5.2 L, Monocytes % 5.4, Eosinophils % 0.0, Basophils % 0.1, Nucleated RBC % 0.0, Neutrophils # 15.2 H, Lymphocytes # 0.90 L, Monocytes # 0.9, Eosinophils # 0.0, Absolute Basophils 0.0 01/07/19 12:29: Sodium 139, Plasma Sodium 144 H, Potassium 4.4, Chloride 101, Carbon Dioxide 27.0, Anion Gap 15.4 H, BUN 23, Creatinine 1.40, Est GFR (Non-Af Amer) 52 L, BUN/Creatinine Ratio 16.4, Random Glucose 392 H, Calcium 9.2, Calcium Adj for Albumin 9.4, Total Bilirubin 0.8, AST 67 H, ALT 31, Alkaline Phosphatase 99, Creatine Kinase 1593 H, Troponin I 0.030, C-Reactive Prot, Quant 17.0 H, B-Natriuretic Peptide 2551 H, Total Protein 7.0, Albumin 3.3 L, Serum Ketones Positive - 20mg/dl H 01/07/19 12:29: Procalcitonin 0.09 01/07/19 12:29: Lactic Acid, Venous 2.5 H* 01/07/19 12:39: Urine Color Yellow, Urine Appearance Slightly cloudy, Urine pH 5.5, Ur Specific [place] 1.025, Urine Protein 15 H, Urine Glucose (UA) >=1000 H, Urine Ketones 15, Urine Blood 250 H, Urine Nitrate Negative, Urine Bilirubin Negative, Prot Sulfosalicylic Acd 1+, Urine Urobilinogen Normal, Ur Leukocyte Esterase 100 H, Urine RBC 0-5, Urine WBC 10-25 H, Ur Epithelial Cells 0-5, Amorphous Sediment Few - 1+, Urine Bacteria 1+ H, Urine Culture Comments Culture to follow 01/07/19 14:00: Lactic Acid, Venous 2.2 H* 01/07/19 17:43: pCO2 39.1, pO2 60.0 L, HCO3 23.1, Total CO2 24.3 H, Base Excess -1.6, ABG pH 7.39, ABG O2 Sat (Measured) 90.9 L 01/08/19 06:15: WBC 15.6 H, RBC 4.21 L, Hgb 12.8 L, Hct 38.7 L, MCV 91.9, MCH 30.4, MCHC 33.1, RDW 14.5 H, Plt Count 207, MPV 9.6, Immature Gran % (Auto) 0.40, Immature Gran # (Auto) 0.07 H, Neutrophils % 74.4, Lymphocytes % 14.8 L, Monocytes % 9.0, Eosinophils % 1.0, Basophils % 0.4, Nucleated RBC % 0.0, Neutrophils # 11.6 H, Lymphocytes # 2.32, Monocytes # 1.4 H, Eosinophils # 0.2, Absolute Basophils 0.1 01/08/19 06:15: Sodium 141, Plasma Sodium 141, Potassium 3.6, Chloride 104, Carbon Dioxide 30.5, Anion Gap 10.1, BUN 22, Creatinine 1.18, Est GFR (Non-Af Amer) 63 D, BUN/Creatinine Ratio 18.6, Random Glucose 116 H D, Calcium 9.0 01/08/19 07:52: Creatine Kinase 1312 H 01/08/19 08:06: Lactic Acid, Venous 1.1 01/09/19 06:00: WBC 10.5 D, RBC 4.09 L, Hgb 12.4 L, Hct 38.2 L, MCV 93.4, MCH 30.3, MCHC 32.5, RDW 14.5 H, Plt Count 191, MPV 10.4, Immature Gran % (Auto) 0.30, Immature Gran # (Auto) 0.03, Neutrophils % 65.9, Lymphocytes % 21.3, Monocytes % 8.3, Eosinophils % 3.6 H, Basophils % 0.6, Nucleated RBC % 0.0, Neutrophils # 7.0 H, Lymphocytes # 2.24, Monocytes # 0.9, Eosinophils # 0.4, Absolute Basophils 0.1 01/09/19 06:00: Sodium 144 H, Plasma Sodium 144 H, Potassium 3.6, Chloride 106, Carbon Dioxide 28.7, Anion Gap 12.9, BUN 19, Creatinine 1.03, Est GFR (Non-Af Amer) 73, BUN/Creatinine Ratio 18.4, Random Glucose 100, Calcium 8.7, Creatine Kinase 625 H, B-Natriuretic Peptide 908 H 01/09/19 06:00: Mean Blood Glucose 147, Hemoglobin A1c 7.0 H 01/11/19 05:14: ESR 53 H 01/11/19 05:14: Sodium 142, Plasma Sodium 143 H, Potassium 3.9, Chloride 106, Carbon Dioxide 30.0, Anion Gap 9.9, BUN 22, Creatinine 1.27, Est GFR (Non-Af Amer) 58 L D, BUN/Creatinine Ratio 17.3, Random Glucose 144 H D, Calcium 8.7, Creatine Kinase 101, C-Reactive Prot, Quant 9.7 H Discharge Location: Other - [facility] Disposition: SNF Condition: Stable Level of Care: SNF Discharge Activity: Activity as tolerated Discharge Diet: Consistent carbs, Low salt Retirement Therapy: Physicial Therapy, Occupation Therapy Referrals: Kia Cruz MD [Primary Care Provider] - Additional Patient Instructions (free text): Dr Sy to follow at [facility]. Prescriptions (Any new or edited meds): Bumetanide [Bumex] 2 mg PO DAILY #30 tab HYDROcodone/ACETAMINOPHEN [Hydrocodon-Acetaminophen 5-325] 1 ea PO Q4H PRN #20 tab PRN Reason: Moderate Pain (Pain Scale 4-6) Insulin Aspart [Novolog] 10 unit SQ TID #1 vial Levofloxacin [Levaquin] 500 mg PO DAILY@1100 5 Days #5 tab Losartan Potassium [Cozaar] 100 mg PO DAILY #30 tab Metoprolol Succinate [Toprol Xl] 25 mg PO DAILY #30 tablet.sa Nystatin [Mycostatin Powder] 1 appl TOPICAL BID #1 btl Potassium Chloride [Klor-Con 10] 10 meq PO DAILY #30 tablet.sa QUEtiapine FUMARATE [Seroquel] 12.5 mg PO HS #30 tab Silver Sulfadiazine [Silvadene] 1 appl TOPICAL DAILY #1 jar Complete Home Medications List: Complete Home Medication List: Levothyroxine Sodium [Synthroid] 50 mcg PO DAILY 07/17/17 Multivit-Min/FA/Lycopen/Lutein [Centrum Silver Men Tablet] 1 tab PO DAILY 03/18/18 Wheat Dextrin/L.acid/Aspartame [Fiber with Probiotic Powder] 360 gm PO DAILY 03/18/18 aspirin 81 mg tablet,delayed release 81 mg PO DAILY 05/21/18 polyethylene glycol 3350 17 gram/dose oral powder 17 g PO BID g 05/21/18 Melatonin 5 mg PO HS 05/30/18 [place]-3 Fatty Acids/Fish Oil [Fish Oil 1,000 mg Capsule] 1 ea PO DAILY 05/30/18 Acetaminophen [Tylenol] 650 mg PO QID PRN tab 06/03/18 Bisacodyl [Dulcolax Suppository] 10 mg RC DAILY PRN supp.rect 06/03/18 Calcium Carbonate [Tums] 500 mg PO QID PRN tab.chew 06/03/18 Gabapentin [Neurontin] 600 mg PO DAILY 08/27/18 insulin detemir (U- 100) 100 unit/mL subcutaneous solution 25 unit SUBCUT Q12H #0.1 vial 08/30/18 insulin syringe U-100 with needle 1 mL 31 gauge x 5/" See Dose Instructions .ROUTE .MEDSUPPLY #100 ea 09/08/18 linaclotide 72 mcg capsule 72 mcg PO DAILY #30 cap 09/08/18 sertraline 50 mg tablet 50 mg PO DAILY #30 tab 09/20/18 sennosides 8.6 mg-docusate sodium 50 mg tablet 2 tab PO BID #0 tab 09/26/18 blood sugar diagnostic strips See Dose Instructions .ROUTE .MEDSUPPLY #360 ea 10/28/18 Ranitidine HCl [Zantac] 1 tab PO BID 12/21/18 Atorvastatin Calcium 40 mg PO HS 01/07/19 Bumetanide [Bumex] 2 mg PO DAILY #30 tab 01/12/19 HYDROcodone/ACETAMINOPHEN [Hydrocodon-Acetaminophen 5-325] 1 ea PO Q4H PRN #20 tab 01/12/19 Insulin Aspart [Novolog] 10 unit SQ TID #1 vial 01/12/19 Levofloxacin [Levaquin] 500 mg PO DAILY@1100 5 Days #5 tab 01/12/19 Losartan Potassium [Cozaar] 100 mg PO DAILY #30 tab 01/12/19 Metoprolol Succinate [Toprol Xl] 25 mg PO DAILY #30 tablet.sa 01/12/19 Nystatin [Mycostatin Powder] 1 appl TOPICAL BID #1 btl 01/12/19 Potassium Chloride [Klor-Con 10] 10 meq PO DAILY #30 tablet.sa 01/12/19 QUEtiapine FUMARATE [Seroquel] 12.5 mg PO HS #30 tab 01/12/19 Silver Sulfadiazine [Silvadene] 1 appl TOPICAL DAILY #1 jar 01/12/19
[2019-01-12] MEDS: BUMETANIDE 1 MG TABLET PO SCH (08:48)
[2019-01-12] MEDS: ASPIRIN 81 MG TABLET.DR PO SCH (08:48)
[2019-01-12] MEDS: DOXAZOSIN MESYLATE 2 MG TABLET PO SCH (08:51)
[2019-01-12] MEDS: LOSARTAN POTASSIUM 50 MG TABLET PO SCH (08:52)
[2019-01-12] MEDS: POLYETHYLENE GLYCOL 3350 119 GM BTL PO SCH (08:53)
[2019-01-12] MEDS: POTASSIUM CHLORIDE 10 MEQ TABLET.SA PO SCH (08:53)
[2019-01-12] MEDS: GABAPENTIN 300 MG CAPSULE PO SCH ×2 (08:56→12:03)
[2019-01-12] MEDS: BETA-CAROTENE(A) W-C , E/MIN 1 TAB TABLET PO SCH (08:56)
[2019-01-12] MEDS: SENNOSIDES/DOCUSATE SODIUM 1 TAB TABLET PO SCH (08:57)
[2019-01-12] MEDS: METOPROLOL SUCCINATE 25 MG TABLET.SA PO SCH (08:57)
[2019-01-12] MEDS: FAMOTIDINE 20 MG TABLET PO SCH (08:57)
[2019-01-12] MEDS: SERTRALINE HCL 50 MG TABLET PO SCH (08:58)
[2019-01-12] MEDS: LINACLOTIDE 72 MCG PO SCH (08:59)
[2019-01-12] MEDS: SILVER SULFADIAZINE 25 APPL JAR TP SCH (09:11)
[2019-01-12] MEDS: INSULIN DETEMIR 100 UNITS/ML VIAL SC SCH (09:15)
[2019-01-12] MEDS: NYSTATIN 15 APPL BTL TP SCH (09:22)
[2019-01-12] MEDS: LEVOFLOXACIN 500 MG TABLET PO SCH (11:56)
--- NOTE | 2019-01-12 14:07 | PN ---
Subjective - Date and Time Seen Date: 01/12/19 Time: 11:30 Subjective Narrative: Pt evaluated in bedside chair. He is resting comfortably. Denies any pain in his feet today. States that he believes they are getting better. Currently applying Silvadene cream and a dry dressing to the right foot, and dry dressing only to the left foot. Dressings are being changed daily by nursing staff. He is scheduled for d/c today to [facility]. Objective - Review of Systems Generalized/Overall Review: Denies: Chills, Fever Cardiac: Reports: Edema Abdominal: Denies: Nausea, Vomiting Neurological: Reports: Numbness Skin: Reports: Other - ulcerations on feet - Vitals Vitals: Last Vital Signs Temp 36.8 C 01/12/19 10:33 Pulse 92 01/12/19 10:33 Resp 20 01/12/19 10:33 BP 178/69 H 01/12/19 10:33 Pulse Ox 92 L 01/12/19 10:33 - Exam Constitutional: Present: Alert, Cooperative Extremity: Present: lower extremity edema Skin Exam: Present: other - Left foot with several hematogenous blisters that remain intact or have dried leaving a scab over the skin. There are no current breaks in the skin of this foot, no drainage, no SOI. Status of this foot is unchanged at this time. Right great and 2nd toes with denuding of the dorsal skin, unchanged, difficult to obtain accurate measurements of the areas due to continued maceration of skin. Do not appear to expose any subcutaneous fat at this time. Drainage is minimal and is serosanguinous, no malodor present. There is a significant amount of maceration to the 1st and 2nd webspaces, upon cleaning reveals intact skin. Great, 2nd, and 3rd toenails are missing, nailbeds appear healthy with granulation tissue present. There remains superficial abrasion to the dorsum of the 3rd toe that is unchanged. Toes 4 and 5 still with stable scabs present, no drainage. Skin surrounding these areas is pink. Neurologic: Present: sensory deficit Eye contact: Present: cooperative Assessment/Plan - Problems/Diagnosis (1) Avulsion of skin of foot Problem: Acute Qualifiers: Encounter type: initial encounter Laterality: right Qualified Code(s): S91.301A - Unspecified open wound, right foot, initial encounter Narrative: Again discussed with patient current condition and treatment options. Right foot again cleansed with sterile saline and gauze. Due to level of continued maceration about the great and 2nd toes, will dress these toes today with Aquacel Ag. Remaining wounds on right foot again dressed with Silvadene cream, and foot dressed with dry gauze, sohan, and tape. Once maceration has resolved, may return to use of silvadene cream on great and 2nd toes right foot. Left foot appears stable and unchanged. There are 2 areas to the medial foot that we will continue to protect with dry gauze and tape dressing, changed daily. Will allow these areas to continue to dry and scab as other blisters have already done. (2) Open wound of toe(s), without mention of complication Problem: Acute Qualifiers: Encounter type: initial encounter Qualified Code(s): S91.109A - Unspecified open wound of unspecified toe(s) without damage to nail, initial encounter Narrative: Dressings as above. Ok for d/c to [facility] today. Can f/u with me in wound center or may establish with a local wound center/[facility] [employer] if more convenient for patient/family.
[2019-01-12 15:40] VITALS: BP 141/60
== END 2019-01-12 14:30 | DRG 564 ==
LOC: ER 11:41 → MS 14:13
PROVIDERS: ADMIT Internal Medicine; ATTEND Internal Medicine
DX: T79.6XXA Traumatic ischemia of muscle, initial encounter; E11.65 Type 2 diabetes mellitus with hyperglycemia; K21.9 Gastro-esophageal reflux disease without esophagitis; L97.529 Non-pressure chronic ulcer of other part of left foot with unspecified severity; E11.10 Type 2 diabetes mellitus with ketoacidosis without coma; B95.2 Enterococcus as the cause of diseases classified elsewhere; N39.0 Urinary tract infection, site not specified; L97.511 Non-pressure chronic ulcer of other part of right foot limited to breakdown of skin; I50.32 Chronic diastolic (congestive) heart failure; Z79.4 Long term (current) use of insulin; F91.9 Conduct disorder, unspecified; E11.40 Type 2 diabetes mellitus with diabetic neuropathy, unspecified; E87.2 Acidosis; Z91.81 History of falling; W18.30XA Fall on same level, unspecified, initial encounter; I10 Essential (primary) hypertension; R55 Syncope and collapse; T68.XXXA Hypothermia, initial encounter; E03.9 Hypothyroidism, unspecified; L97.519 Non-pressure chronic ulcer of other part of right foot with unspecified severity; R41.0 Disorientation, unspecified; R29.6 Repeated falls
CPT/HCPCS: 36415; 36600; 70450; 71010; 71045; 72170; 73590; 73630; 80048; 80053; 81001; 82009; 82550; 82803; 83036; 83519; 83605; 83880; 84145; 84484; 85025; 85652; 86140; 87040; 87081; 87086; 93005; 93926; 96361; 96365; 96372; 97110; 97162; 97530; 99285